=== PATIENT | male | born 1980 | race Caucasian/White ===

== ENCOUNTER 2018-11-20 14:43 | Inpatient (IN) | payer BC ==
[2018-11-20] MEDS ORDERED: ACETAMINOPHEN TAB 500 MG TAB PO STA (15:13)
[2018-11-20] MEDS ORDERED: IOPAMIDOL-300 CONTRAST 30 ML VIAL (ORAL USE) PO PRN (15:14)
--- NOTE | 2018-11-20 15:21 | ED ---
Abdominal Pain HPI - General Chief Complaint: Abdominal Pain Stated Complaint: Abd Pain Time Seen by Provider: 11/20/18 14:59 Source: patient Mode of arrival: ambulatory Limitations: no limitations - History of Present Illness Initial Comments: Patient is a 38-year-old male presenting for abdominal pain. The patient states that possibly 2 weeks ago, he was seen at outside facility and diagnosed with diverticulitis as well as a kidney stone. He was given Flagyl and ciprofloxacin and advised to follow-up. Y states that he has been having intermittent pain in his lower abdomen since that time but this morning at 9 AM , he got much worse. The pain feels a good cramp sharp sensation radiating down to his testicles. He also plans of nausea and fevers and chills but no vomiting or diarrhea. He states that he also has not been able to urinate in the last 6 hours and feels urge to go. He also has a history of a 7.5 mm stone which also passed on its own. - Related Data Home Medications Medication Instructions Recorded Confirmed Atorvastatin [Lipitor] 20 mg PO HS 11/20/18 11/20/18 Ciprofloxacin HCl [Cipro] 500 mg PO BID 11/20/18 11/20/18 Escitalopram Oxalate [Lexapro] 10 mg PO BID 11/20/18 11/20/18 Fenofibrate,Micronized 134 mg PO DAILY 11/20/18 11/20/18 [Fenofibrate] Lisinopril 40 mg PO DAILY 11/20/18 11/20/18 metroNIDAZOLE [Flagyl] 500 mg PO TID 11/20/18 11/20/18 Allergies Allergy/AdvReac Type Severity Reaction Status Date / Time No Known Allergies Allergy Verified 11/20/18 15:04 Review of Systems ROS Statement: Those systems with pertinent positive or pertinent negative responses have been documented in the HPI. Constitutional: Positive for chills, fatigue and fever. HENT: Negative for congestion. Respiratory: Negative for chest tightness, shortness of breath and wheezing. Negative for cough Cardiovascular: Negative for chest pain and palpitations. Gastrointestinal: Positive for abdominal pain and nausea. Negative for abdominal distention, diarrhea, and vomiting. Genitourinary: Negative for dysuria. Positive for urinary hesitancy. Positive for testicular pain Musculoskeletal: Negative for back pain, neck pain and neck stiffness. Skin: Negative for color change. Neurological: Negative for dizziness, speech difficulty, weakness and light- headedness. Psychiatric/Behavioral: Negative for agitation and confusion. Negative for anxiety ROS Other: All systems not noted in ROS Statement are negative. Past Medical History Past Medical History: Hyperlipidemia, Hypertension Additional Past Medical History / Comment(s): kidney stones multiple times History of Any Multi-Drug Resistant Organisms: None Reported Past Surgical History: Cholecystectomy Past Psychological History: Anxiety Smoking Status: Never smoker Past Alcohol Use History: None Reported Past Drug Use History: Marijuana General Exam - General Exam Comments Initial Comments: Constitutional: Pt is oriented to person, place, and time. Pt appears well- developed and well-nourished. No distress. HENT: Head: Normocephalic and atraumatic. Eyes: EOM are normal. Neck: Normal range of motion. Neck supple. Cardiovascular: Tachycardia present, regular rhythm, S1 normal, S2 normal and normal heart sounds. Exam reveals no gallop and no friction rub. No murmur heard. Pulmonary/Chest: Effort normal and breath sounds normal. No tachypnea and no bradypnea. No respiratory distress. No wheezes or rales noted. Abdominal: Soft. Bowel sounds are normal. Pt exhibits no shifting dullness, no distension, no pulsatile liver, no fluid wave, no abdominal bruit and no ascites. There is tenderness on the left lower quadrant and suprapubic area. There is no rigidity, no rebound, no guarding, no tenderness at McBurney's point and negative Cho's sign. Musculoskeletal: Normal range of motion. : Normal lie of bilateral testicles with no tenderness to palpation Neurological: Pt is alert and oriented to person, place, and time. No cranial nerve deficit. Skin: Skin is warm and dry. No rash noted. Pt is not diaphoretic. No erythema. No pallor. Psychiatric: Pt has a normal mood and affect. Pt behavior is normal. Thought content normal. Limitations: no limitations Course Vital Signs 11/20/18 11/20/18 11/20/18 14:50 15:19 16:00 Temperature 100.1 F H Pulse Rate 129 H 109 H 92 Respiratory 18 22 24 Rate Blood Pressure 119/70 128/81 O2 Sat by Pulse 96 95 98 Oximetry Medical Decision Making - Medical Decision Making Laboratory studies showed that there was no significant leukocytosis and lactic acid was measured at 1.8. Upon arrival, the patient was tachycardic and febrile and therefore blood cultures were also obtained as well as fluid bolus and infusion. Urinalysis was negative for infection and CT of the abdomen showed circumferential wall thickening of the sigmoid colon as well as microperforations without evidence of diverticulitis. Case is discussed with general surgery, Dr. Engle and it was agreed that Zosyn was acceptable and that the patient should be admitted. I did time of disposition, the patient was hemodynamically stable and did not have a surgical abdomen. - Lab Data Result diagrams: 11/20/18 15:15 11/20/18 15:15 Lab Results 11/20/18 11/20/18 11/20/18 Range/Units 15:15 15:15 15:15 WBC 9.3 (3.8-10.6) k/uL RBC 5.12 (4.30-5.90) m/uL Hgb 14.2 (13.0-17.5) gm/dL Hct 41.9 (39.0-53.0) % MCV 81.8 (80.0-100.0) fL MCH 27.8 (25.0-35.0) pg MCHC 33.9 (31.0-37.0) g/dL RDW 13.6 (11.5-15.5) % Plt Count 315 (150-450) k/uL Neutrophils % 82 % Lymphocytes % 12 % Monocytes % 4 % Eosinophils % 1 % Basophils % 0 % Neutrophils # 7.6 (1.3-7.7) k/uL Lymphocytes # 1.1 (1.0-4.8) k/uL Monocytes # 0.4 (0-1.0) k/uL Eosinophils # 0.1 (0-0.7) k/uL Basophils # 0.0 (0-0.2) k/uL PT (9.0-12.0) sec INR (<1.2) APTT (22.0-30.0) sec Sodium 135 L (137-145) mmol/L Potassium 4.6 (3.5-5.1) mmol/L Chloride 100 (98-107) mmol/L Carbon Dioxide 25 (22-30) mmol/L Anion Gap 10 mmol/L BUN 20 (9-20) mg/dL Creatinine 1.09 (0.66-1.25) mg/dL Est GFR (CKD-EPI)AfAm >90 (>60 ml/min/1.73 sqM) Est GFR (CKD-EPI)NonAf 86 (>60 ml/min/1.73 sqM) Glucose 132 H (74-99) mg/dL Plasma Lactic Acid Ab 1.8 (0.7-2.0) mmol/L Calcium 10.7 H (8.4-10.2) mg/dL Total Bilirubin 0.7 (0.2-1.3) mg/dL AST 32 (17-59) U/L ALT 61 (21-72) U/L Alkaline Phosphatase 32 L (38-126) U/L Total Protein 7.6 (6.3-8.2) g/dL Albumin 4.3 (3.5-5.0) g/dL Urine Color Urine Appearance (Clear) Urine pH (5.0-8.0) Ur Specific [place] (1.001-1.035) Urine Protein (Negative) Urine Glucose (UA) (Negative) Urine Ketones (Negative) Urine Blood (Negative) Urine Nitrite (Negative) Urine Bilirubin (Negative) Urine Urobilinogen (<2.0) mg/dL Ur Leukocyte Esterase (Negative) Urine RBC (0-5) /hpf Urine WBC (0-5) /hpf Urine Mucus (None) /hpf Influenza Type A RNA (Not Detectd) Influenza Type B (PCR) (Not Detectd) 11/20/18 11/20/18 11/20/18 Range/Units 15:15 15:38 15:43 WBC (3.8-10.6) k/uL RBC (4.30-5.90) m/uL Hgb (13.0-17.5) gm/dL Hct (39.0-53.0) % MCV (80.0-100.0) fL MCH (25.0-35.0) pg MCHC (31.0-37.0) g/dL RDW (11.5-15.5) % Plt Count (150-450) k/uL Neutrophils % % Lymphocytes % % Monocytes % % Eosinophils % % Basophils % % Neutrophils # (1.3-7.7) k/uL Lymphocytes # (1.0-4.8) k/uL Monocytes # (0-1.0) k/uL Eosinophils # (0-0.7) k/uL Basophils # (0-0.2) k/uL PT 11.0 (9.0-12.0) sec INR 1.0 (<1.2) APTT 21.3 L (22.0-30.0) sec Sodium (137-145) mmol/L Potassium (3.5-5.1) mmol/L Chloride (98-107) mmol/L Carbon Dioxide (22-30) mmol/L Anion Gap mmol/L BUN (9-20) mg/dL Creatinine (0.66-1.25) mg/dL Est GFR (CKD-EPI)AfAm (>60 ml/min/1.73 sqM) Est GFR (CKD-EPI)NonAf (>60 ml/min/1.73 sqM) Glucose (74-99) mg/dL Plasma Lactic Acid Ab (0.7-2.0) mmol/L Calcium (8.4-10.2) mg/dL Total Bilirubin (0.2-1.3) mg/dL AST (17-59) U/L ALT (21-72) U/L Alkaline Phosphatase (38-126) U/L Total Protein (6.3-8.2) g/dL Albumin (3.5-5.0) g/dL Urine Color Yellow Urine Appearance Clear (Clear) Urine pH 5.5 (5.0-8.0) Ur Specific [place] 1.019 (1.001-1.035) Urine Protein 1+ H (Negative) Urine Glucose (UA) Negative (Negative) Urine Ketones Trace H (Negative) Urine Blood Trace H (Negative) Urine Nitrite Negative (Negative) Urine Bilirubin Negative (Negative) Urine Urobilinogen <2.0 (<2.0) mg/dL Ur Leukocyte Esterase Trace H (Negative) Urine RBC 1 (0-5) /hpf Urine WBC 3 (0-5) /hpf Urine Mucus Occasional H (None) /hpf Influenza Type A RNA Not Detected (Not Detectd) Influenza Type B (PCR) Not Detected (Not Detectd) - EKG Data EKG Comments: EKG shows sinus tachycardia with a rate of 110 bpm, [place] interval 138, QRS 96, QTC 414. There are no significant ST depressions or elevations. Disposition Clinical Impression: Sepsis, Colitis Disposition: ADMITTED IP TO THIS HOSP Condition: Fair Referrals: Valentin Zabala, PAC [REFERRING] - 1-2 days Decision to Admit Reason: Admit from EC Decision Date: 11/20/18 Decision Time: 18:11
[2018-11-20 15:33] LABS: Basophils % (A) 0 %; Eosinophils # (A) 0.1 k/uL (0-0.7); Eosinophils % (A) 1 %; HCT 41.9 % (39.0-53.0); HGB 14.2 gm/dL (13.0-17.5); Lymphocytes # (A) 1.1 k/uL (1.0-4.8); Lymphocytes % (A) 12 %; MCH 27.8 pg (25.0-35.0); MCHC 33.9 g/dL (31.0-37.0); MCV 81.8 fL (80.0-100.0); Mean Platelet Volume 6.5; Monocytes # (A) 0.4 k/uL (0-1.0); Monocytes % (A) 4 %; Neutrophils # (A) 7.6 k/uL (1.3-7.7); Neutrophils % (A) 82 %; Platelet Count 315 k/uL (150-450); RBC 5.12 m/uL (4.30-5.90); RDW 13.6 % (11.5-15.5); WBC 9.3 k/uL (3.8-10.6)
[2018-11-20] MEDS: SODIUM CHLORIDE 0.9% 500 ML 500 ML IV SCH ×2 (15:33→15:34)
[2018-11-20] MEDS: SODIUM CHLORIDE 0.9% 1,000 ML IV SCH ×2 (15:34→23:50)
[2018-11-20 15:40] LABS: ALT 61 U/L (21-72); AST 32 U/L (17-59); Albumin 4.3 g/dL (3.5-5.0); Alkaline Phosphatase 32 U/L (38-126); Anion Gap 10 mmol/L; Blood Urea Nitrogen 20 mg/dL (9-20); Calcium 10.7 mg/dL (8.4-10.2); Carbon Dioxide 25 mmol/L (22-30); Chloride 100 mmol/L (98-107); Glucose 132 mg/dL (74-99); Potassium 4.6 mmol/L (3.5-5.1); Sodium 135 mmol/L (137-145); Total Bilirubin 0.7 mg/dL (0.2-1.3); Total Protein 7.6 g/dL (6.3-8.2)
[2018-11-20] MEDS ORDERED: ONDANSETRON 4 MG/2 ML VIAL IVP STA (15:57)
[2018-11-20] MEDS ORDERED: MORPHINE SULFATE 4 MG/ML SYRINGE IVP STA (15:57)
[2018-11-20 16:00] LABS: Appearance,Urine Clear (Clear); Bilirubin,Urine Negative (Negative); Blood,Urine Trace (Negative); Color,Urine Yellow; Glucose,Urine (UA) Negative (Negative); Ketones,Urine Trace (Negative); Leukocyte Esterase,Urine Trace (Negative); Mucus,Urine Occasional /hpf; Nitrite,Urine Negative (Negative); PH, Urine 5.5 (5.0-8.0); Protein,Urine 1+ (Negative); RBC,Urine 1 /hpf (0-5); Specific Gravity,Urine 1.019 (1.001-1.035); Urobilinogen,Urine <2.0 mg/dL (<2.0); WBC,Urine 3 /hpf (0-5)
[2018-11-20 16:01] LABS: Partial Thromboplastin Time 21.3 sec (22.0-30.0)
[2018-11-20] MEDS ORDERED: HYDROmorphone 1 MG/ML 1 ML SYRINGE IVP STA (17:30)
--- NOTE | 2018-11-20 17:37 | CT ---
EXAMINATION TYPE: CT abdomen pelvis w con DATE OF EXAM: 11/20/2018 COMPARISON: None. HISTORY: 38-year-old male with low abdominal pain and reported history of diverticulitis CT DLP: 1499 mGycm Automated exposure control for dose reduction was used. TECHNIQUE: Helical acquisition of images was performed from the lung bases through the pelvis. CONTRAST: Imaging was obtained following intravenous administration of 100 cc of Isovue-[address] FINDINGS: LUNG BASES: No significant abnormality is appreciated. LIVER/GB: Gallbladder is surgically absent. Overall low attenuation of the hepatic parenchyma. PANCREAS: No significant abnormality is seen. SPLEEN: No significant abnormality is seen. ADRENALS: No significant abnormality is seen. KIDNEYS: 6 mm nonobstructing left-sided renal stone. No additional concerning renal findings. No hydr onephrosis. RETROPERITONEAL ADENOPATHY: None visualized REPRODUCTIVE ORGANS: No significant abnormality is seen URINARY BLADDER: No significant abnormality is seen. PELVIC ADENOPATHY: None visualized. OSSEOUS STRUCTURES: No significant abnormality is seen. BOWEL: Long segment circumferential wall thickening of the sigmoid: With extensive surrounding mesen teric fat inflammatory changes. Numerous foci of extra luminal air also seen centered within this are a. Small amount of fluid is seen within the low pelvis in this region. Multiple stacked loops of prom inent small bowel are seen is centered within the mid abdomen with air-fluid levels. IMPRESSION: 1. Circumferential long segment wall thickening of the sigmoid colon with extensive surrounding mesen teric fat inflammation and microperforation. Infectious or inflammatory etiologies are favored. No di stinct diverticula are seen in this region. Endoscopy should be considered following resolution of sy mptoms. 2. Multiple prominent stacked loops of small bowel with air-fluid levels likely relating to reactive ileus. 3. Nonobstructing left sided mid pole renal stone. 4. Diffuse low attenuation of the hepatic parenchyma most consistent with hepatic steatosis. Supplemental communication-findings were discussed with Dr. Gupta by Dr. Briceno on 11/20/2018 at 1730 hours.
[2018-11-20] MEDS: PIPERACILLIN-TAZOBACTAM 3.375 GM in SODIUM CHLORIDE 0.9% 100 ML IVPB SCH ×2 (18:52→23:44)
[2018-11-20] MEDS: ACETAMINOPHEN IV (For NPO) 650 MG in EMPTY BAG 1 BAG IVPB PRN (22:00)
[2018-11-20] MEDS: HYDROmorphone 0.5 MG/0.5 ML SYRINGE IVP PRN (23:49)
[2018-11-20] MEDS: ONDANSETRON 4 MG/2 ML VIAL IVP PRN (23:49)
[2018-11-21] MEDS: ACETAMINOPHEN IV (For NPO) 650 MG in EMPTY BAG 1 BAG IVPB PRN (02:50)
[2018-11-21] MEDS: HYDROmorphone 0.5 MG/0.5 ML SYRINGE IVP PRN ×6 (02:51→23:10)
[2018-11-21 09:01] LABS: Basophils % (A) 0 %; Eosinophils % (A) 0 %; HCT 37.2 % (39.0-53.0); Lymphocytes # (A) 0.7 k/uL (1.0-4.8); Lymphocytes % (A) 7 %; MCH 27.1 pg (25.0-35.0); MCHC 32.3 g/dL (31.0-37.0); Mean Platelet Volume 6.3; Monocytes # (A) 0.3 k/uL (0-1.0); Monocytes % (A) 3 %; Neutrophils # (A) 8.9 k/uL (1.3-7.7); Neutrophils % (A) 89 %; Platelet Count 275 k/uL (150-450); RBC 4.43 m/uL (4.30-5.90); RDW 13.7 % (11.5-15.5); WBC 9.9 k/uL (3.8-10.6)
[2018-11-21] MEDS: PIPERACILLIN-TAZOBACTAM 3.375 GM in SODIUM CHLORIDE 0.9% 100 ML IVPB SCH ×3 (09:05→23:10)
[2018-11-21] MEDS: SODIUM CHLORIDE 0.9% 1,000 ML IV SCH (09:05)
[2018-11-21 09:09] LABS: ALT 51 U/L (21-72); AST 26 U/L (17-59); Albumin 3.3 g/dL (3.5-5.0); Alkaline Phosphatase 23 U/L (38-126); Anion Gap 7 mmol/L; Blood Urea Nitrogen 12 mg/dL (9-20); Calcium 9.3 mg/dL (8.4-10.2); Carbon Dioxide 27 mmol/L (22-30); Chloride 105 mmol/L (98-107); Glucose 124 mg/dL (74-99); Potassium 4.3 mmol/L (3.5-5.1); Sodium 139 mmol/L (137-145); Total Bilirubin 0.9 mg/dL (0.2-1.3); Total Protein 6.1 g/dL (6.3-8.2)
[2018-11-21] MEDS: LISINOPRIL 20 MG TAB PO SCH (09:09)
[2018-11-21] MEDS ORDERED: SODIUM CHLORIDE 0.9% 500 ML 500 ML IV ONE (10:04)
--- NOTE | 2018-11-21 11:44 | P.GSHP ---
History of Present Illness H&P Date: 11/21/18 Chief Complaint: Diverticulitis 38-year-old male presents to the ER yesterday with increasing pain left lower quadrant. Patient starting having pain approximately 2.5 weeks ago. He was seen in the outpatient setting by his primary care physician. He was started on Augmentin. He completed that course and did have some improvement in his symptoms. He says he was off antibiotics for 3-4 days when his pain felt like it was coming back. He was then seen again and started on Cipro and Flagyl. He only took 1 dose of each when his pain was increasing and he came to the hospital. Some bloating. He is having adequate bowel function. Only small amount of bright red blood per rectum. No previous colonoscopy. No family history of inflammatory bowel disease or colon cancer. CAT scan was performed after arrival which showed a phlegmon adjacent to the sigmoid colon and a small- to-moderate amount of air within the mesentery of the sigmoid colon. No free intraperitoneal air is visualized with certainty. Patient states his pain today is down to 5-6 compared to 10 last night. His white blood cell count normal yesterday and today. He has been tachycardic particularly when ambulating. Resting heart rate in the 90s. Pain localized he states to the lower abdomen. No vomiting. Some nausea. - Review of Systems Comment: The patient denies any acute changes in vision or hearing, no dysphagia or odynophagia, no chest pain or shortness of breath, no dysuria or hematuria, no headache, no runny nose, no melena, no unexplained weight loss Past Medical History Past Medical History: Hyperlipidemia, Hypertension Additional Past Medical History / Comment(s): kidney stones multiple times History of Any Multi-Drug Resistant Organisms: None Reported Past Surgical History: Cholecystectomy Additional Past Surgical History / Comment(s): kidney stone surgery Past Anesthesia/Blood Transfusion Reactions: Postoperative Nausea & Vomiting ( PONV) Past Psychological History: Anxiety Smoking Status: Never smoker Past Alcohol Use History: None Reported Past Drug Use History: Marijuana - Past Family History Father History Unknown: Yes Mother Family Medical History: COPD Additional Family Medical History / Comment(s): recently Medications and Allergies Home Medications Medication Instructions Recorded Confirmed Type Atorvastatin [Lipitor] 20 mg PO HS 11/20/18 11/20/18 History Ciprofloxacin HCl [Cipro] 500 mg PO BID 11/20/18 11/20/18 History Escitalopram Oxalate [Lexapro] 10 mg PO BID 11/20/18 11/20/18 History Fenofibrate,Micronized 134 mg PO DAILY 11/20/18 11/20/18 History [Fenofibrate] Lisinopril 40 mg PO DAILY 11/20/18 11/20/18 History metroNIDAZOLE [Flagyl] 500 mg PO TID 11/20/18 11/20/18 History Allergies Allergy/AdvReac Type Severity Reaction Status Date / Time No Known Allergies Allergy Verified 11/20/18 15:04 Surgical - Exam Vital Signs Temp Pulse Resp BP Pulse Ox 100.1 F H 129 H 18 119/70 96 11/20/18 14:50 11/20/18 14:50 11/20/18 14:50 11/20/18 14:50 11/20/18 14:50 Physical exam: General: Well-developed, well-nourished HEENT: Normocephalic, sclerae nonicteric Abdomen: Mild distention, moderate left lower quadrant tenderness without rebound or guarding Extremities: No edema Neuro: Alert and oriented Results - Labs 11/21/18 08:40 11/21/18 08:40 Abnormal Lab Results - Last 24 Hours (Table) 11/20/18 11/20/18 11/20/18 Range/Units 15:15 15:15 15:43 Hgb (13.0-17.5) gm/dL Hct (39.0-53.0) % Neutrophils # (1.3-7.7) k/uL Lymphocytes # (1.0-4.8) k/uL APTT 21.3 L (22.0-30.0) sec Sodium 135 L (137-145) mmol/L Glucose 132 H (74-99) mg/dL Calcium 10.7 H (8.4-10.2) mg/dL Alkaline Phosphatase 32 L (38-126) U/L Total Protein (6.3-8.2) g/dL Albumin (3.5-5.0) g/dL Urine Protein 1+ H (Negative) Urine Ketones Trace H (Negative) Urine Blood Trace H (Negative) Ur Leukocyte Esterase Trace H (Negative) Urine Mucus Occasional H (None) /hpf 11/21/18 11/21/18 Range/Units 08:40 08:40 Hgb 12.0 L (13.0-17.5) gm/dL Hct 37.2 L (39.0-53.0) % Neutrophils # 8.9 H (1.3-7.7) k/uL Lymphocytes # 0.7 L (1.0-4.8) k/uL APTT (22.0-30.0) sec Sodium (137-145) mmol/L Glucose 124 H (74-99) mg/dL Calcium (8.4-10.2) mg/dL Alkaline Phosphatase 23 L (38-126) U/L Total Protein 6.1 L (6.3-8.2) g/dL Albumin 3.3 L (3.5-5.0) g/dL Urine Protein (Negative) Urine Ketones (Negative) Urine Blood (Negative) Ur Leukocyte Esterase (Negative) Urine Mucus (None) /hpf Microbiology - Last 24 Hours (Table) 11/20/18 15:43 Urine Culture - Preliminary Urine,Voided Diabetes panel 11/20/18 11/21/18 Range/Units 15:15 08:40 Sodium 135 L 139 (137-145) mmol/L Potassium 4.6 4.3 (3.5-5.1) mmol/L Chloride 100 105 (98-107) mmol/L Carbon Dioxide 25 27 (22-30) mmol/L BUN 20 12 (9-20) mg/dL Creatinine 1.09 0.96 (0.66-1.25) mg/dL Glucose 132 H 124 H (74-99) mg/dL Calcium 10.7 H 9.3 (8.4-10.2) mg/dL AST 32 26 (17-59) U/L ALT 61 51 (21-72) U/L Alkaline Phosphatase 32 L 23 L (38-126) U/L Total Protein 7.6 6.1 L (6.3-8.2) g/dL Albumin 4.3 3.3 L (3.5-5.0) g/dL Calcium panel 11/20/18 11/21/18 Range/Units 15:15 08:40 Calcium 10.7 H 9.3 (8.4-10.2) mg/dL Albumin 4.3 3.3 L (3.5-5.0) g/dL Pituitary panel 11/20/18 11/21/18 Range/Units 15:15 08:40 Sodium 135 L 139 (137-145) mmol/L Potassium 4.6 4.3 (3.5-5.1) mmol/L Chloride 100 105 (98-107) mmol/L Carbon Dioxide 25 27 (22-30) mmol/L BUN 20 12 (9-20) mg/dL Creatinine 1.09 0.96 (0.66-1.25) mg/dL Glucose 132 H 124 H (74-99) mg/dL Calcium 10.7 H 9.3 (8.4-10.2) mg/dL Adrenal panel 11/20/18 11/21/18 Range/Units 15:15 08:40 Sodium 135 L 139 (137-145) mmol/L Potassium 4.6 4.3 (3.5-5.1) mmol/L Chloride 100 105 (98-107) mmol/L Carbon Dioxide 25 27 (22-30) mmol/L BUN 20 12 (9-20) mg/dL Creatinine 1.09 0.96 (0.66-1.25) mg/dL Glucose 132 H 124 H (74-99) mg/dL Calcium 10.7 H 9.3 (8.4-10.2) mg/dL Total Bilirubin 0.7 0.9 (0.2-1.3) mg/dL AST 32 26 (17-59) U/L ALT 61 51 (21-72) U/L Alkaline Phosphatase 32 L 23 L (38-126) U/L Total Protein 7.6 6.1 L (6.3-8.2) g/dL Albumin 4.3 3.3 L (3.5-5.0) g/dL Assessment and Plan (1) Perforation of sigmoid colon due to diverticulitis Narrative/Plan: Clinical scenario discussed in detail with the patient. CAT scan films were actually reviewed with the patient. He and I discussed the options of proceeding with sigmoid colectomy and end colostomy at this time. Patient states he is feeling better today. It is reasonable to continue trial of nonoperative management. Continue nothing by mouth. Continue antibiotics. Will consult infectious disease. Further decisions regarding colectomy will be made based on his progress. Current Visit: Yes Status: Acute Code(s): K57.20 - DVTRCLI OF LG INT W PERFORATION AND ABSCESS W/O BLEEDING SNOMED Code(s): 9079833733628853
[2018-11-21] MEDS: KETOROLAC 30 MG/ML 1 ML VIAL IVP SCH ×3 (13:16→23:11)
[2018-11-21] MEDS: DEXTROSE 5%-0.45% NACL 1,000 ML with POTASSIUM CHLORIDE 20 MEQ IV SCH ×4 (14:32→22:43)
--- NOTE | 2018-11-21 14:34 | P.CONS ---
History of Present Illness - Reason for Consult Consult date: 11/21/18 Medical management while hospitalized Requesting physician: Guillermo Engle - Chief Complaint Abdominal pain - History of Present Illness Sheldon Virk, is a 38-year-old male patient of Dr. Blanquita Pimentel who presented to [facility] emergency room with a chief complaint of abdominal pain patient states that his pain started about 2 and a half weeks ago at that time he went to [facility] emergency room he was given a course of antibiotic and was discharged home, he finished the course of Augmentin but his symptoms did not resolve he went to [facility] he was evaluated there and given a course of Cipro and Flagyl he started taking the course however he started having worsening abdominal pain and he came to [facility] emergency room computed tomography scan of the abdomen and pelvis was done in emergency room and revealed evidence of fluid collection adjacent to the sigmoid colon and air within the mesentery of the sigmoid colon suggestive of microperforation, patient was admitted under Dr. Willian Engle service, medical consultation was requested for management while hospitalized. Patient has a known history of hypertension and hyperlipidemia well-controlled on medications, he has a remote history of kidney stones with multiple intervention in the past mostly between 10 years ago and 6 years ago, he also has a history of cholecystectomy. Past Medical History Past Medical History: Hyperlipidemia, Hypertension Additional Past Medical History / Comment(s): kidney stones multiple times History of Any Multi-Drug Resistant Organisms: None Reported Past Surgical History: Cholecystectomy Additional Past Surgical History / Comment(s): kidney stone surgery Past Anesthesia/Blood Transfusion Reactions: Postoperative Nausea & Vomiting ( PONV) Past Psychological History: Anxiety Smoking Status: Never smoker Past Alcohol Use History: None Reported Past Drug Use History: Marijuana - Past Family History Father History Unknown: Yes Mother Family Medical History: COPD Additional Family Medical History / Comment(s): recently Medications and Allergies Home Medications Medication Instructions Recorded Confirmed Type Atorvastatin [Lipitor] 20 mg PO HS 11/20/18 11/20/18 History Ciprofloxacin HCl [Cipro] 500 mg PO BID 11/20/18 11/20/18 History Escitalopram Oxalate [Lexapro] 10 mg PO BID 11/20/18 11/20/18 History Fenofibrate,Micronized 134 mg PO DAILY 11/20/18 11/20/18 History [Fenofibrate] Lisinopril 40 mg PO DAILY 11/20/18 11/20/18 History metroNIDAZOLE [Flagyl] 500 mg PO TID 11/20/18 11/20/18 History Allergies Allergy/AdvReac Type Severity Reaction Status Date / Time No Known Allergies Allergy Verified 11/20/18 15:04 Physical Exam Vitals: Vital Signs Temp Pulse Pulse Resp BP BP Pulse Ox 11/21/18 07:00 98.6 F 95 16 130/79 95 11/21/18 01:06 98.9 F 88 16 119/68 97 11/20/18 22:12 16 11/20/18 20:30 98.4 F 99 16 105/67 95 11/20/18 18:54 100.9 F H 100 20 117/66 94 L 11/20/18 16:00 92 24 128/81 98 11/20/18 15:19 109 H 22 95 11/20/18 14:50 100.1 F H 129 H 18 119/70 96 Intake and Output 11/20/18 11/21/18 11/21/18 22:59 06:59 14:59 Intake Total 450 950 Balance 450 950 Intake: Intake, IV Titration 450 950 Amount ACETAMINOPHEN IV (For NPO 100 100 ) 650 mg In Empty Bag 1 bag @ 400 mls/hr IVPB Q4HR PRN Rx#:[id number] Piperacillin-Tazobactam 3 100 100 .375 gm In Sodium Chloride 0.9% 100 ml @ 25 mls/hr IVPB Q8HR MODE Rx# :[id number] Sodium Chloride 0.9% 1, 250 750 000 ml @ 125 mls/hr IV . Q8H MODE Rx#:[id number] Other: Voiding Method Toilet Toilet Toilet # Voids 1 2 # Bowel Movements 1 In general patient is alert and oriented 3 in no apparent distress HEENT head normocephalic and atraumatic Neck is supple no JVD no goiter no lymphadenopathy Chest exam reveals a few scattered crackles no wheezing Cardiac exam reveals regular heart sounds S1 and S2 no gallops no murmurs Abdomen is soft with tenderness in the left lower quadrant and less so on the right lower quadrant there is no organomegaly with normal bowel sounds Extremity exam reveals no edema no cyanosis or clubbing Results CBC & Chem 7: 11/21/18 08:40 11/21/18 08:40 Labs: Abnormal Lab Results - Last 24 Hours (Table) 11/20/18 11/20/18 11/20/18 Range/Units 15:15 15:15 15:43 Hgb (13.0-17.5) gm/dL Hct (39.0-53.0) % Neutrophils # (1.3-7.7) k/uL Lymphocytes # (1.0-4.8) k/uL APTT 21.3 L (22.0-30.0) sec Sodium 135 L (137-145) mmol/L Glucose 132 H (74-99) mg/dL Calcium 10.7 H (8.4-10.2) mg/dL Alkaline Phosphatase 32 L (38-126) U/L Total Protein (6.3-8.2) g/dL Albumin (3.5-5.0) g/dL Urine Protein 1+ H (Negative) Urine Ketones Trace H (Negative) Urine Blood Trace H (Negative) Ur Leukocyte Esterase Trace H (Negative) Urine Mucus Occasional H (None) /hpf 11/21/18 11/21/18 Range/Units 08:40 08:40 Hgb 12.0 L (13.0-17.5) gm/dL Hct 37.2 L (39.0-53.0) % Neutrophils # 8.9 H (1.3-7.7) k/uL Lymphocytes # 0.7 L (1.0-4.8) k/uL APTT (22.0-30.0) sec Sodium (137-145) mmol/L Glucose 124 H (74-99) mg/dL Calcium (8.4-10.2) mg/dL Alkaline Phosphatase 23 L (38-126) U/L Total Protein 6.1 L (6.3-8.2) g/dL Albumin 3.3 L (3.5-5.0) g/dL Urine Protein (Negative) Urine Ketones (Negative) Urine Blood (Negative) Ur Leukocyte Esterase (Negative) Urine Mucus (None) /hpf Microbiology - Last 24 Hours (Table) 11/20/18 15:43 Urine Culture - Preliminary Urine,Voided Assessment and Plan Plan: #1 acute colitis with evidence of microperforation of the sigmoid colon with possible abscess formation was fluid collection adjacent to the sigmoid colon Currently patient is maintained on IV antibiotics Zosyn possibility of partial colectomy was discussed with the patient by Dr. Engle, the need for that will depend on the clinical course. #2 underlying history of hypertension, well-controlled continue same medications #3 underlying history of hyperlipidemia #4 for DVT prophylaxis patient is maintained on subcu heparin for GI prophylaxis Will add IV Protonix #5 remote history of kidney stones, patient has a 6 mm nonobstructing left sided kidney stone at this time which is an incidental finding not related to patient pain and not causing any hydronephrosis at this time. Recheck labs in a.m. Will follow closely
[2018-11-21] MEDS: HEPARIN SODIUM,PORCINE 5,000 UNIT/ML 1 ML VIAL SQ SCH ×2 (16:37→23:11)
--- NOTE | 2018-11-22 00:41 | CONS ---
CONSULTATION DATE OF SERVICE: 11/21/2018. REASON FOR CONSULTATION: Acute diverticulitis, failing outpatient antibiotic therapy. HISTORY OF PRESENT ILLNESS: The patient is a 38-year-old male who apparently started having pain in his flank area about 2 weeks ago for which the patient did go to the [facility] where the patient did have a CT of the abdomen and pelvis and was diagnosed with acute diverticulitis. The patient told me that he was treated with oral Augmentin. It was for 2 weeks. He was still having some pain in the left lower quadrant area. The patient went to follow up with his primary care physician at [facility] on Thursday where the patient was instructed that if he has any recurrence of the pain or throwing up that he has to go to the [facility] ER. Patient on Thursday started having pain mostly in the left lower abdominal area. Pain described to be sharp, at times colicky, almost 10/10, in severity with no radiation, with associated dry heaves, but no vomiting and also associated difficulty urination. With these symptoms, the patient presented to the [facility] ER. The patient was evaluated by the ER physician. Patient did have a fever of 100.9. His white count was not significantly elevated. His UA was negative. The patient did have a heart rate of 99. A CT abdomen and pelvis was completed which did show some circumferential of the sigmoid colon with extensive surrounding mesenteric fat inflammation and microperforation, but no drainable abscess. The patient has been started on Zosyn and admitted to the hospital. Infectious disease was consulted for further recommendation regarding antibiotic therapy. REVIEW OF SYSTEMS: Positive points have been mentioned in HPI. The rest of 14 systems has been negative. PAST MEDICAL HISTORY: Hypertension, hyperlipidemia, kidney stone and diverticulitis. PAST SURGICAL HISTORY: Significant for kidney stones and cholecystectomy. SOCIAL HISTORY: No history of smoking, drinking, does admit to marijuana use. FAMILY HISTORY: Mother with history of COPD. ALLERGIES: No known drug allergies. MEDICATION: Include the patient is currently on: 1. Tylenol. 2. Heparin. 3. Dilaudid. 4. Toradol. 5. Zestril. 6. Zofran. 7. Zosyn. PHYSICAL EXAMINATION: Blood pressure is 104/63 with a pulse of 92, temperature 98.5, T-max a 100.9, he is 96% on room air. General description is a middle-aged male lying in bed in no distress. No tachypnea or accessory muscles of respiration use. HEENT: Shows pallor. No scleral icterus. Oral mucosa membranes are dry. No pharyngeal erythema or thrush. Neck trachea central. No thyromegaly. Lungs unlabored breathing. Clear to auscultation anteriorly. No wheeze or crackles. Heart S1, S2. Regular rate and rhythm. ABDOMEN: Soft, mildly distended, tender in the left lower quadrant area. No guarding. No rigidity. No organomegaly. Extremities: No edema of the feet. Skin examination: No rash or mass palpable. Neurological: Patient is awake, alert, oriented x3. Mood and affect normal. LABS: Hemoglobin is 12, white count 9.9, BUN of 12, creatinine 0.96, electrolytes have been normal. Liver enzymes are normal. The influenza PCR has been negative. CT of the abdomen and pelvis report mentioned above. DIAGNOSTIC IMPRESSION AND PLAN: Patient with acute sigmoid diverticulitis with microperforation. No evidence of any drainable abscess. Failing outpatient oral Augmentin therapy in this patient who did have features of sepsis on presentation with fever, tachycardia, source being acute sigmoid diverticulitis with microperforation and will likely need to cover for the enteric gram-negative both aerobes and anaerobes. PLAN: 1. Zosyn 3.375 g q.8 hours and the patient n.p.o. 2. Gentle IV fluid. 3. We will follow up on his clinical condition to further adjust medication if needed. In view of this extensive diverticulitis, if the patient does show some improvement, may benefit from outpatient IV antibiotic therapy and close outpatient followup. 4. Continue supportive care. MMODL / IJN: [id number] /
[2018-11-22] MEDS: DEXTROSE 5%-0.45% NACL 1,000 ML with POTASSIUM CHLORIDE 20 MEQ IV SCH ×4 (02:40→04:24)
[2018-11-22] MEDS: HYDROmorphone 0.5 MG/0.5 ML SYRINGE IVP PRN ×3 (04:24→13:06)
[2018-11-22] MEDS: KETOROLAC 30 MG/ML 1 ML VIAL IVP SCH ×2 (05:15→12:07)
[2018-11-22 08:38] LABS: Basophils % (A) 0 %; Eosinophils # (A) 0.1 k/uL (0-0.7); Eosinophils % (A) 1 %; HCT 36.3 % (39.0-53.0); HGB 11.8 gm/dL (13.0-17.5); Hypochromasia Slight; Lymphocytes # (A) 0.7 k/uL (1.0-4.8); Lymphocytes % (A) 7 %; MCH 27.9 pg (25.0-35.0); MCHC 32.4 g/dL (31.0-37.0); MCV 86.1 fL (80.0-100.0); Mean Platelet Volume 6.9; Monocytes # (A) 0.4 k/uL (0-1.0); Monocytes % (A) 4 %; Neutrophils # (A) 8.7 k/uL (1.3-7.7); Neutrophils % (A) 88 %; Platelet Count 261 k/uL (150-450); RBC 4.21 m/uL (4.30-5.90); WBC 9.9 k/uL (3.8-10.6)
[2018-11-22] MEDS: PIPERACILLIN-TAZOBACTAM 3.375 GM in SODIUM CHLORIDE 0.9% 100 ML IVPB SCH ×2 (08:51→15:53)
[2018-11-22 08:52] LABS: Calcium 8.9 mg/dL (8.4-10.2); Potassium 4.6 mmol/L (3.5-5.1)
[2018-11-22] MEDS: LISINOPRIL 20 MG TAB PO SCH (08:52)
[2018-11-22] MEDS: HEPARIN SODIUM,PORCINE 5,000 UNIT/ML 1 ML VIAL SQ SCH ×2 (08:58→15:53)
--- NOTE | 2018-11-22 10:34 | P.PN ---
Subjective Progress Note Date: 11/22/18 Sheldon Virk, is a 38-year-old male patient of Dr. Blanquita Pimentel who presented to [facility] emergency room with a chief complaint of abdominal pain patient states that his pain started about 2 and a half weeks ago at that time he went to [facility] emergency room he was given a course of antibiotic and was discharged home, he finished the course of Augmentin but his symptoms did not resolve he went to [facility] he was evaluated there and given a course of Cipro and Flagyl he started taking the course however he started having worsening abdominal pain and he came to [facility] emergency room computed tomography scan of the abdomen and pelvis was done in emergency room and revealed evidence of fluid collection adjacent to the sigmoid colon and air within the mesentery of the sigmoid colon suggestive of microperforation, patient was admitted under Dr. Willian Engle service, medical consultation was requested for management while hospitalized. Patient has a known history of hypertension and hyperlipidemia well-controlled on medications, he has a remote history of kidney stones with multiple intervention in the past mostly between 10 years ago and 6 years ago, he also has a history of cholecystectomy. 11/22/2018 patient still complaining of lower abdominal pain and abdominal distention. Surgical service is following awaiting their evaluation regarding possible surgery. Patient now having low-grade temps of 99.9. He was hypotensive yesterday blood pressure 99/61. Blood pressure this morning 101/64 creatinine has gone up to 1.51 lisinopril be discontinued. He is currently on IV fluids. Denies any chest pain or shortness of breath. Denies any nausea or vomiting. Reports having bowel movements that are loose in small amounts. Denies any burning with urination. Objective - Vital Signs Vital signs: Vital Signs Temp 97.6 F 11/22/18 07:17 Pulse 90 11/22/18 07:17 Resp 14 11/22/18 07:17 BP 101/64 11/22/18 07:17 Pulse Ox 98 11/22/18 07:17 Intake & Output 11/21/18 11/22/18 11/22/18 18:59 06:59 18:59 Intake Total 1000 1470 Balance 1000 1470 Weight 97.976 kg Intake: IV 1000 Dextrose 5%-0.45% NaCl 1, 1000 000 ml @ 150 mls/hr IV . Q6H44M MODE with Potassium Chloride 20 meq Rx#: [id number] Intake, IV Titration 1420 Amount Dextrose 5%-0.45% NaCl 1, 1220 000 ml @ 150 mls/hr IV . Q6H44M MODE with Potassium Chloride 20 meq Rx#: [id number] Piperacillin-Tazobactam 3 200 .375 gm In Sodium Chloride 0.9% 100 ml @ 25 mls/hr IVPB Q8HR MODE Rx# :[id number] Oral 50 Other: Voiding Method Toilet Toilet Toilet # Voids 2 2 # Bowel Movements 1 - Exam Head normocephalic Neck supple Lungs clear to auscultation bilaterally no wheezing or crackles Heart regular rate and rhythm S1-S2, no rub or gallop Abdomen is soft and distended lower abdominal tenderness positive bowel sounds Extremities no edema Neuro alert and orientated to 3 - Labs CBC & Chem 7: 11/22/18 07:55 11/22/18 07:55 Labs: Abnormal Lab Results - Last 24 Hours (Table) 11/22/18 11/22/18 Range/Units 07:55 07:55 RBC 4.21 L (4.30-5.90) m/uL Hgb 11.8 L (13.0-17.5) gm/dL Hct 36.3 L (39.0-53.0) % Neutrophils # 8.7 H (1.3-7.7) k/uL Lymphocytes # 0.7 L (1.0-4.8) k/uL Creatinine 1.51 H (0.66-1.25) mg/dL Glucose 135 H (74-99) mg/dL Microbiology - Last 24 Hours (Table) 11/20/18 15:43 Urine Culture - Final Urine,Voided 11/20/18 15:15 Blood Culture - Preliminary Blood No Growth after 24 hours Assessment and Plan Assessment: #1 acute sigmoid diverticulitis with evidence of microperforation and possible abscess formation was fluid collection adjacent to the sigmoid colon Currently patient is maintained on IV antibiotics Zosyn possibility of partial colectomy was discussed with the patient by Dr. Engle, the need for that will depend on the clinical course. ID and surgical service following. Patient currently nothing by mouth. Continue with IV fluids. #2 essential hypertension #3 underlying history of hyperlipidemia #4 for DVT prophylaxis patient is maintained on subcu heparin for GI prophylaxis Will add IV Protonix #5 remote history of kidney stones, patient has a 6 mm nonobstructing left sided kidney stone at this time which is an incidental finding not related to patient pain and not causing any hydronephrosis at this time. #6 acute kidney injury likely related to hypotension and nothing by mouth status. Patient will be hydrated with IV fluids. Discontinue MARCK inhibitor. Continue to monitor closely. Repeat labs in a.m. I performed an examination of the patient and discussed their management with the physician Hand Candy Molder. I have reviewed the Physician Hand Candy Molder's notes and agree with the documented findings and plan of care
[2018-11-22] MEDS: D5-0.45% NACL WITH KCL 20MEQ/L 1,000 ML IV SCH ×2 (13:03→20:01)
--- NOTE | 2018-11-22 13:13 | P.PN ---
Subjective Progress Note Date: 11/22/18 Principal diagnosis: Diverticulitis Patient I spoke by phone earlier this morning. Patient was assessed around noon today in person. He believes his pain is about the same as it was yesterday when he was seen by myself. Low-grade fevers last night noted. White blood cell count is normal today. Passing flatus with small amount of liquid stools. He says his pain seems to be aggravated primarily when he gets up to use the restroom with the bowel activity. Pain remains in the lower abdomen. Denies upper abdominal discomfort. Objective - Vital Signs Vital signs: Vital Signs Temp 97.6 F 11/22/18 07:17 Pulse 90 11/22/18 07:17 Resp 14 11/22/18 07:17 BP 101/64 11/22/18 07:17 Pulse Ox 98 11/22/18 07:17 Intake & Output 11/21/18 11/22/18 11/22/18 18:59 06:59 18:59 Intake Total 1000 1470 Balance 1000 1470 Weight 97.976 kg Intake: IV 1000 Dextrose 5%-0.45% NaCl 1, 1000 000 ml @ 150 mls/hr IV . Q6H44M MODE with Potassium Chloride 20 meq Rx#: [id number] Intake, IV Titration 1420 Amount Dextrose 5%-0.45% NaCl 1, 1220 000 ml @ 150 mls/hr IV . Q6H44M MODE with Potassium Chloride 20 meq Rx#: [id number] Piperacillin-Tazobactam 3 200 .375 gm In Sodium Chloride 0.9% 100 ml @ 25 mls/hr IVPB Q8HR MODE Rx# :[id number] Oral 50 Other: Voiding Method Toilet Toilet Toilet # Voids 2 2 # Bowel Movements 1 - Exam Abdomen: Soft, distended, bilateral lower quadrant tenderness left greater than right, no rebound or guarding - Labs CBC & Chem 7: 11/22/18 07:55 11/22/18 07:55 Labs: Abnormal Lab Results - Last 24 Hours (Table) 11/22/18 11/22/18 Range/Units 07:55 07:55 RBC 4.21 L (4.30-5.90) m/uL Hgb 11.8 L (13.0-17.5) gm/dL Hct 36.3 L (39.0-53.0) % Neutrophils # 8.7 H (1.3-7.7) k/uL Lymphocytes # 0.7 L (1.0-4.8) k/uL Creatinine 1.51 H (0.66-1.25) mg/dL Glucose 135 H (74-99) mg/dL Microbiology - Last 24 Hours (Table) 11/20/18 15:43 Urine Culture - Final Urine,Voided 11/20/18 15:15 Blood Culture - Preliminary Blood No Growth after 24 hours Assessment and Plan (1) Perforation of sigmoid colon due to diverticulitis Narrative/Plan: Infectious disease consult noted. The patient I discussed his clinical condition again in detail. Patient has not made significant improvement since yesterday. Likewise he has not had any obvious decline or increase in discomforts. The patient's would like to hold off on laparotomy. We have agreed that if his pain persists to the same degree tomorrow or if the patient has other clinical indicators suggesting worsening of his diverticulitis that we would proceed with surgical intervention at that time. We'll order repeat abdominal x-rays tomorrow. Continue antibiotics. Keep nothing by mouth. Current Visit: Yes Status: Acute Code(s): K57.20 - DVTRCLI OF LG INT W PERFORATION AND ABSCESS W/O BLEEDING SNOMED Code(s): 1923176448824190
--- NOTE | 2018-11-22 15:30 | PN ---
PROGRESS NOTE DATE OF SERVICE: 11/22/2018 REASON FOR FOLLOWUP VISIT: Acute diverticulitis failing outpatient therapy. INTERVAL HISTORY: The patient is currently afebrile. The patient's abdominal pain has improved. Has been n.p.o. though denies having any chest pain or shortness of breath or cough. No nausea, vomiting. No diarrhea. PHYSICAL EXAMINATION: Blood pressure is 101/54 with a pulse of 90, temperature is 97.6, 98% on room air. General description is a middle-aged male, lying in bed in no distress. RESPIRATORY SYSTEM: Unlabored breathing, clear to auscultation anteriorly. HEART: S1, S2. Regular rate and rhythm. ABDOMEN: Distended, no guarding or rigidity. EXTREMITIES: No edema of the feet. LABS: White count normal at 9.9. Creatinine is slightly up to 1.51 today. Blood culture has been negative. DIAGNOSTIC IMPRESSION AND PLAN: Patient with acute sigmoid diverticulitis, failing outpatient oral antibiotic therapy. The patient was on Augmentin. He is currently on Zosyn to continue for now. We need to watch his kidney function very closely. Currently, not on any nephrotoxic medication. If he spikes any further fever, he may benefit from a repeat CT. Continue supportive care. MMODL / IJN: [id number] /
[2018-11-22] MEDS ORDERED: HYDROmorphone 1 MG/ML 1 ML SYRINGE IVP PRN (15:36)
[2018-11-22] MEDS: HYDROmorphone 1 MG/ML 1 ML SYRINGE IVP PRN ×2 (17:45→21:44)
[2018-11-22] MEDS: ACETAMINOPHEN IV (For NPO) 650 MG in EMPTY BAG 1 BAG IVPB PRN (21:45)
[2018-11-23] MEDS: PIPERACILLIN-TAZOBACTAM 3.375 GM in SODIUM CHLORIDE 0.9% 100 ML IVPB SCH ×3 (00:22→20:37)
[2018-11-23] MEDS: HEPARIN SODIUM,PORCINE 5,000 UNIT/ML 1 ML VIAL SQ SCH ×4 (00:23→14:16)
[2018-11-23] MEDS: HYDROmorphone 1 MG/ML 1 ML SYRINGE IVP PRN ×3 (00:45→08:40)
[2018-11-23] MEDS: D5-0.45% NACL WITH KCL 20MEQ/L 1,000 ML IV SCH ×2 (00:45→08:39)
--- NOTE | 2018-11-23 08:23 | XR ---
EXAMINATION TYPE: XR abdomen complete w decub DATE OF EXAM: 11/23/2018 COMPARISON: NONE HISTORY: Pain TECHNIQUE: Supine, upright, and left side down lateral decubitus views of the abdomen are obtained. FINDINGS: There is free intraperitoneal air. Report called to patient's nurse. Dilated small bowel lo ops with air-fluid level seen and there are surgical clips in the right upper quadrant. Findings high ly suggestive of bowel obstruction with perforation. Severe ileus secondary to colonic perforation al so the differential diagnosis. IMPRESSION: Persistent dilated small bowel loops. Obstruction versus ileus however, there is free intraperitoneal air. Ruptured viscus in the differential diagnosis. Report called to the patient's nurse.
[2018-11-23 08:54] LABS: Basophils % (A) 0 %; Eosinophils # (A) 0.1 k/uL (0-0.7); Eosinophils % (A) 1 %; HCT 37.6 % (39.0-53.0); HGB 11.9 gm/dL (13.0-17.5); Hypochromasia Slight; Lymphocytes # (A) 0.6 k/uL (1.0-4.8); Lymphocytes % (A) 7 %; MCH 27.4 pg (25.0-35.0); MCHC 31.7 g/dL (31.0-37.0); MCV 86.5 fL (80.0-100.0); Mean Platelet Volume 6.6; Monocytes # (A) 0.4 k/uL (0-1.0); Monocytes % (A) 4 %; Neutrophils # (A) 7.8 k/uL (1.3-7.7); Neutrophils % (A) 87 %; Platelet Count 313 k/uL (150-450); RBC 4.35 m/uL (4.30-5.90); RDW 13.8 % (11.5-15.5)
[2018-11-23 09:20] LABS: Albumin 2.9 g/dL (3.5-5.0); Calcium 9.4 mg/dL (8.4-10.2); Potassium 5.4 mmol/L (3.5-5.1); Total Bilirubin 0.6 mg/dL (0.2-1.3); Total Protein 5.7 g/dL (6.3-8.2)
--- NOTE | 2018-11-23 10:39 | P.PN ---
Subjective Progress Note Date: 11/23/18 Sheldon Virk, is a 38-year-old male patient of Dr. Blanquita Pimentel who presented to [facility] emergency room with a chief complaint of abdominal pain patient states that his pain started about 2 and a half weeks ago at that time he went to [facility] emergency room he was given a course of antibiotic and was discharged home, he finished the course of Augmentin but his symptoms did not resolve he went to [facility] he was evaluated there and given a course of Cipro and Flagyl he started taking the course however he started having worsening abdominal pain and he came to [facility] emergency room computed tomography scan of the abdomen and pelvis was done in emergency room and revealed evidence of fluid collection adjacent to the sigmoid colon and air within the mesentery of the sigmoid colon suggestive of microperforation, patient was admitted under Dr. Willian Engle service, medical consultation was requested for management while hospitalized. Patient has a known history of hypertension and hyperlipidemia well-controlled on medications, he has a remote history of kidney stones with multiple intervention in the past mostly between 10 years ago and 6 years ago, he also has a history of cholecystectomy. 11/22/2018 patient still complaining of lower abdominal pain and abdominal distention. Surgical service is following awaiting their evaluation regarding possible surgery. Patient now having low-grade temps of 99.9. He was hypotensive yesterday blood pressure 99/61. Blood pressure this morning 101/64 creatinine has gone up to 1.51 lisinopril be discontinued. He is currently on IV fluids. Denies any chest pain or shortness of breath. Denies any nausea or vomiting. Reports having bowel movements that are loose in small amounts. Denies any burning with urination. 11/23/2018 patient is scheduled for surgery today. Abdomen is still distended. Remains on IV Zosyn. He did have a low-grade temp of 100.7 yesterday afternoon. Blood pressure this morning 107/67 heart rate 105. Creatinine has decreased from 1.51 down to 1.39. MARCK inhibitor and Toradol discontinued yesterday. Potassium is 5.4. We will remove the potassium from the IV fluids. Continue him on D5 half-normal saline at 150 mL an hour. Objective - Vital Signs Vital signs: Vital Signs Temp 98.9 F 11/23/18 07:41 Pulse 105 H 11/23/18 07:44 Resp 17 11/23/18 07:44 BP 107/67 11/23/18 07:41 Pulse Ox 95 11/23/18 07:41 Intake & Output 11/22/18 11/23/18 11/23/18 18:59 06:59 18:59 Intake Total 1200 Balance 1200 Weight 97.976 kg Intake: IV 1050 Dextrose 5%-0.45% NaCl 1, 1050 000 ml @ 150 mls/hr IV . Q6H44M MODE with Potassium Chloride 20 meq Rx#: [id number] Intake, IV Titration 100 Amount Piperacillin-Tazobactam 3 100 .375 gm In Sodium Chloride 0.9% 100 ml @ 25 mls/hr IVPB Q8HR MODE Rx# :[id number] Oral 50 Other: Voiding Method Toilet Toilet Toilet # Voids 2 3 # Bowel Movements 1 2 - Exam Head normocephalic Neck supple Lungs clear to auscultation bilaterally no wheezing or crackles Heart regular rate and rhythm S1-S2, no rub or gallop Abdomen distended lower abdominal tenderness positive bowel sounds Extremities no edema Neuro alert and orientated to 3 - Labs CBC & Chem 7: 11/23/18 08:30 11/23/18 08:30 Labs: Abnormal Lab Results - Last 24 Hours (Table) 11/23/18 11/23/18 Range/Units 08:30 08:30 Hgb 11.9 L (13.0-17.5) gm/dL Hct 37.6 L (39.0-53.0) % Neutrophils # 7.8 H (1.3-7.7) k/uL Lymphocytes # 0.6 L (1.0-4.8) k/uL Potassium 5.4 H (3.5-5.1) mmol/L Chloride 109 H (98-107) mmol/L Creatinine 1.39 H (0.66-1.25) mg/dL Glucose 130 H (74-99) mg/dL Total Protein 5.7 L (6.3-8.2) g/dL Albumin 2.9 L (3.5-5.0) g/dL Microbiology - Last 24 Hours (Table) 11/20/18 15:15 Blood Culture - Preliminary Blood No Growth after 48 hours Assessment and Plan Assessment: #1 acute sigmoid diverticulitis with evidence of microperforation and possible abscess formation was fluid collection adjacent to the sigmoid colon Currently patient is maintained on IV antibiotics Zosyn. Patient scheduled for surgery with possible colectomy and colostomy placement with Dr. Engle. ID also following #2 essential hypertension #3 underlying history of hyperlipidemia #4 for DVT prophylaxis patient is maintained on subcu heparin for GI prophylaxis Will add IV Protonix #5 remote history of kidney stones, patient has a 6 mm nonobstructing left sided kidney stone at this time which is an incidental finding not related to patient pain and not causing any hydronephrosis at this time. #6 acute kidney injury likely related to hypotension and nothing by mouth status and Toradol. Patient will be hydrated with IV fluids. Discontinue MARCK inhibitor and Toradol. Creatinine down to 1.39 continue with IV fluids #7 hyperkalemia: Potassium 5.4. Discontinue potassium from the IV fluids I performed an examination of the patient and discussed their management with the physician Substation Inspector. I have reviewed the Physician Substation Inspector's notes and agree with the documented findings and plan of care
[2018-11-23] MEDS: DEXTROSE 5%-0.45% NACL 1,000 ML IV SCH ×2 (10:56→20:00)
[2018-11-23] MEDS ORDERED: IV FLUID CONTINUATION 1,000 ML IV ONE (13:12)
[2018-11-23] MEDS: ONDANSETRON 4 MG/2 ML VIAL IVP PRN (13:33)
[2018-11-23] MEDS: MIDAZOLAM 2 MG/2 ML VIAL IVP ONE ×2 (13:52→14:18)
[2018-11-23] MEDS: fentaNYL (PF) 50 MCG/ML 2 ML AMP IVP ONE ×2 (13:52→14:18)
[2018-11-23] MEDS ORDERED: LACTATED RINGERS 1,000 ML IV ONE ×3 (14:27→17:26)
[2018-11-23] MEDS ORDERED: NALOXONE 0.4 MG/ML 1 ML VIAL IV PRN (14:28)
[2018-11-23] MEDS ORDERED: PROPOFOL 10 MG/ML 20 ML VIAL IV ONE (14:46)
[2018-11-23] MEDS ORDERED: ceFAZolin 1,000 MG VIAL ONE (14:46)
[2018-11-23] MEDS ORDERED: fentaNYL (PF) 50 MCG/ML 2 ML AMP ONE (14:46)
[2018-11-23] MEDS ORDERED: MIDAZOLAM 2 MG/2 ML VIAL ONE (14:46)
[2018-11-23] MEDS ORDERED: PHENYLEPHRINE-0.9% NACL SYG 1 MG/10 ML SYRINGE ONE (14:46)
[2018-11-23] MEDS ORDERED: LIDOCAINE 1% INJ 10MG/ML (20 ML MDV) ONE (14:46)
[2018-11-23] MEDS ORDERED: SUCCINYLCHOLINE CHLORIDE 100 MG/5 ML SYR IV ONE (14:46)
[2018-11-23] MEDS ORDERED: GLYCOPYRROLATE 0.2 MG/ML 2 ML VIAL ONE (14:46)
[2018-11-23] MEDS ORDERED: ROCURONIUM BROMIDE 10 MG/ML 10 ML VIAL IV ONE (14:46)
[2018-11-23] MEDS ORDERED: NEOSTIGMINE 1 MG/ML 10 ML VIAL ONE (14:46)
--- NOTE | 2018-11-23 14:56 | P.PN ---
Progress Note - Text Progress Note Date: 11/23/18 Patient had abdominal x-rays performed this morning. Radiology identified free intraperitoneal air on those films. The nurse contacted me with those results. I spoke to the patient by phone at that time. Patient states he had increased pain around 10 PM last night that reminded him of the pain that he had come in with. This was after ambulating to the restroom and trying to have a bowel movement. The patient's white blood cell count remains normal today. He has had low-grade fevers. Mild tachycardia noted. Patient I discussed by phone these findings. We had already planned on proceeding with surgery today if his abdominal exam and symptoms were not improved. Certainly the findings of free intraperitoneal air supported that decision and made that decision more obvious. The risks of the procedure were discussed with the patient. Risks of bleeding, infection, abscess, ostomy related complications, ureteral injury, hernia, wound infection, progressive sepsis, cardiac and respiratory failure were reviewed. He understands and wishes to proceed. The surgery was also discussed with the patient's in person when she was present in preop.
[2018-11-23] MEDS ORDERED: SODIUM CHLORIDE 0.9% 100 ML with ceFAZolin 2,000 MG IV ONE ×2 (15:09)
[2018-11-23] MEDS: ROPIVACAINE 400 MG, HYDROMORPHONE (PF) 5 MG in SODIUM CHLORIDE 0.9% 170 ML EPIDURAL PRN (18:00)
--- NOTE | 2018-11-23 18:13 | P.OP ---
Date of Procedure: 11/23/18 Procedure(s) Performed: PREOPERATIVE DIAGNOSIS: Perforated sigmoid diverticulitis POSTOPERATIVE DIAGNOSIS: Same PROCEDURE: Sigmoid colectomy with end colostomy, incidental appendectomy, partial omentectomy, repair umbilical hernia SURGEON: Oniel EBL: 50 mL ANESTHESIA: General COMPLICATIONS: None OPERATIVE PROCEDURE: Patient placed on the operative table in the supine position. The patient was placed under general anesthesia. The abdomen was prepped and draped in usual sterile fashion. A vertical incision was made encompassing extending from the suprapubic region above the umbilicus. The fascia was divided as well. The patient had a fascial defect at the umbilicus that was incorporated into our incision and later closed with our fascial closure. Upon entrance into the peritoneal cavity seropurulent and somewhat bile-stained fluid was identified. This was evacuated as the abdomen was inspected. The Bookwalter retractor was utilized. There were small bowel loops that were gently adherence to the inflamed sigmoid colon loop. These were able to be lysed quite easily. The patient's small bowel was distended. This was consistent with either ileus or developing obstruction. The bowel contents were milked back to the stomach where they were evacuated. We were able to remove the proximally 700 mL of succus from the nasogastric tube during the procedure. The patient's appendix was also incorporated into that inflammatory reaction. The appendix itself however appeared normal. I did decide to remove the appendix at this time. The base of the appendix was divided using a linear 75 stapler. The mesoappendix was divided using a LigaSure device. The site of perforation was identified. The perforation was on the antimesenteric portion of the mesentery of the sigmoid colon. I divided the sigmoid colon proximal to this using a linear 75 stapler. The mesentery was divided at that time using the LigaSure device. Beyond the inflamed segment I divided the distal sigmoid colon using a linear 75 stapler. The sigmoid colon was then mobilized further by dividing a portion of mesentery proximally and also dividing the white line of Toldt. Once I had enough length on the colon the abdomen was copiously irrigated with 4 L of saline. No further purulence was encountered at that time. A circular incision was made in the left midabdomen. Dissection through the subcutaneous fat and fascia took place using electrocautery. I bluntly entered the peritoneal cavity and this was further bluntly opened. The bowel was brought out through this defect in the left midabdomen. The midline fascia was then reapproximated using 3 separate double-stranded #1 PDS sutures. The subcutaneous tissues were irrigated. The subcutaneous tissues were closed using 2-0 Vicryl sutures. The skin was then closed using mirta. 4 separate sites were left open along the midline incision for Telfa wick placement. The ostomy was then addressed. A portion of the pericolonic fat was removed using the LigaSure device. The staple line was then removed using electrocautery. Bleeding along the cut mucosal surface was visualized. The mucosa appeared pink. The ostomy was then matured using interrupted 3-0 Vicryl sutures. An ostomy appliance was then applied. Sterile dressings were then applied to the midline incision. DISPOSITION: Stable to recovery room. Operative findings discussed in detail with the patient's . We'll plan observation in the ICU this evening. Case discussed with Dr. Wright who is covering the ICU at this time.
[2018-11-23 19:08] LABS: Glucose,Whole Blood 136 mg/dL (75-99)
[2018-11-23] MEDS: FAMOTIDINE 20 MG/2 ML VIAL IV SCH (21:35)
[2018-11-24] MEDS: HEPARIN SODIUM,PORCINE 5,000 UNIT/ML 1 ML VIAL SQ SCH ×3 (00:11→17:06)
[2018-11-24] MEDS: PIPERACILLIN-TAZOBACTAM 3.375 GM in SODIUM CHLORIDE 0.9% 100 ML IVPB SCH ×3 (00:11→17:06)
--- NOTE | 2018-11-24 00:28 | PN ---
PROGRESS NOTE DATE OF SERVICE: 11/23/2018. REASON FOR FOLLOW UP: Diverticulitis of the sigmoid. INTERVAL HISTORY: The patient is seen on rounds this morning. The patient has been afebrile. Abdominal pain is currently about the same with no worsening or improvement. No further nausea, vomiting, or any diarrhea. The patient is scheduled for a sigmoid colectomy and then colostomy this afternoon. PHYSICAL EXAMINATION: On examination, blood pressure 112/67 with a pulse of 170, temperature 98.4. He is 97% on 2 L. GENERAL DESCRIPTION: A middle-aged male lying in bed in no distress. RESPIRATORY SYSTEM: Unlabored breathing. Clear to auscultation anteriorly. HEART: S1, S2. Regular rate and rhythm. ABDOMEN: Soft, no tenderness. EXTREMITIES: No edema of the feet. LABS: Hemoglobin 11.8, white count 9.0 with a BUN of 20, creatinine 1.39. DIAGNOSTIC IMPRESSION AND PLAN: Patient with acute sigmoid diverticulitis, failing outpatient antibiotic therapy with peridiverticular abscess, status post diverting colostomy and drainage of the abscess. Culture has been obtained. The patient is on Zosyn to continue. Antibiotic further based on culture report. Continue supportive care. MMODL / IJN: [id number] /
[2018-11-24] MEDS: DEXTROSE 5%-0.45% NACL 1,000 ML IV SCH ×3 (03:10→21:11)
[2018-11-24 05:28] LABS: Basophils % (A) 0 %; Eosinophils # (A) 0.2 k/uL (0-0.7); Eosinophils % (A) 2 %; HCT 35.8 % (39.0-53.0); HGB 11.2 gm/dL (13.0-17.5); Hypochromasia Slight; Lymphocytes # (A) 0.9 k/uL (1.0-4.8); Lymphocytes % (A) 11 %; MCH 27.1 pg (25.0-35.0); MCHC 31.4 g/dL (31.0-37.0); MCV 86.1 fL (80.0-100.0); Mean Platelet Volume 6.2; Monocytes # (A) 0.3 k/uL (0-1.0); Monocytes % (A) 4 %; Neutrophils # (A) 6.2 k/uL (1.3-7.7); Neutrophils % (A) 81 %; Platelet Count 310 k/uL (150-450); RBC 4.16 m/uL (4.30-5.90); RDW 13.9 % (11.5-15.5); WBC 7.7 k/uL (3.8-10.6)
--- NOTE | 2018-11-24 05:33 | P.PN ---
Progress Note - Text Progress Note Date: 11/24/18 Epidural rounds Postop day one catheter day #2. Patient had exploratory laparoscopy yesterday with Dr. Engle. Patient is doing well and is resting comfortably. He has required minimal amounts of when necessary medications overnight. His breathing is maintained. He has no lower extremity edema. Epidural catheters running at 8 mL per hour. The site is clean and dry. Minimal amounts of nausea was controlled with 4 mg of Zofran. Continue epidural catheter at the current settings
[2018-11-24 05:42] LABS: ALT 25 U/L (21-72); AST 23 U/L (17-59); Albumin 2.2 g/dL (3.5-5.0); Alkaline Phosphatase 33 U/L (38-126); Anion Gap 5 mmol/L; Blood Urea Nitrogen 19 mg/dL (9-20); Calcium 8.7 mg/dL (8.4-10.2); Carbon Dioxide 23 mmol/L (22-30); Chloride 109 mmol/L (98-107); Glucose 138 mg/dL (74-99); Magnesium 1.8 mg/dL (1.6-2.3); Phosphorus 2.2 mg/dL (2.5-4.5); Potassium 4.7 mmol/L (3.5-5.1); Sodium 137 mmol/L (137-145); Total Bilirubin 0.4 mg/dL (0.2-1.3); Total Protein 4.5 g/dL (6.3-8.2)
[2018-11-24] MEDS ORDERED: Potassium Replacement Protocol 1 EACH MISC MISCELLANE PRN (06:47)
[2018-11-24] MEDS ORDERED: Magnesium Replacement Protocol 1 EACH MISC MISCELLANE PRN ×2 (06:48→06:49)
[2018-11-24 07:10] LABS: Glucose,Whole Blood 149 mg/dL (75-99)
--- NOTE | 2018-11-24 08:19 | XR ---
EXAMINATION TYPE: XR chest 1V portable DATE OF EXAM: 11/24/2018 Comparison: None Clinical History: 38-year-old male with abdominal sepsis Findings: NG tube satisfactory. Low lung volumes and cardiovascular markings. Heart size is accentuated likely normal to upper limits of normal. Hazy lower lung densities could represent trace effusions. Visualized upper lungs are иван ar. Impression: Hypoventilatory changes with hazy lower lung densities that could represent trace effusions.
[2018-11-24] MEDS: MAGNESIUM SULFATE-D5W PMX 1 GM in DEXTROSE/WATER 1 100ML.BAG IVPB SCH ×2 (08:30→10:01)
[2018-11-24] MEDS: FAMOTIDINE 20 MG/2 ML VIAL IV SCH ×2 (08:31→21:11)
--- NOTE | 2018-11-24 10:17 | P.PN ---
Subjective Progress Note Date: 11/24/18 Sheldon Virk, is a 38-year-old male patient of Dr. Blanquita Pimentel who presented to [facility] emergency room with a chief complaint of abdominal pain patient states that his pain started about 2 and a half weeks ago at that time he went to [facility] emergency room he was given a course of antibiotic and was discharged home, he finished the course of Augmentin but his symptoms did not resolve he went to [facility] he was evaluated there and given a course of Cipro and Flagyl he started taking the course however he started having worsening abdominal pain and he came to [facility] emergency room computed tomography scan of the abdomen and pelvis was done in emergency room and revealed evidence of fluid collection adjacent to the sigmoid colon and air within the mesentery of the sigmoid colon suggestive of microperforation, patient was admitted under Dr. Willian Engle service, medical consultation was requested for management while hospitalized. Patient has a known history of hypertension and hyperlipidemia well-controlled on medications, he has a remote history of kidney stones with multiple intervention in the past mostly between 10 years ago and 6 years ago, he also has a history of cholecystectomy. 11/22/2018 patient still complaining of lower abdominal pain and abdominal distention. Surgical service is following awaiting their evaluation regarding possible surgery. Patient now having low-grade temps of 99.9. He was hypotensive yesterday blood pressure 99/61. Blood pressure this morning 101/64 creatinine has gone up to 1.51 lisinopril be discontinued. He is currently on IV fluids. Denies any chest pain or shortness of breath. Denies any nausea or vomiting. Reports having bowel movements that are loose in small amounts. Denies any burning with urination. 11/23/2018 patient is scheduled for surgery today. Abdomen is still distended. Remains on IV Zosyn. He did have a low-grade temp of 100.7 yesterday afternoon. Blood pressure this morning 107/67 heart rate 105. Creatinine has decreased from 1.51 down to 1.39. MARCK inhibitor and Toradol discontinued yesterday. Potassium is 5.4. We will remove the potassium from the IV fluids. Continue him on D5 half-normal saline at 150 mL an hour. 11/24/2018 patient status post sigmoid colectomy with end colostomy, incidental appendectomy, partial omentectomy, repair of umbilical hernia. Patient currently in the ICU. Kidney functions have improved potassium level normalized. Cultures pending. Currently on IV Zosyn. Patient denies any chest pain or shortness breath. Admits to passing some gas. Denies any nausea. Does have NG tube in place. Objective - Vital Signs Vital signs: Vital Signs Temp 98.9 F 11/24/18 08:00 Pulse 101 H 11/24/18 09:00 Resp 19 11/24/18 09:00 BP 103/61 11/24/18 09:00 Pulse Ox 97 11/24/18 09:00 Intake & Output 11/23/18 11/24/18 11/24/18 18:59 06:59 18:59 Intake Total 2700 1750 400 Output Total 230 614 90 Balance 2470 1136 310 Weight 103.1 kg Intake: IV 2700 1750 300 Dextrose 5%-0.45% NaCl 1, 1650 300 000 ml @ 150 mls/hr IV . Q6H44M MODE with Potassium Chloride 20 meq Rx#: [id number] Piperacillin-Tazobactam 3 100 .375 gm In Sodium Chloride 0.9% 100 ml @ 25 mls/hr IVPB Q8HR MODE Rx# :[id number] Intake, IV Titration 100 Amount Magnesium Sulfate-D5w Pmx 100 1 gm In Dextrose/Water 1 100ml.bag @ 100 mls/hr IVPB Q1H MODE Rx#: [id number] Oral 0 Output: Urine 180 614 90 Estimated Blood Loss 50 Other: Voiding Method Toilet Indwelling Catheter Indwelling Catheter # Voids 1 - Exam Head normocephalic Neck supple Lungs clear to auscultation bilaterally no wheezing or crackles Heart regular rate and rhythm S1-S2, no rub or gallop Abdomen abdominal binder in place NG tube Extremities no edema Neuro alert and orientated to 3 - Labs CBC & Chem 7: 11/24/18 04:37 11/24/18 04:37 Labs: Abnormal Lab Results - Last 24 Hours (Table) 11/23/18 11/24/18 11/24/18 Range/Units 19:07 04:37 04:37 RBC 4.16 L (4.30-5.90) m/uL Hgb 11.2 L (13.0-17.5) gm/dL Hct 35.8 L (39.0-53.0) % Lymphocytes # 0.9 L (1.0-4.8) k/uL Chloride 109 H (98-107) mmol/L Glucose 138 H (74-99) mg/dL POC Glucose (mg/dL) 136 H (75-99) mg/dL Phosphorus 2.2 L (2.5-4.5) mg/dL Alkaline Phosphatase 33 L (38-126) U/L Total Protein 4.5 L (6.3-8.2) g/dL Albumin 2.2 L (3.5-5.0) g/dL 11/24/18 Range/Units 07:09 RBC (4.30-5.90) m/uL Hgb (13.0-17.5) gm/dL Hct (39.0-53.0) % Lymphocytes # (1.0-4.8) k/uL Chloride (98-107) mmol/L Glucose (74-99) mg/dL POC Glucose (mg/dL) 149 H (75-99) mg/dL Phosphorus (2.5-4.5) mg/dL Alkaline Phosphatase (38-126) U/L Total Protein (6.3-8.2) g/dL Albumin (3.5-5.0) g/dL Microbiology - Last 24 Hours (Table) 11/23/18 17:30 Gram Stain - Preliminary Other - Other Wound Culture - Preliminary 11/23/18 17:30 Anaerobic Culture - Preliminary Perineal Fluid 11/20/18 15:15 Blood Culture - Preliminary Blood No Growth after 72 hours Assessment and Plan Assessment: #1 acute sigmoid diverticulitis with evidence of microperforation and diverticular abscess : Status post sigmoid colectomy with end colostomy, incidental appendectomy, partial omentectomy, repair of umbilical hernia. Surgery is following. Patient currently nothing by mouth with NG tube in place. He is passing gas. Pain control #2 essential hypertension #3 underlying history of hyperlipidemia #4 for DVT prophylaxis patient is maintained on subcu heparin for GI prophylaxis Will add IV Protonix #5 remote history of kidney stones, patient has a 6 mm nonobstructing left sided kidney stone at this time which is an incidental finding not related to patient pain and not causing any hydronephrosis at this time. #6 acute kidney injury likely related to hypotension and nothing by mouth status and Toradol. Patient will be hydrated with IV fluids. Discontinue MARCK inhibitor and Toradol. Creatinine has normalized. #7 hyperkalemia: Resolved Possible transfer out of the ICU later today I performed an examination of the patient and discussed their management with the physician Final Dressing Cutter. I have reviewed the Physician Final Dressing Cutter's notes and agree with the documented findings and plan of care
--- NOTE | 2018-11-24 12:03 | P.PN ---
Subjective Progress Note Date: 11/24/18 Principal diagnosis: Diverticulitis Patient feels better today. His pain compared to preop is improved. Complaining of a sore throat and discomfort at the nasogastric tube site. No bowel function. No high fevers. Mild tachycardia. Blood pressure is been stable. Adequate urine output. Objective - Vital Signs Vital signs: Vital Signs Temp 98.9 F 11/24/18 08:00 Pulse 92 11/24/18 11:00 Resp 16 11/24/18 11:00 BP 126/65 11/24/18 11:00 Pulse Ox 96 11/24/18 11:00 Intake & Output 11/23/18 11/24/18 11/24/18 18:59 06:59 18:59 Intake Total 2700 1750 750 Output Total 230 614 190 Balance 2470 1136 560 Weight 103.1 kg Intake: IV 2700 1750 550 Dextrose 5%-0.45% NaCl 1, 1650 450 000 ml @ 150 mls/hr IV . Q6H44M MODE with Potassium Chloride 20 meq Rx#: [id number] Piperacillin-Tazobactam 3 100 100 .375 gm In Sodium Chloride 0.9% 100 ml @ 25 mls/hr IVPB Q8HR MODE Rx# :[id number] Intake, IV Titration 200 Amount Magnesium Sulfate-D5w Pmx 200 1 gm In Dextrose/Water 1 100ml.bag @ 100 mls/hr IVPB Q1H MODE Rx#: [id number] Oral 0 Output: Urine 180 614 190 Estimated Blood Loss 50 Other: Voiding Method Toilet Indwelling Catheter Indwelling Catheter # Voids 1 - Exam Abdomen: Soft, distended, mild tenderness, dressing clean and dry, ostomy pink - Labs CBC & Chem 7: 11/24/18 04:37 11/24/18 04:37 Labs: Abnormal Lab Results - Last 24 Hours (Table) 11/23/18 11/24/18 11/24/18 Range/Units 19:07 04:37 04:37 RBC 4.16 L (4.30-5.90) m/uL Hgb 11.2 L (13.0-17.5) gm/dL Hct 35.8 L (39.0-53.0) % Lymphocytes # 0.9 L (1.0-4.8) k/uL Chloride 109 H (98-107) mmol/L Glucose 138 H (74-99) mg/dL POC Glucose (mg/dL) 136 H (75-99) mg/dL Phosphorus 2.2 L (2.5-4.5) mg/dL Alkaline Phosphatase 33 L (38-126) U/L Total Protein 4.5 L (6.3-8.2) g/dL Albumin 2.2 L (3.5-5.0) g/dL 11/24/18 Range/Units 07:09 RBC (4.30-5.90) m/uL Hgb (13.0-17.5) gm/dL Hct (39.0-53.0) % Lymphocytes # (1.0-4.8) k/uL Chloride (98-107) mmol/L Glucose (74-99) mg/dL POC Glucose (mg/dL) 149 H (75-99) mg/dL Phosphorus (2.5-4.5) mg/dL Alkaline Phosphatase (38-126) U/L Total Protein (6.3-8.2) g/dL Albumin (3.5-5.0) g/dL Microbiology - Last 24 Hours (Table) 11/23/18 17:30 Gram Stain - Preliminary Other - Other Wound Culture - Preliminary 11/23/18 17:30 Anaerobic Culture - Preliminary Perineal Fluid 11/20/18 15:15 Blood Culture - Preliminary Blood No Growth after 72 hours Assessment and Plan (1) Perforation of sigmoid colon due to diverticulitis Narrative/Plan: Out of bed to chair. Continue IV fluids. Keep nothing by mouth. Keep nasogastric tube to suction. Continue IV antibiotic. Follow cultures. Current Visit: Yes Status: Acute Code(s): K57.20 - DVTRCLI OF LG INT W PERFORATION AND ABSCESS W/O BLEEDING SNOMED Code(s): 7832218346252905
--- NOTE | 2018-11-24 12:15 | P.CNPUL ---
History of Present Illness Consult date: 11/24/18 Requesting physician: Guillermo Engle Reason for consult: other (ICU management, status post sigmoid colectomy with end colostomy) Chief complaint: Perforated sigmoid diverticulitis History of present illness: This is a 38-year-old white male presented on 11/20/2018, he was admitted initially with abdominal pain, recently diagnosed with diverticulitis as well as could distal. Patient came in mostly with crampy abdominal pain, pain was radiating down to his testicles. He also had episodes of nausea but no vomiting , no diarrhea, intermittent fevers and chills were also noted. He was seen by Dr. villalobos on 11/21/2018, and he was given the option of proceeding with sigmoid colectomy and end colostomy at that time, however the patient was feeling clinically better, and a conservative approach was advised considering he was doing better. He was kept nothing per mouth, and he was placed on antibiotics. Infectious disease consultation was also initiated. On 11/23/2018, patient had abdominal x-rays which demonstrated free intraperitoneal air hence the patient was seen by Dr. villalobos again, and he underwent surgery yesterday, the surgery consisted of sigmoid colectomy and end colostomy, incidental appendectomy partial omentectomy and repair of umbilical hernia. Postoperatively patient was extubated in the recovery room, admitted to the ICU and I was asked to see him on consultation. Patient was hemodynamically stable through the night. No issues overnight. He was maintained on antibiotics as per infectious disease, evaluated this morning, and the patient is doing great. Denies any significant abdominal pain, he does have an epidural catheter. Denies any headache no blurred vision no dizziness. No nausea no vomiting no abdominal pain. No dysuria and no frequency no urgency. And no fever or chills overnight. Review of Systems 14 point review of systems were obtained, please refer to pertinent positives in HPI, otherwise remaining systems are negative Past Medical History Past Medical History: Hyperlipidemia, Hypertension Additional Past Medical History / Comment(s): kidney stones multiple times History of Any Multi-Drug Resistant Organisms: None Reported Past Surgical History: Cholecystectomy Additional Past Surgical History / Comment(s): kidney stone surgery Past Anesthesia/Blood Transfusion Reactions: Postoperative Nausea & Vomiting ( PONV) Past Psychological History: Anxiety Smoking Status: Never smoker Past Alcohol Use History: None Reported Past Drug Use History: Marijuana - Past Family History Father History Unknown: Yes Mother Family Medical History: COPD Additional Family Medical History / Comment(s): recently Medications and Allergies Home Medications Medication Instructions Recorded Confirmed Type Atorvastatin [Lipitor] 20 mg PO HS 11/20/18 11/20/18 History Ciprofloxacin HCl [Cipro] 500 mg PO BID 11/20/18 11/20/18 History Escitalopram Oxalate [Lexapro] 10 mg PO BID 11/20/18 11/20/18 History Fenofibrate,Micronized 134 mg PO DAILY 11/20/18 11/20/18 History [Fenofibrate] Lisinopril 40 mg PO DAILY 11/20/18 11/20/18 History metroNIDAZOLE [Flagyl] 500 mg PO TID 11/20/18 11/20/18 History Allergies Allergy/AdvReac Type Severity Reaction Status Date / Time No Known Allergies Allergy Verified 11/20/18 15:04 Physical Exam Vitals: Vital Signs Temp Pulse Pulse Pulse Resp BP BP 11/24/18 11:00 92 16 126/65 11/24/18 10:00 99 7 L 120/72 11/24/18 09:00 101 H 19 103/61 11/24/18 08:00 98.9 F 109 H 11 L 117/63 11/24/18 07:00 112 H 11 L 117/63 11/24/18 06:00 106 H 18 98/64 11/24/18 05:00 105 H 16 89/63 11/24/18 04:00 98.6 F 113 H 19 124/69 11/24/18 03:00 114 H 19 126/63 11/24/18 02:00 117 H 19 131/60 11/24/18 01:00 121 H 22 142/106 11/24/18 00:00 122 H 16 134/85 11/23/18 23:00 109 H 20 117/75 11/23/18 22:00 109 H 16 104/69 11/23/18 21:00 110 H 19 11/23/18 20:00 98.5 F 117 H 121 H 18 112/67 112/67 11/23/18 19:09 112/67 11/23/18 18:40 125 H 18 148/69 11/23/18 18:25 124 H 20 132/73 11/23/18 18:10 119 H 20 153/86 11/23/18 17:58 97.4 F L 117 H 20 152/84 11/23/18 13:27 99.7 F H 115 H 16 119/58 Pulse Ox 11/24/18 11:00 96 11/24/18 10:00 98 11/24/18 09:00 97 11/24/18 08:00 97 11/24/18 07:00 96 11/24/18 06:00 97 11/24/18 05:00 97 11/24/18 04:00 96 11/24/18 03:00 97 11/24/18 02:00 97 11/24/18 01:00 98 11/24/18 00:00 98 11/23/18 23:00 97 11/23/18 22:00 97 11/23/18 21:00 97 11/23/18 20:00 97 11/23/18 19:09 95 11/23/18 18:40 96 11/23/18 18:25 97 11/23/18 18:10 100 11/23/18 17:58 100 11/23/18 13:27 97 Intake and Output 11/23/18 11/24/18 11/24/18 22:59 06:59 14:59 Intake Total 1750 1300 750 Output Total 470 374 190 Balance 1280 926 560 Intake: IV 1750 1300 550 Dextrose 5%-0.45% NaCl 1, 450 1200 450 000 ml @ 150 mls/hr IV . Q6H44M MODE with Potassium Chloride 20 meq Rx#: [id number] Piperacillin-Tazobactam 3 100 100 .375 gm In Sodium Chloride 0.9% 100 ml @ 25 mls/hr IVPB Q8HR MODE Rx# :[id number] Intake, IV Titration 200 Amount Magnesium Sulfate-D5w Pmx 200 1 gm In Dextrose/Water 1 100ml.bag @ 100 mls/hr IVPB Q1H MODE Rx#: [id number] Oral 0 Output: Urine 420 374 190 Estimated Blood Loss 50 Other: Voiding Method Indwelling Catheter Indwelling Catheter Indwelling Catheter Weight 103.1 kg Physical Exam: Revealed a 78-year-old white male in no distress. Head: Atraumatic normocephalic. HEENT:[Neck is supple.] [No neck masses.] [No thyromegaly.] [No JVD.] Dry mucous membranes noted, PERRLA, EOMI, no icterus Chest: [Diminished breath sounds at the bases, no crackles or rhonchi or wheezes.] Cardiac Exam: [Normal S1 and S2, no S3 gallop, no murmur.] Abdomen: [Postsurgical, abdominal binder in place, nasogastric tube in place, colostomy is noted, minimal serous drainage noted in the colostomy bag Extremities: [No clubbing, no edema, no cyanosis.] Neurological Exam: Alert and oriented 3. [No focal neurologic deficit.] Psychiatric: Normal mood, affect and mental status examination. Results - Laboratory Findings CBC and BMP: 11/24/18 04:37 11/24/18 04:37 PT/INR, D-dimer PT 11.0 sec (9.0-12.0) 11/20/18 15:15 INR 1.0 (<1.2) 11/20/18 15:15 Abnormal lab findings: Abnormal Labs 11/20/18 11/20/18 11/20/18 15:15 15:15 15:43 RBC Hgb Hct Neutrophils # Lymphocytes # APTT 21.3 L Sodium 135 L Potassium Chloride Creatinine Glucose 132 H POC Glucose (mg/dL) Calcium 10.7 H Phosphorus Alkaline Phosphatase 32 L Total Protein Albumin Urine Protein 1+ H Urine Ketones Trace H Urine Blood Trace H Ur Leukocyte Esterase Trace H Urine Mucus Occasional H 11/21/18 11/21/18 11/22/18 08:40 08:40 07:55 RBC 4.21 L Hgb 12.0 L 11.8 L Hct 37.2 L 36.3 L Neutrophils # 8.9 H 8.7 H Lymphocytes # 0.7 L 0.7 L APTT Sodium Potassium Chloride Creatinine Glucose 124 H POC Glucose (mg/dL) Calcium Phosphorus Alkaline Phosphatase 23 L Total Protein 6.1 L Albumin 3.3 L Urine Protein Urine Ketones Urine Blood Ur Leukocyte Esterase Urine Mucus 11/22/18 11/23/18 11/23/18 07:55 08:30 08:30 RBC Hgb 11.9 L Hct 37.6 L Neutrophils # 7.8 H Lymphocytes # 0.6 L APTT Sodium Potassium 5.4 H Chloride 109 H Creatinine 1.51 H 1.39 H Glucose 135 H 130 H POC Glucose (mg/dL) Calcium Phosphorus Alkaline Phosphatase Total Protein 5.7 L Albumin 2.9 L Urine Protein Urine Ketones Urine Blood Ur Leukocyte Esterase Urine Mucus 11/23/18 11/24/18 11/24/18 19:07 04:37 04:37 RBC 4.16 L Hgb 11.2 L Hct 35.8 L Neutrophils # Lymphocytes # 0.9 L APTT Sodium Potassium Chloride 109 H Creatinine Glucose 138 H POC Glucose (mg/dL) 136 H Calcium Phosphorus 2.2 L Alkaline Phosphatase 33 L Total Protein 4.5 L Albumin 2.2 L Urine Protein Urine Ketones Urine Blood Ur Leukocyte Esterase Urine Mucus 11/24/18 07:09 RBC Hgb Hct Neutrophils # Lymphocytes # APTT Sodium Potassium Chloride Creatinine Glucose POC Glucose (mg/dL) 149 H Calcium Phosphorus Alkaline Phosphatase Total Protein Albumin Urine Protein Urine Ketones Urine Blood Ur Leukocyte Esterase Urine Mucus - Diagnostic Findings Chest x-ray: image reviewed (Chest x-ray showed mostly haziness in the lower lung polanco, indicative of hypoventilation.) Assessment and Plan Assessment: Impression: 1 status post sigmoid colectomy and colostomy, incidental appendectomy, periumbilical hernia repair, postoperative day #1. 2 perforation of sigmoid colon due to diverticulitis. 3 acute abdominal sepsis secondary to 2. 4 history of benign essential hypertension 5 history of hyperlipidemia 6 history of nephrolithiasis. Recommendation: Agree with the present treatment plan including antibiotics, GI and DVT prophylaxis, nasogastric tube to suction, keep nothing by mouth for now , monitor in the ICU for rest of the day, consider transferring the patient to a medical surgical floor later on this evening or in a.m. Encourage incentive spirometry and encourage early ambulation. We'll continue to follow. Time with Patient: Greater than 30
[2018-11-24] MEDS: ROPIVACAINE 400 MG, HYDROMORPHONE (PF) 5 MG in SODIUM CHLORIDE 0.9% 170 ML EPIDURAL PRN (21:12)
--- NOTE | 2018-11-24 22:56 | PN ---
PROGRESS NOTE DATE OF SERVICE: 11/24/2018 REASON FOR FOLLOWUP: Acute complicated sigmoid diverticulitis with microperforation. INTERVAL HISTORY: The patient is currently afebrile. He is breathing comfortably. Patient's abdominal pain is currently controlled. He did have the NG for suction. Denies having nausea or vomiting. No chest pain, shortness of breath or cough. PHYSICAL EXAMINATION: Blood pressure 100/73 with a pulse of 86, temperature 97.6. He is 92% on 2 L nasal cannula. General description is a middle-aged male up in the chair in no distress. RESPIRATORY SYSTEM: Unlabored breathing. Clear to auscultation anteriorly. HEART: S1, S2. Regular rate and rhythm. ABDOMEN: Soft. Mildly distended. No guarding or rigidity. EXTREMITIES: No edema of the feet. LABS: Cultures are currently pending. DIAGNOSTIC IMPRESSION AND PLAN: Patient with acute perforated sigmoid diverticulitis, status post sigmoid colectomy with end-colostomy, incidental appendectomy and partial omentectomy along with repair of umbilical hernia. The patient at this time is covered with Zosyn; to continue, adjusting antibiotic on the basis of the culture report. Continue with supportive care. MMODL / IJN: [id number] /
[2018-11-25] MEDS: HEPARIN SODIUM,PORCINE 5,000 UNIT/ML 1 ML VIAL SQ SCH ×3 (00:41→17:47)
[2018-11-25] MEDS: PIPERACILLIN-TAZOBACTAM 3.375 GM in SODIUM CHLORIDE 0.9% 100 ML IVPB SCH ×3 (00:41→19:06)
[2018-11-25 05:46] LABS: Glucose,Whole Blood 109 mg/dL (75-99)
[2018-11-25 05:52] LABS: Basophils % (A) 0 %; Eosinophils # (A) 0.3 k/uL (0-0.7); Eosinophils % (A) 4 %; HCT 32.5 % (39.0-53.0); HGB 10.6 gm/dL (13.0-17.5); Hypochromasia Slight; Lymphocytes # (A) 0.9 k/uL (1.0-4.8); Lymphocytes % (A) 14 %; MCH 28.5 pg (25.0-35.0); MCHC 32.6 g/dL (31.0-37.0); MCV 87.4 fL (80.0-100.0); Mean Platelet Volume 6.6; Monocytes # (A) 0.3 k/uL (0-1.0); Monocytes % (A) 5 %; Neutrophils # (A) 4.5 k/uL (1.3-7.7); Neutrophils % (A) 75 %; Platelet Count 286 k/uL (150-450); RBC 3.72 m/uL (4.30-5.90); RDW 14.4 % (11.5-15.5)
[2018-11-25 06:37] LABS: ALT 26 U/L (21-72); AST 32 U/L (17-59); Albumin 2.3 g/dL (3.5-5.0); Alkaline Phosphatase 34 U/L (38-126); Anion Gap 4 mmol/L; Blood Urea Nitrogen 12 mg/dL (9-20); Calcium 8.5 mg/dL (8.4-10.2); Carbon Dioxide 27 mmol/L (22-30); Chloride 106 mmol/L (98-107); Glucose 112 mg/dL (74-99); Magnesium 1.8 mg/dL (1.6-2.3); Phosphorus 2.1 mg/dL (2.5-4.5); Potassium 4.2 mmol/L (3.5-5.1); Sodium 137 mmol/L (137-145); Total Bilirubin 0.4 mg/dL (0.2-1.3); Total Protein 4.8 g/dL (6.3-8.2)
[2018-11-25] MEDS: DEXTROSE 5%-0.45% NACL 1,000 ML IV SCH ×4 (08:49→17:47)
[2018-11-25] MEDS: FAMOTIDINE 20 MG/2 ML VIAL IV SCH ×2 (08:50→21:44)
[2018-11-25] MEDS: MAGNESIUM SULFATE-D5W PMX 1 GM in DEXTROSE/WATER 1 100ML.BAG IVPB SCH ×2 (08:50→09:42)
[2018-11-25] MEDS ORDERED: SODIUM PHOSPHATE 10 MMOL in SODIUM CHLORIDE 0.9% 250 ML IVPB ONE (09:00)
[2018-11-25] MEDS ORDERED: SODIUM GLYCEROPHOSPHATE 10 MMOL in SODIUM CHLORIDE 0.9% 250 ML IV ONE (09:00)
--- NOTE | 2018-11-25 12:12 | P.PN ---
Progress Note - Text Anesthesia POD 2. Status Post Sigmoid colectomy with end colostomy under general endotracheal anesthesia with an epidrual catheter placed at T12 for post surgical pain releif. VAS (1, 3) with Ropivicaine 0.16 % and Dilaudid 20 mcg / cc running at 10 cc / hr. Lower extremity strength (for/4). Minimal sedation. Site looks OK.
[2018-11-25 12:15] LABS: Glucose,Whole Blood 107 mg/dL (75-99)
--- NOTE | 2018-11-25 12:15 | P.PN ---
Subjective Progress Note Date: 11/25/18 Principal diagnosis: Perforated sigmoid diverticulitis, status post surgery postoperative day #2 This is a 38-year-old white male presented on 11/20/2018, he was admitted initially with abdominal pain, recently diagnosed with diverticulitis as well as could distal. Patient came in mostly with crampy abdominal pain, pain was radiating down to his testicles. He also had episodes of nausea but no vomiting , no diarrhea, intermittent fevers and chills were also noted. He was seen by Dr. villalobos on 11/21/2018, and he was given the option of proceeding with sigmoid colectomy and end colostomy at that time, however the patient was feeling clinically better, and a conservative approach was advised considering he was doing better. He was kept nothing per mouth, and he was placed on antibiotics. Infectious disease consultation was also initiated. On 11/23/2018, patient had abdominal x-rays which demonstrated free intraperitoneal air hence the patient was seen by Dr. villalobos again, and he underwent surgery yesterday, the surgery consisted of sigmoid colectomy and end colostomy, incidental appendectomy partial omentectomy and repair of umbilical hernia. Postoperatively patient was extubated in the recovery room, admitted to the ICU and I was asked to see him on consultation. Patient was hemodynamically stable through the night. No issues overnight. He was maintained on antibiotics as per infectious disease, evaluated this morning, and the patient is doing great. Denies any significant abdominal pain, he does have an epidural catheter. Denies any headache no blurred vision no dizziness. No nausea no vomiting no abdominal pain. No dysuria and no frequency no urgency. And no fever or chills overnight. Patient was reevaluated today on 11/25/2018, remains in the intensive care unit, however the patient has been hemodynamically stable, and no major issues overnight. No shortness of breath, no chest pain, no cough, no wheezing, and his abdominal pain is fairly well controlled. Labs were all reviewed, he had a relatively normal CBC hemoglobin is 10.6, normal electrolytes, and normal liver profile. Patient continues to have a nasogastric tube in place. And his colostomy is not quite functional yet. Objective - Vital Signs Vital signs: Vital Signs Temp 97.8 F 11/25/18 08:00 Pulse 83 11/25/18 10:00 Resp 17 11/25/18 10:00 BP 105/72 11/25/18 10:00 Pulse Ox 98 11/25/18 10:00 Intake & Output 11/24/18 11/25/18 11/25/18 18:59 06:59 18:59 Intake Total 2400 1902.7 700 Output Total 1160 1780 255 Balance 1240 122.7 445 Weight 103.1 kg 106.5 kg Intake: IV 1700 1900 700 Dextrose 5%-0.45% NaCl 1, 1500 1800 600 000 ml @ 150 mls/hr IV . Q6H44M MODE with Potassium Chloride 20 meq Rx#: [id number] Piperacillin-Tazobactam 3 200 100 100 .375 gm In Sodium Chloride 0.9% 100 ml @ 25 mls/hr IVPB Q8HR MODE Rx# :[id number] Intake, IV Titration 200 2.7 Amount Magnesium Sulfate-D5w Pmx 200 1 gm In Dextrose/Water 1 100ml.bag @ 100 mls/hr IVPB Q1H MODE Rx#: [id number] Ropivacaine 400 mg 2.7 Hydromorphone (Pf) 5 mg In Sodium Chloride 0.9% 170 ml @ Per Protocol EPIDURAL .Q0M PRN Rx#: [id number] Oral 500 Output: Gastric Drainage 600 1050 Urine 560 730 255 Other: Voiding Method Indwelling Catheter Indwelling Catheter Indwelling Catheter - Exam Physical Exam: 38-year-old white male in no distress. Head: Atraumatic normocephalic. HEENT:[Neck is supple.] [No neck masses.] [No thyromegaly.] [No JVD.] Dry mucous membranes noted, PERRLA, EOMI, no icterus Chest: [Clear breath sounds bilaterally, no crackles or rhonchi or wheezes. Cardiac Exam: [Normal S1 and S2, no S3 gallop, no murmur.] Abdomen: [Postsurgical, abdominal binder in place, nasogastric tube in place, colostomy is noted, minimal serous drainage noted in the colostomy bag Extremities: [No clubbing, no edema, no cyanosis.] Neurological Exam: Alert and oriented 3. [No focal neurologic deficit.] Psychiatric: Normal mood, affect and mental status examination. - Labs CBC & Chem 7: 11/25/18 04:56 11/25/18 04:56 Labs: Abnormal Lab Results - Last 24 Hours (Table) 11/25/18 11/25/18 11/25/18 Range/Units 04:56 04:56 05:45 RBC 3.72 L (4.30-5.90) m/uL Hgb 10.6 L (13.0-17.5) gm/dL Hct 32.5 L (39.0-53.0) % Lymphocytes # 0.9 L (1.0-4.8) k/uL Glucose 112 H (74-99) mg/dL POC Glucose (mg/dL) 109 H (75-99) mg/dL Phosphorus 2.1 L (2.5-4.5) mg/dL Alkaline Phosphatase 34 L (38-126) U/L Total Protein 4.8 L (6.3-8.2) g/dL Albumin 2.3 L (3.5-5.0) g/dL Microbiology - Last 24 Hours (Table) 11/23/18 17:30 Gram Stain - Preliminary Other - Other Wound Culture - Preliminary 11/20/18 15:15 Blood Culture - Preliminary Blood No Growth after 96 hours Assessment and Plan Assessment: Impression: 1 status post sigmoid colectomy and colostomy, incidental appendectomy, periumbilical hernia repair, postoperative day #2 2 perforation of sigmoid colon due to diverticulitis. 3 acute abdominal sepsis secondary to 2. 4 history of benign essential hypertension 5 history of hyperlipidemia 6 history of nephrolithiasis. Recommendation: Continue antibiotics, continue incentive spirometry, continue GI and DVT prophylaxis, continue plans for early ambulation, continue pain control, continue nasogastric tube in place for now, considering the patient is demonstrating relative stability while in the ICU, I would recommend transfer the patient out to a medical surgical floor today, and we will continue to follow. Clearly the patient is not ready for any discharge planning at this point, he continues to have a nasogastric tube in place, and hopefully this will be discontinued in the next 24 hours. Time with Patient: Less than 30
--- NOTE | 2018-11-25 12:49 | P.PN ---
Subjective Progress Note Date: 11/25/18 Sheldon Virk, is a 38-year-old male patient of Dr. Blanquita Pimentel who presented to [facility] emergency room with a chief complaint of abdominal pain patient states that his pain started about 2 and a half weeks ago at that time he went to [facility] emergency room he was given a course of antibiotic and was discharged home, he finished the course of Augmentin but his symptoms did not resolve he went to [facility] he was evaluated there and given a course of Cipro and Flagyl he started taking the course however he started having worsening abdominal pain and he came to [facility] emergency room computed tomography scan of the abdomen and pelvis was done in emergency room and revealed evidence of fluid collection adjacent to the sigmoid colon and air within the mesentery of the sigmoid colon suggestive of microperforation, patient was admitted under Dr. Willian Engle service, medical consultation was requested for management while hospitalized. Patient has a known history of hypertension and hyperlipidemia well-controlled on medications, he has a remote history of kidney stones with multiple intervention in the past mostly between 10 years ago and 6 years ago, he also has a history of cholecystectomy. 11/22/2018 patient still complaining of lower abdominal pain and abdominal distention. Surgical service is following awaiting their evaluation regarding possible surgery. Patient now having low-grade temps of 99.9. He was hypotensive yesterday blood pressure 99/61. Blood pressure this morning 101/64 creatinine has gone up to 1.51 lisinopril be discontinued. He is currently on IV fluids. Denies any chest pain or shortness of breath. Denies any nausea or vomiting. Reports having bowel movements that are loose in small amounts. Denies any burning with urination. 11/23/2018 patient is scheduled for surgery today. Abdomen is still distended. Remains on IV Zosyn. He did have a low-grade temp of 100.7 yesterday afternoon. Blood pressure this morning 107/67 heart rate 105. Creatinine has decreased from 1.51 down to 1.39. MARCK inhibitor and Toradol discontinued yesterday. Potassium is 5.4. We will remove the potassium from the IV fluids. Continue him on D5 half-normal saline at 150 mL an hour. 11/24/2018 patient status post sigmoid colectomy with end colostomy, incidental appendectomy, partial omentectomy, repair of umbilical hernia. Patient currently in the ICU. Kidney functions have improved potassium level normalized. Cultures pending. Currently on IV Zosyn. Patient denies any chest pain or shortness breath. Denies any nausea. Does have NG tube in place. 11/25/2018 patient currently in ICU. Pain is controlled. Patient complains of having issues with his pain through the night but it has now improved. Denies any chest pain or shortness of breath. Denies any nausea or vomiting. Rodgers catheter has very light pink tinged urine possibly from Rodgers catheter trauma. Hemoglobin has dropped from 11.2-10.6 Objective - Vital Signs Vital signs: Vital Signs Temp 97.8 F 11/25/18 08:00 Pulse 73 11/25/18 12:00 Resp 20 11/25/18 12:00 BP 110/67 11/25/18 12:00 Pulse Ox 92 L 11/25/18 12:00 Intake & Output 11/24/18 11/25/18 11/25/18 18:59 06:59 18:59 Intake Total 2400 1902.7 850 Output Total 1160 1780 315 Balance 1240 122.7 535 Weight 103.1 kg 106.5 kg Intake: IV 1700 1900 850 Dextrose 5%-0.45% NaCl 1, 1500 1800 750 000 ml @ 150 mls/hr IV . Q6H44M MODE with Potassium Chloride 20 meq Rx#: [id number] Piperacillin-Tazobactam 3 200 100 100 .375 gm In Sodium Chloride 0.9% 100 ml @ 25 mls/hr IVPB Q8HR [facility] Rx# :[id number] Intake, IV Titration 200 2.7 Amount Magnesium Sulfate-D5w Pmx 200 1 gm In Dextrose/Water 1 100ml.bag @ 100 mls/hr IVPB Q1H MODE Rx#: [id number] Ropivacaine 400 mg 2.7 Hydromorphone (Pf) 5 mg In Sodium Chloride 0.9% 170 ml @ Per Protocol EPIDURAL .Q0M PRN Rx#: [id number] Oral 500 Output: Gastric Drainage 600 1050 Urine 560 730 315 Other: Voiding Method Indwelling Catheter Indwelling Catheter Indwelling Catheter - Exam Head normocephalic Neck supple Lungs clear to auscultation bilaterally no wheezing or crackles Heart regular rate and rhythm S1-S2, no rub or gallop Abdomen abdominal soft positive bowel sounds closely that he has yellowish drainage no stool Extremities no edema Neuro alert and orientated to 3 - Labs CBC & Chem 7: 11/25/18 04:56 11/25/18 04:56 Labs: Abnormal Lab Results - Last 24 Hours (Table) 11/25/18 11/25/18 11/25/18 Range/Units 04:56 04:56 05:45 RBC 3.72 L (4.30-5.90) m/uL Hgb 10.6 L (13.0-17.5) gm/dL Hct 32.5 L (39.0-53.0) % Lymphocytes # 0.9 L (1.0-4.8) k/uL Glucose 112 H (74-99) mg/dL POC Glucose (mg/dL) 109 H (75-99) mg/dL Phosphorus 2.1 L (2.5-4.5) mg/dL Alkaline Phosphatase 34 L (38-126) U/L Total Protein 4.8 L (6.3-8.2) g/dL Albumin 2.3 L (3.5-5.0) g/dL 11/25/18 Range/Units 12:14 RBC (4.30-5.90) m/uL Hgb (13.0-17.5) gm/dL Hct (39.0-53.0) % Lymphocytes # (1.0-4.8) k/uL Glucose (74-99) mg/dL POC Glucose (mg/dL) 107 H (75-99) mg/dL Phosphorus (2.5-4.5) mg/dL Alkaline Phosphatase (38-126) U/L Total Protein (6.3-8.2) g/dL Albumin (3.5-5.0) g/dL Microbiology - Last 24 Hours (Table) 11/23/18 17:30 Gram Stain - Preliminary Other - Other Wound Culture - Preliminary 11/20/18 15:15 Blood Culture - Preliminary Blood No Growth after 96 hours Assessment and Plan Assessment: #1 acute sigmoid diverticulitis with evidence of microperforation and diverticular abscess : Status post sigmoid colectomy with end colostomy, incidental appendectomy, partial omentectomy, repair of umbilical hernia. Surgery is following. Patient currently nothing by mouth with NG tube in place. Pain control #2 essential hypertension #3 underlying history of hyperlipidemia #4 for DVT prophylaxis patient is maintained on subcu heparin for GI prophylaxis Will add IV Protonix #5 remote history of kidney stones, patient has a 6 mm nonobstructing left sided kidney stone at this time which is an incidental finding not related to patient pain and not causing any hydronephrosis at this time. #6 acute kidney injury likely related to hypotension and nothing by mouth status and Toradol. Patient will be hydrated with IV fluids. Discontinue MARCK inhibitor and Toradol. Creatinine has normalized. #7 hyperkalemia: Resolved Incentive spirometer has been ordered Possible transfer out of the ICU later today I performed an examination of the patient and discussed their management with the physician Karate Instructor. I have reviewed the Physician Karate Instructor's notes and agree with the documented findings and plan of care
--- NOTE | 2018-11-25 15:11 | P.PN ---
Subjective Progress Note Date: 11/25/18 Principal diagnosis: Diverticulitis Patient transferred out of the ICU today. Doing well at this time. Pain seems improved from yesterday. His Rodgers catheter was removed despite the epidural still being in place. He is afebrile. He has felt cold sweats at times. White blood cell count normal today. No bowel function. Objective - Vital Signs Vital signs: Vital Signs Temp 97.8 F 11/25/18 08:00 Pulse 73 11/25/18 12:00 Resp 20 11/25/18 12:00 BP 110/67 11/25/18 12:00 Pulse Ox 92 L 11/25/18 12:00 Intake & Output 11/24/18 11/25/18 11/25/18 18:59 06:59 18:59 Intake Total 2400 1902.7 1300 Output Total 1160 1780 1165 Balance 1240 122.7 135 Weight 103.1 kg 106.5 kg Intake: IV 1700 1900 1300 Dextrose 5%-0.45% NaCl 1, 1500 1800 1200 000 ml @ 150 mls/hr IV . Q6H44M MODE with Potassium Chloride 20 meq Rx#: [id number] Piperacillin-Tazobactam 3 200 100 100 .375 gm In Sodium Chloride 0.9% 100 ml @ 25 mls/hr IVPB Q8HR MODE Rx# :[id number] Intake, IV Titration 200 2.7 Amount Magnesium Sulfate-D5w Pmx 200 1 gm In Dextrose/Water 1 100ml.bag @ 100 mls/hr IVPB Q1H MODE Rx#: [id number] Ropivacaine 400 mg 2.7 Hydromorphone (Pf) 5 mg In Sodium Chloride 0.9% 170 ml @ Per Protocol EPIDURAL .Q0M PRN Rx#: [id number] Oral 500 Output: Gastric Drainage 600 1050 500 Urine 560 730 665 Other: Voiding Method Indwelling Catheter Indwelling Catheter Indwelling Catheter - Exam Abdomen: Soft, distended, dressing clean dry, ostomy pink without function - Labs CBC & Chem 7: 11/25/18 04:56 11/25/18 04:56 Labs: Abnormal Lab Results - Last 24 Hours (Table) 11/25/18 11/25/18 11/25/18 Range/Units 04:56 04:56 05:45 RBC 3.72 L (4.30-5.90) m/uL Hgb 10.6 L (13.0-17.5) gm/dL Hct 32.5 L (39.0-53.0) % Lymphocytes # 0.9 L (1.0-4.8) k/uL Glucose 112 H (74-99) mg/dL POC Glucose (mg/dL) 109 H (75-99) mg/dL Phosphorus 2.1 L (2.5-4.5) mg/dL Alkaline Phosphatase 34 L (38-126) U/L Total Protein 4.8 L (6.3-8.2) g/dL Albumin 2.3 L (3.5-5.0) g/dL 11/25/18 Range/Units 12:14 RBC (4.30-5.90) m/uL Hgb (13.0-17.5) gm/dL Hct (39.0-53.0) % Lymphocytes # (1.0-4.8) k/uL Glucose (74-99) mg/dL POC Glucose (mg/dL) 107 H (75-99) mg/dL Phosphorus (2.5-4.5) mg/dL Alkaline Phosphatase (38-126) U/L Total Protein (6.3-8.2) g/dL Albumin (3.5-5.0) g/dL Microbiology - Last 24 Hours (Table) 11/23/18 17:30 Gram Stain - Preliminary Other - Other Wound Culture - Preliminary 11/20/18 15:15 Blood Culture - Preliminary Blood No Growth after 96 hours Assessment and Plan (1) Perforation of sigmoid colon due to diverticulitis Narrative/Plan: Patient doing fairly well today. Monitor for urinary retention. Possible need for Rodgers catheter replacement. Continue antibiotics per infectious disease. Continue increasing activity. Repeat labs tomorrow. Current Visit: Yes Status: Acute Code(s): K57.20 - DVTRCLI OF LG INT W PERFORATION AND ABSCESS W/O BLEEDING SNOMED Code(s): 0396501544711703
[2018-11-25 17:13] LABS: Glucose,Whole Blood 102 mg/dL (75-99)
[2018-11-25] MEDS: ROPIVACAINE 400 MG, HYDROMORPHONE (PF) 5 MG in SODIUM CHLORIDE 0.9% 170 ML EPIDURAL PRN (19:05)
--- NOTE | 2018-11-25 23:21 | PN ---
PROGRESS NOTE DATE OF SERVICE: 11/25/2018 REASON FOR FOLLOWUP: Acute sigmoid diverticulitis, failing medical therapy. INTERVAL HISTORY: The patient is currently afebrile. He has been breathing comfortably. Denies having any chest pain or shortness of breath or cough. Patient abdominal pain is currently controlled with pain medication. Still has the NG in and has not passed any . PHYSICAL EXAMINATION: Blood pressure 97/63, pulse of 82, temperature 98.4. He is 94% on room air. General description is a middle-aged male lying in bed in no distress. RESPIRATORY SYSTEM: Unlabored breathing. Clear to auscultation anteriorly. HEART: S1, S2. Regular rate and rhythm. ABDOMEN: Soft. Mild distention. No guarding or rigidity. LABS: Hemoglobin is 10.6, white count of 6.0, BUN of 12, creatinine 0.84. The abdominal culture is currently pending. DIAGNOSTIC IMPRESSION AND PLAN: Patient with an abdominal abscess from ruptured sigmoid diverticulitis, failing outpatient antibiotic therapy, status post diverting colostomy. The patient at this time is covered with Zosyn; to continue while waiting for the culture to finalize. Continue with supportive care. MMODL / IJN: [id number] /
[2018-11-26] MEDS: HEPARIN SODIUM,PORCINE 5,000 UNIT/ML 1 ML VIAL SQ SCH ×3 (00:14→15:01)
[2018-11-26] MEDS: PIPERACILLIN-TAZOBACTAM 3.375 GM in SODIUM CHLORIDE 0.9% 100 ML IVPB SCH ×3 (00:17→15:02)
[2018-11-26] MEDS: DEXTROSE 5%-0.45% NACL 1,000 ML IV SCH ×4 (00:19→12:48)
[2018-11-26 00:21] LABS: Glucose,Whole Blood 76 mg/dL (75-99)
[2018-11-26 02:02] LABS: Glucose,Whole Blood 85 mg/dL (75-99)
[2018-11-26 06:56] LABS: Glucose,Whole Blood 90 mg/dL (75-99)
--- NOTE | 2018-11-26 07:54 | P.PN ---
Progress Note - Text 11/26 715am 38-year-old male status post explore lap by Dr. Emmanuel Lang. Patient has an epidural catheter for postop pain control with the solution running at 7 mL an hour. Patient is comfortable with a VAS of 3 with no motor or sensory deficit. Patient has been ambulating well plan to DC epidural catheter and nurse informed
[2018-11-26 08:18] LABS: ALT 33 U/L (21-72); AST 37 U/L (17-59); Albumin 2.4 g/dL (3.5-5.0); Alkaline Phosphatase 35 U/L (38-126); Anion Gap 8 mmol/L; Blood Urea Nitrogen 8 mg/dL (9-20); Calcium 8.9 mg/dL (8.4-10.2); Carbon Dioxide 27 mmol/L (22-30); Chloride 103 mmol/L (98-107); Glucose 96 mg/dL (74-99); Magnesium 1.6 mg/dL (1.6-2.3); Phosphorus 3.1 mg/dL (2.5-4.5); Potassium 3.8 mmol/L (3.5-5.1); Sodium 138 mmol/L (137-145); Total Bilirubin 0.5 mg/dL (0.2-1.3); Total Protein 5.1 g/dL (6.3-8.2)
[2018-11-26 08:36] LABS: Basophils % (A) 0 %; Eosinophils # (A) 0.3 k/uL (0-0.7); Eosinophils % (A) 5 %; HGB 10.8 gm/dL (13.0-17.5); Hypochromasia Moderate; Lymphocytes # (A) 0.7 k/uL (1.0-4.8); Lymphocytes % (A) 15 %; MCH 27.7 pg (25.0-35.0); MCHC 31.7 g/dL (31.0-37.0); MCV 87.5 fL (80.0-100.0); Mean Platelet Volume 6.2; Monocytes # (A) 0.2 k/uL (0-1.0); Monocytes % (A) 4 %; Neutrophils # (A) 3.6 k/uL (1.3-7.7); Neutrophils % (A) 74 %; Platelet Count 347 k/uL (150-450); RBC 3.89 m/uL (4.30-5.90); WBC 4.9 k/uL (3.8-10.6)
[2018-11-26] MEDS: FAMOTIDINE 20 MG/2 ML VIAL IV SCH ×2 (09:33→21:17)
[2018-11-26] MEDS ORDERED: HYDROcodone/APAP 5-325MG 1 EACH TAB PO PRN (10:38)
[2018-11-26] MEDS ORDERED: HYDROmorphone 0.5 MG/0.5 ML SYRINGE IVP PRN (10:38)
--- NOTE | 2018-11-26 10:39 | P.PN ---
Subjective Progress Note Date: 11/26/18 Sheldon Virk, is a 38-year-old male patient of Dr. Blanquita Pimentel who presented to [facility] emergency room with a chief complaint of abdominal pain patient states that his pain started about 2 and a half weeks ago at that time he went to [facility] emergency room he was given a course of antibiotic and was discharged home, he finished the course of Augmentin but his symptoms did not resolve he went to [facility] he was evaluated there and given a course of Cipro and Flagyl he started taking the course however he started having worsening abdominal pain and he came to [facility] emergency room computed tomography scan of the abdomen and pelvis was done in emergency room and revealed evidence of fluid collection adjacent to the sigmoid colon and air within the mesentery of the sigmoid colon suggestive of microperforation, patient was admitted under Dr. Willian Engle service, medical consultation was requested for management while hospitalized. Patient has a known history of hypertension and hyperlipidemia well-controlled on medications, he has a remote history of kidney stones with multiple intervention in the past mostly between 10 years ago and 6 years ago, he also has a history of cholecystectomy. 11/22/2018 patient still complaining of lower abdominal pain and abdominal distention. Surgical service is following awaiting their evaluation regarding possible surgery. Patient now having low-grade temps of 99.9. He was hypotensive yesterday blood pressure 99/61. Blood pressure this morning 101/64 creatinine has gone up to 1.51 lisinopril be discontinued. He is currently on IV fluids. Denies any chest pain or shortness of breath. Denies any nausea or vomiting. Reports having bowel movements that are loose in small amounts. Denies any burning with urination. 11/23/2018 patient is scheduled for surgery today. Abdomen is still distended. Remains on IV Zosyn. He did have a low-grade temp of 100.7 yesterday afternoon. Blood pressure this morning 107/67 heart rate 105. Creatinine has decreased from 1.51 down to 1.39. MARCK inhibitor and Toradol discontinued yesterday. Potassium is 5.4. We will remove the potassium from the IV fluids. Continue him on D5 half-normal saline at 150 mL an hour. 11/24/2018 patient status post sigmoid colectomy with end colostomy, incidental appendectomy, partial omentectomy, repair of umbilical hernia. Patient currently in the ICU. Kidney functions have improved potassium level normalized. Cultures pending. Currently on IV Zosyn. Patient denies any chest pain or shortness breath. Denies any nausea. Does have NG tube in place. 11/25/2018 patient currently in ICU. Pain is controlled. Patient complains of having issues with his pain through the night but it has now improved. Denies any chest pain or shortness of breath. Denies any nausea or vomiting. Rodgers catheter has very light pink tinged urine possibly from Rodgers catheter trauma. Hemoglobin has dropped from 11.2-10.6 On 11/26/2018 patient was seen and examined on the medical floor he is alert and oriented 3 in no apparent distress, there is no fever or chills no headache or dizziness no chest pain no shortness of breath no cough no nausea or vomiting, abdominal pain is well-controlled, epidural catheter was removed this morning, patient is tolerating well, there is small amount of brown liquid stool in the colostomy bag, there is no urinary symptoms. Objective - Vital Signs Vital signs: Vital Signs Temp 98.5 F 11/26/18 07:57 Pulse 77 11/26/18 07:57 Resp 17 11/26/18 07:57 BP 115/74 11/26/18 07:57 Pulse Ox 92 L 11/26/18 07:57 Intake & Output 11/25/18 11/26/18 11/26/18 18:59 06:59 18:59 Intake Total 1300 1515.833 Output Total 1180 200 Balance 120 1315.833 Intake: IV 1300 1300 Dextrose 5%-0.45% NaCl 1, 1200 1200 000 ml @ 150 mls/hr IV . Q6H44M MODE with Potassium Chloride 20 meq Rx#: [id number] Piperacillin-Tazobactam 3 100 100 .375 gm In Sodium Chloride 0.9% 100 ml @ 25 mls/hr IVPB Q8HR MODE Rx# :[id number] Intake, IV Titration 215.833 Amount Ropivacaine 400 mg 215.833 Hydromorphone (Pf) 5 mg In Sodium Chloride 0.9% 170 ml @ Per Protocol EPIDURAL .Q0M PRN Rx#: [id number] Output: Gastric Drainage 500 200 Urine 665 Stool 15 Other: Voiding Method Indwelling Catheter Toilet # Voids 2 2 - Exam Head normocephalic and atraumatic Neck supple, no JVD Lungs clear to auscultation bilaterally no wheezing or crackles Heart regular rate and rhythm S1-S2, no rub or gallop Abdomen abdominal soft positive bowel sounds closely that he has yellowish drainage no stool Extremities no edema no cyanosis or clubbing SCD stockings on Neuro alert and orientated to 3 - Labs CBC & Chem 7: 11/26/18 07:21 11/26/18 07:21 Labs: Abnormal Lab Results - Last 24 Hours (Table) 11/25/18 11/25/18 11/26/18 Range/Units 12:14 16:57 07:21 RBC (4.30-5.90) m/uL Hgb (13.0-17.5) gm/dL Hct (39.0-53.0) % Lymphocytes # (1.0-4.8) k/uL BUN 8 L (9-20) mg/dL POC Glucose (mg/dL) 107 H 102 H (75-99) mg/dL Alkaline Phosphatase 35 L (38-126) U/L Total Protein 5.1 L (6.3-8.2) g/dL Albumin 2.4 L (3.5-5.0) g/dL 11/26/18 Range/Units 07:21 RBC 3.89 L (4.30-5.90) m/uL Hgb 10.8 L (13.0-17.5) gm/dL Hct 34.0 L (39.0-53.0) % Lymphocytes # 0.7 L (1.0-4.8) k/uL BUN (9-20) mg/dL POC Glucose (mg/dL) (75-99) mg/dL Alkaline Phosphatase (38-126) U/L Total Protein (6.3-8.2) g/dL Albumin (3.5-5.0) g/dL Microbiology - Last 24 Hours (Table) 11/23/18 17:30 Anaerobic Culture - Preliminary Perineal Fluid 11/23/18 17:30 Gram Stain - Final Other - Other Wound Culture - Final 11/20/18 15:15 Blood Culture - Preliminary Blood No Growth after 120 hours Assessment and Plan Plan: #1 acute sigmoid diverticulitis with evidence of microperforation and diverticular abscess : Status post sigmoid colectomy with end colostomy, incidental appendectomy, partial omentectomy, repair of umbilical hernia. Surgery is following. Patient currently nothing by mouth with NG tube in place. Pain control #2 essential hypertension #3 underlying history of hyperlipidemia #4 for DVT prophylaxis patient is maintained on subcu heparin for GI prophylaxis Will add IV Protonix #5 remote history of kidney stones, patient has a 6 mm nonobstructing left sided kidney stone at this time which is an incidental finding not related to patient pain and not causing any hydronephrosis at this time. #6 acute kidney injury likely related to hypotension and nothing by mouth status and Toradol. Patient will be hydrated with IV fluids. Discontinue MARCK inhibitor and Toradol. Creatinine has normalized. #7 hyperkalemia: Resolved Incentive spirometer has been ordered DVT prophylaxis with subcu heparin and SCDs stockings
--- NOTE | 2018-11-26 12:32 | P.PN ---
Subjective Progress Note Date: 11/26/18 Principal diagnosis: Diverticulitis Patient doing well today. Pain seems improved. Small amount of bilious fluid in the ostomy bag. The ostomy was changed yesterday. He is afebrile. No tachycardia at this time. Decent urine output. White blood cell count normal. Remains bloated. Objective - Vital Signs Vital signs: Vital Signs Temp 98.5 F 11/26/18 07:57 Pulse 77 11/26/18 07:57 Resp 17 11/26/18 07:57 BP 115/74 11/26/18 07:57 Pulse Ox 92 L 11/26/18 07:57 Intake & Output 11/25/18 11/26/18 11/26/18 18:59 06:59 18:59 Intake Total 1300 1515.833 Output Total 1180 200 Balance 120 1315.833 Intake: IV 1300 1300 Dextrose 5%-0.45% NaCl 1, 1200 1200 000 ml @ 150 mls/hr IV . Q6H44M MODE with Potassium Chloride 20 meq Rx#: [id number] Piperacillin-Tazobactam 3 100 100 .375 gm In Sodium Chloride 0.9% 100 ml @ 25 mls/hr IVPB Q8HR MODE Rx# :[id number] Intake, IV Titration 215.833 Amount Ropivacaine 400 mg 215.833 Hydromorphone (Pf) 5 mg In Sodium Chloride 0.9% 170 ml @ Per Protocol EPIDURAL .Q0M PRN Rx#: [id number] Output: Gastric Drainage 500 200 Urine 665 Stool 15 Other: Voiding Method Indwelling Catheter Toilet # Voids 2 2 - Exam Abdomen: Soft, distended, incision with 4 midline wounds clean with minimal drainage, ostomy pink - Labs CBC & Chem 7: 11/26/18 07:21 11/26/18 07:21 Labs: Abnormal Lab Results - Last 24 Hours (Table) 11/25/18 11/26/18 11/26/18 Range/Units 16:57 07:21 07:21 RBC 3.89 L (4.30-5.90) m/uL Hgb 10.8 L (13.0-17.5) gm/dL Hct 34.0 L (39.0-53.0) % Lymphocytes # 0.7 L (1.0-4.8) k/uL BUN 8 L (9-20) mg/dL POC Glucose (mg/dL) 102 H (75-99) mg/dL Alkaline Phosphatase 35 L (38-126) U/L Total Protein 5.1 L (6.3-8.2) g/dL Albumin 2.4 L (3.5-5.0) g/dL Microbiology - Last 24 Hours (Table) 11/23/18 17:30 Anaerobic Culture - Preliminary Perineal Fluid 11/23/18 17:30 Gram Stain - Final Other - Other Wound Culture - Final 11/20/18 15:15 Blood Culture - Preliminary Blood No Growth after 120 hours Assessment and Plan (1) Perforation of sigmoid colon due to diverticulitis Narrative/Plan: Ambulate. Consult physical therapy. Continue IV antibiotics. Epidural removed. Modify analgesics. Keep nasogastric tube for now. Current Visit: Yes Status: Acute Code(s): K57.20 - DVTRCLI OF LG INT W PERFORATION AND ABSCESS W/O BLEEDING SNOMED Code(s): 4860035687452111
[2018-11-26] MEDS: HYDROmorphone 1 MG/ML 1 ML SYRINGE IM PRN ×4 (12:45→21:19)
--- NOTE | 2018-11-26 13:01 | P.PN ---
Subjective Progress Note Date: 11/26/18 Principal diagnosis: Perforated sigmoid diverticulitis, status post sigmoid colectomy with end colostomy, incidental appendectomy, partial omentectomy, and repair of the umbilical hernia, postop day 3 This is a 38-year-old white male presented on 11/20/2018, he was admitted initially with abdominal pain, recently diagnosed with diverticulitis as well as could distal. Patient came in mostly with crampy abdominal pain, pain was radiating down to his testicles. He also had episodes of nausea but no vomiting , no diarrhea, intermittent fevers and chills were also noted. He was seen by Dr. villalobos on 11/21/2018, and he was given the option of proceeding with sigmoid colectomy and end colostomy at that time, however the patient was feeling clinically better, and a conservative approach was advised considering he was doing better. He was kept nothing per mouth, and he was placed on antibiotics. Infectious disease consultation was also initiated. On 11/23/2018, patient had abdominal x-rays which demonstrated free intraperitoneal air hence the patient was seen by Dr. villalobos again, and he underwent surgery yesterday, the surgery consisted of sigmoid colectomy and end colostomy, incidental appendectomy partial omentectomy and repair of umbilical hernia. Postoperatively patient was extubated in the recovery room, admitted to the ICU and I was asked to see him on consultation. Patient was hemodynamically stable through the night. No issues overnight. He was maintained on antibiotics as per infectious disease, evaluated this morning, and the patient is doing great. Denies any significant abdominal pain, he does have an epidural catheter. Denies any headache no blurred vision no dizziness. No nausea no vomiting no abdominal pain. No dysuria and no frequency no urgency. And no fever or chills overnight. Patient was reevaluated today on 11/25/2018, remains in the intensive care unit, however the patient has been hemodynamically stable, and no major issues overnight. No shortness of breath, no chest pain, no cough, no wheezing, and his abdominal pain is fairly well controlled. Labs were all reviewed, he had a relatively normal CBC hemoglobin is 10.6, normal electrolytes, and normal liver profile. Patient continues to have a nasogastric tube in place. And his colostomy is not quite functional yet. On 11/26/2018 patient seen in follow-up on medical surgical floor. He sitting up in the chair, he was able to get up and take a shower this morning, he is on room air, denies any difficulty breathing, lung sounds are clear, patient is starting to produce small amount of liquid stool in his colostomy, bowel sounds are active, he is working on his incentive spirometer, able to achieve 1500 on the today, room air pulse ox is 92%, NG tube has been clamped, no nausea or vomiting, patient is tolerating ice chips and some popsicles. Today's lab work has been reviewed, and essentially unremarkable. No new chest x-ray, no cough, no congestion. No dynamically stable, no acute events overnight, we will signoff, and follow the patient on as-needed basis. Objective - Vital Signs Vital signs: Vital Signs Temp 98.5 F 11/26/18 07:57 Pulse 77 11/26/18 07:57 Resp 17 11/26/18 07:57 BP 115/74 11/26/18 07:57 Pulse Ox 92 L 11/26/18 07:57 Intake & Output 11/25/18 11/26/18 11/26/18 18:59 06:59 18:59 Intake Total 1300 1515.833 Output Total 1180 200 Balance 120 1315.833 Intake: IV 1300 1300 Dextrose 5%-0.45% NaCl 1, 1200 1200 000 ml @ 150 mls/hr IV . Q6H44M MODE with Potassium Chloride 20 meq Rx#: [id number] Piperacillin-Tazobactam 3 100 100 .375 gm In Sodium Chloride 0.9% 100 ml @ 25 mls/hr IVPB Q8HR MODE Rx# :[id number] Intake, IV Titration 215.833 Amount Ropivacaine 400 mg 215.833 Hydromorphone (Pf) 5 mg In Sodium Chloride 0.9% 170 ml @ Per Protocol EPIDURAL .Q0M PRN Rx#: [id number] Output: Gastric Drainage 500 200 Urine 665 Stool 15 Other: Voiding Method Indwelling Catheter Toilet # Voids 2 2 - Exam GENERAL EXAM: Alert, pleasant, 38-year-old white male, with a NG tube in place , currently not connected to suction comfortable in no apparent distress. HEAD: Normocephalic/atraumatic. EYES: Normal reaction of pupils, equal size. Conjunctiva pink, sclera white. NOSE: Clear with pink turbinates. THROAT: No erythema or exudates. NECK: No masses, no JVD, no thyroid enlargement, no adenopathy. CHEST: No chest wall deformity. Symmetrical expansion. LUNGS: Equal air entry with no crackles, wheeze, rhonchi or dullness. CVS: Regular rate and rhythm, normal S1 and S2, no gallops, no murmurs, no rubs ABDOMEN: Soft, nontender. No hepatosplenomegaly, normal bowel sounds, no guarding or rigidity. Left abdominal colostomy passing green colored liquid stool, incision with for midline wounds clean, ostomy is viable, pink EXTREMITIES: No clubbing, no edema, no cyanosis, 2+ pulses and upper and lower extremities. MUSCULOSKELETAL: Muscle strength and tone normal. SPINE: No scoliosis or deformity SKIN: No rashes CENTRAL NERVOUS SYSTEM: Alert and oriented -3. No focal deficits, tone is normal in all 4 extremities. PSYCHIATRIC: Alert and oriented -3. Appropriate affect. Intact judgment and insight. - Labs CBC & Chem 7: 11/26/18 07:21 11/26/18 07:21 Labs: Abnormal Lab Results - Last 24 Hours (Table) 11/25/18 11/26/18 11/26/18 Range/Units 16:57 07:21 07:21 RBC 3.89 L (4.30-5.90) m/uL Hgb 10.8 L (13.0-17.5) gm/dL Hct 34.0 L (39.0-53.0) % Lymphocytes # 0.7 L (1.0-4.8) k/uL BUN 8 L (9-20) mg/dL POC Glucose (mg/dL) 102 H (75-99) mg/dL Alkaline Phosphatase 35 L (38-126) U/L Total Protein 5.1 L (6.3-8.2) g/dL Albumin 2.4 L (3.5-5.0) g/dL Microbiology - Last 24 Hours (Table) 11/23/18 17:30 Anaerobic Culture - Preliminary Perineal Fluid 11/23/18 17:30 Gram Stain - Final Other - Other Wound Culture - Final 11/20/18 15:15 Blood Culture - Preliminary Blood No Growth after 120 hours Assessment and Plan Plan: 1 status post sigmoid colectomy and colostomy, incidental appendectomy, periumbilical hernia repair, postoperative day #3 2 perforation of sigmoid colon due to diverticulitis. 3 acute abdominal sepsis secondary to 2. 4 history of benign essential hypertension 5 history of hyperlipidemia 6 history of nephrolithiasis. Plan: Encourage deep breathing and coughing, incentive spirometry use, ambulation, patient is doing well, on room air, no difficulty breathing, lung sounds are clear. His ostomy is functioning, anticipate NG tube removal, patient denies any nausea or vomiting, tolerating ice chips and popsicles. From pulmonary/ critical care perspective patient is doing well, we will follow on as-needed basis, I performed a history & physical examination of the patient and discussed their management with my nurse practitioner, Alla Persaud. I reviewed the nurse practitioner's note and agree with the documented findings and plan of care. Lung sounds are positive for clear breath sounds. The findings and the impression was discussed with the patient. I attest to the documentation by the nurse practitioner. Time with Patient: Less than 30
[2018-11-26 17:18] LABS: Glucose,Whole Blood 80 mg/dL (75-99)
[2018-11-26 17:22] VITALS: BMI 40.3
[2018-11-26] MEDS: KETOROLAC 30 MG/ML 1 ML VIAL IVP SCH (17:33)
[2018-11-26] MEDS: ACETAMINOPHEN IV (For NPO) 1,000 MG in EMPTY BAG 1 BAG IVPB SCH (17:33)
[2018-11-26] MEDS: METOCLOPRAMIDE 5 MG/ML 2 ML VIAL IVP SCH (18:08)
--- NOTE | 2018-11-26 22:34 | PN ---
PROGRESS NOTE DATE OF SERVICE: 11/26/2018. REASON FOR FOLLOWUP: Ruptured diverticulitis, secondary peritonitis. INTERVAL HISTORY: The patient is currently afebrile. He has been breathing comfortably. Denies having any chest pain, shortness of breath or cough. Abdominal pain is currently controlled. No nausea or vomiting. Did have some slight output in the colostomy bag. PHYSICAL EXAMINATION: Blood pressure is 127/78 with a pulse of 77, respirations 18, temperature 97.8, he is 97% on room air. GENERAL DESCRIPTION: A middle-aged male lying in bed in no distress. RESPIRATORY SYSTEM: Unlabored breathing. Clear to auscultation anteriorly. HEART: S1, S2. Regular rate and rhythm. ABDOMEN: Soft. Mildly distended. LABS: Hemoglobin is 10.2, white count 4.8, BUN of 8, creatinine 0.68. Abdominal cultures have been negative so far. DIAGNOSTIC IMPRESSION AND PLAN: Patient with acute sigmoid diverticulitis, failing outpatient oral antibiotic therapy. The patient is status post laparotomy with sigmoid colectomy and colostomy . Zosyn to continue for now while waiting to stabilize. Poor resistant growing in the culture, hopefully finish therapy with oral antibiotic. Continue supportive care. MMODL / IJN: [id number] /
[2018-11-27 00:19] LABS: Glucose,Whole Blood 76 mg/dL (75-99)
[2018-11-27] MEDS: ACETAMINOPHEN IV (For NPO) 1,000 MG in EMPTY BAG 1 BAG IVPB SCH ×2 (00:22→06:23)
[2018-11-27] MEDS: PIPERACILLIN-TAZOBACTAM 3.375 GM in SODIUM CHLORIDE 0.9% 100 ML IVPB SCH ×2 (00:22→09:34)
[2018-11-27] MEDS: METOCLOPRAMIDE 5 MG/ML 2 ML VIAL IVP SCH ×2 (00:23→06:23)
[2018-11-27] MEDS: KETOROLAC 30 MG/ML 1 ML VIAL IVP SCH ×2 (00:23→06:22)
[2018-11-27] MEDS: HEPARIN SODIUM,PORCINE 5,000 UNIT/ML 1 ML VIAL SQ SCH ×2 (00:23→08:23)
[2018-11-27] MEDS: DEXTROSE 5%-0.45% NACL 1,000 ML IV SCH ×2 (00:23→08:21)
[2018-11-27] MEDS: HYDROmorphone 1 MG/ML 1 ML SYRINGE IM PRN ×2 (03:17→07:01)
[2018-11-27 06:33] LABS: Glucose,Whole Blood 92 mg/dL (75-99)
[2018-11-27] MEDS: FAMOTIDINE 20 MG/2 ML VIAL IV SCH (08:21)
[2018-11-27 08:57] LABS: Basophils % (A) 0 %; Eosinophils # (A) 0.2 k/uL (0-0.7); Eosinophils % (A) 5 %; HGB 10.8 gm/dL (13.0-17.5); Lymphocytes # (A) 0.6 k/uL (1.0-4.8); Lymphocytes % (A) 12 %; MCHC 33.9 g/dL (31.0-37.0); MCV 85.5 fL (80.0-100.0); Mean Platelet Volume 6.6; Monocytes # (A) 0.2 k/uL (0-1.0); Monocytes % (A) 4 %; Neutrophils # (A) 3.9 k/uL (1.3-7.7); Neutrophils % (A) 77 %; Platelet Count 351 k/uL (150-450); RBC 3.74 m/uL (4.30-5.90); RDW 14.3 % (11.5-15.5); WBC 5.1 k/uL (3.8-10.6)
[2018-11-27 09:07] LABS: ALT 60 U/L (21-72); AST 68 U/L (17-59); Albumin 2.4 g/dL (3.5-5.0); Alkaline Phosphatase 40 U/L (38-126); Anion Gap 6 mmol/L; Blood Urea Nitrogen 7 mg/dL (9-20); Calcium 9.3 mg/dL (8.4-10.2); Carbon Dioxide 27 mmol/L (22-30); Chloride 107 mmol/L (98-107); Glucose 116 mg/dL (74-99); Magnesium 1.5 mg/dL (1.6-2.3); Phosphorus 3.7 mg/dL (2.5-4.5); Potassium 3.5 mmol/L (3.5-5.1); Sodium 140 mmol/L (137-145); Total Bilirubin 0.6 mg/dL (0.2-1.3)
--- NOTE | 2018-11-27 11:53 | P.PN ---
Progress Note - Text Progress Note Date: 11/27/18 The patient is resting comfortably in bed. He has had significant output through his colostomy bag. On exam is lesser stable. His evidence soft. Incision site is clean dry tach. Patient will have his nasogastric tube removed. We will start him on clear liquid diet.
[2018-11-27 12:24] LABS: Glucose,Whole Blood 103 mg/dL (75-99)
[2018-11-27 18:47] LABS: Glucose,Whole Blood 89 mg/dL (75-99)
[2018-11-28] MEDS: KETOROLAC 30 MG/ML 1 ML VIAL IVP SCH ×4 (00:25→11:34)
[2018-11-28] MEDS: HYDROmorphone 1 MG/ML 1 ML SYRINGE IM PRN ×5 (00:56→13:33)
[2018-11-28] MEDS: METOCLOPRAMIDE 5 MG/ML 2 ML VIAL IVP SCH ×7 (00:56→22:35)
[2018-11-28] MEDS: HEPARIN SODIUM,PORCINE 5,000 UNIT/ML 1 ML VIAL SQ SCH ×5 (00:56→22:46)
[2018-11-28] MEDS: ACETAMINOPHEN IV (For NPO) 1,000 MG in EMPTY BAG 1 BAG IVPB SCH (01:38)
[2018-11-28] MEDS: DEXTROSE 5%-0.45% NACL 1,000 ML IV SCH ×3 (01:41→07:35)
[2018-11-28] MEDS: FAMOTIDINE 20 MG/2 ML VIAL IV SCH ×3 (01:41→21:13)
[2018-11-28] MEDS: PIPERACILLIN-TAZOBACTAM 3.375 GM in SODIUM CHLORIDE 0.9% 100 ML IVPB SCH (01:42)
--- NOTE | 2018-11-28 04:02 | PN ---
PROGRESS NOTE DATE OF SERVICE: 11/27/2018 REASON FOR FOLLOWUP: Ruptured sigmoid diverticulitis with abscess. INTERVAL HISTORY: The patient is currently afebrile. The patient's NG has been discontinued. The patient is breathing comfortably. Denies significant chest pain or cough. Abdominal pain is currently controlled. Did have output in his colostomy bag and has been started on a clear liquid diet which the patient appears to be tolerating: On examination, blood pressure 147/91 with a pulse of 92, temperature 97.6. He is 98% on room air. GENERAL DESCRIPTION: A middle-aged male lying in bed in no distress. RESPIRATORY SYSTEM: Unlabored breathing. Clear to auscultation anteriorly. HEART: S1, S2. Regular rate and rhythm. ABDOMEN: Soft. LABS: Hemoglobin is 10.8, white count 5.1 with a BUN of 7, creatinine 0.69. DIAGNOSTIC IMPRESSION AND PLAN: Patient with ruptured sigmoid diverticulitis status post diverting colostomy. So far abdominal culture has been negative for resistant pathogen. Patient is currently covered with Zosyn, to continue ( ) oral antibiotic on discharge. Continue supportive care. MMODL / IJN: [id number] /
[2018-11-28 08:26] LABS: Basophils % (A) 1 %; Eosinophils # (A) 0.3 k/uL (0-0.7); Eosinophils % (A) 4 %; HCT 38.4 % (39.0-53.0); HGB 12.2 gm/dL (13.0-17.5); Lymphocytes # (A) 0.9 k/uL (1.0-4.8); Lymphocytes % (A) 14 %; MCH 27.3 pg (25.0-35.0); MCHC 31.8 g/dL (31.0-37.0); MCV 86.1 fL (80.0-100.0); Mean Platelet Volume 6.6; Monocytes # (A) 0.2 k/uL (0-1.0); Monocytes % (A) 4 %; Neutrophils % (A) 77 %; Platelet Count 485 k/uL (150-450); RBC 4.46 m/uL (4.30-5.90); RDW 14.4 % (11.5-15.5); WBC 6.5 k/uL (3.8-10.6)
[2018-11-28 08:53] LABS: Anion Gap 5 mmol/L; Blood Urea Nitrogen 5 mg/dL (9-20); Calcium 9.4 mg/dL (8.4-10.2); Carbon Dioxide 28 mmol/L (22-30); Chloride 107 mmol/L (98-107); Glucose 111 mg/dL (74-99); Magnesium 1.5 mg/dL (1.6-2.3); Phosphorus 3.5 mg/dL (2.5-4.5); Potassium 3.7 mmol/L (3.5-5.1); Sodium 140 mmol/L (137-145)
--- NOTE | 2018-11-28 13:27 | P.PN ---
Subjective Progress Note Date: 11/27/18 Date of this progress note is 11/27/2018 Sheldon Virk, is a 38-year-old male patient of Dr. Blanquita Pimentel who presented to [facility] emergency room with a chief complaint of abdominal pain patient states that his pain started about 2 and a half weeks ago at that time he went to [facility] emergency room he was given a course of antibiotic and was discharged home, he finished the course of Augmentin but his symptoms did not resolve he went to [facility] he was evaluated there and given a course of Cipro and Flagyl he started taking the course however he started having worsening abdominal pain and he came to [facility] emergency room computed tomography scan of the abdomen and pelvis was done in emergency room and revealed evidence of fluid collection adjacent to the sigmoid colon and air within the mesentery of the sigmoid colon suggestive of microperforation, patient was admitted under Dr. Willian Engle service, medical consultation was requested for management while hospitalized. Patient has a known history of hypertension and hyperlipidemia well-controlled on medications, he has a remote history of kidney stones with multiple intervention in the past mostly between 10 years ago and 6 years ago, he also has a history of cholecystectomy. 11/22/2018 patient still complaining of lower abdominal pain and abdominal distention. Surgical service is following awaiting their evaluation regarding possible surgery. Patient now having low-grade temps of 99.9. He was hypotensive yesterday blood pressure 99/61. Blood pressure this morning 101/64 creatinine has gone up to 1.51 lisinopril be discontinued. He is currently on IV fluids. Denies any chest pain or shortness of breath. Denies any nausea or vomiting. Reports having bowel movements that are loose in small amounts. Denies any burning with urination. 11/23/2018 patient is scheduled for surgery today. Abdomen is still distended. Remains on IV Zosyn. He did have a low-grade temp of 100.7 yesterday afternoon. Blood pressure this morning 107/67 heart rate 105. Creatinine has decreased from 1.51 down to 1.39. MARCK inhibitor and Toradol discontinued yesterday. Potassium is 5.4. We will remove the potassium from the IV fluids. Continue him on D5 half-normal saline at 150 mL an hour. 11/24/2018 patient status post sigmoid colectomy with end colostomy, incidental appendectomy, partial omentectomy, repair of umbilical hernia. Patient currently in the ICU. Kidney functions have improved potassium level normalized. Cultures pending. Currently on IV Zosyn. Patient denies any chest pain or shortness breath. Denies any nausea. Does have NG tube in place. 11/25/2018 patient currently in ICU. Pain is controlled. Patient complains of having issues with his pain through the night but it has now improved. Denies any chest pain or shortness of breath. Denies any nausea or vomiting. Rodgers catheter has very light pink tinged urine possibly from Rodgers catheter trauma. Hemoglobin has dropped from 11.2-10.6 On 11/26/2018 patient was seen and examined on the medical floor he is alert and oriented 3 in no apparent distress, there is no fever or chills no headache or dizziness no chest pain no shortness of breath no cough no nausea or vomiting, abdominal pain is well-controlled, epidural catheter was removed this morning, patient is tolerating well, there is small amount of brown liquid stool in the colostomy bag, there is no urinary symptoms. On 11/27/2018 patient was seen and examined on the medical floor he is still complaining of some abdominal discomfort otherwise there is no complaint is no fever or chills no headache or dizziness no chest pain no shortness of breath no cough no nausea or vomiting no diarrhea and no urinary symptoms there is small amount of brown stool in the colostomy bag Objective - Vital Signs Vital signs: Vital Signs Temp 98.7 F 11/28/18 07:26 Pulse 87 11/28/18 07:26 Resp 14 11/28/18 07:26 BP 160/94 11/28/18 07:26 Pulse Ox 99 11/28/18 07:26 Intake & Output 11/27/18 11/28/18 11/28/18 18:59 06:59 18:59 Weight 106.5 kg Other: Voiding Method Toilet Toilet Toilet # Voids 1 2 # Bowel Movements 1 - Exam Head normocephalic and atraumatic Neck supple, no JVD Lungs clear to auscultation bilaterally no wheezing or crackles Heart regular rate and rhythm S1-S2, no rub or gallop Abdomen abdominal soft positive bowel sounds closely that he has yellowish drainage no stool Extremities no edema no cyanosis or clubbing SCD stockings on Neuro alert and orientated to 3 - Labs CBC & Chem 7: 11/28/18 07:21 11/28/18 07:21 Labs: Abnormal Lab Results - Last 24 Hours (Table) 11/27/18 11/28/18 11/28/18 Range/Units 12:12 07:21 07:21 Hgb 12.2 L (13.0-17.5) gm/dL Hct 38.4 L (39.0-53.0) % Plt Count 485 H (150-450) k/uL Lymphocytes # 0.9 L (1.0-4.8) k/uL BUN 5 L (9-20) mg/dL Creatinine 0.63 L (0.66-1.25) mg/dL Glucose 111 H (74-99) mg/dL POC Glucose (mg/dL) 103 H (75-99) mg/dL Magnesium 1.5 L (1.6-2.3) mg/dL Microbiology - Last 24 Hours (Table) 11/23/18 17:30 Anaerobic Culture - Final Perineal Fluid Assessment and Plan Plan: #1 acute sigmoid diverticulitis with evidence of microperforation and diverticular abscess : Status post sigmoid colectomy with end colostomy, incidental appendectomy, partial omentectomy, repair of umbilical hernia. Surgery is following. Patient currently nothing by mouth with NG tube in place. Pain control #2 essential hypertension #3 underlying history of hyperlipidemia #4 for DVT prophylaxis patient is maintained on subcu heparin for GI prophylaxis Will add IV Protonix #5 remote history of kidney stones, patient has a 6 mm nonobstructing left sided kidney stone at this time which is an incidental finding not related to patient pain and not causing any hydronephrosis at this time. #6 acute kidney injury likely related to hypotension and nothing by mouth status and Toradol. Patient will be hydrated with IV fluids. Discontinue MARCK inhibitor and Toradol. Creatinine has normalized. #7 hyperkalemia: Resolved Incentive spirometer has been ordered DVT prophylaxis with subcu heparin and SCDs stockings
--- NOTE | 2018-11-28 14:27 | P.PN ---
Subjective Progress Note Date: 11/28/18 Sheldon Virk, is a 38-year-old male patient of Dr. Blanquita Pimentel who presented to [facility] emergency room with a chief complaint of abdominal pain patient states that his pain started about 2 and a half weeks ago at that time he went to [facility] emergency room he was given a course of antibiotic and was discharged home, he finished the course of Augmentin but his symptoms did not resolve he went to [facility] he was evaluated there and given a course of Cipro and Flagyl he started taking the course however he started having worsening abdominal pain and he came to [facility] emergency room computed tomography scan of the abdomen and pelvis was done in emergency room and revealed evidence of fluid collection adjacent to the sigmoid colon and air within the mesentery of the sigmoid colon suggestive of microperforation, patient was admitted under Dr. Willian Engle service, medical consultation was requested for management while hospitalized. Patient has a known history of hypertension and hyperlipidemia well-controlled on medications, he has a remote history of kidney stones with multiple intervention in the past mostly between 10 years ago and 6 years ago, he also has a history of cholecystectomy. 11/22/2018 patient still complaining of lower abdominal pain and abdominal distention. Surgical service is following awaiting their evaluation regarding possible surgery. Patient now having low-grade temps of 99.9. He was hypotensive yesterday blood pressure 99/61. Blood pressure this morning 101/64 creatinine has gone up to 1.51 lisinopril be discontinued. He is currently on IV fluids. Denies any chest pain or shortness of breath. Denies any nausea or vomiting. Reports having bowel movements that are loose in small amounts. Denies any burning with urination. 11/23/2018 patient is scheduled for surgery today. Abdomen is still distended. Remains on IV Zosyn. He did have a low-grade temp of 100.7 yesterday afternoon. Blood pressure this morning 107/67 heart rate 105. Creatinine has decreased from 1.51 down to 1.39. MARCK inhibitor and Toradol discontinued yesterday. Potassium is 5.4. We will remove the potassium from the IV fluids. Continue him on D5 half-normal saline at 150 mL an hour. 11/24/2018 patient status post sigmoid colectomy with end colostomy, incidental appendectomy, partial omentectomy, repair of umbilical hernia. Patient currently in the ICU. Kidney functions have improved potassium level normalized. Cultures pending. Currently on IV Zosyn. Patient denies any chest pain or shortness breath. Denies any nausea. Does have NG tube in place. 11/25/2018 patient currently in ICU. Pain is controlled. Patient complains of having issues with his pain through the night but it has now improved. Denies any chest pain or shortness of breath. Denies any nausea or vomiting. Rodgers catheter has very light pink tinged urine possibly from Rodgers catheter trauma. Hemoglobin has dropped from 11.2-10.6 On 11/26/2018 patient was seen and examined on the medical floor he is alert and oriented 3 in no apparent distress, there is no fever or chills no headache or dizziness no chest pain no shortness of breath no cough no nausea or vomiting, abdominal pain is well-controlled, epidural catheter was removed this morning, patient is tolerating well, there is small amount of brown liquid stool in the colostomy bag, there is no urinary symptoms. On 11/27/2018 patient was seen and examined on the medical floor he is still complaining of some abdominal discomfort otherwise there is no complaint is no fever or chills no headache or dizziness no chest pain no shortness of breath no cough no nausea or vomiting no diarrhea and no urinary symptoms there is small amount of brown stool in the colostomy bag On 11/28/2018 patient was seen and examined on the medical floor he is alert and oriented 3 in no apparent distress still having some abdominal discomfort otherwise there is no complaints there is no fever or chills no headache or dizziness no chest pain no shortness of breath no cough no nausea or vomiting no abdominal pain no burning with urination no frequency or urgency and no hematuria he is ambulating on the floor without difficulty Objective - Vital Signs Vital signs: Vital Signs Temp 98.7 F 11/28/18 07:26 Pulse 87 11/28/18 07:26 Resp 14 11/28/18 07:26 BP 160/94 11/28/18 07:26 Pulse Ox 99 11/28/18 07:26 Intake & Output 11/27/18 11/28/18 11/28/18 18:59 06:59 18:59 Weight 106.5 kg Other: Voiding Method Toilet Toilet Toilet # Voids 1 2 # Bowel Movements 1 - Exam Head normocephalic and atraumatic Neck supple, no JVD Lungs clear to auscultation bilaterally no wheezing or crackles Heart regular rate and rhythm S1-S2, no rub or gallop Abdomen abdominal soft positive bowel sounds closely that he has yellowish drainage no stool Extremities no edema no cyanosis or clubbing SCD stockings on Neuro alert and orientated to 3 - Labs CBC & Chem 7: 11/28/18 07:21 11/28/18 07:21 Labs: Abnormal Lab Results - Last 24 Hours (Table) 11/27/18 11/28/18 11/28/18 Range/Units 12:12 07:21 07:21 Hgb 12.2 L (13.0-17.5) gm/dL Hct 38.4 L (39.0-53.0) % Plt Count 485 H (150-450) k/uL Lymphocytes # 0.9 L (1.0-4.8) k/uL BUN 5 L (9-20) mg/dL Creatinine 0.63 L (0.66-1.25) mg/dL Glucose 111 H (74-99) mg/dL POC Glucose (mg/dL) 103 H (75-99) mg/dL Magnesium 1.5 L (1.6-2.3) mg/dL Microbiology - Last 24 Hours (Table) 11/23/18 17:30 Anaerobic Culture - Final Perineal Fluid Assessment and Plan Plan: #1 acute sigmoid diverticulitis with evidence of microperforation and diverticular abscess : Status post sigmoid colectomy with end colostomy, incidental appendectomy, partial omentectomy, repair of umbilical hernia. Surgery is following. Patient currently nothing by mouth with NG tube in place. Pain control #2 essential hypertension #3 underlying history of hyperlipidemia #4 for DVT prophylaxis patient is maintained on subcu heparin for GI prophylaxis Will add IV Protonix #5 remote history of kidney stones, patient has a 6 mm nonobstructing left sided kidney stone at this time which is an incidental finding not related to patient pain and not causing any hydronephrosis at this time. #6 acute kidney injury likely related to hypotension and nothing by mouth status and Toradol. Patient will be hydrated with IV fluids. Discontinue MARCK inhibitor and Toradol. Creatinine has normalized. #7 hyperkalemia: Resolved Incentive spirometer has been ordered DVT prophylaxis with subcu heparin and SCDs stockings
--- NOTE | 2018-11-28 15:02 | P.PN ---
Progress Note - Text Progress Note Date: 11/28/18 The patient is resting comfortably his bed. He is tolerated full liquid diet. On exam his vital signs are stable. His abdomen soft. Incision site is clean. The wound areas are clean as well. There is stool in the colostomy. Status post Otto procedure for perforated diverticula is. Patient doing well. We dysphagia discharged home next 24 hours.
[2018-11-28] MEDS: HYDROmorphone 1 MG/ML 1 ML SYRINGE IVP PRN ×2 (17:46→22:32)
[2018-11-28] MEDS ORDERED: BENZONATATE 100 MG CAP PO PRN (19:59)
--- NOTE | 2018-11-28 20:52 | XR ---
EXAMINATION TYPE: XR chest 1V portable DATE OF EXAM: 11/28/2018 COMPARISON: Prior chest x-ray 11/24/2018 HISTORY: Cough and congestion TECHNIQUE: Single frontal view of the chest is obtained. FINDINGS: Patient is rotated. NG tube is been removed. There is improvement in aeration. Heart size may be accentuated by rotation. No evident pneumothorax or pleural effusion. IMPRESSION: Improved aeration. Follow-up PA and lateral chest x-ray may be of benefit.
[2018-11-28] MEDS ORDERED: ATORVASTATIN 20 MG TAB PO SCH (21:00)
[2018-11-28] MEDS: LISINOPRIL 20 MG TAB PO SCH (21:13)
[2018-11-28] MEDS: ESCITALOPRAM 10 MG TAB PO SCH (22:46)
--- NOTE | 2018-11-29 00:07 | PN ---
PROGRESS NOTE DATE OF SERVICE: 11/28/2018. REASON FOR FOLLOWUP: Secondary peritonitis from a perforated sigmoid diverticulitis. INTERVAL HISTORY: The patient is currently afebrile. She is breathing comfortably. Denies having any chest pain or shortness of breath or cough. Abdominal pain is currently controlled. No nausea or vomiting. Did have output in his colostomy bag. PHYSICAL EXAMINATION: Blood pressure 176/100 with a pulse of 102, temperature of 99.3, he is 98% on room air. GENERAL DESCRIPTION: A middle-aged male lying in bed in no distress. RESPIRATORY SYSTEM: Unlabored breathing. Clear to auscultation anteriorly. HEART: S1, S2. Regular rate and rhythm. ABDOMEN: Soft. He did have a small open midline incision, currently covered with the Aquacel silver dressing, but no purulence. LABS: Hemoglobin is 12.8, white count 6.5 with a BUN of 5, creatinine 0.6. Abdominal culture has been negative so far. DIAGNOSTIC IMPRESSION AND PLAN: Patient with to sigmoid diverticulitis with perforation, failing outpatient therapy, status post diverting colostomy. The patient is currently on Zosyn, will be transitioned to oral antibiotic on discharge with close outpatient followup. Continue supportive care. MMODL / IJN: [id number] /
[2018-11-29] MEDS: ACETAMINOPHEN TAB 500 MG TAB PO PRN ×3 (01:41→18:24)
[2018-11-29] MEDS: HYDROmorphone 1 MG/ML 1 ML SYRINGE IVP PRN ×4 (02:23→23:50)
[2018-11-29] MEDS: DEXTROSE 5%-0.45% NACL 1,000 ML IV SCH ×2 (02:37→11:48)
[2018-11-29] MEDS: METOCLOPRAMIDE 5 MG/ML 2 ML VIAL IVP SCH ×4 (05:49→23:03)
[2018-11-29] MEDS: FAMOTIDINE 20 MG/2 ML VIAL IV SCH (08:24)
[2018-11-29] MEDS: HEPARIN SODIUM,PORCINE 5,000 UNIT/ML 1 ML VIAL SQ SCH ×3 (08:24→23:03)
[2018-11-29] MEDS: MAGNESIUM SULFATE-D5W PMX 1 GM in DEXTROSE/WATER 1 100ML.BAG IVPB SCH ×3 (08:24→11:47)
[2018-11-29] MEDS: LISINOPRIL 20 MG TAB PO SCH (08:24)
[2018-11-29 10:16] LABS: Basophils % (A) 0 %; Eosinophils # (A) 0.2 k/uL (0-0.7); Eosinophils % (A) 4 %; HCT 32.5 % (39.0-53.0); HGB 10.2 gm/dL (13.0-17.5); Hypochromasia Slight; Lymphocytes # (A) 0.4 k/uL (1.0-4.8); Lymphocytes % (A) 8 %; MCH 27.2 pg (25.0-35.0); MCHC 31.2 g/dL (31.0-37.0); MCV 87.2 fL (80.0-100.0); Mean Platelet Volume 7.4; Monocytes # (A) 0.2 k/uL (0-1.0); Monocytes % (A) 3 %; Neutrophils # (A) 4.4 k/uL (1.3-7.7); Neutrophils % (A) 82 %; Platelet Count 429 k/uL (150-450); RBC 3.73 m/uL (4.30-5.90); RDW 14.5 % (11.5-15.5); WBC 5.4 k/uL (3.8-10.6)
[2018-11-29 10:25] LABS: ALT 102 U/L (21-72); AST 80 U/L (17-59); Albumin 2.5 g/dL (3.5-5.0); Alkaline Phosphatase 42 U/L (38-126); Anion Gap 6 mmol/L; Blood Urea Nitrogen 2 mg/dL (9-20); Calcium 9.1 mg/dL (8.4-10.2); Carbon Dioxide 25 mmol/L (22-30); Chloride 109 mmol/L (98-107); Glucose 126 mg/dL (74-99); Potassium 3.4 mmol/L (3.5-5.1); Sodium 140 mmol/L (137-145); Total Bilirubin 0.3 mg/dL (0.2-1.3); Total Protein 5.3 g/dL (6.3-8.2)
[2018-11-29] MEDS: HYDROcodone/APAP 5-325MG 1 EACH TAB PO PRN ×4 (10:41→23:04)
[2018-11-29] MEDS ORDERED: POTASSIUM CHLORIDE ER 20 MEQ TAB.ER PO STA (10:55)
--- NOTE | 2018-11-29 10:59 | P.PN ---
Subjective Progress Note Date: 11/29/18 Principal diagnosis: Diverticulitis Patient started having fevers last night. He is tachycardic when febrile. White blood cell count normal. States his pain is about the same. Feels slightly bloated at times. He is having liquid ostomy function. Nasogastric tube was removed. He is tolerating clears. He says he is having an easier time ambulating. He says his pain still is much better than preoperatively. Objective - Vital Signs Vital signs: Vital Signs Temp 101.6 F H 11/29/18 08:20 Pulse 120 H 11/29/18 08:20 Resp 20 11/29/18 08:20 BP 152/79 11/29/18 08:20 Pulse Ox 95 11/29/18 08:20 Intake & Output 11/28/18 11/29/18 11/29/18 18:59 06:59 18:59 Intake Total 1550 Output Total 15 Balance 1535 Weight 106.5 kg Intake: IV 1150 Dextrose 5%-0.45% NaCl 1, 1050 000 ml @ 150 mls/hr IV . Q6H44M MODE with Potassium Chloride 20 meq Rx#: [id number] Piperacillin-Tazobactam 3 100 .375 gm In Sodium Chloride 0.9% 100 ml @ 25 mls/hr IVPB Q8HR MODE Rx# :[id number] Oral 400 Output: Stool 15 Other: Voiding Method Toilet # Voids 2 2 - Exam Abdomen: Soft, distended, wounds clean, no erythema, mild tenderness diffusely - Labs CBC & Chem 7: 11/29/18 02:55 11/29/18 02:55 Labs: Abnormal Lab Results - Last 24 Hours (Table) 11/29/18 11/29/18 11/29/18 Range/Units 02:55 02:55 02:55 RBC 3.73 L (4.30-5.90) m/uL Hgb 10.2 L (13.0-17.5) gm/dL Hct 32.5 L (39.0-53.0) % Lymphocytes # 0.4 L (1.0-4.8) k/uL Potassium 3.4 L (3.5-5.1) mmol/L Chloride 109 H (98-107) mmol/L BUN 2 L (9-20) mg/dL Glucose 126 H (74-99) mg/dL Magnesium 1.3 L (1.6-2.3) mg/dL AST 80 H (17-59) U/L ALT 102 H (21-72) U/L Total Protein 5.3 L (6.3-8.2) g/dL Albumin 2.5 L (3.5-5.0) g/dL Assessment and Plan (1) Perforation of sigmoid colon due to diverticulitis Narrative/Plan: Patient with new onset fevers. Spoke with infectious disease. It appears that the antibiotics must have fallen off of the medication list. Not sure when this occurred. He will address the antibiotic coverage issue at this time. Will increase diet to full liquids. Ambulate. Pulmonary toilet. Current Visit: Yes Status: Acute Code(s): K57.20 - DVTRCLI OF LG INT W PERFORATION AND ABSCESS W/O BLEEDING SNOMED Code(s): 3369492127946603
[2018-11-29] MEDS ORDERED: ANIDULAFUNGIN 200 MG in SODIUM CHLORIDE 0.9% 200 ML IVPB ONE (11:00)
--- NOTE | 2018-11-29 11:10 | P.PN ---
Subjective Progress Note Date: 11/29/18 Sheldon Virk, is a 38-year-old male patient of Dr. Blanquita Pimentel who presented to [facility] emergency room with a chief complaint of abdominal pain patient states that his pain started about 2 and a half weeks ago at that time he went to [facility] emergency room he was given a course of antibiotic and was discharged home, he finished the course of Augmentin but his symptoms did not resolve he went to [facility] he was evaluated there and given a course of Cipro and Flagyl he started taking the course however he started having worsening abdominal pain and he came to [facility] emergency room computed tomography scan of the abdomen and pelvis was done in emergency room and revealed evidence of fluid collection adjacent to the sigmoid colon and air within the mesentery of the sigmoid colon suggestive of microperforation, patient was admitted under Dr. Willian Engle service, medical consultation was requested for management while hospitalized. Patient has a known history of hypertension and hyperlipidemia well-controlled on medications, he has a remote history of kidney stones with multiple intervention in the past mostly between 10 years ago and 6 years ago, he also has a history of cholecystectomy. 11/22/2018 patient still complaining of lower abdominal pain and abdominal distention. Surgical service is following awaiting their evaluation regarding possible surgery. Patient now having low-grade temps of 99.9. He was hypotensive yesterday blood pressure 99/61. Blood pressure this morning 101/64 creatinine has gone up to 1.51 lisinopril be discontinued. He is currently on IV fluids. Denies any chest pain or shortness of breath. Denies any nausea or vomiting. Reports having bowel movements that are loose in small amounts. Denies any burning with urination. 11/23/2018 patient is scheduled for surgery today. Abdomen is still distended. Remains on IV Zosyn. He did have a low-grade temp of 100.7 yesterday afternoon. Blood pressure this morning 107/67 heart rate 105. Creatinine has decreased from 1.51 down to 1.39. MARCK inhibitor and Toradol discontinued yesterday. Potassium is 5.4. We will remove the potassium from the IV fluids. Continue him on D5 half-normal saline at 150 mL an hour. 11/24/2018 patient status post sigmoid colectomy with end colostomy, incidental appendectomy, partial omentectomy, repair of umbilical hernia. Patient currently in the ICU. Kidney functions have improved potassium level normalized. Cultures pending. Currently on IV Zosyn. Patient denies any chest pain or shortness breath. Denies any nausea. Does have NG tube in place. 11/25/2018 patient currently in ICU. Pain is controlled. Patient complains of having issues with his pain through the night but it has now improved. Denies any chest pain or shortness of breath. Denies any nausea or vomiting. Rodgers catheter has very light pink tinged urine possibly from Rodgers catheter trauma. Hemoglobin has dropped from 11.2-10.6 On 11/27/2018 patient was seen and examined on the medical floor he is still complaining of some abdominal discomfort otherwise there is no complaint is no fever or chills no headache or dizziness no chest pain no shortness of breath no cough no nausea or vomiting no diarrhea and no urinary symptoms there is small amount of brown stool in the colostomy bag On 11/28/2018 patient was seen and examined on the medical floor he is alert and oriented 3 in no apparent distress still having some abdominal discomfort otherwise there is no complaints there is no fever or chills no headache or dizziness no chest pain no shortness of breath no cough no nausea or vomiting no abdominal pain no burning with urination no frequency or urgency and no hematuria he is ambulating on the floor without difficulty 11/29/2018 patient having fever throughout the night and this morning. T-max is 101.6. Heart rate 120. White count is 5.4. Patient reporting chills abdominal discomfort. And not feeling well. Blood cultures are ordered. He' ll be given and [place]. chest x-ray from yesterday showed improved aeration. His magnesium and potassium are being replaced. AST is 80 and ALT 102. Patient denies any chest pain or shortness of breath. He is being advanced to a full liquid diet per surgeon. He is having stool through his colostomy. Patient denies any burning with urination. Patient did report some shortness of breath earlier in the morning now resolved. Denies cough. There is on automatic stop the in the Zosyn was discontinued. Discussed with infectious disease. Zosyn has been restarted Objective - Vital Signs Vital signs: Vital Signs Temp 101.6 F H 11/29/18 08:20 Pulse 120 H 11/29/18 08:20 Resp 20 11/29/18 08:20 BP 152/79 11/29/18 08:20 Pulse Ox 95 11/29/18 08:20 Intake & Output 11/28/18 11/29/18 11/29/18 18:59 06:59 18:59 Intake Total 1550 Output Total 15 Balance 1535 Weight 106.5 kg Intake: IV 1150 Dextrose 5%-0.45% NaCl 1, 1050 000 ml @ 150 mls/hr IV . Q6H44M MODE with Potassium Chloride 20 meq Rx#: [id number] Piperacillin-Tazobactam 3 100 .375 gm In Sodium Chloride 0.9% 100 ml @ 25 mls/hr IVPB Q8HR MODE Rx# :[id number] Oral 400 Output: Stool 15 Other: Voiding Method Toilet # Voids 2 2 - Exam Head normocephalic Neck supple Lungs clear to auscultation bilaterally no wheezing or crackles Heart regular rate and rhythm S1-S2, no rub or gallop Abdomen soft mildly distended positive bowel sounds stool colostomy bag. Penis is introverted which is not patient's normal. Extremities edema bilateral lower extremities Neuro alert and orientated to 3 - Labs CBC & Chem 7: 11/29/18 02:55 11/29/18 02:55 Labs: Abnormal Lab Results - Last 24 Hours (Table) 11/29/18 11/29/18 11/29/18 Range/Units 02:55 02:55 02:55 RBC 3.73 L (4.30-5.90) m/uL Hgb 10.2 L (13.0-17.5) gm/dL Hct 32.5 L (39.0-53.0) % Lymphocytes # 0.4 L (1.0-4.8) k/uL Potassium 3.4 L (3.5-5.1) mmol/L Chloride 109 H (98-107) mmol/L BUN 2 L (9-20) mg/dL Glucose 126 H (74-99) mg/dL Magnesium 1.3 L (1.6-2.3) mg/dL AST 80 H (17-59) U/L ALT 102 H (21-72) U/L Total Protein 5.3 L (6.3-8.2) g/dL Albumin 2.5 L (3.5-5.0) g/dL Assessment and Plan Assessment: #1 acute sigmoid diverticulitis with evidence of microperforation : Status post sigmoid colectomy with end colostomy, incidental appendectomy, partial omentectomy, repair of umbilical hernia. Surgery is following. They've advance diet to a full liquid diet. Continue [place] as needed for pain. #2 essential hypertension: Patient restarted on his lisinopril yesterday for some elevated blood pressures #3 underlying history of hyperlipidemia #4 for DVT prophylaxis patient is maintained on subcu heparin for GI prophylaxis Will add IV Protonix #5 remote history of kidney stones, patient has a 6 mm nonobstructing left sided kidney stone at this time which is an incidental finding not related to patient pain and not causing any hydronephrosis at this time. #6 acute kidney injury likely related to hypotension and nothing by mouth status and Toradol. Patient will be hydrated with IV fluids. Discontinue MARCK inhibitor and Toradol. Creatinine has normalized. #7 fever spikes: Discussed with infectious disease. Zosyn has been restarted. It appears the Zosyn had fallen off the medication list. They have also added Eraxis. Blood cultures ordered. Chest x-ray showing improvement. Continue with Tylenol as needed. #8 hypokalemia and hypomagnesemia and patient receiving supplement #9 elevated LFTs discontinue the Lipitor I performed an examination of the patient and discussed their management with the physician Warp Hauler. I have reviewed the Physician Warp Hauler's notes and agree with the documented findings and plan of care
[2018-11-29] MEDS ORDERED: FUROSEMIDE 10 MG/ML 2 ML VIAL IV STA ×2 (12:33→23:25)
[2018-11-29] MEDS: PIPERACILLIN-TAZOBACTAM 3.375 GM in SODIUM CHLORIDE 0.9% 100 ML IVPB SCH ×2 (12:45→18:49)
[2018-11-29] MEDS ORDERED: ALBUMIN HUMAN 25% 50 ML in EMPTY BAG 1 BAG IVPB ONE (12:45)
[2018-11-29] MEDS: SODIUM CHLORIDE 0.9% 1,000 ML IV SCH ×2 (18:14→22:59)
[2018-11-29 19:03] LABS: Appearance,Urine Clear (Clear); Bilirubin,Urine Negative (Negative); Blood,Urine Negative (Negative); Color,Urine Yellow; Glucose,Urine (UA) Negative (Negative); Ketones,Urine Negative (Negative); Leukocyte Esterase,Urine Negative (Negative); Nitrite,Urine Negative (Negative); Protein,Urine Negative (Negative); Specific Gravity,Urine 1.018 (1.001-1.035); Urobilinogen,Urine <2.0 mg/dL (<2.0)
--- NOTE | 2018-11-29 19:53 | PN ---
PROGRESS NOTE DATE OF SERVICE: 11/29/2018. REASON FOR FOLLOWUP: Ruptured diverticulitis with abdominal abscess. INTERVAL HISTORY: The patient did have changes in his clinical condition. He did spike a fever of 101 degrees Fahrenheit at midnight with 100.6 this afternoon. The patient has been complaining of some hot flashes. Denies having any chest pain or shortness of breath or cough. No abdominal pain. No nausea or vomiting. REVIEW OF SYSTEMS: Positive points have been mentioned in HPI. Remainder of systems negative. Past medical and surgical history no change. Medications reviewed. PHYSICAL EXAMINATION: Blood pressure is 174/94 with a pulse of 111, temperature 98.6. He is 95% on room air. General description is a middle-aged male lying in bed in no distress. RESPIRATORY SYSTEM: Unlabored breathing. Clear to auscultation anteriorly. HEART: S1, S2. Regular rate and rhythm. ABDOMEN: Soft. Mildly distended. No guarding or rigidity. LABS: Hemoglobin 10.2, white count 5.4 with a BUN of 2, creatinine 0.71. Abdominal culture has been negative. Blood culture negative. DIAGNOSTIC IMPRESSION AND PLAN: Patient with a fever in this patient who did have ruptured diverticulitis, status post diverting colostomy with a new fever, slightly concerning. Antibiotics were discontinued because of automatic stop, with no alert. This was discussed with the pharmacy. Zosyn has been restarted. We have also added antifungal. Blood culture has been repeated. Chest x-ray has been negative. If he has any further fever, would discuss with Surgery a CT of abdomen and pelvis. Will continue to monitor clinical course closely. Continue with supportive care. MMODL / IJN: [id number] /
[2018-11-29] MEDS: FAMOTIDINE 20 MG TAB PO SCH (21:32)
[2018-11-29] MEDS ORDERED: ALBUTEROL NEB (CONC) 2.5 MG/0.5 ML INHALATION PRN (23:23)
[2018-11-29] MEDS: ALBUTEROL NEBULIZED 2.5 MG/3 ML INHALATION PRN (23:31)
[2018-11-30] MEDS: PIPERACILLIN-TAZOBACTAM 3.375 GM in SODIUM CHLORIDE 0.9% 100 ML IVPB SCH ×3 (03:04→18:10)
[2018-11-30] MEDS: HYDROcodone/APAP 5-325MG 1 EACH TAB PO PRN ×5 (03:04→21:11)
[2018-11-30] MEDS: ALBUTEROL NEBULIZED 2.5 MG/3 ML INHALATION PRN ×3 (04:02→11:02)
[2018-11-30] MEDS: HYDROmorphone 1 MG/ML 1 ML SYRINGE IVP PRN ×2 (04:38→08:46)
[2018-11-30] MEDS: METOCLOPRAMIDE 5 MG/ML 2 ML VIAL IVP SCH ×4 (05:43→23:55)
[2018-11-30 07:29] LABS: Basophils % (A) 0 %; Eosinophils # (A) 0.1 k/uL (0-0.7); Eosinophils % (A) 2 %; HCT 31.7 % (39.0-53.0); HGB 10.1 gm/dL (13.0-17.5); Hypochromasia Slight; Lymphocytes # (A) 0.8 k/uL (1.0-4.8); Lymphocytes % (A) 15 %; MCH 27.2 pg (25.0-35.0); MCHC 31.9 g/dL (31.0-37.0); MCV 85.4 fL (80.0-100.0); Mean Platelet Volume 5.9; Monocytes # (A) 0.3 k/uL (0-1.0); Monocytes % (A) 5 %; Neutrophils # (A) 3.9 k/uL (1.3-7.7); Neutrophils % (A) 75 %; Platelet Count 404 k/uL (150-450); RBC 3.71 m/uL (4.30-5.90); RDW 14.4 % (11.5-15.5); WBC 5.2 k/uL (3.8-10.6)
[2018-11-30 07:40] LABS: ALT 72 U/L (21-72); AST 54 U/L (17-59); Albumin 2.8 g/dL (3.5-5.0); Alkaline Phosphatase 35 U/L (38-126); Anion Gap 6 mmol/L; Blood Urea Nitrogen 5 mg/dL (9-20); Calcium 8.6 mg/dL (8.4-10.2); Carbon Dioxide 30 mmol/L (22-30); Chloride 104 mmol/L (98-107); Glucose 103 mg/dL (74-99); Potassium 3.5 mmol/L (3.5-5.1); Sodium 140 mmol/L (137-145); Total Bilirubin 0.4 mg/dL (0.2-1.3); Total Protein 5.7 g/dL (6.3-8.2)
[2018-11-30] MEDS: LISINOPRIL 20 MG TAB PO SCH (08:49)
[2018-11-30] MEDS: FAMOTIDINE 20 MG TAB PO SCH ×2 (08:49→21:11)
[2018-11-30] MEDS: ANIDULAFUNGIN 100 MG in SODIUM CHLORIDE 0.9% 100 ML IVPB SCH (08:50)
[2018-11-30] MEDS: HEPARIN SODIUM,PORCINE 5,000 UNIT/ML 1 ML VIAL SQ SCH ×3 (08:50→23:55)
[2018-11-30] MEDS: SODIUM CHLORIDE 0.9% 1,000 ML IV SCH ×2 (10:09→19:31)
[2018-11-30] MEDS ORDERED: POTASSIUM CHLORIDE ER 20 MEQ TAB.ER PO SCH (11:00)
--- NOTE | 2018-11-30 12:56 | P.PN ---
Subjective Progress Note Date: 11/30/18 Sheldon Virk, is a 38-year-old male patient of Dr. Blanquita Pimentel who presented to [facility] emergency room with a chief complaint of abdominal pain patient states that his pain started about 2 and a half weeks ago at that time he went to [facility] emergency room he was given a course of antibiotic and was discharged home, he finished the course of Augmentin but his symptoms did not resolve he went to [facility] he was evaluated there and given a course of Cipro and Flagyl he started taking the course however he started having worsening abdominal pain and he came to [facility] emergency room computed tomography scan of the abdomen and pelvis was done in emergency room and revealed evidence of fluid collection adjacent to the sigmoid colon and air within the mesentery of the sigmoid colon suggestive of microperforation, patient was admitted under Dr. Willian Engle service, medical consultation was requested for management while hospitalized. Patient has a known history of hypertension and hyperlipidemia well-controlled on medications, he has a remote history of kidney stones with multiple intervention in the past mostly between 10 years ago and 6 years ago, he also has a history of cholecystectomy. 11/22/2018 patient still complaining of lower abdominal pain and abdominal distention. Surgical service is following awaiting their evaluation regarding possible surgery. Patient now having low-grade temps of 99.9. He was hypotensive yesterday blood pressure 99/61. Blood pressure this morning 101/64 creatinine has gone up to 1.51 lisinopril be discontinued. He is currently on IV fluids. Denies any chest pain or shortness of breath. Denies any nausea or vomiting. Reports having bowel movements that are loose in small amounts. Denies any burning with urination. 11/23/2018 patient is scheduled for surgery today. Abdomen is still distended. Remains on IV Zosyn. He did have a low-grade temp of 100.7 yesterday afternoon. Blood pressure this morning 107/67 heart rate 105. Creatinine has decreased from 1.51 down to 1.39. OG inhibitor and Toradol discontinued yesterday. Potassium is 5.4. We will remove the potassium from the IV fluids. Continue him on D5 half-normal saline at 150 mL an hour. 11/24/2018 patient status post sigmoid colectomy with end colostomy, incidental appendectomy, partial omentectomy, repair of umbilical hernia. Patient currently in the ICU. Kidney functions have improved potassium level normalized. Cultures pending. Currently on IV Zosyn. Patient denies any chest pain or shortness breath. Denies any nausea. Does have NG tube in place. 11/25/2018 patient currently in ICU. Pain is controlled. Patient complains of having issues with his pain through the night but it has now improved. Denies any chest pain or shortness of breath. Denies any nausea or vomiting. Rodgers catheter has very light pink tinged urine possibly from Rodgers catheter trauma. Hemoglobin has dropped from 11.2-10.6 On 11/27/2018 patient was seen and examined on the medical floor he is still complaining of some abdominal discomfort otherwise there is no complaint is no fever or chills no headache or dizziness no chest pain no shortness of breath no cough no nausea or vomiting no diarrhea and no urinary symptoms there is small amount of brown stool in the colostomy bag On 11/28/2018 patient was seen and examined on the medical floor he is alert and oriented 3 in no apparent distress still having some abdominal discomfort otherwise there is no complaints there is no fever or chills no headache or dizziness no chest pain no shortness of breath no cough no nausea or vomiting no abdominal pain no burning with urination no frequency or urgency and no hematuria he is ambulating on the floor without difficulty 11/29/2018 patient having fever throughout the night and this morning. T-max is 101.6. Heart rate 120. White count is 5.4. Patient reporting chills abdominal discomfort. And not feeling well. Blood cultures are ordered. He' ll be given and Thompson. chest x-ray from yesterday showed improved aeration. His magnesium and potassium are being replaced. AST is 80 and ALT 102. Patient denies any chest pain or shortness of breath. He is being advanced to a full liquid diet per surgeon. He is having stool through his colostomy. Patient denies any burning with urination. Patient did report some shortness of breath earlier in the morning now resolved. Denies cough. There is on automatic stop the in the Zosyn was discontinued. Discussed with infectious disease. Zosyn has been restarted 11/30/2018 antifungal added per surgical service yesterday. Patient had another temp 100.6 last night. This morning temperature was 99.1. White count is still normal. Patient is more congested and having cough with some wheezing. Patient did receive a dose of IV Lasix last night. And also received IV albumin and IV Lasix yesterday afternoon. Patient reports improvement in his genital swelling and some lower extremity swelling. Reports to having stool through his colostomy. Blood pressure elevated at 167/83. Fluids will be KVO and he received his lisinopril this morning. Awaiting repeat blood pressure. Hemoglobin 10.1 urinalysis negative. Patient denies any chest pain or shortness of breath. Objective - Vital Signs Vital signs: Vital Signs Temp 99.1 F 11/30/18 07:34 Pulse 94 11/30/18 11:13 Resp 16 11/30/18 11:13 BP 167/83 11/30/18 07:34 Pulse Ox 91 L 11/30/18 07:34 Intake & Output 11/29/18 11/30/18 11/30/18 18:59 06:59 18:59 Intake Total 550 1000 Balance 550 1000 Intake: Intake, IV Titration 550 900 Amount Anidulafungin 200 mg In 100 Sodium Chloride 0.9% 200 ml @ 84 mls/hr IVPB ONCE ONE Rx#:[id number] Magnesium Sulfate-D5w Pmx 300 1 gm In Dextrose/Water 1 100ml.bag @ 100 mls/hr IVPB Q1H [facility] Rx#: [id number] Piperacillin-Tazobactam 3 50 200 .375 gm In Sodium Chloride 0.9% 100 ml @ 25 mls/hr IVPB Q8H [facility] Rx#: [id number] Sodium Chloride 0.9% 1, 100 700 000 ml @ 100 mls/hr IV . Q10H [facility] Rx#:[id number] Oral 100 Other: Voiding Method Toilet # Voids 3 1 - Exam Head normocephalic Neck supple Lungs wheezing with coarse breath sounds noted bilaterally Heart regular rate and rhythm S1-S2, no rub or gallop Abdomen soft mildly distended positive bowel sounds stool colostomy bag. Penis is introverted which is not patient's normal. Decrease in the genital swelling Extremities edema bilateral lower extremities Neuro alert and orientated to 3 - Labs CBC & Chem 7: 11/30/18 06:46 11/30/18 06:46 Labs: Abnormal Lab Results - Last 24 Hours (Table) 11/30/18 11/30/18 Range/Units 06:46 06:46 RBC 3.71 L (4.30-5.90) m/uL Hgb 10.1 L (13.0-17.5) gm/dL Hct 31.7 L (39.0-53.0) % Lymphocytes # 0.8 L (1.0-4.8) k/uL BUN 5 L (9-20) mg/dL Glucose 103 H (74-99) mg/dL Alkaline Phosphatase 35 L (38-126) U/L Total Protein 5.7 L (6.3-8.2) g/dL Albumin 2.8 L (3.5-5.0) g/dL Microbiology - Last 24 Hours (Table) 11/29/18 02:55 Blood Culture - Preliminary Blood No Growth after 24 hours 11/29/18 02:42 Blood Culture - Preliminary Blood No Growth after 24 hours Assessment and Plan Assessment: #1 acute sigmoid diverticulitis with evidence of microperforation : Status post sigmoid colectomy with end colostomy, incidental appendectomy, partial omentectomy, repair of umbilical hernia. Surgery is following. They've advance diet to a full liquid diet. Continue Thompson as needed for pain. #2 essential hypertension: Continue lisinopril. IV fluids have been KVO. Repeat blood pressure. If remains elevated will make further adjustments in medications. #3 underlying history of hyperlipidemia #4 for DVT prophylaxis patient is maintained on subcu heparin for GI prophylaxis Will add IV Protonix #5 remote history of kidney stones, patient has a 6 mm nonobstructing left sided kidney stone at this time which is an incidental finding not related to patient pain and not causing any hydronephrosis at this time. #6 acute kidney injury likely related to hypotension and nothing by mouth status and Toradol. Patient will be hydrated with IV fluids. Discontinue OG inhibitor and Toradol. Creatinine has normalized. Og was restarted #7 fever spikes: Discussed with infectious disease. Zosyn has been restarted. It appears the Zosyn had fallen off the medication list. They have also added Eraxis. Blood cultures ordered. Chest x-ray showing improvement. Continue with Tylenol as needed. Urinalysis negative blood cultures negative so far #8 hypokalemia and hypomagnesemia and patient receiving supplement #9 elevated LFTs : Have normalized. Lipitor discontinued. Elevated LFTs likely related to liver congestion patient did also receive Lasix yesterday #10 cough with wheezing and congestion: Check chest x-ray. KVO IV fluids. Add DuoNeb updrafts 4 times a day. I performed an examination of the patient and discussed their management with the physician Costume Technician. I have reviewed the Physician Costume Technician's notes and agree with the documented findings and plan of care
[2018-11-30] MEDS: MAGNESIUM SULFATE-D5W PMX 1 GM in DEXTROSE/WATER 1 100ML.BAG IVPB SCH ×2 (13:25→16:14)
[2018-11-30] MEDS ORDERED: FUROSEMIDE 10 MG/ML 2 ML VIAL IV STA (13:37)
[2018-11-30] MEDS ORDERED: ALBUMIN HUMAN 25% 50 ML in EMPTY BAG 1 BAG IVPB ONE (14:00)
--- NOTE | 2018-11-30 14:05 | XR ---
EXAMINATION TYPE: XR chest 2V DATE OF EXAM: 11/30/2018 COMPARISON: 11/28/2018 HISTORY: Chest pain TECHNIQUE: Frontal and lateral views of the chest are obtained. FINDINGS: There is no focal air space opacity. No evidence for pneumothorax. No pleural effusion. The cardiac silhouette size is within normal limits. The osseous structures are grossly intact. IMPRESSION: 1. No acute cardiopulmonary process.
--- NOTE | 2018-11-30 15:35 | P.PN ---
Subjective Progress Note Date: 11/30/18 Principal diagnosis: Diverticulitis Patient doing much better today. T-max 100.6 last night. Patient states his is also ill believes he may have caught a viral infection from her. He says he is feeling more sinus drainage and flulike symptoms today. Abdominal pain improved. Only taking oral pain medications at this point. Tolerating diet thus far. White blood cell count normal. Objective - Vital Signs Vital signs: Vital Signs Temp 99.1 F 11/30/18 07:34 Pulse 94 11/30/18 11:13 Resp 16 11/30/18 11:13 BP 167/83 11/30/18 07:34 Pulse Ox 91 L 11/30/18 07:34 Intake & Output 11/29/18 11/30/18 11/30/18 18:59 06:59 18:59 Intake Total 550 1000 Balance 550 1000 Weight 106.5 kg Intake: Intake, IV Titration 550 900 Amount Anidulafungin 200 mg In 100 Sodium Chloride 0.9% 200 ml @ 84 mls/hr IVPB ONCE ONE Rx#:[id number] Magnesium Sulfate-D5w Pmx 300 1 gm In Dextrose/Water 1 100ml.bag @ 100 mls/hr IVPB Q1H [facility] Rx#: [id number] Piperacillin-Tazobactam 3 50 200 .375 gm In Sodium Chloride 0.9% 100 ml @ 25 mls/hr IVPB Q8H [facility] Rx#: [id number] Sodium Chloride 0.9% 1, 100 700 000 ml @ 100 mls/hr IV . Q10H [facility] Rx#:[id number] Oral 100 Other: Voiding Method Toilet # Voids 3 1 - Exam Abdomen: Soft, less distended, wounds clean, mild tenderness - Labs CBC & Chem 7: 11/30/18 06:46 11/30/18 06:46 Labs: Abnormal Lab Results - Last 24 Hours (Table) 11/30/18 11/30/18 Range/Units 06:46 06:46 RBC 3.71 L (4.30-5.90) m/uL Hgb 10.1 L (13.0-17.5) gm/dL Hct 31.7 L (39.0-53.0) % Lymphocytes # 0.8 L (1.0-4.8) k/uL BUN 5 L (9-20) mg/dL Glucose 103 H (74-99) mg/dL Alkaline Phosphatase 35 L (38-126) U/L Total Protein 5.7 L (6.3-8.2) g/dL Albumin 2.8 L (3.5-5.0) g/dL Microbiology - Last 24 Hours (Table) 11/29/18 02:55 Blood Culture - Preliminary Blood No Growth after 24 hours 11/29/18 02:42 Blood Culture - Preliminary Blood No Growth after 24 hours Assessment and Plan (1) Perforation of sigmoid colon due to diverticulitis Narrative/Plan: Patient doing much better at this time. Continue advancing diet. Anticipate discharge tomorrow with home care. Outpatient antibiotics per infectious disease. If fevers persist or recur consider flu swab. Current Visit: Yes Status: Acute Code(s): K57.20 - DVTRCLI OF LG INT W PERFORATION AND ABSCESS W/O BLEEDING SNOMED Code(s): 5329611819037421
[2018-11-30] MEDS: ALBUTEROL NEBULIZED 2.5 MG/3 ML INHALATION SCH ×2 (16:48→20:24)
[2018-11-30] MEDS: ESCITALOPRAM 10 MG TAB PO SCH (21:11)
[2018-12-01] MEDS: HYDROcodone/APAP 5-325MG 1 EACH TAB PO PRN ×4 (00:31→14:04)
[2018-12-01] MEDS: HYDROmorphone 1 MG/ML 1 ML SYRINGE IVP PRN (01:48)
[2018-12-01] MEDS: PIPERACILLIN-TAZOBACTAM 3.375 GM in SODIUM CHLORIDE 0.9% 100 ML IVPB SCH ×2 (04:09→13:57)
[2018-12-01] MEDS: METOCLOPRAMIDE 5 MG/ML 2 ML VIAL IVP SCH ×2 (04:51→14:04)
--- NOTE | 2018-12-01 05:48 | PN ---
PROGRESS NOTE DATE OF SERVICE: 11/30/2018 REASON FOR FOLLOWUP: Secondary peritonitis from ruptured sigmoid diverticulitis. INTERVAL HISTORY: The patient overall feels better and he has improved. The highest temperature has been 100.6 in the evening yesterday with no fever recorded today. The patient overall is feeling better. Did mention some URI symptoms though no chest pain, shortness of breath, cough, or any abdominal pain. PHYSICAL EXAMINATION: On examination, blood pressure 153/78 with a pulse of 88, temperature 98.7. General description is a a middle-aged male lying in bed in no distress. RESPIRATORY SYSTEM: Unlabored breathing, clear to auscultation anteriorly. HEART: S1, S2. Regular rate and rhythm. ABDOMEN: Soft, mildly distended. No guarding or rigidity. LABS: Hemoglobin is 10.1, white count 5.2 with a BUN of 5, creatinine 0.85. UA has been negative. DIAGNOSTIC IMPRESSION AND PLAN: Patient with acute sigmoid diverticulitis, failing outpatient Augmentin, Cipro and Flagyl therapy, status post laparotomy and diverting colostomy. His culture has been negative. Currently on Zosyn. If the patient continues to improve and the blood culture obtained yesterday remains to be negative, hopefully transition to oral antibiotic and a close outpatient followup. Continue with supportive care. MMODL / IJN: [id number] /
[2018-12-01 07:02] LABS: ALT 60 U/L (21-72); AST 42 U/L (17-59); Albumin 3.2 g/dL (3.5-5.0); Alkaline Phosphatase 31 U/L (38-126); Anion Gap 8 mmol/L; Blood Urea Nitrogen 8 mg/dL (9-20); Calcium 9.4 mg/dL (8.4-10.2); Carbon Dioxide 30 mmol/L (22-30); Chloride 105 mmol/L (98-107); Glucose 106 mg/dL (74-99); Magnesium 1.9 mg/dL (1.6-2.3); Potassium 4.1 mmol/L (3.5-5.1); Sodium 143 mmol/L (137-145); Total Bilirubin 0.5 mg/dL (0.2-1.3); Total Protein 6.4 g/dL (6.3-8.2)
[2018-12-01 07:13] LABS: Basophils % (A) 1 %; Eosinophils # (A) 0.2 k/uL (0-0.7); Eosinophils % (A) 3 %; HCT 33.2 % (39.0-53.0); HGB 10.4 gm/dL (13.0-17.5); Hypochromasia Slight; Lymphocytes # (A) 0.9 k/uL (1.0-4.8); Lymphocytes % (A) 16 %; MCH 26.9 pg (25.0-35.0); MCHC 31.3 g/dL (31.0-37.0); Mean Platelet Volume 7.3; Monocytes # (A) 0.4 k/uL (0-1.0); Monocytes % (A) 7 %; Neutrophils # (A) 3.7 k/uL (1.3-7.7); Neutrophils % (A) 71 %; Platelet Count 404 k/uL (150-450); RBC 3.86 m/uL (4.30-5.90); RDW 14.7 % (11.5-15.5); WBC 5.2 k/uL (3.8-10.6)
--- NOTE | 2018-12-01 07:59 | P.PN ---
Subjective Progress Note Date: 12/01/18 Principal diagnosis: Diverticulitis Patient doing well today. He is anxious to go home today. Tolerating diet. No nausea or vomiting. Good ostomy function. He is afebrile. White blood cell count was normal. Objective - Vital Signs Vital signs: Vital Signs Temp 99.1 F 12/01/18 01:00 Pulse 96 12/01/18 01:00 Resp 16 12/01/18 01:00 BP 156/79 12/01/18 01:00 Pulse Ox 94 L 12/01/18 01:00 Intake & Output 11/30/18 12/01/18 12/01/18 18:59 06:59 18:59 Intake Total 1050 436 Balance 1050 436 Weight 106.5 kg Intake: Intake, IV Titration 1050 200 Amount Albumin Human 25% 50 ml 50 In Empty Bag 1 bag @ 100 mls/hr IVPB ONCE ONE Rx#: [id number] Anidulafungin 100 mg In 100 Sodium Chloride 0.9% 100 ml @ 84 mls/hr IVPB DAILY [facility] Rx#:[id number] Magnesium Sulfate-D5w Pmx 200 1 gm In Dextrose/Water 1 100ml.bag @ 100 mls/hr IVPB Q1H [facility] Rx#: [id number] Piperacillin-Tazobactam 3 100 .375 gm In Sodium Chloride 0.9% 100 ml @ 25 mls/hr IVPB Q8H [facility] Rx#: [id number] Sodium Chloride 0.9% 1, 600 200 000 ml @ 20 mls/hr IV . Q24H [facility] Rx#:[id number] Oral 236 Other: Voiding Method Toilet # Voids 6 - Exam Abdomen: Soft, mild distention, wounds with serosanguineous drainage, minimal tenderness - Labs CBC & Chem 7: 12/01/18 06:33 12/01/18 06:33 Labs: Abnormal Lab Results - Last 24 Hours (Table) 12/01/18 12/01/18 Range/Units 06:33 06:33 RBC 3.86 L (4.30-5.90) m/uL Hgb 10.4 L (13.0-17.5) gm/dL Hct 33.2 L (39.0-53.0) % Lymphocytes # 0.9 L (1.0-4.8) k/uL BUN 8 L (9-20) mg/dL Glucose 106 H (74-99) mg/dL Alkaline Phosphatase 31 L (38-126) U/L Albumin 3.2 L (3.5-5.0) g/dL Microbiology - Last 24 Hours (Table) 11/29/18 02:55 Blood Culture - Preliminary Blood No Growth after 48 hours 11/29/18 02:42 Blood Culture - Preliminary Blood No Growth after 48 hours Assessment and Plan (1) Perforation of sigmoid colon due to diverticulitis Narrative/Plan: Patient overall doing well. He would like to go home today. Will anticipate discharge later today. Outpatient follow-up 1 week. Current Visit: Yes Status: Acute Code(s): K57.20 - DVTRCLI OF LG INT W PERFORATION AND ABSCESS W/O BLEEDING SNOMED Code(s): [id number]
[2018-12-01] MEDS: ALBUTEROL NEBULIZED 2.5 MG/3 ML INHALATION SCH ×2 (09:09→13:28)
[2018-12-01] MEDS: LISINOPRIL 20 MG TAB PO SCH (09:41)
[2018-12-01] MEDS: FAMOTIDINE 20 MG TAB PO SCH (09:41)
[2018-12-01] MEDS: HEPARIN SODIUM,PORCINE 5,000 UNIT/ML 1 ML VIAL SQ SCH (09:41)
[2018-12-01] MEDS: ANIDULAFUNGIN 100 MG in SODIUM CHLORIDE 0.9% 100 ML IVPB SCH (09:48)
[2018-12-01 11:11] VITALS: BP 127/76; RESP 17; TEMP 98.6
--- NOTE | 2018-12-01 11:48 | P.PN ---
Subjective Progress Note Date: 12/01/18 Sheldon Virk, is a 38-year-old male patient of Dr. Blanquita Pimentel who presented to [facility] emergency room with a chief complaint of abdominal pain patient states that his pain started about 2 and a half weeks ago at that time he went to [facility] emergency room he was given a course of antibiotic and was discharged home, he finished the course of Augmentin but his symptoms did not resolve he went to [facility] he was evaluated there and given a course of Cipro and Flagyl he started taking the course however he started having worsening abdominal pain and he came to [facility] emergency room computed tomography scan of the abdomen and pelvis was done in emergency room and revealed evidence of fluid collection adjacent to the sigmoid colon and air within the mesentery of the sigmoid colon suggestive of microperforation, patient was admitted under Dr. Willian Engle service, medical consultation was requested for management while hospitalized. Patient has a known history of hypertension and hyperlipidemia well-controlled on medications, he has a remote history of kidney stones with multiple intervention in the past mostly between 10 years ago and 6 years ago, he also has a history of cholecystectomy. 11/22/2018 patient still complaining of lower abdominal pain and abdominal distention. Surgical service is following awaiting their evaluation regarding possible surgery. Patient now having low-grade temps of 99.9. He was hypotensive yesterday blood pressure 99/61. Blood pressure this morning 101/64 creatinine has gone up to 1.51 lisinopril be discontinued. He is currently on IV fluids. Denies any chest pain or shortness of breath. Denies any nausea or vomiting. Reports having bowel movements that are loose in small amounts. Denies any burning with urination. 11/23/2018 patient is scheduled for surgery today. Abdomen is still distended. Remains on IV Zosyn. He did have a low-grade temp of 100.7 yesterday afternoon. Blood pressure this morning 107/67 heart rate 105. Creatinine has decreased from 1.51 down to 1.39. OG inhibitor and Toradol discontinued yesterday. Potassium is 5.4. We will remove the potassium from the IV fluids. Continue him on D5 half-normal saline at 150 mL an hour. 11/24/2018 patient status post sigmoid colectomy with end colostomy, incidental appendectomy, partial omentectomy, repair of umbilical hernia. Patient currently in the ICU. Kidney functions have improved potassium level normalized. Cultures pending. Currently on IV Zosyn. Patient denies any chest pain or shortness breath. Denies any nausea. Does have NG tube in place. 11/25/2018 patient currently in ICU. Pain is controlled. Patient complains of having issues with his pain through the night but it has now improved. Denies any chest pain or shortness of breath. Denies any nausea or vomiting. Rodgers catheter has very light pink tinged urine possibly from Rodgers catheter trauma. Hemoglobin has dropped from 11.2-10.6 On 11/27/2018 patient was seen and examined on the medical floor he is still complaining of some abdominal discomfort otherwise there is no complaint is no fever or chills no headache or dizziness no chest pain no shortness of breath no cough no nausea or vomiting no diarrhea and no urinary symptoms there is small amount of brown stool in the colostomy bag On 11/28/2018 patient was seen and examined on the medical floor he is alert and oriented 3 in no apparent distress still having some abdominal discomfort otherwise there is no complaints there is no fever or chills no headache or dizziness no chest pain no shortness of breath no cough no nausea or vomiting no abdominal pain no burning with urination no frequency or urgency and no hematuria he is ambulating on the floor without difficulty 11/29/2018 patient having fever throughout the night and this morning. T-max is 101.6. Heart rate 120. White count is 5.4. Patient reporting chills abdominal discomfort. And not feeling well. Blood cultures are ordered. He' ll be given and Evans. chest x-ray from yesterday showed improved aeration. His magnesium and potassium are being replaced. AST is 80 and ALT 102. Patient denies any chest pain or shortness of breath. He is being advanced to a full liquid diet per surgeon. He is having stool through his colostomy. Patient denies any burning with urination. Patient did report some shortness of breath earlier in the morning now resolved. Denies cough. There is on automatic stop the in the Zosyn was discontinued. Discussed with infectious disease. Zosyn has been restarted 11/30/2018 antifungal added per surgical service yesterday. Patient had another temp 100.6 last night. This morning temperature was 99.1. White count is still normal. Patient is more congested and having cough with some wheezing. Patient did receive a dose of IV Lasix last night. And also received IV albumin and IV Lasix yesterday afternoon. Patient reports improvement in his genital swelling and some lower extremity swelling. Reports to having stool through his colostomy. Blood pressure elevated at 167/83. Fluids will be KVO and he received his lisinopril this morning. Awaiting repeat blood pressure. Hemoglobin 10.1 urinalysis negative. Patient denies any chest pain or shortness of breath. On 12/01/2018 patient is currently resting in bed. Per surgical service is planning for patient discharge today. Patient reports he feels significantly improved. Swelling in genital and lower extremity areas have improved. She is still complaining of mild wheezing. Patient remains on room air. Chest x-ray was completed showing no acute pulmonary process. Patient did receive dose of IV Lasix yesterday. Patient to be DC'd home on small dose of Lasix and follow- up with his PCP patient also will be given albuterol inhaler for wheezing. Patient has been tolerating diet. Patient does report stool through his colostomy. Blood pressures have improved. This time patient denies chest pain or shortness of breath. Patient denies nausea vomiting or diarrhea. Patient denies any urinary burning or frequency. Objective - Vital Signs Vital signs: Vital Signs Temp 98.6 F 12/01/18 07:00 Pulse 88 12/01/18 09:21 Resp 17 12/01/18 07:00 BP 127/76 12/01/18 07:00 Pulse Ox 93 L 12/01/18 07:00 Intake & Output 11/30/18 12/01/18 12/01/18 18:59 06:59 18:59 Intake Total 1050 436 Balance 1050 436 Weight 106.5 kg Intake: Intake, IV Titration 1050 200 Amount Albumin Human 25% 50 ml 50 In Empty Bag 1 bag @ 100 mls/hr IVPB ONCE ONE Rx#: [id number] Anidulafungin 100 mg In 100 Sodium Chloride 0.9% 100 ml @ 84 mls/hr IVPB DAILY [facility] Rx#:[id number] Magnesium Sulfate-D5w Pmx 200 1 gm In Dextrose/Water 1 100ml.bag @ 100 mls/hr IVPB Q1H MODE Rx#: [id number] Piperacillin-Tazobactam 3 100 .375 gm In Sodium Chloride 0.9% 100 ml @ 25 mls/hr IVPB Q8H MODE Rx#: [id number] Sodium Chloride 0.9% 1, 600 200 000 ml @ 20 mls/hr IV . Q24H [facility] Rx#:[id number] Oral 236 Other: Voiding Method Toilet # Voids 6 - Exam Head normocephalic Neck supple Lungs wheezing with coarse breath sounds noted bilaterally Heart regular rate and rhythm S1-S2, no rub or gallop Abdomen soft mildly distended positive bowel sounds stool colostomy bag. Penis is introverted which is not patient's normal. Decrease in the genital swelling Extremities no edema Neuro alert and orientated to 3 - Labs CBC & Chem 7: 12/01/18 06:33 12/01/18 06:33 Labs: Abnormal Lab Results - Last 24 Hours (Table) 12/01/18 12/01/18 Range/Units 06:33 06:33 RBC 3.86 L (4.30-5.90) m/uL Hgb 10.4 L (13.0-17.5) gm/dL Hct 33.2 L (39.0-53.0) % Lymphocytes # 0.9 L (1.0-4.8) k/uL BUN 8 L (9-20) mg/dL Glucose 106 H (74-99) mg/dL Alkaline Phosphatase 31 L (38-126) U/L Albumin 3.2 L (3.5-5.0) g/dL Microbiology - Last 24 Hours (Table) 11/29/18 02:55 Blood Culture - Preliminary Blood No Growth after 48 hours 11/29/18 02:42 Blood Culture - Preliminary Blood No Growth after 48 hours Assessment and Plan Assessment: #1 acute sigmoid diverticulitis with evidence of microperforation : Status post sigmoid colectomy with end colostomy, incidental appendectomy, partial omentectomy, repair of umbilical hernia. Surgery is following. They've advance diet to a full liquid diet. Continue Evans as needed for pain. #2 essential hypertension: Continue lisinopril. IV fluids have been KVO. Repeat blood pressure. If remains elevated will make further adjustments in medications. #3 underlying history of hyperlipidemia #4 for DVT prophylaxis patient is maintained on subcu heparin for GI prophylaxis Will add IV Protonix #5 remote history of kidney stones, patient has a 6 mm nonobstructing left sided kidney stone at this time which is an incidental finding not related to patient pain and not causing any hydronephrosis at this time. #6 acute kidney injury likely related to hypotension and nothing by mouth status and Toradol. Patient will be hydrated with IV fluids. Discontinue OG inhibitor and Toradol. Creatinine has normalized. Og was restarted #7 fever spikes: Discussed with infectious disease. Zosyn has been restarted. It appears the Zosyn had fallen off the medication list. They have also added Eraxis. Blood cultures ordered. Chest x-ray showing improvement. Continue with Tylenol as needed. Urinalysis negative blood cultures negative so far. Awaiting from infectious disease for final antibiotic for discharge #8 hypokalemia and hypomagnesemia and patient receiving supplement #9 elevated LFTs : Have normalized. Lipitor discontinued. Elevated LFTs likely related to liver congestion patient did also receive Lasix yesterday #10 cough with wheezing and congestion: Chest x-ray completed showing no acute pulmonary process. Patient will be DC'd on albuterol inhaler. Patient also will be DC'd on 20 minute milligrams Lasix daily to help with increased edema. Edema has significantly improved with IV Lasix given yesterday Possible DC'd per surgery today. Awaiting infectious disease final recommendation for antibiotics. CBC and CMP ordered for 2 days I performed an examination of the patient and discussed their management with the Nurse Practitioner. I have reviewed the Nurse Practitioner's notes and agree with the documented findings and plan of care
[2018-12-01 13:44] VITALS: PULSE 84
--- NOTE | 2018-12-01 16:22 | PN ---
PROGRESS NOTE DATE OF SERVICE: 12/01/2018 REASON FOR FOLLOWUP: Secondary peritonitis from perforated diverticulitis. INTERVAL HISTORY: The patient was seen on rounds early this afternoon. The patient has been afebrile. He was breathing comfortably. Abdominal pain is currently controlled. Denies having any chest pain or shortness of breath or cough. PHYSICAL EXAMINATION: Blood pressure is 127/76 with a pulse of 89, temperature 98.6. He is 93% on room air. General description is a middle-aged male lying in bed in no distress. RESPIRATORY SYSTEM: Unlabored breathing. Clear to auscultation anteriorly. HEART: S1, S2. Regular rate and rhythm. ABDOMEN: Soft. No tenderness. LABS: Hemoglobin 10.4, white count 5.2, BUN of 8, creatinine 0.80. Blood culture repeat 11/29 has been negative so far. DIAGNOSTIC IMPRESSION AND PLAN: Patient with secondary peritonitis from perforated sigmoid diverticulitis, failing medical therapy, status post diverting colostomy, drainage of the abscess. Cultures were negative for any resistant bacteria. Antibiotic will be transitioned to oral Ceftin 500 mg b.i.d. for another 10 days. Prescription was sent to the pharmacy. Local wound care to the abdominal wound with Aquacel Silver packing. Follow up in the wound care center next week. Will continue local wound care. Continue with supportive care. MMODL / IJN: [id number] /
== END 2018-12-01 15:26 | disposition home health service (06) | DRG 853 ==
LOC: EC 14:43 → 4SSUR 18:13 → 2SICU 11-23 18:30 → 4SSUR 11-25 13:17
PROVIDERS: ADMIT Surgery; ATTEND Surgery
PROC: 0D1N0Z4 Bypass Sigmoid Colon to Cutaneous, Open Approach (ICD-10-PCS; 2018-11-23)
PROC: 0DBU0ZZ Excision of Omentum, Open Approach (ICD-10-PCS; 2018-11-23)
PROC: 0WQF0ZZ Repair Abdominal Wall, Open Approach (ICD-10-PCS; 2018-11-23)
PROC: 0DTJ0ZZ Resection of Appendix, Open Approach (ICD-10-PCS; 2018-11-23)
PROC: 0DBN0ZZ Excision of Sigmoid Colon, Open Approach (ICD-10-PCS; principal; 2018-11-23 09:40)
DX: A41.9 Sepsis, unspecified organism (principal); E43 Unspecified severe protein-calorie malnutrition; K65.1 Peritoneal abscess; K57.20 Diverticulitis of large intestine with perforation and abscess without bleeding; N17.9 Acute kidney failure, unspecified; K56.7 Ileus, unspecified; Z68.41 Body mass index [BMI] 40.0-44.9, adult; E78.5 Hyperlipidemia, unspecified; E83.42 Hypomagnesemia; E87.5 Hyperkalemia; E87.6 Hypokalemia; F41.9 Anxiety disorder, unspecified; I10 Essential (primary) hypertension; K42.9 Umbilical hernia without obstruction or gangrene; K76.1 Chronic passive congestion of liver; T39.8X5A Adverse effect of other nonopioid analgesics and antipyretics, not elsewhere classified, initial encounter; Z79.899 Other long term (current) drug therapy; Z82.5 Family history of asthma and other chronic lower respiratory diseases; Z87.442 Personal history of urinary calculi; N20.0 Calculus of kidney; Z90.49 Acquired absence of other specified parts of digestive tract
CPT/HCPCS: 36415; 71045; 71046; 74021; 74177; 80048; 80053; 81001; 81003; 83605; 83735; 84100; 85025; 85610; 85730; 87040; 87070; 87075; 87086; 87205; 87502; 88302; 88305; 88307; 93005; 94640; 94760; 96361; 96365; 96375; 99285

== ENCOUNTER → 2019-06-07 | Outpatient (CLI) | payer BC ==
[2019-06-07 12:33] LABS: Anisocytosis Slight; HCT 41.9 % (39.0-53.0); HGB 15.4 gm/dL (13.0-17.5); MCH 30.2 pg (25.0-35.0); MCHC 36.7 g/dL (31.0-37.0); MCV 82.4 fL (80.0-100.0); Platelet Count 287 k/uL (150-450); RBC 5.09 m/uL (4.30-5.90); RDW 16.7 % (11.5-15.5); WBC 6.4 k/uL (3.8-10.6)
[2019-06-07 12:37] LABS: Potassium 4.8 mmol/L (3.5-5.1)
== END | disposition home or self-care (01) ==
LOC: LABPAT 11:44
PROVIDERS: ATTEND Surgery
DX: Z01.810 Encounter for preprocedural cardiovascular examination (principal); Z01.812 Encounter for preprocedural laboratory examination; K57.20 Diverticulitis of large intestine with perforation and abscess without bleeding
CPT/HCPCS: 36415; 80051; 85027; 93005

== ENCOUNTER 2019-06-10 07:45 | Inpatient (IN) | payer BC ==
[2019-06-09 09:00] VITALS: BMI 37.8
[~2019-06-10 07:45] MED LIST: ALVIMOPAN 12 MG CAPSULE PO ONE; HEPARIN SODIUM,PORCINE 5,000 UNIT/ML 1 ML VIAL SQ ONE; metroNIDAZOLE-NS PMX 500 MG in SALINE 1 100ML.BAG IVPB ONE
[2019-06-10] MEDS ORDERED: MIDAZOLAM 2 MG/2 ML VIAL IV PRN (08:06)
[2019-06-10] MEDS ORDERED: DEXAMETHASONE SOD PHOSPHATE 10 MG/ML 1 ML VIAL IV ONE (08:06)
[2019-06-10] MEDS ORDERED: HYDROmorphone 0.5 MG/0.5 ML SYRINGE IVP PRN (08:06)
[2019-06-10] MEDS ORDERED: ONDANSETRON 4 MG/2 ML VIAL IVP ONE (08:06)
[2019-06-10] MEDS ORDERED: SCOPOLAMINE 1.5MG/72HR PATCH TRANSDERM ONE (08:06)
--- NOTE | 2019-06-10 08:27 | P.GSHP ---
History of Present Illness H&P Date: 06/10/19 Chief Complaint: Diverticulitis 39-year-old male well known to our service. Patient underwent Brooke's procedure for perforated diverticulitis in November of this year. Patient did well postoperatively. Lately patient has had some swelling around the ostomy. With a bulging sensation. Unfortunately he has gained some weight since his initial procedure. Colostomy is otherwise working well. No significant pain. No bloody stools. Past Medical History Past Medical History: Hyperlipidemia, Hypertension Additional Past Medical History / Comment(s): kidney stones multiple times, colostomy r/t colon perforation History of Any Multi-Drug Resistant Organisms: None Reported Past Surgical History: Appendectomy, Cholecystectomy, Hernia Repair Additional Past Surgical History / Comment(s): kidney stone surgery, colostomy Past Anesthesia/Blood Transfusion Reactions: Postoperative Nausea & Vomiting (PONV) Smoking Status: Never smoker - Past Family History Father History Unknown: Yes Mother Family Medical History: COPD Additional Family Medical History / Comment(s): recently Medications and Allergies Home Medications Medication Instructions Recorded Confirmed Type Escitalopram Oxalate [Lexapro] 10 mg PO BID 11/20/18 06/10/19 History Lisinopril 40 mg PO DAILY 11/20/18 06/10/19 History Albuterol Inhaler [Ventolin Hfa 1 - 2 puff INHALATION Q6H PRN #1 12/01/18 06/10/19 Rx Inhaler] inhaler Allergies Allergy/AdvReac Type Severity Reaction Status Date / Time No Known Allergies Allergy Verified 06/10/19 08:14 Surgical - Exam Vital Signs Temp Pulse Resp BP Pulse Ox 97.6 F 102 H 16 133/83 95 06/10/19 08:17 06/10/19 08:17 06/10/19 08:17 06/10/19 08:17 06/10/19 08:17 Physical exam: General: Well-developed, well-nourished HEENT: Normocephalic, sclerae nonicteric Abdomen: Nontender, nondistended, left-sided ostomy noted Extremities: No edema Neuro: Alert and oriented Assessment and Plan (1) Perforation of sigmoid colon due to diverticulitis Narrative/Plan: Will proceed with colostomy reversal at this time. Patient I discussed yesterday by phone that typically I would have performed a colonoscopy the day prior. When this was scheduled by phone through my office staff the colonoscopy was not arranged. We discussed possibly holding off on the colostomy reversal but given his young age we were comfortable with proceeding with ostomy reversal at this time. We'll tentatively plan follow-up colonoscopy 6-12 months postoperatively. Risks of bleeding, infection, missed polyp or malignancy, leak, abscess, bladder and bowel and ureteral injury, abscess, respiratory and cardiac complications, hernia. Patient understands and wishes to proceed. Current Visit: No Status: Acute Code(s): K57.20 - DVTRCLI OF LG INT W PERFORATION AND ABSCESS W/O BLEEDING SNOMED Code(s): 5233737024031052
[2019-06-10] MEDS: LACTATED RINGERS 1,000 ML IV SCH (08:39)
[2019-06-10] MEDS ORDERED: fentaNYL (PF) 50 MCG/ML 2 ML AMP IV ONE (09:07)
[2019-06-10] MEDS ORDERED: NALOXONE 0.4 MG/ML 1 ML VIAL IV PRN (09:22)
[2019-06-10] MEDS ORDERED: fentaNYL (PF) 50 MCG/ML 2 ML AMP ONE ×2 (10:09)
[2019-06-10] MEDS ORDERED: MIDAZOLAM 2 MG/2 ML VIAL ONE (10:09)
[2019-06-10] MEDS ORDERED: GLYCOPYRROLATE 0.2 MG/ML 2 ML VIAL ONE (10:09)
[2019-06-10] MEDS ORDERED: ePHEDrine SULFATE/0.9% NACL/PF 50 MG/5 ML SYRINGE IV ONE (10:09)
[2019-06-10] MEDS ORDERED: LIDOCAINE 1% INJ 10MG/ML (20 ML MDV) ONE (10:09)
[2019-06-10] MEDS ORDERED: PHENYLEPHRINE-0.9% NACL SYG 1 MG/10 ML SYRINGE ONE (10:09)
[2019-06-10] MEDS ORDERED: NEOSTIGMINE 1 MG/ML 10 ML VIAL ONE (10:09)
[2019-06-10] MEDS ORDERED: GLUCAGON 1 MG/ML VIAL ONE (10:09)
[2019-06-10] MEDS ORDERED: ROCURONIUM BROMIDE 10 MG/ML 10 ML VIAL IV ONE (10:09)
[2019-06-10] MEDS ORDERED: PROPOFOL 10 MG/ML 20 ML VIAL IV ONE (10:09)
[2019-06-10] MEDS ORDERED: SUCCINYLCHOLINE CHLORIDE 100 MG/5 ML SYR IV ONE (10:09)
[2019-06-10] MEDS ORDERED: LACTATED RINGERS 1,000 ML IV ONE ×5 (11:04→17:20)
[2019-06-10] MEDS ORDERED: metroNIDAZOLE-NS PMX 500 MG in SALINE 1 100ML.BAG IVPB STA (14:03)
[2019-06-10] MEDS ORDERED: ONDANSETRON 4 MG/2 ML VIAL IVP PRN (14:45)
[2019-06-10] MEDS ORDERED: HYDROmorphone 1 MG/ML 1 ML SYRINGE IVP PRN (14:45)
[2019-06-10] MEDS ORDERED: METOCLOPRAMIDE 5 MG/ML 2 ML VIAL IVP PRN (14:45)
--- NOTE | 2019-06-10 15:23 | P.OP ---
Date of Procedure: 06/10/19 Procedure(s) Performed: PREOPERATIVE DIAGNOSIS: Diverticulitis POSTOPERATIVE DIAGNOSIS: Same PROCEDURE: Colostomy reversal, repair of stomal hernia, mobilization splenic flexure SURGEON: Oniel EBL: 100 mL ANESTHESIA: General COMPLICATIONS: None OPERATIVE PROCEDURE: Patient was placed on the operative table in the supine position. The patient was placed under general anesthesia. The patient was then placed in lithotomy. The stoma was closed using a pursestring 2-0 Vicryl stitch. The abdomen was prepped and draped in usual sterile fashion. An elliptical incision was made around the colostomy. Dissection through the subcutaneous fat took place using electrocautery. The patient had a moderate-sized parastomal hernia. Entrance into the peritoneal cavity took place through the hernia sac. The stoma was fully mobilized and reduced back into the peritoneal cavity. At that time a vertical incision was made using a scalpel through the previous midline incision. The patient had a few small fascial defects along the midline that were incorporated into our fascial opening. The Bookwalter retractor was utilized. The patient had adhesions in the abdominal cavity that were lysed using both sharp and blunt and electrocautery. The bowel was reduced back into the upper abdomen. The anticipated site of resection of the sigmoid colon appeared to reach into the pelvis without tension. Attention was then directed to the rectal stump. An additional 5 cm of so of the distal sigmoid colon and proximal rectum was excised at that time using both the LigaSure and a contour stapler. At that time the colon proximal to the stoma was carefully dissected. A colotomy was created close to the stoma. A 28 EEA stapler was opened after we had confirmed that the 29 sizer fit nicely in the rectum all the way up to the staple line. The 28 covidian stapler anvil was advanced into the lumen of the colon proximally through the colotomy site. The colon was then divided approximately 6-7 cm proximal to the end of the stoma using a linear 75 stapler. The anvil was brought out adjacent to the staple line at that point and a 3-0 silk pursestring suture was utilized around the anvil. The stapler was then inserted into the anus and brought up to the staple line. The obturator was brought out anterior to the staple line. The 2 portions of the stapler were connected to one another and subsequently tightened and fired. The bowel was clamped proximal to the anastomosis. The rigid sigmoidoscope was utilized to fill the anastomotic site nicely with air. There was saline in the pelvis at this time. No evidence of leak was seen. As I was palpating the tract of the descending colon I felt that further mobilization was necessary given some slight tension there. The white line of Toldt was previously incised but our dissection then took place proximally and the splenic flexure was mobilized using the LigaSure device, electrocautery, and blunt dissection. No bleeding was seen. The abdomen was irrigated with saline. The liver, stomach, visualized colon, and small bowel appeared normal. The patient's hernia sac at the ostomy site was excised. The fascia at the stoma site was reapproximated using [id number] 0 Ethibond sutures in a vertical fashion. This adequately closed the patient's stomal hernia. The subcutaneous tissues at the colostomy site were closed using interrupted 2-0 Vicryl sutures. At that point we utilized the colon resection closure set. The patient's surgical site was re-draped appropriately. The midline fascia was then reapproximated using 3 separate double-stranded #1 PDS sutures. The subcutaneous tissues were closed using 2-0 Vicryl sutures. The skin was then closed using mirta. Sterile dressings were then applied. DISPOSITION: Stable to recovery room
[2019-06-10] MEDS: ROPIVACAINE 400 MG, HYDROMORPHONE (PF) 5 MG in SODIUM CHLORIDE 0.9% 170 ML EPIDURAL PRN (15:30)
[2019-06-10] MEDS: HEPARIN SODIUM,PORCINE 5,000 UNIT/ML 1 ML VIAL SQ SCH ×2 (17:52→23:29)
[2019-06-10] MEDS: FAMOTIDINE 20 MG/2 ML VIAL IV SCH (19:48)
[2019-06-10] MEDS: D5-0.45% NACL WITH KCL 20MEQ/L 1,000 ML IV SCH (19:49)
[2019-06-10] MEDS: ALVIMOPAN 12 MG CAPSULE PO SCH (19:49)
[2019-06-11] MEDS: D5-0.45% NACL WITH KCL 20MEQ/L 1,000 ML IV SCH ×3 (00:52→18:55)
[2019-06-11 07:31] LABS: Anisocytosis Slight; Basophils % (A) 0 %; Eosinophils # (A) 0.1 k/uL (0-0.7); Eosinophils % (A) 1 %; HCT 38.8 % (39.0-53.0); HGB 12.8 gm/dL (13.0-17.5); Lymphocytes % (A) 11 %; MCH 28.3 pg (25.0-35.0); MCHC 32.9 g/dL (31.0-37.0); Mean Platelet Volume 6.8; Monocytes # (A) 0.4 k/uL (0-1.0); Monocytes % (A) 4 %; Neutrophils # (A) 7.4 k/uL (1.3-7.7); Neutrophils % (A) 82 %; Platelet Count 245 k/uL (150-450); RBC 4.52 m/uL (4.30-5.90); RDW 16.1 % (11.5-15.5)
[2019-06-11] MEDS: FAMOTIDINE 20 MG/2 ML VIAL IV SCH ×2 (07:34→20:24)
[2019-06-11] MEDS: HEPARIN SODIUM,PORCINE 5,000 UNIT/ML 1 ML VIAL SQ SCH ×2 (07:34→20:24)
[2019-06-11] MEDS: ALVIMOPAN 12 MG CAPSULE PO SCH ×2 (07:34→20:24)
[2019-06-11] MEDS: ESCITALOPRAM 10 MG TAB PO SCH ×2 (07:35→20:24)
[2019-06-11 07:51] LABS: Calcium 7.9 mg/dL (8.4-10.2); Potassium 4.9 mmol/L (3.5-5.1)
--- NOTE | 2019-06-11 09:17 | P.PN ---
Progress Note - Text Progress Note Date: 06/11/19 Patient complaining of significant pain. Epidural turned off for hypotension and recently restarted @ 2 ml/hr. Denies headache, leg weakness or paresthesia. Denies pruritis. Epidural site clean and dry A/P POD#1 s/p colostomy reversal - will need breakthrough medication with multimodal tylenol, NSAID, and dilaudid until epidural returned to rate of 6-12 ml/hr where analgesia can be expected
[2019-06-11] MEDS: LACTATED RINGERS 1,000 ML IV SCH (09:25)
--- NOTE | 2019-06-11 15:25 | P.PN ---
Subjective Progress Note Date: 06/11/19 CHIEF COMPLAINT: Colostomy reversal HISTORY OF PRESENT ILLNESS: The patient is a 39-year-old male postop day 1 status post colostomy reversal, 06/10/2019. He reports abdominal spasms although he has an epidural. His PREVENA system cannister was not working at bedside as the battery pack was not connected. ROS: No reports of nausea and vomiting. No bowel movements. No fevers or chills. No new chest pain. No productive sputum PHYSICAL EXAM: VITAL SIGNS: Reviewed CONSTITUTIONAL: Well developed and in no acute distress. EYES: Conjuctivae without sclera icterus. Extraocular movements grossly intact. HEAD, EARS, NOSE, THROAT: Moist buccal mucosa. Head is atraumatic, normocephalic. Hears conversational speech. No nasal drainage. NECK: Supple. No thyroidomegaly. RESPIRATORY: Non-labored respirations and equal bilateral excursions. CARDIOVASCULAR: Palpable 2+ radial pulses. Tachycardic ABDOMEN: Incisions clean dry and intact. Soft. No peritonitis. No erythema or cellulitis of the incision. I checked the system and re-attached PREVENA to wall unit with vacuum dressing now working. MUSCULOSKELETAL: No gross deformity of the lower extremities noted. No clubbing. No cyanosis. SKIN: Good skin turgor. Well perfused. NEUROLOGIC: Cranial nerves I through XII grossly intact. No focal or lateralizing signs. PSYCH: Appropriate affect. Alert and oriented to person, place and time. CLINCAL LABS: White blood cell count normal. No leukocytosis. ASSESSMENT: 1. Status post colostomy reversal for diverticulitis PLAN: 1. Recommend adjustment of epidural for pain control. 2. Continue antibiotics. 3. Incentive spirometer for pulmonary toilet. Objective - Vital Signs Vital signs: Vital Signs Temp 97.9 F 06/11/19 07:00 Pulse 102 H 06/11/19 08:55 Resp 17 06/11/19 08:55 BP 109/66 06/11/19 07:00 Pulse Ox 98 06/11/19 07:00 Intake & Output 06/10/19 06/11/19 06/11/19 18:59 06:59 18:59 Intake Total 5700 1619.133 Output Total 425 750 200 Balance 5275 869.133 -200 Intake: IV 5700 Intake, IV Titration 1619.133 Amount D5-0.45% NaCl with KCl 1600 20Meq/l 1,000 ml @ 125 mls/hr IV .Q8H MODE Rx#: [id number] Ropivacaine 400 mg 19.133 Hydromorphone (Pf) 5 mg In Sodium Chloride 0.9% 170 ml @ Per Protocol EPIDURAL .Q0M PRN Rx#: [id number] Output: Urine 325 750 200 Estimated Blood Loss 100 Other: Voiding Method Indwelling Catheter Indwelling Catheter - Labs CBC & Chem 7: 06/11/19 06:52 06/11/19 06:52 Labs: Abnormal Lab Results - Last 24 Hours (Table) 06/11/19 06/11/19 Range/Units 06:52 06:52 Hgb 12.8 L (13.0-17.5) gm/dL Hct 38.8 L (39.0-53.0) % RDW 16.1 H (11.5-15.5) % Sodium 136 L (137-145) mmol/L Carbon Dioxide 21 L (22-30) mmol/L BUN 29 H (9-20) mg/dL Creatinine 1.81 H (0.66-1.25) mg/dL Glucose 130 H (74-99) mg/dL Calcium 7.9 L (8.4-10.2) mg/dL Assessment and Plan (1) History of colostomy reversal Current Visit: Yes Status: Acute Code(s): Z98.890 - OTHER SPECIFIED POSTPROCEDURAL STATES SNOMED Code(s): 595619215 (2) Colitis Current Visit: No Status: Acute Code(s): K52.9 - NONINFECTIVE GASTROENTERITIS AND COLITIS, UNSPECIFIED SNOMED Code(s): 46169372 (3) Perforation of sigmoid colon due to diverticulitis Current Visit: No Status: Acute Code(s): K57.20 - DVTRCLI OF LG INT W PERFORATION AND ABSCESS W/O BLEEDING SNOMED Code(s): 5681346275342530 (4) Morbid obesity due to excess calories Current Visit: Yes Status: Acute Code(s): E66.01 - MORBID (SEVERE) OBESITY DUE TO EXCESS CALORIES SNOMED Code(s): 687742251 (5) BMI 37.0-37.9, adult Current Visit: Yes Status: Acute Code(s): Z68.37 - BODY MASS INDEX (BMI) 37.0-37.9, ADULT SNOMED Code(s): 993504384
[2019-06-11] MEDS: SODIUM CHLORIDE 0.9% 1,000 ML IV SCH (20:24)
[2019-06-12] MEDS: HEPARIN SODIUM,PORCINE 5,000 UNIT/ML 1 ML VIAL SQ SCH ×4 (00:58→23:34)
[2019-06-12] MEDS: D5-0.45% NACL WITH KCL 20MEQ/L 1,000 ML IV SCH ×3 (00:59→16:38)
[2019-06-12] MEDS: SODIUM CHLORIDE 0.9% 1,000 ML IV SCH ×2 (01:00→16:38)
[2019-06-12] MEDS ORDERED: ACETAMINOPHEN TAB 325 MG TAB PO PRN (02:36)
[2019-06-12] MEDS ORDERED: SODIUM CHLORIDE 0.9% 1,000 ML IV ONE (02:36)
[2019-06-12 03:15] LABS: Basophils % (A) 0 %; Eosinophils # (A) 0.2 k/uL (0-0.7); Eosinophils % (A) 3 %; HCT 40.4 % (39.0-53.0); HGB 13.2 gm/dL (13.0-17.5); Lymphocytes # (A) 0.9 k/uL (1.0-4.8); Lymphocytes % (A) 10 %; MCHC 32.5 g/dL (31.0-37.0); Mean Platelet Volume 6.8; Monocytes # (A) 0.5 k/uL (0-1.0); Monocytes % (A) 6 %; Neutrophils # (A) 7.3 k/uL (1.3-7.7); Neutrophils % (A) 81 %; Platelet Count 213 k/uL (150-450); RDW 15.9 % (11.5-15.5)
[2019-06-12 03:25] LABS: ALT 91 U/L (21-72); AST 224 U/L (17-59); African American GFR (CKD) >90 (>60 ml/min/1.73 sqM); Albumin 3.6 g/dL (3.5-5.0); Alkaline Phosphatase 45 U/L (38-126); Anion Gap 10 mmol/L; Blood Urea Nitrogen 19 mg/dL (9-20); Calcium 8.2 mg/dL (8.4-10.2); Carbon Dioxide 22 mmol/L (22-30); Chloride 103 mmol/L (98-107); Glucose 144 mg/dL (74-99); Potassium 4.6 mmol/L (3.5-5.1); Sodium 135 mmol/L (137-145); Total Bilirubin 1.1 mg/dL (0.2-1.3); Total Protein 6.8 g/dL (6.3-8.2)
--- NOTE | 2019-06-12 03:46 | XR ---
EXAM: XR Chest, 1 View CLINICAL HISTORY: ITS.REASON XR Reason: Temp, Tachycardia TECHNIQUE: Frontal view of the chest. COMPARISON: 11/30/18. FINDINGS: Lungs: No consolidation or mass. Pleural space: No acute findings Heart: Unchanged heart size. Mediastinum: Unremarkable. Bones/joints: No acute findings. IMPRESSION: No acute cardiopulmonary process.
--- NOTE | 2019-06-12 08:16 | P.PN ---
Progress Note - Text Progress Note Date: 06/12/19 Patient with some pain, but improved over yesterday. Denies headache or leg weakness. Epidural @ 5 ml/hr from 2. BP improved from yesterday. Epidural site clean and dry A/P POD#2 s/p colostomy reversal - continue to titrate epidural up to 7 ml/hr to increase patient comfort
[2019-06-12] MEDS: ALVIMOPAN 12 MG CAPSULE PO SCH ×2 (09:07→20:58)
[2019-06-12] MEDS: ESCITALOPRAM 10 MG TAB PO SCH ×2 (09:07→20:58)
[2019-06-12] MEDS: FAMOTIDINE 20 MG/2 ML VIAL IV SCH ×2 (09:07→20:58)
[2019-06-12] MEDS: PIPERACILLIN-TAZOBACTAM 3.375 GM in SODIUM CHLORIDE 0.9% 100 ML IVPB SCH ×2 (09:09→16:37)
--- NOTE | 2019-06-12 09:52 | P.PN ---
Subjective Progress Note Date: 06/12/19 CHIEF COMPLAINT: Colostomy reversal HISTORY OF PRESENT ILLNESS: The patient is a 39-year-old male postop day 2 status post colostomy reversal, 06/10/2019. His pain is controlled. He is not ambulating. "I feel lazy." He is barely using his incentive spirometer. He has epidural. ROS: No reports of nausea and vomiting. No bowel movements. No fevers or chills. No new chest pain. No productive sputum PHYSICAL EXAM: VITAL SIGNS: Reviewed CONSTITUTIONAL: Well developed and in no acute distress. EYES: Conjuctivae without sclera icterus. Extraocular movements grossly intact. HEAD, EARS, NOSE, THROAT: Moist buccal mucosa. Head is atraumatic, normocephalic. Hears conversational speech. No nasal drainage. NECK: Supple. No thyroidomegaly. RESPIRATORY: Non-labored respirations and equal bilateral excursions. Incentive spirometry performed at bedside of 500 mL. CARDIOVASCULAR: Palpable 2+ radial pulses. Tachycardic ABDOMEN: Incisions clean dry and intact. PREVENA functioning. No cellulitis. MUSCULOSKELETAL: No gross deformity of the lower extremities noted. No clubbing. No cyanosis. SKIN: Good skin turgor. Well perfused. NEUROLOGIC: Cranial nerves I through XII grossly intact. No focal or lateralizing signs. PSYCH: Appropriate affect. Alert and oriented to person, place and time. CLINCAL LABS: White blood cell count stable ASSESSMENT: 1. Status post colostomy reversal for diverticulitis PLAN: 1. I reinforced incentive spirometry education 10x/hr 2. Ambulation encouraged for recovery. 3. Continue epidural Objective - Vital Signs Vital signs: Vital Signs Temp 98.2 F 06/12/19 07:34 Pulse 114 H 06/12/19 08:09 Resp 18 06/12/19 08:09 BP 117/77 06/12/19 07:34 Pulse Ox 97 06/12/19 07:34 Intake & Output 06/11/19 06/12/19 06/12/19 18:59 06:59 18:59 Intake Total 1480 1840.5 Output Total 2900 800 Balance -1420 1040.5 Intake: Intake, IV Titration 1000 1840.5 Amount D5-0.45% NaCl with KCl 1000 20Meq/l 1,000 ml @ 125 mls/hr IV .Q8H MODE Rx#: [id number] Ropivacaine 400 mg 16.5 Hydromorphone (Pf) 5 mg In Sodium Chloride 0.9% 170 ml @ Per Protocol EPIDURAL .Q0M PRN Rx#: [id number] Sodium Chloride 0.9% 1, 825 000 ml @ 75 mls/hr IV . [id number] [facility] Rx#:[id number] Sodium Chloride 0.9% 1, 999 000 ml @ 999 mls/hr IV . Q1H1M ONE Rx#:[id number] Oral 480 Output: Urine 2900 800 Other: Voiding Method Indwelling Catheter Indwelling Catheter Indwelling Catheter - Labs CBC & Chem 7: 06/12/19 02:52 06/12/19 02:52 Labs: Abnormal Lab Results - Last 24 Hours (Table) 06/12/19 06/12/19 Range/Units 02:52 02:52 RDW 15.9 H (11.5-15.5) % Lymphocytes # 0.9 L (1.0-4.8) k/uL Sodium 135 L (137-145) mmol/L Glucose 144 H (74-99) mg/dL Calcium 8.2 L (8.4-10.2) mg/dL AST 224 H (17-59) U/L ALT 91 H (21-72) U/L Assessment and Plan (1) History of colostomy reversal Current Visit: Yes Status: Acute Code(s): Z98.890 - OTHER SPECIFIED POSTPROCEDURAL STATES SNOMED Code(s): 746678406 (2) Colitis Current Visit: No Status: Acute Code(s): K52.9 - NONINFECTIVE GASTROENTERITIS AND COLITIS, UNSPECIFIED SNOMED Code(s): 14501642 (3) Perforation of sigmoid colon due to diverticulitis Current Visit: No Status: Acute Code(s): K57.20 - DVTRCLI OF LG INT W PERFORATION AND ABSCESS W/O BLEEDING SNOMED Code(s): 7272550646087818 (4) Morbid obesity due to excess calories Current Visit: Yes Status: Acute Code(s): E66.01 - MORBID (SEVERE) OBESITY DUE TO EXCESS CALORIES SNOMED Code(s): 879293142 (5) BMI 37.0-37.9, adult Current Visit: Yes Status: Acute Code(s): Z68.37 - BODY MASS INDEX (BMI) 37.0-37.9, ADULT SNOMED Code(s): 546232210
[2019-06-12] MEDS ORDERED: VANCOMYCIN IV PER PHARMACY 1 EACH MISC MISCELLANE PRN (10:00)
--- NOTE | 2019-06-12 10:07 | P.CONS ---
History of Present Illness - Reason for Consult Consult date: 06/11/19 Medical management - Chief Complaint Colostomy reversal - History of Present Illness 39-year-old male patient was admitted to the hospital on 06/10/2019 for colostomy reversal; patient underwent colostomy due to perforated diverticulitis in November 2018; postoperatively after colostomy patient did well but lately developed some swelling and bulging sensation around the stoma; patient underwent surgery without complications and is POD #2. Patient does have history of hypertension and hyperlipidemia, asthma and depression. Medical service is consulted for medical management. Patient denies any complaints of chest pain or shortness of breath Review of Systems Constitutional: Denies chills, Denies fever Eyes: denies blurred vision, denies loss of vision Ears, nose, mouth and throat: Denies bleeding gums, Denies epistaxis Cardiovascular: Denies chest pain, Denies shortness of breath Respiratory: Denies cough with sputum Gastrointestinal: Reports abdominal pain, Reports constipation, Denies nausea, Denies vomiting Genitourinary: Denies dysuria, Denies hematuria Musculoskeletal: Denies arm numbness/tingling, Denies frequent falls Integumentary: Denies change in hair/nails Neurological: Denies confusion, Denies double vision Endocrine: Denies cold intolerance, Denies heat intolerance Hematologic/Lymphatic: Denies easy bleeding, Denies easy bruising, Denies lymphadenopathy Past Medical History Past Medical History: Hyperlipidemia, Hypertension Additional Past Medical History / Comment(s): kidney stones multiple times, colostomy r/t colon perforation History of Any Multi-Drug Resistant Organisms: None Reported Past Surgical History: Appendectomy, Cholecystectomy, Hernia Repair Additional Past Surgical History / Comment(s): kidney stone surgery, colostomy Past Anesthesia/Blood Transfusion Reactions: Postoperative Nausea & Vomiting (PONV) Smoking Status: Never smoker - Past Family History Father History Unknown: Yes Mother Family Medical History: COPD Additional Family Medical History / Comment(s): recently Medications and Allergies Home Medications Medication Instructions Recorded Confirmed Type Escitalopram Oxalate [Lexapro] 10 mg PO BID 11/20/18 06/11/19 History Lisinopril 40 mg PO DAILY 11/20/18 06/11/19 History Albuterol Inhaler [Ventolin Hfa 1 - 2 puff INHALATION Q6H PRN #1 12/01/18 06/11/19 Rx Inhaler] inhaler Allergies Allergy/AdvReac Type Severity Reaction Status Date / Time No Known Allergies Allergy Verified 06/10/19 08:14 Physical Exam Vitals: Vital Signs Temp Pulse Pulse Resp BP Pulse Ox 06/12/19 08:09 114 H 18 06/12/19 07:34 98.2 F 116 H 15 117/77 97 06/12/19 06:05 99.8 F H 06/12/19 01:35 101.4 F H 114 H 18 127/77 97 06/11/19 20:34 98.7 F 107 H 18 154/81 96 06/11/19 16:00 101 H 17 06/11/19 15:00 99.0 F 101 H 113/72 97 Intake and Output 06/11/19 06/12/19 06/12/19 22:59 06:59 14:59 Intake Total 166.5 1674 Output Total 1350 800 Balance -1183.5 874 Intake: Intake, IV Titration 166.5 1674 Amount Ropivacaine 400 mg 16.5 Hydromorphone (Pf) 5 mg In Sodium Chloride 0.9% 170 ml @ Per Protocol EPIDURAL .Q0M PRN Rx#: [id number] Sodium Chloride 0.9% 1, 150 675 000 ml @ 75 mls/hr IV . [id number] MODE Rx#:[id number] Sodium Chloride 0.9% 1, 999 000 ml @ 999 mls/hr IV . Q1H1M ONE Rx#:[id number] Output: Urine 1350 800 Other: Voiding Method Indwelling Catheter Indwelling Catheter Indwelling Catheter - Constitutional General appearance: Present: average body habitus, cooperative, no acute distress - EENT Eyes: Present: anicteric sclerae, EOMI, PERRLA, normal appearance ENT: Present: hearing grossly normal, normal oropharynx Ears: bilateral: normal - Neck Neck: Present: normal ROM. Absent: lymphadenopathy, rigidity, thyromegaly Carotids: negative: bruit present Thyroid: bilateral: normal size, negative: enlarged, nodule - Respiratory Respiratory: bilateral: CTA, negative: rales, rhonchi, wheezing - Cardiovascular Rhythm: regular Heart sounds: normal: S1, S2 Abnormal Heart Sounds: Absent: systolic murmur, diastolic murmur - Gastrointestinal General gastrointestinal: Present: normal bowel sounds, soft. Absent: distended, organomegaly, tenderness - Genitourinary Genitourinary Comment(s): deferred - Integumentary Integumentary: Present: normal turgor. Absent: jaundiced, rash, ulcer - Neurologic Neurologic: Present: CNII-XII intact. Absent: focal deficits - Musculoskeletal Musculoskeletal: Present: gait normal, strength equal bilaterally - Psychiatric Psychiatric: Present: A&O x's 3, appropriate affect, intact judgment & insight Results CBC & Chem 7: 06/12/19 02:52 06/12/19 02:52 Labs: Abnormal Lab Results - Last 24 Hours (Table) 06/12/19 06/12/19 Range/Units 02:52 02:52 RDW 15.9 H (11.5-15.5) % Lymphocytes # 0.9 L (1.0-4.8) k/uL Sodium 135 L (137-145) mmol/L Glucose 144 H (74-99) mg/dL Calcium 8.2 L (8.4-10.2) mg/dL AST 224 H (17-59) U/L ALT 91 H (21-72) U/L Assessment and Plan Assessment: 1. Colostomy reversal; POD #2 - Pain management per surgery service; patient is encouraged to do incentive spirometry; increase activity - Patient remains on Zosyn 3.375 g IV every 8 hours 2. Hypertension; blood pressure medications remain on hold; blood pressure is stable at this time; we will restart home dose of lisinopril if blood pressure is elevated 3. Hyperlipidemia; not on statin therapy at home 4. Asthma; we will reorder Ventolin inhaler 1-2 puffs 4 times a day when necessary 5. Depression; start patient on home dose of Lexapro at 10 mg daily 6. GI/DVT prophylaxis; Pepcid/subcu heparin CODE STATUS; full code Time with Patient: Greater than 30
[2019-06-12] MEDS ORDERED: VANCOMYCIN 1,500 MG in SODIUM CHLORIDE 0.9% 250 ML IVPB SCH (11:00)
[2019-06-12] MEDS: VANCOMYCIN 2,000 MG in SODIUM CHLORIDE 0.9% 500 ML 500 ML IVPB SCH ×2 (11:05→23:33)
[2019-06-12] MEDS: ROPIVACAINE 400 MG, HYDROMORPHONE (PF) 5 MG in SODIUM CHLORIDE 0.9% 170 ML EPIDURAL PRN (18:50)
[2019-06-12] MEDS: LACTATED RINGERS 1,000 ML IV SCH (21:04)
[2019-06-13] MEDS: D5-0.45% NACL WITH KCL 20MEQ/L 1,000 ML IV SCH ×2 (00:24→20:02)
[2019-06-13] MEDS: PIPERACILLIN-TAZOBACTAM 3.375 GM in SODIUM CHLORIDE 0.9% 100 ML IVPB SCH ×3 (01:47→16:36)
[2019-06-13] MEDS: SODIUM CHLORIDE 0.9% 1,000 ML IV SCH ×2 (02:49→20:03)
[2019-06-13 07:57] LABS: Anisocytosis Slight; Basophils % (A) 0 %; Eosinophils # (A) 0.2 k/uL (0-0.7); Eosinophils % (A) 3 %; HCT 35.2 % (39.0-53.0); HGB 11.6 gm/dL (13.0-17.5); Lymphocytes # (A) 0.9 k/uL (1.0-4.8); Lymphocytes % (A) 15 %; MCH 28.5 pg (25.0-35.0); MCHC 32.9 g/dL (31.0-37.0); MCV 86.5 fL (80.0-100.0); Mean Platelet Volume 7.5; Monocytes # (A) 0.3 k/uL (0-1.0); Monocytes % (A) 5 %; Neutrophils # (A) 4.6 k/uL (1.3-7.7); Neutrophils % (A) 74 %; Platelet Count 184 k/uL (150-450); RBC 4.07 m/uL (4.30-5.90); RDW 16.3 % (11.5-15.5); WBC 6.2 k/uL (3.8-10.6)
[2019-06-13 08:17] LABS: African American GFR (CKD) >90 (>60 ml/min/1.73 sqM); Anion Gap 7 mmol/L; Blood Urea Nitrogen 15 mg/dL (9-20); Calcium 8.5 mg/dL (8.4-10.2); Carbon Dioxide 26 mmol/L (22-30); Chloride 103 mmol/L (98-107); Glucose 115 mg/dL (74-99); Potassium 4.2 mmol/L (3.5-5.1); Sodium 136 mmol/L (137-145)
--- NOTE | 2019-06-13 08:53 | P.PN ---
Progress Note - Text Progress Note Date: 06/13/19 Patient without complaints. Pain controlled. Denies leg weakness. Denies headache. Epidural @ 6 ml/hr Epidural site clean and dry A/P POD#3 s/p colostomy reversal - doing well - may remove epidural and transition to IV/PO pain regimen
[2019-06-13] MEDS: HEPARIN SODIUM,PORCINE 5,000 UNIT/ML 1 ML VIAL SQ SCH ×2 (09:18→16:36)
[2019-06-13] MEDS: ALVIMOPAN 12 MG CAPSULE PO SCH ×2 (09:30→20:28)
[2019-06-13] MEDS: FAMOTIDINE 20 MG/2 ML VIAL IV SCH ×2 (09:30→20:28)
[2019-06-13] MEDS: ESCITALOPRAM 10 MG TAB PO SCH ×2 (09:31→20:28)
[2019-06-13] MEDS: VANCOMYCIN 2,000 MG in SODIUM CHLORIDE 0.9% 500 ML 500 ML IVPB SCH ×2 (11:12→23:23)
[2019-06-13] MEDS ORDERED: HYDROcodone/APAP 5-325MG 1 EACH TAB PO PRN (12:10)
--- NOTE | 2019-06-13 12:16 | P.PN ---
<RaiMadie Joseph - Last Filed: 06/13/19 12:11> Subjective Progress Note Date: 06/13/19 CHIEF COMPLAINT: diverticulitis HISTORY OF PRESENT ILLNESS: 39-year-old male. Status post colostomy reversal and repair of stomal hernia. Postop day #3. Patient states his pain i s controlled this morning. Epidural is infusing. He reports feeling tired and not sleeping well last night. He reports passing minimal flatus. No bowel movement. He is tolerating clear liquid diet. Denies nausea or vomiting. WBC 6.2. Hemoglobin 11.6. vital signs stable. He is afebrile. PHYSICAL EXAM: VITAL SIGNS: Reviewed. GENERAL: Well-developed in no acute distress. HEENT: No sclera icterus. Extraocular movements grossly intact. Moist buccal mucosa. Head is atraumatic, normocephalic. ABDOMEN: Soft. mild distention. dressing clean dry and intact. Hypoactive bowel sounds. NEUROLOGIC: Alert and oriented. Cranial nerves II through XII grossly intact. ASSESSMENT: 1. History of diverticulitis, status post colostomy reversal and repair of stomal hernia PLAN: 1. Discontinue epidural catheter 2. Discontinue Rodgers catheter 3. Pain control. Dilaudid as needed. [place] added to her medication regimen. 4. Activity as tolerated. Patient encouraged to be out of bed and ambulatory today. 5. Incentive spirometer 10 times hour while awake 6. Continue clear liquid diet Nurse practitioner note has been reviewed by physician. Signing provider agrees with the documented findings, assessment, and plan of care. Objective - Vital Signs Vital signs: Vital Signs Temp 98.3 F 06/13/19 07:00 Pulse 93 06/13/19 08:00 Resp 16 06/13/19 08:00 BP 120/82 06/13/19 07:00 Pulse Ox 99 06/13/19 07:00 Intake & Output 06/12/19 06/13/19 06/13/19 18:59 06:59 18:59 Intake Total 2091 180 Output Total 850 700 Balance 1241 -520 Intake: Intake, IV Titration 1311 Amount Piperacillin-Tazobactam 3 100 .375 gm In Sodium Chloride 0.9% 100 ml @ 25 mls/hr IVPB Q8H [facility] Rx#: [id number] Ropivacaine 400 mg 111 Hydromorphone (Pf) 5 mg In Sodium Chloride 0.9% 170 ml @ Per Protocol EPIDURAL .Q0M PRN Rx#: [id number] Sodium Chloride 0.9% 1, 600 000 ml @ 75 mls/hr IV . [id number] MODE Rx#:[id number] Vancomycin 2,000 mg In 500 Sodium Chloride 0.9% 500 ml 500 ml @ 167 mls/hr IVPB Q12H MODE Rx#: [id number] Oral 780 180 Output: Urine 850 700 Other: Voiding Method Indwelling Catheter Indwelling Catheter Indwelling Catheter - Labs CBC & Chem 7: 06/13/19 07:35 06/13/19 07:35 Labs: Abnormal Lab Results - Last 24 Hours (Table) 06/13/19 06/13/19 Range/Units 07:35 07:35 RBC 4.07 L (4.30-5.90) m/uL Hgb 11.6 L (13.0-17.5) gm/dL Hct 35.2 L (39.0-53.0) % RDW 16.3 H (11.5-15.5) % Lymphocytes # 0.9 L (1.0-4.8) k/uL Sodium 136 L (137-145) mmol/L Glucose 115 H (74-99) mg/dL Microbiology - Last 24 Hours (Table) 06/12/19 06:23 Blood Culture - Preliminary Blood No Growth after 24 hours 06/12/19 03:03 Blood Culture - Preliminary Blood No Growth after 24 hours 06/12/19 02:52 Blood Culture - Preliminary Blood No Growth after 24 hours <Guillermo Engle - Last Filed: 06/13/19 13:44> Subjective As above. Patient complains of mild bloating. He states his pain is controlled. White blood cell count normal. Mild tachycardia. Currently heart rate in the 90s. No flatus. Denies nausea or vomiting currently. He was slightly nauseated earlier today. He remains on clear liquids. White blood ce ll count is normal. Agree with removing epidural and Rodgers catheter. Encouraged increase activity. Continue clear liquids for now. Will start chewing gum. Abdominal binder to be applied. Objective - Vital Signs Vital signs: Vital Signs Temp 98.3 F 06/13/19 07:00 Pulse 93 06/13/19 08:00 Resp 16 06/13/19 08:00 BP 120/82 06/13/19 07:00 Pulse Ox 99 06/13/19 07:00 Intake & Output 06/12/19 06/13/19 06/13/19 18:59 06:59 18:59 Intake Total 2091 180 Output Total 850 700 Balance 1241 -520 Intake: Intake, IV Titration 1311 Amount Piperacillin-Tazobactam 3 100 .375 gm In Sodium Chloride 0.9% 100 ml @ 25 mls/hr IVPB Q8H [facility] Rx#: [id number] Ropivacaine 400 mg 111 Hydromorphone (Pf) 5 mg In Sodium Chloride 0.9% 170 ml @ Per Protocol EPIDURAL .Q0M PRN Rx#: [id number] Sodium Chloride 0.9% 1, 600 000 ml @ 75 mls/hr IV . [id number] [facility] Rx#:[id number] Vancomycin 2,000 mg In 500 Sodium Chloride 0.9% 500 ml 500 ml @ 167 mls/hr IVPB Q12H [facility] Rx#: [id number] Oral 780 180 Output: Urine 850 700 Other: Voiding Method Indwelling Catheter Indwelling Catheter Indwelling Catheter - Labs CBC & Chem 7: 06/13/19 07:35 06/13/19 07:35 Labs: Abnormal Lab Results - Last 24 Hours (Table) 06/13/19 06/13/19 Range/Units 07:35 07:35 RBC 4.07 L (4.30-5.90) m/uL Hgb 11.6 L (13.0-17.5) gm/dL Hct 35.2 L (39.0-53.0) % RDW 16.3 H (11.5-15.5) % Lymphocytes # 0.9 L (1.0-4.8) k/uL Sodium 136 L (137-145) mmol/L Glucose 115 H (74-99) mg/dL Microbiology - Last 24 Hours (Table) 06/12/19 06:23 Blood Culture - Preliminary Blood No Growth after 24 hours 06/12/19 03:03 Blood Culture - Preliminary Blood No Growth after 24 hours 06/12/19 02:52 Blood Culture - Preliminary Blood No Growth after 24 hours Assessment and Plan (1) Perforation of sigmoid colon due to diverticulitis Current Visit: No Status: Acute Code(s): K57.20 - DVTRCLI OF LG INT W PERFORATION AND ABSCESS W/O BLEEDING SNOMED Code(s): 1414029626908664
[2019-06-13] MEDS: KETOROLAC 30 MG/ML 1 ML VIAL IVP SCH ×2 (16:35→20:28)
--- NOTE | 2019-06-13 16:36 | P.PN ---
Subjective Progress Note Date: 06/13/19 Synthroid 39-year-old gentleman status post colostomy reversal and repair of stomal hernia. Pain better controlled, on epidural. Tolerating clear liquid diet with no nausea or vomiting. He reports no flatus, no bowel movement. Has not yet ambulated. Hemoglobin 11.6. Afebrile, WBC N. VSS. Objective - Vital Signs Vital signs: Vital Signs Temp 98.3 F 06/13/19 15:00 Pulse 103 H 06/13/19 15:00 Resp 17 06/13/19 15:00 BP 139/94 06/13/19 15:00 Pulse Ox 97 06/13/19 15:00 Intake & Output 06/12/19 06/13/19 06/13/19 18:59 06:59 18:59 Intake Total 2091 180 Output Total 681 434 8823 Balance 1241 -520 -1500 Intake: Intake, IV Titration 1311 Amount Piperacillin-Tazobactam 3 100 .375 gm In Sodium Chloride 0.9% 100 ml @ 25 mls/hr IVPB Q8H [facility] Rx#: [id number] Ropivacaine 400 mg 111 Hydromorphone (Pf) 5 mg In Sodium Chloride 0.9% 170 ml @ Per Protocol EPIDURAL .Q0M PRN Rx#: [id number] Sodium Chloride 0.9% 1, 600 000 ml @ 75 mls/hr IV . [id number] [facility] Rx#:[id number] Vancomycin 2,000 mg In 500 Sodium Chloride 0.9% 500 ml 500 ml @ 167 mls/hr IVPB Q12H [facility] Rx#: [id number] Oral 780 180 Output: Urine 559 558 5510 Uretheral (Rodgers) 750 Other: Voiding Method Indwelling Catheter Indwelling Catheter Indwelling Catheter - Exam PHYSICAL EXAM: VITAL SIGNS: As above GENERAL: Sitting up in bed, no acute distress HEENT: Conjunctivae normal. eyes normal. NECK: No JVD. No thyroid enlargement. No LNs CARDIOVASCULAR: S1, S2 regular.No murmur RESPIRATION: Breath sounds diminished in the bases. No rhonchi or crackles. No bronchial breathing. ABDOMEN: Soft, distended, nontender . No guarding. Hypoactive Bowel sounds heard. Dressing clean dry and intact LEGS: No edema. no swelling PSYCHIATRY: Alert and oriented X3, mood and affect normal. NERVOUS SYSTEM: Cranial N 2-12 grossly normal. Moves all 4 limbs. No focal deficits. Strength and sensation grossly intact.. Skin: no lesions, no rash - Labs CBC & Chem 7: 06/13/19 07:35 06/13/19 07:35 Labs: Abnormal Lab Results - Last 24 Hours (Table) 06/13/19 06/13/19 Range/Units 07:35 07:35 RBC 4.07 L (4.30-5.90) m/uL Hgb 11.6 L (13.0-17.5) gm/dL Hct 35.2 L (39.0-53.0) % RDW 16.3 H (11.5-15.5) % Lymphocytes # 0.9 L (1.0-4.8) k/uL Sodium 136 L (137-145) mmol/L Glucose 115 H (74-99) mg/dL Microbiology - Last 24 Hours (Table) 06/12/19 06:23 Blood Culture - Preliminary Blood No Growth after 24 hours 06/12/19 03:03 Blood Culture - Preliminary Blood No Growth after 24 hours 06/12/19 02:52 Blood Culture - Preliminary Blood No Growth after 24 hours Assessment and Plan Assessment: -Status post colostomy reversal and repair of stomal hernia in a patient with history of diverticulitis -Hypertension -Hyperlipidemia -Chronic intermittent asthma -Depression Plan: Continue on current medication regime ,monitoring and symptomatic treatment. Pain management and diet advancement as per surgery. Increase a mbulation as tolerated. Aggressive pulmonary toileting with incentive spirometer reinforced. Discharge planning in progress for tomorrow possibly as per surgery. The impression and plan of care has been dictated as directed. : I performed a history and examination of this patient, discussed the same with the dictator. I agree with the dictator's note ,documented as a scribe. Any additional findings or plans will be noted.
[2019-06-14] MEDS: HEPARIN SODIUM,PORCINE 5,000 UNIT/ML 1 ML VIAL SQ SCH ×3 (00:45→17:19)
[2019-06-14] MEDS: SODIUM CHLORIDE 0.9% 1,000 ML IV SCH ×2 (00:50→19:04)
[2019-06-14] MEDS: KETOROLAC 30 MG/ML 1 ML VIAL IVP SCH ×3 (00:52→14:20)
[2019-06-14] MEDS: D5-0.45% NACL WITH KCL 20MEQ/L 1,000 ML IV SCH ×2 (00:52→19:04)
[2019-06-14] MEDS: PIPERACILLIN-TAZOBACTAM 3.375 GM in SODIUM CHLORIDE 0.9% 100 ML IVPB SCH ×3 (03:09→17:19)
[2019-06-14] MEDS: ALVIMOPAN 12 MG CAPSULE PO SCH (08:47)
[2019-06-14] MEDS: ESCITALOPRAM 10 MG TAB PO SCH ×2 (08:47→20:48)
[2019-06-14] MEDS: FAMOTIDINE 20 MG/2 ML VIAL IV SCH ×2 (08:48→20:48)
[2019-06-14] MEDS ORDERED: VANCOMYCIN TROUGH DUE 1 EACH MISC MISCELLANE ONE (10:00)
[2019-06-14] MEDS: VANCOMYCIN 2,000 MG in SODIUM CHLORIDE 0.9% 500 ML 500 ML IVPB SCH (10:37)
--- NOTE | 2019-06-14 12:15 | P.PN ---
<RaiMadie Joseph - Last Filed: 06/14/19 12:09> Subjective Progress Note Date: 06/14/19 CHIEF COMPLAINT: diverticulitis HISTORY OF PRESENT ILLNESS: 39-year-old male who is status post colostomy reversal and repair of stomal hernia. Postop day #4. patient examined for the bedside. Epidural and Rodgers catheter removed yesterday. Patient reports his pain is semi-controlled this morning. He reports taking Toradol yesterday for pain but has not taken anything this morning. He is passing flatus and having bowel movements. Tolerating clear liquid diet. Denies nausea or vomiting. Reports improved abdominal bloating. Blood pressure stable. He's afebrile. Heart rate remains around 100. PHYSICAL EXAM: VITAL SIGNS: Reviewed. GENERAL: Well-developed in no acute distress. HEENT: No sclera icterus. Extraocular movements grossly intact. Moist buccal mucosa. Head is atraumatic, normocephalic. ABDOMEN: Soft. Nondistended. dressing clean dry and intact. Positive bowel sounds. NEUROLOGIC: Alert and oriented. Cranial nerves II through XII grossly intact. ASSESSMENT: 1. History of diverticulitis, status post colostomy reversal and repair of stomal hernia PLAN: 1. Pain control. Add [place] to regimen 2. Increase diet to full liquid 3. Increase activity as tolerated 4. Incentive spirometer 10 times hour while awake Nurse practitioner note has been reviewed by physician. Signing provider agrees with the documented findings, assessment, and plan of care. Objective - Vital Signs Vital signs: Vital Signs Temp 98.7 F 06/14/19 07:00 Pulse 100 06/14/19 08:00 Resp 18 06/14/19 08:00 BP 140/82 06/14/19 07:00 Pulse Ox 96 06/14/19 07:00 Intake & Output 06/13/19 06/14/19 06/14/19 18:59 06:59 18:59 Intake Total 1250 Output Total 1650 Balance -1650 1250 Intake: Intake, IV Titration 1250 Amount Sodium Chloride 0.9% 1, 750 000 ml @ 75 mls/hr IV . [id number] MODE Rx#:[id number] Vancomycin 2,000 mg In 500 Sodium Chloride 0.9% 500 ml 500 ml @ 167 mls/hr IVPB Q12H MODE Rx#: [id number] Output: Urine 1650 Uretheral (Rodgers) 750 Other: Voiding Method Indwelling Catheter Toilet Toilet # Voids 3 # Bowel Movements 1 - Labs CBC & Chem 7: 06/13/19 07:35 06/13/19 07:35 Labs: Microbiology - Last 24 Hours (Table) 06/12/19 06:23 Blood Culture - Preliminary Blood No Growth after 48 hours 06/12/19 03:03 Blood Culture - Preliminary Blood No Growth after 48 hours 06/12/19 02:52 Blood Culture - Preliminary Blood No Growth after 48 hours <Guillermo Engle - Last Filed: 06/14/19 16:57> Subjective As above. Patient doing better today. Multiple loose stools. We'll check labs tomorrow. Advance diet. Discontinue Toradol as the patient thought he had a bad reaction. We'll start Motrin. Objective - Vital Signs Vital signs: Vital Signs Temp 98.2 F 06/14/19 15:00 Pulse 97 06/14/19 15:00 Resp 16 06/14/19 15:00 BP 158/94 06/14/19 15:00 Pulse Ox 97 06/14/19 15:00 Intake & Output 06/13/19 06/14/19 06/14/19 18:59 06:59 18:59 Intake Total 1250 600 Output Total 1650 Balance -1650 1250 600 Intake: Intake, IV Titration 1250 600 Amount Piperacillin-Tazobactam 3 100 .375 gm In Sodium Chloride 0.9% 100 ml @ 25 mls/hr IVPB Q8H MODE Rx#: [id number] Sodium Chloride 0.9% 1, 750 000 ml @ 75 mls/hr IV . [id number] MODE Rx#:[id number] Vancomycin 2,000 mg In 500 500 Sodium Chloride 0.9% 500 ml 500 ml @ 167 mls/hr IVPB Q12H MODE Rx#: [id number] Output: Urine 1650 Uretheral (Rodgers) 750 Other: Voiding Method Indwelling Catheter Toilet Toilet # Voids 3 # Bowel Movements 1 - Labs CBC & Chem 7: 06/13/19 07:35 06/13/19 07:35 Labs: Microbiology - Last 24 Hours (Table) 06/12/19 06:23 Blood Culture - Preliminary Blood No Growth after 48 hours 06/12/19 03:03 Blood Culture - Preliminary Blood No Growth after 48 hours 06/12/19 02:52 Blood Culture - Preliminary Blood No Growth after 48 hours Assessment and Plan (1) Perforation of sigmoid colon due to diverticulitis Current Visit: No Status: Acute Code(s): K57.20 - DVTRCLI OF LG INT W PE RFORATION AND ABSCESS W/O BLEEDING SNOMED Code(s): 8297581576684064
--- NOTE | 2019-06-14 12:45 | P.PN ---
Subjective Progress Note Date: 06/14/19 Synthroid 39-year-old gentleman status post colostomy reversal and repair of stomal hernia. Pain better controlled, on epidural. Tolerating clear liquid diet with no nausea or vomiting. He reports no flatus, no bowel movement. Has not yet ambulated. Hemoglobin 11.6. Afebrile, WBC N. VSS. 06/14/2019 discontinued yesterday, pain currently controlled. Less bloating, positive bowel movement, positive flatus. Tolerating clear liquid diet, denies nausea or vomiting. Incentive spirometer up to 1500. Afebrile.VSS. Objective - Vital Signs Vital signs: Vital Signs Temp 98.7 F 06/14/19 07:00 Pulse 100 06/14/19 08:00 Resp 18 06/14/19 08:00 BP 140/82 06/14/19 07:00 Pulse Ox 96 06/14/19 07:00 Intake & Output 06/13/19 06/14/19 06/14/19 18:59 06:59 18:59 Intake Total 1250 Output Total 1650 Balance -1650 1250 Intake: Intake, IV Titration 1250 Amount Sodium Chloride 0.9% 1, 750 000 ml @ 75 mls/hr IV . [id number] MODE Rx#:[id number] Vancomycin 2,000 mg In 500 Sodium Chloride 0.9% 500 ml 500 ml @ 167 mls/hr IVPB Q12H MODE Rx#: [id number] Output: Urine 1650 Uretheral ([place]) 750 Other: Voiding Method Indwelling Catheter Toilet Toilet # Voids 3 # Bowel Movements 1 - Exam PHYSICAL EXAM: VITAL SIGNS: As above GENERAL: Sitting up at side of bed, no acute distress HEENT: Conjunctivae normal. eyes normal. Oral mucosa moist NECK: No JVD. No thyroid enlargement. No LNs CARDIOVASCULAR: S1, S2 regular.No murmur RESPIRATION: Breath sounds diminished in the bases. No rhonchi or crackles. No wheezing. ABDOMEN: Soft, less distended, status post surgery, Dressing clean dry and intact.Prevena present. LEGS: No edema. no swelling PSYCHIATRY: Alert and oriented X3, mood and affect normal. NERVOUS SYSTEM: Cranial N 2-12 grossly normal. Moves all 4 limbs. No focal deficits. Strength and sensation grossly intact.. - Labs CBC & Chem 7: 06/13/19 07:35 06/13/19 07:35 Labs: Microbiology - Last 24 Hours (Table) 06/12/19 06:23 Blood Culture - Preliminary Blood No Growth after 48 hours 06/12/19 03:03 Blood Culture - Preliminary Blood No Growth after 48 hours 06/12/19 02:52 Blood Culture - Preliminary Blood No Growth after 48 hours Assessment and Plan Assessment: -Status post colostomy reversal and repair of stomal hernia in a patient with history of diverticulitis -Hypertension -Hyperlipidemia -Chronic intermittent asthma -Depression Plan: Continue on current medication regime ,monitoring and symptomatic treatment. Increase ambulation as tolerated. Aggressive pulmonary toileting with incentive spirometer reinforced.Pain management and diet advancement as per surgery. The impression and plan of care has been dictated as directed. : I performed a history and examination of this patient, discussed the same with the dictator. I agree with the dictator's note ,documented as a scribe. Any additional findings or plans will be noted.
[2019-06-14] MEDS: HYDROcodone/APAP 7.5-325MG 1 EACH TAB PO PRN (15:12)
[2019-06-14] MEDS ORDERED: ALPRAZolam 0.25 MG TAB PO PRN (20:12)
[2019-06-14] MEDS ORDERED: traZODone HCL 50 MG TAB PO PRN (20:13)
[2019-06-15] MEDS: HEPARIN SODIUM,PORCINE 5,000 UNIT/ML 1 ML VIAL SQ SCH ×3 (00:28→17:41)
[2019-06-15] MEDS: IBUPROFEN 600 MG TAB PO SCH ×3 (00:29→17:41)
[2019-06-15] MEDS: PIPERACILLIN-TAZOBACTAM 3.375 GM in SODIUM CHLORIDE 0.9% 100 ML IVPB SCH ×3 (02:03→17:41)
[2019-06-15 08:21] VITALS: RESP 12
[2019-06-15] MEDS: FAMOTIDINE 20 MG/2 ML VIAL IV SCH (09:00)
[2019-06-15] MEDS: ESCITALOPRAM 10 MG TAB PO SCH (09:00)
[2019-06-15] MEDS: SODIUM CHLORIDE 0.9% 1,000 ML IV SCH (09:01)
[2019-06-15] MEDS: HYDROcodone/APAP 7.5-325MG 1 EACH TAB PO PRN (10:28)
--- NOTE | 2019-06-15 10:33 | P.PN ---
Subjective Progress Note Date: 06/15/19 Synthroid 39-year-old gentleman status post colostomy reversal and repair of stomal hernia. Pain better controlled, on epidural. Tolerating clear liquid diet with no nausea or vomiting. He reports no flatus, no bowel movement. Has not yet ambulated. Hemoglobin 11.6. Afebrile, WBC N. VSS. 06/14/2019 discontinued yesterday, pain currently controlled. Less bloating, positive bowel movement, positive flatus. Tolerating clear liquid diet, denies nausea or vomiting. Incentive spirometer up to 1500. Afebrile.VSS. 06/15/2019 continues to do well. Reporting tenderness, no pain. Complains of not sleeping well here in the hospital, eager for discharge. Diet advanced to low-fat this morning, tolerated well. Positive flatus, positive bowel movement. Ambulating, tolerating exertion well. Maintained on Zosyn. Afebrile, T-max 99.5. Objective - Vital Signs Vital signs: Vital Signs Temp 98.3 F 06/15/19 07:00 Pulse 88 06/15/19 07:00 Resp 12 06/15/19 07:00 BP 136/74 06/15/19 07:00 Pulse Ox 97 06/15/19 07:00 Intake & Output 06/14/19 06/15/19 06/15/19 18:59 06:59 18:59 Intake Total 600 100 500 Balance 600 100 500 Intake: Intake, IV Titration 600 100 Amount Piperacillin-Tazobactam 3 100 100 .375 gm In Sodium Chloride 0.9% 100 ml @ 25 mls/hr IVPB Q8H MODE Rx#: [id number] Vancomycin 2,000 mg In 500 Sodium Chloride 0.9% 500 ml 500 ml @ 167 mls/hr IVPB Q12H MODE Rx#: [id number] Oral 500 Other: Voiding Method Toilet Toilet # Voids 2 # Bowel Movements 2 - Exam PHYSICAL EXAM: VITAL SIGNS: As above GENERAL: Sitting up at side of bed, no acute distress HEENT: Conjunctivae normal. eyes normal. Oral mucosa moist NECK: No JVD. No thyroid enlargement. No LNs CARDIOVASCULAR: S1, S2 regular.No murmur RESPIRATION: Breath sounds diminished in the bases. No rhonchi or crackles. No wheezing. ABDOMEN: Soft, less distended, status post surgery, positive bowel sounds .Dressing clean dry and intact.Prevena present. LEGS: No edema. no swelling, nontender, no cyanosis, no clubbing PSYCHIATRY: Alert and oriented X3, mood and affect normal. NERVOUS SYSTEM: Cranial N 2-12 grossly normal. Moves all 4 limbs. No focal deficits. Strength and sensation grossly intact.. - Labs CBC & Chem 7: 06/13/19 07:35 06/13/19 07:35 Labs: Microbiology - Last 24 Hours (Table) 06/12/19 06:23 Blood Culture - Preliminary Blood No Growth after 72 hours 06/12/19 02:52 Blood Culture - Preliminary Blood No Growth after 72 hours 06/12/19 03:03 Blood Culture - Preliminary Blood No Growth after 72 hours Assessment and Plan Assessment: -Status post colostomy reversal and repair of stomal hernia in a patient with history of diverticulitis -Hypertension -Hyperlipidemia -Chronic intermittent asthma -Depression, history of Plan: Continue on current medication regime ,monitoring and symptomatic treatment. Maintain IV antibiotics. Continue increasing ambulation as tolerated and aggressive pulmonary toileting. Incentive spirometer reinforced. Patient eager for discharge. Medically cleared, follow with PCP in one week. Thank you Dr. Engle for this consult. The impression and plan of care has been dictated as directed. : I performed a history and examination of this patient, discussed the same with the dictator. I agree with the dictator's note ,documented as a scribe. Any additional findings or plans will be noted.
[2019-06-15 12:34] LABS: Anisocytosis Slight; Basophils % (A) 0 %; Eosinophils # (A) 0.3 k/uL (0-0.7); Eosinophils % (A) 6 %; HCT 33.5 % (39.0-53.0); HGB 11.3 gm/dL (13.0-17.5); Lymphocytes # (A) 0.7 k/uL (1.0-4.8); Lymphocytes % (A) 13 %; MCH 28.4 pg (25.0-35.0); MCHC 33.7 g/dL (31.0-37.0); MCV 84.3 fL (80.0-100.0); Mean Platelet Volume 6.9; Monocytes # (A) 0.3 k/uL (0-1.0); Monocytes % (A) 6 %; Neutrophils % (A) 73 %; Platelet Count 252 k/uL (150-450); RBC 3.97 m/uL (4.30-5.90); RDW 16.3 % (11.5-15.5); WBC 5.5 k/uL (3.8-10.6)
[2019-06-15 12:50] LABS: African American GFR (CKD) >90 (>60 ml/min/1.73 sqM); Anion Gap 6 mmol/L; Blood Urea Nitrogen 15 mg/dL (9-20); Calcium 9.3 mg/dL (8.4-10.2); Carbon Dioxide 27 mmol/L (22-30); Chloride 110 mmol/L (98-107); Glucose 116 mg/dL (74-99); Potassium 3.7 mmol/L (3.5-5.1); Sodium 143 mmol/L (137-145)
--- NOTE | 2019-06-15 13:25 | P.DS ---
<Madie Rai - Last Filed: 06/15/19 15:53> Providers Expected date of discharge: 06/15/19 Hospital Course: 39-year-old male who is status post colostomy reversal and repair of stomal hernia performed on 06/10/[address] Lang. Patient is doing well postoperatively. He is tolerating a low fiber diet. Denies nausea or vomiting. Passing flatus and having bowel movements. Pain is controlled on oral medications. Vital signs stable. WBC 5.5. Patient is stable for discharge home today. Home care set up per case management. Patient to have PREVENA discontinued on Monday June 10, 2019. Please see EMR for further hospital course details. Discharge Diagnosis: 1. History of diverticulitis, status post colostomy reversal and repair of stomal hernia Nurse practitioner note has been reviewed by physician. Signing provider agrees with the documented findings, assessment, and plan of care. Patient Condition at Discharge: Stable Plan - Discharge Summary Discharge Rx Participant: Yes New Discharge Prescriptions: New Hydrocodone/Acetaminophen [[place] 5-325] 1 tab PO Q4HR PRN 3 Days #18 tab PRN Reason: Pain Continue Lisinopril 40 mg PO DAILY Escitalopram Oxalate [Lexapro] 10 mg PO BID Albuterol Inhaler [Ventolin Hfa Inhaler] 1 - 2 puff INHALATION Q6H PRN #1 inhaler PRN Reason: Wheezing Discharge Medication List Escitalopram Oxalate [Lexapro] 10 mg PO BID 11/20/18 [History] Lisinopril 40 mg PO DAILY 11/20/18 [History] Albuterol Inhaler [Ventolin Hfa Inhaler] 1 - 2 puff INHALATION Q6H PRN #1 inhaler 12/01/18 [Rx] Hydrocodone/Acetaminophen [[place] 5-325] 1 tab PO Q4HR PRN 3 Days #18 tab 06/15/19 [Rx] Follow up Appointment(s)/Referral(s): Guillermo Engle MD [Medical Doctor] - 06/23/19 8:45 am [facility], [NON-STAFF] - As Needed Blanquita Pimentel DO [Primary Care Provider] - 06/21/19 10:15 am Patient Instructions/Handouts: Low Fiber Diet (DC), Open Colostomy Reversal (DC) Activity/Diet/Wound Care/Special Instructions: No driving while taking [place] No lifting over 10 pounds You may shower. No soaking or tub baths Very light activity until you are reevaluated at your follow up appointment with your surgeon Diet as tolerated PREVENA WOUND VAC TO BE REMOVED BY HOME CARE NURSE ON Thursday06/17/19 <Guillermo Engle - Last Filed: 06/15/19 19:53> Providers Date of admission: 06/10/19 08:02 Attending physician: Guillermo Engle Consults: 06/10/19 14:45 Consult Physician Routine Consulting Provider: Kraig Pierre Consult Reason/Comments: Medical management Do you want consulting provider notified?: Yes Primary care physician: Blanquita Pimentel - Discharge Diagnosis(es) (1) Perforation of sigmoid colon due to diverticulitis Current Visit: No Status: Acute Hospital Course: As above. Patient doing well today. Tolerating diet. White blood cell count normal. Provine addressing removed at this time. Small blister along the skin near the umbilicus away from the incision. Continue dry dressings. March discharge. Follow-up one week. Low fiber diet.
[2019-06-15 15:58] VITALS: BP 163/96; PULSE 87; TEMP 98
== END 2019-06-15 20:34 | disposition home health service (06) | DRG 330 ==
LOC: 2ORMAIN 08:02 → 4SSUR 15:17
PROVIDERS: ADMIT Surgery; ATTEND Surgery
PROC: 0DBP0ZZ Excision of Rectum, Open Approach (ICD-10-PCS; 2019-06-10)
PROC: 0WQF0ZZ Repair Abdominal Wall, Open Approach (ICD-10-PCS; 2019-06-10)
PROC: 0DBN0ZZ Excision of Sigmoid Colon, Open Approach (ICD-10-PCS; principal; 2019-06-10 09:30)
DX: Z43.3 Encounter for attention to colostomy (principal); K94.09 Other complications of colostomy; I95.9 Hypotension, unspecified; E66.01 Morbid (severe) obesity due to excess calories; E78.5 Hyperlipidemia, unspecified; F32.9 Major depressive disorder, single episode, unspecified; I10 Essential (primary) hypertension; J45.20 Mild intermittent asthma, uncomplicated; R00.0 Tachycardia, unspecified; F41.9 Anxiety disorder, unspecified; Z68.37 Body mass index [BMI] 37.0-37.9, adult; Z87.442 Personal history of urinary calculi; Z79.899 Other long term (current) drug therapy; Z90.49 Acquired absence of other specified parts of digestive tract; Z82.5 Family history of asthma and other chronic lower respiratory diseases
CPT/HCPCS: 71045; 80048; 80053; 80202; 83605; 85025; 86850; 86900; 86901; 87040; 88304; 88307

== ENCOUNTER 2019-06-27 17:21 | Observation (INO) | payer BC ==
[2019-06-27 21:03] LABS: Anisocytosis Slight; Basophils # (A) 0.1 k/uL (0-0.2); Basophils % (A) 1 %; Eosinophils # (A) 0.9 k/uL (0-0.7); Eosinophils % (A) 8 %; HCT 40.4 % (39.0-53.0); Lymphocytes # (A) 0.7 k/uL (1.0-4.8); Lymphocytes % (A) 6 %; MCH 28.6 pg (25.0-35.0); MCHC 34.7 g/dL (31.0-37.0); MCV 82.4 fL (80.0-100.0); Mean Platelet Volume 6.7; Monocytes # (A) 0.3 k/uL (0-1.0); Monocytes % (A) 3 %; Neutrophils # (A) 9.1 k/uL (1.3-7.7); Neutrophils % (A) 82 %; Platelet Count 351 k/uL (150-450); RDW 16.1 % (11.5-15.5); WBC 11.1 k/uL (3.8-10.6)
[2019-06-27 21:08] LABS: Appearance,Urine Clear (Clear); Bilirubin,Urine Negative (Negative); Blood,Urine Small (Negative); Color,Urine Yellow; Glucose,Urine (UA) Negative (Negative); Ketones,Urine Negative (Negative); Leukocyte Esterase,Urine Negative (Negative); Mucus,Urine Rare /hpf; Nitrite,Urine Negative (Negative); PH, Urine 5.5 (5.0-8.0); Protein,Urine 1+ (Negative); RBC,Urine 1 /hpf (0-5); Specific Gravity,Urine 1.021 (1.001-1.035); Urobilinogen,Urine <2.0 mg/dL (<2.0); WBC,Urine 5 /hpf (0-5)
[2019-06-27 21:12] LABS: Albumin 4.6 g/dL (3.5-5.0); Calcium 10.2 mg/dL (8.4-10.2); Potassium 4.7 mmol/L (3.5-5.1); Total Bilirubin 0.4 mg/dL (0.2-1.3)
[2019-06-27] MEDS ORDERED: SODIUM CHLORIDE 0.9% 500 ML 500 ML IV ONE (21:19)
[2019-06-27] MEDS ORDERED: SODIUM CHLORIDE 0.9% 1,000 ML IV ONE (21:19)
--- NOTE | 2019-06-27 21:22 | ED ---
Abdominal Pain HPI - General Source: patient Mode of arrival: ambulatory Limitations: no limitations <Rachel Arriaga - Last Filed: 06/28/19 03:30> <Jonatan Barr - Last Filed: 06/29/19 08:16> - General Chief Complaint: Abdominal Pain Stated Complaint: s/p colostomy reversal Time Seen by Provider: 06/27/19 20:33 - History of Present Illness Initial Comments: 39-year-old male patient with past medical history significant for diverticulitis presents to the emergency department today for evaluation of lower abdominal pain and cramping. Patient is status post colostomy reversal with Dr. Lang on 06/10/2019. Patient had a colon resection with colostomy placement in November 2018. Patient states that he was recovering well from surgery when he developed increased lower abdominal pain today. Patient states that his appetite is also diminished. States he feels very full whenever he attempts to eat. He denies fever or chills. Denies any abnormal bowel movements including constipation, diarrhea, hematochezia, or melena. Denies any difficulty with urination. Patient denies any recent rash, shortness breath, chest pain, back pain, numbness, tingling, dizziness, weakness, headache, visual changes, or any other complaints. (Rachel Arriaga) - Related Data Home Medications Medication Instructions Recorded Confirmed Lisinopril 40 mg PO DAILY 11/20/18 06/27/19 Escitalopram [Lexapro] 20 mg PO DAILY 06/27/19 06/27/19 Allergies Allergy/AdvReac Type Severity Reaction Status Date / Time No Known Allergies Allergy Verified 06/27/19 20:30 Review of Systems ROS Other: All systems not noted in ROS Statement are negative. <Rachel Arriaga - Last Filed: 06/28/19 03:30> ROS Other: All systems not noted in ROS Statement are negative. <Jonatan Barr - Last Filed: 06/29/19 08:16> ROS Statement: Those systems with pertinent positive or pertinent negative responses have been documented in the HPI. Past Medical History Past Medical History: Hyperlipidemia, Hypertension Additional Past Medical History / Comment(s): kidney stones multiple times, colostomy r/t colon perforation History of Any Multi-Drug Resistant Organisms: None Reported Past Surgical History: Appendectomy, Cholecystectomy, Hernia Repair Additional Past Surgical History / Comment(s): kidney stone surgery, colostomy Past Anesthesia/Blood Transfusion Reactions: Postoperative Nausea & Vomiting (PONV) Past Psychological History: Anxiety Smoking Status: Never smoker Past Alcohol Use History: None Reported Past Drug Use History: Marijuana - Past Family History Father History Unknown: Yes Mother Family Medical History: COPD Additional Family Medical History / Comment(s): recently <CorinaRachel M - Last Filed: 06/28/19 03:30> General Exam Limitations: no limitations General appearance: alert, in no apparent distress, other (This is a well- developed, well-nourished adult male patient in no acute distress. Vital signs upon presentation are temperature 98.4F, pulse 109, respirations 18, blood pressure 121/85, pulse ox 99% on room air.) Eye exam: Present: normal appearance, PERRL, EOMI. Absent: scleral icterus, conjunctival injection, periorbital swelling ENT exam: Present: normal exam, normal oropharynx, mucous membranes moist Respiratory exam: Present: normal lung sounds bilaterally. Absent: respiratory distress, wheezes, rales, rhonchi, stridor Cardiovascular Exam: Present: regular rate, normal rhythm, normal heart sounds. Absent: systolic murmur, diastolic murmur, rubs, gallop, clicks GI/Abdominal exam: Present: soft, tenderness (Britni-incisional tenderness, lower abdominal tenderness.), normal bowel sounds, other (There is a large vertical midline incision well approximated with mirta. There is a left lower quadrant incision also well approximated with mirta. No surrounding erythema or drainage noted.). Absent: distended, guarding, rebound, rigid Neurological exam: Present: alert, oriented X3, CN II-XII intact Psychiatric exam: Present: normal affect, normal mood Skin exam: Present: warm, dry, intact, normal color. Absent: rash <Rachel Arriaga M - Last Filed: 06/28/19 03:30> Course Vital Signs 06/27/19 06/27/19 06/27/19 17:41 21:37 23:08 Temperature 98.4 F 98.8 F Pulse Rate 109 H 109 H 111 H Respiratory 18 14 14 Rate Blood Pressure 121/85 119/78 130/55 O2 Sat by Pulse 99 98 98 Oximetry 06/28/19 02:55 Temperature 98.9 F Pulse Rate 97 Respiratory 16 Rate Blood Pressure 134/86 O2 Sat by Pulse 98 Oximetry Procedures - [place] Protocol (Time Out) Nurse: Iris Gallagher <Rachel Arriaga - Last Filed: 06/28/19 03:30> Medical Decision Making - Lab Data Result diagrams: 06/27/19 20:53 06/27/19 20:53 - Radiology Data Radiology results: report reviewed, image reviewed <Rachel Arriaga - Last Filed: 06/28/19 03:30> - Lab Data Result diagrams: 06/28/19 05:33 06/27/19 20:53 <Jonatan Barr - Last Filed: 06/29/19 08:16> - Medical Decision Making 39-year-old male patient presents to the emergency department today for evaluation of lower abdominal pain. Patient is status post colostomy reversal on 06/10/2019. Physical examination does reveal lower abdominal tenderness. Incisions appear intact, approximated with no signs of infection. Labs reviewed and did reveal white blood cell count of 11.1. Lactic acid shows elevation at 2.5. CT abdomen and pelvis was obtained and did show postsurgical changes with fluid and subcutaneous air. There is some small bowel inflammation consistent with gastroenteritis. My attending Dr. Barr discussed the case with the patient's surgeon Dr. Engle who recommends admission with IV fluids and antibiotics. Clear liquid diet. Patient is updated regarding results and plan, he is agreeable. (Rachel Arriaga) I saw this patient in conjunction with the physician preschool assistant. I performed independent history and physical exam. Agree with case management. (Jonatan Barr) - Lab Data Lab Results 06/27/19 06/27/19 06/27/19 Range/Units 20:53 20:53 20:53 WBC 11.1 H (3.8-10.6) k/uL RBC 4.90 (4.30-5.90) m/uL Hgb 14.0 (13.0-17.5) gm/dL Hct 40.4 (39.0-53.0) % MCV 82.4 (80.0-100.0) fL MCH 28.6 (25.0-35.0) pg MCHC 34.7 (31.0-37.0) g/dL RDW 16.1 H (11.5-15.5) % Plt Count 351 (150-450) k/uL Neutrophils % 82 % Lymphocytes % 6 % Monocytes % 3 % Eosinophils % 8 % Basophils % 1 % Neutrophils # 9.1 H (1.3-7.7) k/uL Lymphocytes # 0.7 L (1.0-4.8) k/uL Monocytes # 0.3 (0-1.0) k/uL Eosinophils # 0.9 H (0-0.7) k/uL Basophils # 0.1 (0-0.2) k/uL Anisocytosis Slight Sodium 138 (137-145) mmol/L Potassium 4.7 (3.5-5.1) mmol/L Chloride 105 (98-107) mmol/L Carbon Dioxide 19 L (22-30) mmol/L Anion Gap 14 mmol/L BUN 22 H (9-20) mg/dL Creatinine 1.24 (0.66-1.25) mg/dL Est GFR (CKD-EPI)AfAm 85 (>60 ml/min/1.73 sqM) Est GFR (CKD-EPI)NonAf 74 (>60 ml/min/1.73 sqM) Glucose 128 H (74-99) mg/dL Lactic Ac Sepsis Rflx Plasma Lactic Acid Ab 2.5 H* (0.7-2.0) mmol/L Calcium 10.2 (8.4-10.2) mg/dL Total Bilirubin 0.4 (0.2-1.3) mg/dL AST 25 (17-59) U/L ALT 33 (21-72) U/L Alkaline Phosphatase 56 (38-126) U/L Total Protein 9.0 H (6.3-8.2) g/dL Albumin 4.6 (3.5-5.0) g/dL Amylase 84 (30-110) U/L Lipase 142 (23-300) U/L Urine Color Urine Appearance (Clear) Urine pH (5.0-8.0) Ur Specific [place] (1.001-1.035) Urine Protein (Negative) Urine Glucose (UA) (Negative) Urine Ketones (Negative) Urine Blood (Negative) Urine Nitrite (Negative) Urine Bilirubin (Negative) Urine Urobilinogen (<2.0) mg/dL Ur Leukocyte Esterase (Negative) Urine RBC (0-5) /hpf Urine WBC (0-5) /hpf Urine Mucus (None) /hpf 06/27/19 06/27/19 Range/Units 20:53 21:14 WBC (3.8-10.6) k/uL RBC (4.30-5.90) m/uL Hgb (13.0-17.5) gm/dL Hct (39.0-53.0) % MCV (80.0-100.0) fL MCH (25.0-35.0) pg MCHC (31.0-37.0) g/dL RDW (11.5-15.5) % Plt Count (150-450) k/uL Neutrophils % % Lymphocytes % % Monocytes % % Eosinophils % % Basophils % % Neutrophils # (1.3-7.7) k/uL Lymphocytes # (1.0-4.8) k/uL Monocytes # (0-1.0) k/uL Eosinophils # (0-0.7) k/uL Basophils # (0-0.2) k/uL Anisocytosis Sodium (137-145) mmol/L Potassium (3.5-5.1) mmol/L Chloride (98-107) mmol/L Carbon Dioxide (22-30) mmol/L Anion Gap mmol/L BUN (9-20) mg/dL Creatinine (0.66-1.25) mg/dL Est GFR (CKD-EPI)AfAm (>60 ml/min/1.73 sqM) Est GFR (CKD-EPI)NonAf (>60 ml/min/1.73 sqM) Glucose (74-99) mg/dL Lactic Ac Sepsis Rflx Y Plasma Lactic Acid Ab (0.7-2.0) mmol/L Calcium (8.4-10.2) mg/dL Total Bilirubin (0.2-1.3) mg/dL AST (17-59) U/L ALT (21-72) U/L Alkaline Phosphatase (38-126) U/L Total Protein (6.3-8.2) g/dL Albumin (3.5-5.0) g/dL Amylase (30-110) U/L Lipase (23-300) U/L Urine Color Yellow Urine Appearance Clear (Clear) Urine pH 5.5 (5.0-8.0) Ur Specific [place] 1.021 (1.001-1.035) Urine Protein 1+ H (Negative) Urine Glucose (UA) Negative (Negative) Urine Ketones Negative (Negative) Urine Blood Small H (Negative) Urine Nitrite Negative (Negative) Urine Bilirubin Negative (Negative) Urine Urobilinogen <2.0 (<2.0) mg/dL Ur Leukocyte Esterase Negative (Negative) Urine RBC 1 (0-5) /hpf Urine WBC 5 (0-5) /hpf Urine Mucus Rare H (None) /hpf - Radiology Data CT abdomen and pelvis was obtained. Report was reviewed in its entirety. Impression by Dr. Wynn shows fatty infiltration of the liver. Postsurgical changes fluid and air in the left anterior subcutaneous tissues that could relate to reversal of colostomy. There is apparent resection of sigmoid colon with colonic anastomosis that appears intact. There is clearing of the extensive inflammatory changes and diverticulitis of the sigmoid colon compared to old exam. Small bowel wall thickening without dilation. This could relate to some gastritis. No evidence of a bowel obstruction. (Rachel Arriaga) Disposition Decision to Admit Reason: Admit from EC Decision Date: 06/27/19 Decision Time: 23:20 <Rachel Arriaga - Last Filed: 06/28/19 03:30> <Jonatan Barr - Last Filed: 06/29/19 08:16> Clinical Impression: Post-op pain, Abdominal pain Disposition: ADMITTED IP TO THIS [facility] Condition: Serious
[2019-06-27] MEDS ORDERED: MORPHINE SULFATE 4 MG/ML SYRINGE IVP STA (21:29)
[2019-06-27] MEDS ORDERED: ONDANSETRON 4 MG/2 ML VIAL IVP STA (21:29)
--- NOTE | 2019-06-27 21:33 | CT ---
EXAMINATION TYPE: CT abdomen pelvis w con DATE OF EXAM: 06/27/2019 COMPARISON: 11/20/2018 HISTORY: Abdominal cramping post colostomy reversal on 06/10/19 CT DLP: 1701.2 mGycm Automated exposure control for dose reduction was used. TECHNIQUE: Helical acquisition of images was performed from the lung bases through the pelvis. CONTRAST: Performed without Oral Contrast and with IV Contrast, patient injected with 100 mL of Isovue 300. FINDINGS: Lung bases are clear. There is no pleural effusion. Heart size is normal. There is no pericardial eff usion. There is fatty infiltration of the liver. There are clips from cholecystectomy. There is some fat stranding on the anterior abdominal wall from surgery. There is subcutaneous fluid and air on the left anterior abdomen consistent with postsurgical changes. This measures 5 x 3 cm. The bile ducts are not dilated. Spleen appears normal. The stomach is intact. There is no evidence of pancreatic mass. There is no adrenal mass. Kidneys show satisfactory contrast opacification. There is no hydronephrosi s. Ureters are not dilated. Bladder distends smoothly. There is no inguinal hernia. There is rectal a nastomosis surgical clips in the pelvis. There is minimal fat stranding in the left paracolic gutter. There is no free fluid in the pelvis. There is no sign of pneumoperitoneum. There are some loops of small bowel with mild wall thickening in the mid abdomen. I see no evidence of mechanical bowel obstr uction. Lumbar spine is intact. There is posterior disc herniation at L4-5 L5-S1. There is no lumbar compression fracture. The bony pelvis appears intact. IMPRESSION: FATTY INFILTRATION OF THE LIVER. POSTSURGICAL CHANGE WITH FLUID AND AIR IN THE LEFT ANTERIOR SUBCUTANEOUS TISSUES THAT COULD RELATE TO REVERSAL OF COLOSTOMY. THERE IS APPARENT RESECTION OF SIGMOID COLON WITH COLONIC ANASTOMOSIS THAT AP PEARS INTACT. THERE IS CLEARING OF THE EXTENSIVE INFLAMMATORY CHANGES AND DIVERTICULITIS OF THE SIGMO ID COLON COMPARED TO OLD EXAM. SMALL BOWEL WALL THICKENING WITHOUT DILATION. THIS COULD RELATE TO SOME GASTROENTERITIS. NO EVIDENCE OF A BOWEL OBSTRUCTION.
[2019-06-27] MEDS ORDERED: NALOXONE 0.4 MG/ML 1 ML VIAL IV PRN (23:09)
[2019-06-27] MEDS ORDERED: ACETAMINOPHEN TAB 325 MG TAB PO PRN (23:09)
[2019-06-27] MEDS ORDERED: ONDANSETRON 4 MG/2 ML VIAL IVP PRN (23:09)
[2019-06-27] MEDS ORDERED: PIPERACILLIN-TAZOBACTAM 3.375 GM in SODIUM CHLORIDE 0.9% 100 ML IVPB STA (23:18)
[2019-06-27] MEDS: SODIUM CHLORIDE 0.9% 1,000 ML IV SCH (23:28)
[2019-06-28] MEDS: PIPERACILLIN-TAZOBACTAM 3.375 GM in SODIUM CHLORIDE 0.9% 100 ML IVPB SCH ×3 (01:55→16:53)
[2019-06-28] MEDS: MORPHINE SULFATE 4 MG/ML SYRINGE IV PRN ×3 (02:11→11:24)
[2019-06-28 03:14] VITALS: RESP 16
[2019-06-28 05:54] LABS: Basophils # (A) 0.1 k/uL (0-0.2); Basophils % (A) 1 %; Eosinophils # (A) 0.8 k/uL (0-0.7); Eosinophils % (A) 10 %; HCT 35.8 % (39.0-53.0); HGB 12.4 gm/dL (13.0-17.5); Lymphocytes # (A) 0.8 k/uL (1.0-4.8); Lymphocytes % (A) 9 %; MCH 28.7 pg (25.0-35.0); MCHC 34.6 g/dL (31.0-37.0); MCV 83.1 fL (80.0-100.0); Mean Platelet Volume 6.6; Monocytes # (A) 0.4 k/uL (0-1.0); Monocytes % (A) 4 %; Neutrophils # (A) 6.2 k/uL (1.3-7.7); Neutrophils % (A) 75 %; Platelet Count 296 k/uL (150-450); RBC 4.31 m/uL (4.30-5.90); RDW 15.9 % (11.5-15.5); WBC 8.3 k/uL (3.8-10.6)
[2019-06-28] MEDS ORDERED: SODIUM CHLORIDE 0.9% 500 ML 500 ML IV ONE (06:52)
[2019-06-28] MEDS: SODIUM CHLORIDE 0.9% 1,000 ML IV SCH ×2 (11:00→16:53)
--- NOTE | 2019-06-28 17:50 | P.GSHP ---
History of Present Illness H&P Date: 06/28/19 Chief Complaint: Abdominal pain 39-year-old male well known to our service. Patient underwent colostomy reversal on 06/10. Was seen in the office last week and seemed to be doing well. For the 2 days prior to presentation yesterday the patient was complaining of crampy midabdominal pain. Some nausea. He has had soft semi-formed stool up to 6 times per day. No rectal bleeding. No fevers. Pain was persisting. Pain was as high as 8 out of 10. He came for evaluation. CAT scan was performed. This was reviewed. The patient's anastomosis is patent with no significant inflammatory changes around the anastomosis. There is no evidence of extraluminal fluid collection or air. The patient's small bowel loops however do reveal changes consistent with enteritis with thickening of the wall. The patient's venous system is patent with no definitive evidence of thrombosis on recent study. His lactic acid has been elevated. It is improving. His white blood cell count was slightly elevated. That is back to normal. He is afebrile. He is sitting up in the bed smiling when evaluating. Requesting more to eat. - Review of Systems Comment: The patient denies any acute changes in vision or hearing, no dysphagia or odynophagia, no chest pain or shortness of breath, no dysuria or hematuria, no headache, no runny nose, no rectal bleeding or melena, no unexplained weight loss Past Medical History Past Medical History: Hyperlipidemia, Hypertension Additional Past Medical History / Comment(s): Diverticulitis with perforation/resection and colostomy recently reversed, multiple kidney stones. History of Any Multi-Drug Resistant Organisms: None Reported Past Surgical History: Appendectomy, Cholecystectomy, Hernia Repair Additional Past Surgical History / Comment(s): 11/2018 bowel resection with colostomy, 06/10/19 colostomy reversal with stomal hernia repair, basketing and lithotripsies of kidney stones. Past Anesthesia/Blood Transfusion Reactions: Postoperative Nausea & Vomiting (PONV) Smoking Status: Never smoker - Past Family History Father History Unknown: Yes Mother Family Medical History: COPD Additional Family Medical History / Comment(s): recently Medications and Allergies Home Medications Medication Instructions Recorded Confirmed Type Lisinopril 40 mg PO DAILY 11/20/18 06/27/19 History Escitalopram [Lexapro] 20 mg PO DAILY 06/27/19 06/27/19 History Allergies Allergy/AdvReac Type Severity Reaction Status Date / Time No Known Allergies Allergy Verified 06/27/19 20:30 Surgical - Exam Vital Signs Temp Pulse Resp BP Pulse Ox 98.4 F 109 H 18 121/85 99 06/27/19 17:41 06/27/19 17:41 06/27/19 17:41 06/27/19 17:41 06/27/19 17:41 Abdomen: Soft, nondistended, incision clean and dry, no erythema, no drainage, minimal tenderness along the incision Results - Labs 06/28/19 05:33 06/27/19 20:53 Abnormal Lab Results - Last 24 Hours (Table) 06/27/19 06/27/19 06/27/19 Range/Units 20:53 20:53 20:53 WBC 11.1 H (3.8-10.6) k/uL Hgb (13.0-17.5) gm/dL Hct (39.0-53.0) % RDW 16.1 H (11.5-15.5) % Neutrophils # 9.1 H (1.3-7.7) k/uL Lymphocytes # 0.7 L (1.0-4.8) k/uL Eosinophils # 0.9 H (0-0.7) k/uL Carbon Dioxide 19 L (22-30) mmol/L BUN 22 H (9-20) mg/dL Glucose 128 H (74-99) mg/dL Plasma Lactic Acid Ab 2.5 H* (0.7-2.0) mmol/L Total Protein 9.0 H (6.3-8.2) g/dL Urine Protein (Negative) Urine Blood (Negative) Urine Mucus (None) /hpf 06/27/19 06/28/19 06/28/19 Range/Units 20:53 00:53 05:33 WBC (3.8-10.6) k/uL Hgb 12.4 L (13.0-17.5) gm/dL Hct 35.8 L (39.0-53.0) % RDW 15.9 H (11.5-15.5) % Neutrophils # (1.3-7.7) k/uL Lymphocytes # 0.8 L (1.0-4.8) k/uL Eosinophils # 0.8 H (0-0.7) k/uL Carbon Dioxide (22-30) mmol/L BUN (9-20) mg/dL Glucose (74-99) mg/dL Plasma Lactic Acid Ab 2.5 H* (0.7-2.0) mmol/L Total Protein (6.3-8.2) g/dL Urine Protein 1+ H (Negative) Urine Blood Small H (Negative) Urine Mucus Rare H (None) /hpf 06/28/19 06/28/19 06/28/19 Range/Units 05:33 09:45 13:52 WBC (3.8-10.6) k/uL Hgb (13.0-17.5) gm/dL Hct (39.0-53.0) % RDW (11.5-15.5) % Neutrophils # (1.3-7.7) k/uL Lymphocytes # (1.0-4.8) k/uL Eosinophils # (0-0.7) k/uL Carbon Dioxide (22-30) mmol/L BUN (9-20) mg/dL Glucose (74-99) mg/dL Plasma Lactic Acid Ab 2.4 H* 3.2 H* 2.2 H* (0.7-2.0) mmol/L Total Protein (6.3-8.2) g/dL Urine Protein (Negative) Urine Blood (Negative) Urine Mucus (None) /hpf Diabetes panel 06/27/19 Range/Units 20:53 Sodium 138 (137-145) mmol/L Potassium 4.7 (3.5-5.1) mmol/L Chloride 105 (98-107) mmol/L Carbon Dioxide 19 L (22-30) mmol/L BUN 22 H (9-20) mg/dL Creatinine 1.24 (0.66-1.25) mg/dL Glucose 128 H (74-99) mg/dL Calcium 10.2 (8.4-10.2) mg/dL AST 25 (17-59) U/L ALT 33 (21-72) U/L Alkaline Phosphatase 56 (38-126) U/L Total Protein 9.0 H (6.3-8.2) g/dL Albumin 4.6 (3.5-5.0) g/dL Calcium panel 06/27/19 Range/Units 20:53 Calcium 10.2 (8.4-10.2) mg/dL Albumin 4.6 (3.5-5.0) g/dL Pituitary panel 06/27/19 Range/Units 20:53 Sodium 138 (137-145) mmol/L Potassium 4.7 (3.5-5.1) mmol/L Chloride 105 (98-107) mmol/L Carbon Dioxide 19 L (22-30) mmol/L BUN 22 H (9-20) mg/dL Creatinine 1.24 (0.66-1.25) mg/dL Glucose 128 H (74-99) mg/dL Calcium 10.2 (8.4-10.2) mg/dL Adrenal panel 06/27/19 Range/Units 20:53 Sodium 138 (137-145) mmol/L Potassium 4.7 (3.5-5.1) mmol/L Chloride 105 (98-107) mmol/L Carbon Dioxide 19 L (22-30) mmol/L BUN 22 H (9-20) mg/dL Creatinine 1.24 (0.66-1.25) mg/dL Glucose 128 H (74-99) mg/dL Calcium 10.2 (8.4-10.2) mg/dL Total Bilirubin 0.4 (0.2-1.3) mg/dL AST 25 (17-59) U/L ALT 33 (21-72) U/L Alkaline Phosphatase 56 (38-126) U/L Total Protein 9.0 H (6.3-8.2) g/dL Albumin 4.6 (3.5-5.0) g/dL Assessment and Plan (1) Enteritis Narrative/Plan: Patient with unusual presentation post-colostomy reversal. Patient's symptoms and CAT scan do match with enteritis identified. Etiology for the enteritis however unclear. Mesenteric thrombosis would be a consideration although recent study suggests otherwise. Will resume diet at this time. Recheck labs tomorrow. Ambulate. Serial abdominal examinations. Of note the patient's CAT scan again was reviewed in detail with the patient. The site for the ostomy was previously present does have a small amount of air within the subcutaneous t issues and a small amount of fluid as well. On examination there is no significant tenderness or erythema in that location. I do not suspect that location contributing to the lactic acidosis. We'll follow closely. Current Visit: Yes Status: Acute Code(s): K52.9 - NONINFECTIVE GASTROENTERITIS AND COLITIS, UNSPECIFIED SNOMED Code(s): 06558835
[2019-06-28] MEDS: KETOROLAC 30 MG/ML 1 ML VIAL IVP SCH (18:40)
[2019-06-28] MEDS: FAMOTIDINE 20 MG/2 ML VIAL IV SCH (21:33)
[2019-06-28 21:49] VITALS: TEMP 98.1
[2019-06-29] MEDS: SODIUM CHLORIDE 0.9% 1,000 ML IV SCH ×2 (00:02→08:13)
[2019-06-29] MEDS: KETOROLAC 30 MG/ML 1 ML VIAL IVP SCH ×2 (06:09)
[2019-06-29 06:20] VITALS: BP 101/62; PULSE 77
[2019-06-29] MEDS: HEPARIN SODIUM,PORCINE 5,000 UNIT/ML 1 ML VIAL SQ SCH ×2 (08:13)
[2019-06-29] MEDS: PIPERACILLIN-TAZOBACTAM 3.375 GM in SODIUM CHLORIDE 0.9% 100 ML IVPB SCH (08:14)
[2019-06-29] MEDS: FAMOTIDINE 20 MG/2 ML VIAL IV SCH (08:14)
[2019-06-29 08:24] LABS: Basophils # (A) 0.1 k/uL (0-0.2); Basophils % (A) 1 %; Eosinophils % (A) 23 %; HCT 35.8 % (39.0-53.0); HGB 12.3 gm/dL (13.0-17.5); Lymphocytes # (A) 1.1 k/uL (1.0-4.8); Lymphocytes % (A) 23 %; MCH 28.6 pg (25.0-35.0); MCHC 34.3 g/dL (31.0-37.0); MCV 83.6 fL (80.0-100.0); Mean Platelet Volume 6.5; Monocytes # (A) 0.2 k/uL (0-1.0); Monocytes % (A) 5 %; Neutrophils # (A) 2.1 k/uL (1.3-7.7); Neutrophils % (A) 46 %; Platelet Count 244 k/uL (150-450); RBC 4.28 m/uL (4.30-5.90); RDW 15.2 % (11.5-15.5); WBC 4.6 k/uL (3.8-10.6)
[2019-06-29 08:33] LABS: African American GFR (CKD) >90 (>60 ml/min/1.73 sqM); Anion Gap 9 mmol/L; Blood Urea Nitrogen 15 mg/dL (9-20); Carbon Dioxide 23 mmol/L (22-30); Chloride 108 mmol/L (98-107); Glucose 97 mg/dL (74-99); Potassium 4.5 mmol/L (3.5-5.1); Sodium 140 mmol/L (137-145)
--- NOTE | 2019-06-29 12:31 | P.DS ---
Providers Date of admission: 06/27/19 23:01 Expected date of discharge: 06/29/19 Attending physician: Guillermo Engle Primary care physician: Blanquita Pimentel - Discharge Diagnosis(es) (1) Enteritis Patient admitted yesterday for abdominal pain. CAT scan showed evidence of small bowel enteritis. Etiology unclear. Cultures negative thus far. Lactic acid was elevated. Patient is actually felt ready good since his arrival. No pain of significance today. White blood cell count 4.6. Lactic acid 1.6. Tolerating diet. Would like to go home today. Will discharge with prescription for Flagyl and [employer]. Follow-up one week. The remainder of his mirta were removed today. Status: Acute Patient Condition at Discharge: Good Plan - Discharge Summary Discharge Rx Participant: No New Discharge Prescriptions: New metroNIDAZOLE [Flagyl] 500 mg PO TID #21 tab No Action Lisinopril 40 mg PO DAILY Escitalopram [Lexapro] 20 mg PO DAILY Discharge Medication List Lisinopril 40 mg PO DAILY 11/20/18 [History] Escitalopram [Lexapro] 20 mg PO DAILY 06/27/19 [History] metroNIDAZOLE [Flagyl] 500 mg PO TID #21 tab 06/29/19 [Rx] Follow up Appointment(s)/Referral(s): Guillermo Engle MD [Medical Doctor] - 07/21/19 9:00 am () Blanquita Pimentel DO [Primary Care Provider] - 07/01/19 11:00 am Patient Instructions/Handouts: Sepsis (GEN) Discharge Disposition: HOME SELF-CARE
== END 2019-06-29 10:38 | disposition home or self-care (01) ==
LOC: EC 17:21 → 4MS4W 23:01
PROVIDERS: ADMIT Surgery; ATTEND Surgery
DX: K52.9 Noninfective gastroenteritis and colitis, unspecified (principal); I10 Essential (primary) hypertension; E78.5 Hyperlipidemia, unspecified; E87.2 Acidosis; F41.9 Anxiety disorder, unspecified; Z79.899 Other long term (current) drug therapy; Z87.442 Personal history of urinary calculi; Z87.19 Personal history of other diseases of the digestive system; Z90.49 Acquired absence of other specified parts of digestive tract; Z82.5 Family history of asthma and other chronic lower respiratory diseases
CPT/HCPCS: 96376 ×3; 96361 ×4; 96372; 96375 ×2; 96365; 99285; 36415; 80053; 80048; 82150; 83605 ×2; 83690; 85025 ×3; 81001; 87040; 87324; 87045; 87046; 74177; G0378 ×3; J2543 ×2; J2270 ×2; J1644; J2405; J1885 ×2; Q9967

== ENCOUNTER 2020-06-09 09:57 | Inpatient (IN) | payer BC, OTHER ==
[2020-06-09] MEDS ORDERED: SODIUM CHLORIDE 0.9% 500 ML 500 ML IV STA (10:22)
[2020-06-09] MEDS ORDERED: ASPIRIN 81 MG PO STA (10:22)
[2020-06-09 10:46] LABS: Basophils # (A) 0.1 k/uL (0-0.2); Basophils % (A) 1 %; Eosinophils # (A) 0.2 k/uL (0-0.7); Eosinophils % (A) 3 %; HCT 42.5 % (39.0-53.0); HGB 14.6 gm/dL (13.0-17.5); Lymphocytes # (A) 1.9 k/uL (1.0-4.8); Lymphocytes % (A) 35 %; MCH 29.4 pg (25.0-35.0); MCHC 34.4 g/dL (31.0-37.0); MCV 85.2 fL (80.0-100.0); Mean Platelet Volume 6.8; Monocytes # (A) 0.2 k/uL (0-1.0); Monocytes % (A) 4 %; Neutrophils % (A) 55 %; Platelet Count 216 k/uL (150-450); RBC 4.98 m/uL (4.30-5.90); RDW 14.7 % (11.5-15.5); WBC 5.4 k/uL (3.8-10.6)
--- NOTE | 2020-06-09 10:46 | ED ---
Chest Pain HPI - General Chief Complaint: Chest Pain Stated Complaint: chest pain Time Seen by Provider: 06/09/20 10:05 Source: patient, family, RN notes reviewed Mode of arrival: wheelchair Limitations: no limitations - History of Present Illness Initial Comments: 40-year-old male presents emergency Department chief complaint of chest pain. Patient states he had intermittent increasing chest pain last couple days. Patient states he feels pressure in his chest feels like sitting on. He states typically feels it more after he is been exerting herself. Patient denies any current shortness breath or fever or chills. Patient states that he does have hypertension hyperlipidemiaor diabetes no prior cardiac history. Patient states he has a history of diverticulitis with no current complaint of abdominal issues. No diarrhea no constipation. Patient denies any other associated complaints. - Related Data Home Medications Medication Instructions Recorded Confirmed lisinopriL 40 mg PO DAILY 11/20/18 06/27/19 Escitalopram [Lexapro] 20 mg PO DAILY 06/27/19 06/27/19 Previous Rx's Medication Instructions Recorded metroNIDAZOLE [Flagyl] 500 mg PO TID #21 tab 06/29/19 Allergies Allergy/AdvReac Type Severity Reaction Status Date / Time No Known Allergies Allergy Verified 06/09/20 10:00 Review of Systems ROS Statement: Those systems with pertinent positive or pertinent negative responses have been documented in the HPI. ROS Other: All systems not noted in ROS Statement are negative. EKG Findings - EKG Comments: EKG Findings:: EKG performed at 10:10 normal sinus rhythm rate of 71 W[place] 144 QRS 100 QT/QTC 382/4:15 Past Medical History Past Medical History: Hyperlipidemia, Hypertension Additional Past Medical History / Comment(s): Diverticulitis with perforation/resection and colostomy recently reversed, multiple kidney stones. History of Any Multi-Drug Resistant Organisms: None Reported Past Surgical History: Appendectomy, Cholecystectomy, Hernia Repair Additional Past Surgical History / Comment(s): 11/2018 bowel resection with colostomy, 06/10/19 colostomy reversal with stomal hernia repair, basketing and lithotripsies of kidney stones. Past Anesthesia/Blood Transfusion Reactions: Postoperative Nausea & Vomiting (PONV) Past Psychological History: Anxiety Smoking Status: Never smoker Past Alcohol Use History: None Reported Past Drug Use History: Marijuana - Past Family History Father History Unknown: Yes Mother Family Medical History: COPD Additional Family Medical History / Comment(s): recently General Exam Limitations: no limitations General appearance: alert, in no apparent distress Head exam: Present: atraumatic, normocephalic, normal inspection Eye exam: Present: normal appearance, PERRL, EOMI. Absent: scleral icterus, conjunctival injection, periorbital swelling ENT exam: Present: normal exam, normal oropharynx, mucous membranes moist Neck exam: Present: normal inspection, full ROM. Absent: tenderness, meningismus, lymphadenopathy Respiratory exam: Present: normal lung sounds bilaterally. Absent: respiratory distress, wheezes, rales, rhonchi, stridor Cardiovascular Exam: Present: regular rate, normal rhythm, normal heart sounds. Absent: systolic murmur, diastolic murmur, rubs, gallop, clicks Back exam: Absent: CVA tenderness (R), CVA tenderness (L) Neurological exam: Present: alert, oriented X3 Skin exam: Present: warm, dry, intact, normal color. Absent: rash Course Vital Signs 06/09/20 06/09/20 10:00 11:41 Temperature 97.9 F Pulse Rate 75 73 Respiratory 16 16 Rate Blood Pressure 151/100 120/66 O2 Sat by Pulse 98 98 Oximetry Chest Pain MDM - MDM X-ray, labs and EKG reviewed no significant findings. Patient does have exertional, post exertional chest discomfort. Patient will be admitted for cardiac observation repeat troponin cardiology evaluation. Disposition Clinical Impression: Chest pain Disposition: ADMITTED IP TO THIS [facility] Condition: Fair Referrals: Blanquita Pimentel DO [Primary Care Provider] - 1-2 days
[2020-06-09 10:55] LABS: ALT 42 U/L (4-49); AST 36 U/L (17-59); African American GFR (CKD) >90 (>60 ml/min/1.73 sqM); Albumin 4.3 g/dL (3.5-5.0); Alkaline Phosphatase 39 U/L (38-126); Anion Gap 10 mmol/L; Blood Urea Nitrogen 13 mg/dL (9-20); Calcium 9.4 mg/dL (8.4-10.2); Carbon Dioxide 22 mmol/L (22-30); Chloride 105 mmol/L (98-107); Glucose 112 mg/dL (74-99); Lipase 139 U/L (23-300); Magnesium 1.5 mg/dL (1.6-2.3); Non-African American GFR(CKD) >90 (>60 ml/min/1.73 sqM); Potassium 4.4 mmol/L (3.5-5.1); Sodium 137 mmol/L (137-145); Total Bilirubin 0.6 mg/dL (0.2-1.3); Total Protein 7.5 g/dL (6.3-8.2)
[2020-06-09 11:10] LABS: D-Dimer <0.17 mg/L FEU (<0.60); INR 0.9 (<1.2); Prothrombin Time 9.8 sec (9.0-12.0)
--- NOTE | 2020-06-09 11:15 | XR ---
EXAMINATION TYPE: XR chest 2V DATE OF EXAM: 06/09/2020 COMPARISON: 06/12/2019 TECHNIQUE: PA and lateral views submitted. HISTORY: Chest pain FINDINGS: The lungs are clear and there is no pneumothorax, pleural effusion, or focal pneumonia. Heart is at the upper limits of normal with no overt failure. IMPRESSION: 1. No acute process.
[2020-06-09] MEDS ORDERED: HEPARIN SODIUM,PORCINE 5,000 UNIT/ML 1 ML VIAL IV ONE (11:44)
[2020-06-09] MEDS ORDERED: NITROGLYCERIN SL TABS 0.4 MG TAB SUBLINGUAL PRN (11:44)
[2020-06-09] MEDS: HEPARIN SOD,PORK IN 0.45% NACL 25,000 UNIT in 0.45% NACL 1 250ML.BAG IV SCH (12:27)
--- NOTE | 2020-06-09 13:10 | P.CRDCN ---
History of Present Illness Consult date: 06/09/20 Chief complaint: Chest pain History of present illness: This is a very pleasant 40-year-old gentleman with a past medical history significant for hypertension as well as dyslipidemia as well as history of marijuana intermittently presented to the emergency room complaining of chest discomfort. The patient describes intermittent episodes of chest discomfort, in the mid chest, associated with numbness in both arms. The discomfort is clearly not exertional according to him. Every time comes last about 15-20 minutes. No associated symptoms of shortness of breath, sweating, dizziness, heart racing or syncope. No sweating with the discomfort as well. No history of coronary artery disease or congestive heart failure or cardiac arrhythmia the patient ever been seen by a culture media laboratory assistant. The EKG showed sinus rhythm without any significant ST or T-wave abnormalities. The first set of troponin came in to be unremarkable. The chest x-ray did not show any acute abnormalities. Currently the patient is chest pain-free. On physical examination the physical examination is overall unremarkable. The vital signs were reviewed and seems to be stable. I advised the patient to stay overnight for monitoring and follow-up with the serial cardiac enzymes as well as follow-up with the patient. If the patient develop any chest discomfort he was advised to go the nurse and at this point I will pursue with coronary angiogram. Past Medical History Past Medical History: Hyperlipidemia, Hypertension Additional Past Medical History / Comment(s): Diverticulitis with perforation /resection and colostomy recently reversed, multiple kidney stones. History of Any Multi-Drug Resistant Organisms: None Reported Past Surgical History: Appendectomy, Cholecystectomy, Hernia Repair Additional Past Surgical History / Comment(s): 11/2018 bowel resection with colostomy, 06/10/19 colostomy reversal with stomal hernia repair, basketing and lithotripsies of kidney stones. Past Anesthesia/Blood Transfusion Reactions: Postoperative Nausea & Vomiting (PONV) Past Psychological History: Anxiety Smoking Status: Never smoker Past Alcohol Use History: None Reported Past Drug Use History: Marijuana - Past Family History Father History Unknown: Yes Mother Family Medical History: COPD Additional Family Medical History / Comment(s): recently Medications and Allergies Home Medications Medication Instructions Recorded Confirmed Type lisinopriL 40 mg PO DAILY 11/20/18 06/09/20 History Escitalopram [Lexapro] 20 mg PO DAILY 06/27/19 06/09/20 History Atorvastatin Calcium [Lipitor] 20 mg PO HS 06/09/20 06/09/20 History Allergies Allergy/AdvReac Type Severity Reaction Status Date / Time No Known Allergies Allergy Verified 06/09/20 10:00 Physical Exam Vitals: Vital Signs Temp Pulse Pulse Resp BP BP Pulse Ox 06/09/20 12:53 98.1 F 66 16 123/77 98 06/09/20 11:41 73 16 120/66 98 06/09/20 10:00 97.9 F 75 16 151/100 98 Intake and Output 06/08/20 06/09/20 06/09/20 22:59 06:59 14:59 Other: Weight 104.326 kg - Constitutional General appearance: no acute distress - Respiratory Respiratory: bilateral: CTA - Cardiovascular Rhythm: regular Heart sounds: normal: S1, S2 Results 06/09/20 10:39 06/09/20 10:39 Cardiac Enzymes 06/09/20 06/09/20 Range/Units 10:39 10:39 AST 36 (17-59) U/L Troponin I <0.012 (0.000-0.034) ng/mL Coagulation 06/09/20 Range/Units 10:39 PT 9.8 (9.0-12.0) sec APTT 25.0 (22.0-30.0) sec CBC 06/09/20 Range/Units 10:39 WBC 5.4 (3.8-10.6) k/uL RBC 4.98 (4.30-5.90) m/uL Hgb 14.6 (13.0-17.5) gm/dL Hct 42.5 (39.0-53.0) % Plt Count 216 (150-450) k/uL Comprehensive Metabolic Panel 06/09/20 Range/Units 10:39 Sodium 137 (137-145) mmol/L Potassium 4.4 (3.5-5.1) mmol/L Chloride 105 (98-107) mmol/L Carbon Dioxide 22 (22-30) mmol/L BUN 13 (9-20) mg/dL Creatinine 0.71 (0.66-1.25) mg/dL Glucose 112 H (74-99) mg/dL Calcium 9.4 (8.4-10.2) mg/dL AST 36 (17-59) U/L ALT 42 (4-49) U/L Alkaline Phosphatase 39 (38-126) U/L Total Protein 7.5 (6.3-8.2) g/dL Albumin 4.3 (3.5-5.0) g/dL Current Medications Generic Name Dose Route Start Last Admin Trade Name Freq PRN Reason Stop Dose Admin Aspirin 325 mg 06/10/20 09:00 Aspirin PO DAILY MODE Heparin Sodium (Porcine) 0 unit 06/09/20 11:44 Heparin IV Q6HR PRN Low PTT Protocol Heparin Sodium/Sodium Chloride 250 mls @ 10.005 mls/hr 06/09/20 11:45 06/09/20 12:27 25,000 unit/ Sodium Chloride IV 9.59 units/kg/hr .Q24H MODE 10.005 mls/hr Administration Protocol 9.59 UNITS/KG/HR Nitroglycerin 0.4 mg 06/09/20 11:44 Nitrostat SUBLINGUAL Q5M PRN Chest Pain Intake and Output 06/08/20 06/09/20 06/09/20 22:59 06:59 14:59 Other: Weight 104.326 kg Patient Weight 06/10/20 06:59 Weight 104.326 kg 06/09/20 10:39 06/09/20 10:39 Assessment and Plan Assessment: Assessment #1 intermittent episodes of atypical chest discomfort #2 hypertension #3 dyslipidemia Plan #1 rule out acute coronary event #2 we will follow-up with the serial cardiac enzymes #3 follow-up with the patient Thank you for allowing us participate in his care
[2020-06-09] MEDS ORDERED: Magnesium Replacement Protocol 1 EACH MISC MISCELLANE PRN (13:54)
--- NOTE | 2020-06-09 14:51 | P.HPIM ---
History of Present Illness H&P Date: 06/09/20 Chief Complaint: Chest discomfort Mr. Virk is a 40-year-old male with a past medical history of hypertension, hyperlipidemia, diverticulitis with perforation, status post reversal of colostomy, multiple kidney stones coming into the hospital with a chief complaint of substernal chest discomfort. Patient states that for the past couple of days he has been experiencing chest discomfort mostly in the substernal area that has been radiating to the neck and also both shoulders. He feels like that he is having stiffness in his neck muscles. Patient denied having any dizziness or diaphoresis associated with the chest pain . 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 Patient denies having any cough or difficul ty breathing. No palpitations or dizziness. Denies having any fevers chills or rigors. Patient has history of diverticulitis with perforation, had colostomy and also reversal of the colostomy done. Patient denies having any abdominal pain nausea vomiting or diarrhea. No constipation. Patient denies having any dysuria or hematuria. In the emergency patient had troponin that was less than 0.012 and EKG with nonspecific changes. He is admitted for further management. Currently the patient is chest pain-free. Review of Systems REVIEW OF SYSTEMS: PSYCH: No anxiety or depression NEURO:No c/o weakness of the extremties, No facial droop, No speech abnormalities. VASCULAR: no edema HEMATOLOGIC: No history of easy bleeding and bruising . No recent infections . RESPIRATORY: No cough, No SOB IMMUNE: No infections INTEGUMENT: no rashes OPHTHALMOLOGIC: No blurry vision and no eye discharge : No dysuria or hematuria CARDIAC: No orthopnea or paroxysmal nocturnal dyspnea MUSCULOSKELETAL : No Aches or pains in the joints or muscles. GI: No abdominal pain, Nausea or vomiting. No constipation or diarrhea. Past Medical History Past Medical History: Hyperlipidemia, Hypertension Additional Past Medical History / Comment(s): Diverticulitis with perforation/resection and colostomy recently reversed, multiple kidney stones. History of Any Multi-Drug Resistant Organisms: None Reported Past Surgical History: Appendectomy, Cholecystectomy, Hernia Repair Additional Past Surgical History / Comment(s): 11/2018 bowel resection with colostomy, 06/10/19 colostomy reversal with stomal hernia repair, basketing and lithotripsies of kidney stones. Past Anesthesia/Blood Transfusion Reactions: Postoperative Nausea & Vomiting (PONV) Past Psychological History: Anxiety Smoking Status: Never smoker Past Alcohol Use History: None Reported Past Drug Use History: Marijuana - Past Family History Father History Unknown: Yes Mother Family Medical History: COPD Additional Family Medical History / Comment(s): recently Medications and Allergies Home Medications Medication Instructions Recorded Confirmed Type lisinopriL 40 mg PO DAILY 11/20/18 06/09/20 History Escitalopram [Lexapro] 20 mg PO DAILY 06/27/19 06/09/20 History Atorvastatin Calcium [Lipitor] 20 mg PO HS 06/09/20 06/09/20 History Allergies Allergy/AdvReac Type Severity Reaction Status Date / Time No Known Allergies Allergy Verified 06/09/20 10:00 Physical Exam Vitals: Vital Signs Temp Pulse Pulse Resp BP BP Pulse Ox 06/09/20 12:53 98.1 F 66 16 123/77 98 06/09/20 11:41 73 16 120/66 98 06/09/20 10:00 97.9 F 75 16 151/100 98 Intake and Output 06/08/20 06/09/20 06/09/20 22:59 06:59 14:59 Other: Weight 104.326 kg GENERAL EXAM GEN. APPEARANCE: alert, in no apparent distress HEENT : No pallor. No icterus. No JVD. No thyromegaly. RESPIRATORY EXAM: Bilateral breath sounds are positive ,no wheeze or crackles. CARDIOVASCULAR EXAM: S1-S2 heard. Nausea and sounds. GI/ABDOMINAL EXAM: Midline surgical scar. Bowel sounds normal. No guarding or rigidity or tenderness EXTREMITIES EXAM: No edema NEUROLOGICAL EXAM: alert, oriented X3, no focal neurological deficits PSYCHIATRIC EXAM: normal affect, normal mood SKIN EXAM: warm, dry, intact, normal color. Absent: rash Results CBC & Chem 7: 06/09/20 10:39 06/09/20 10:39 Labs: Abnormal Lab Results - Last 24 Hours (Table) 06/09/20 Range/Units 10:39 Glucose 112 H (74-99) mg/dL Magnesium 1.5 L (1.6-2.3) mg/dL Assessment and Plan Assessment: ASSESSMENT Atypical chest pain Hypomagnesemia Hypertension Hyperlipidemia History of diverticulitis with perforation Status post colostomy reversal History of nephrolithiasis PLAN: Patient has been started on heparin drip will continue with that for now. Will get serial troponins and EKGs. Will replace magnesium. Cardiology Dr. Villagomez on board and following the patient. Further recommendations depending on the progress of the patient.
[2020-06-09] MEDS: MAGNESIUM SULFATE-D5W PMX 1 GM in DEXTROSE/WATER 1 100ML.BAG IVPB SCH ×2 (15:02→16:03)
[2020-06-09] MEDS: lisinopriL 20 MG TAB PO SCH (15:02)
[2020-06-09] MEDS: ESCITALOPRAM 20 MG TAB PO SCH (15:02)
[2020-06-09] MEDS: HEPARIN SODIUM,PORCINE 5,000 UNIT/ML 1 ML VIAL IV PRN (18:27)
[2020-06-09] MEDS: ATORVASTATIN 20 MG TAB PO SCH (20:33)
[2020-06-09] MEDS: METOPROLOL TARTRATE 12.5 MG TAB PO SCH (20:33)
[2020-06-10] MEDS: HEPARIN SODIUM,PORCINE 5,000 UNIT/ML 1 ML VIAL IV PRN (01:11)
[2020-06-10] MEDS: HEPARIN SOD,PORK IN 0.45% NACL 25,000 UNIT in 0.45% NACL 1 250ML.BAG IV SCH (05:08)
[2020-06-10 08:13] LABS: Basophils % (A) 1 %; Eosinophils # (A) 0.2 k/uL (0-0.7); Eosinophils % (A) 3 %; HCT 42.8 % (39.0-53.0); HGB 14.6 gm/dL (13.0-17.5); Lymphocytes # (A) 2.2 k/uL (1.0-4.8); Lymphocytes % (A) 37 %; MCH 29.7 pg (25.0-35.0); MCHC 34.2 g/dL (31.0-37.0); MCV 86.9 fL (80.0-100.0); Mean Platelet Volume 7.1; Monocytes # (A) 0.2 k/uL (0-1.0); Monocytes % (A) 4 %; Neutrophils # (A) 3.2 k/uL (1.3-7.7); Neutrophils % (A) 54 %; Platelet Count 217 k/uL (150-450); RBC 4.93 m/uL (4.30-5.90); RDW 14.8 % (11.5-15.5); WBC 5.9 k/uL (3.8-10.6)
[2020-06-10 08:19] LABS: African American GFR (CKD) >90 (>60 ml/min/1.73 sqM); Anion Gap 7 mmol/L; Blood Urea Nitrogen 14 mg/dL (9-20); Calcium 8.8 mg/dL (8.4-10.2); Carbon Dioxide 25 mmol/L (22-30); Chloride 105 mmol/L (98-107); Cholesterol 261 mg/dL (<200); Glucose 110 mg/dL (74-99); HDL Cholesterol 25 mg/dL (40-60); Magnesium 1.7 mg/dL (1.6-2.3); Non-African American GFR(CKD) >90 (>60 ml/min/1.73 sqM); Potassium 4.7 mmol/L (3.5-5.1); Sodium 137 mmol/L (137-145)
[2020-06-10] MEDS: ESCITALOPRAM 20 MG TAB PO SCH (08:24)
[2020-06-10] MEDS: METOPROLOL TARTRATE 12.5 MG TAB PO SCH ×2 (08:24→20:11)
[2020-06-10] MEDS ORDERED: ASPIRIN 325 MG TAB PO SCH (09:00)
[2020-06-10] MEDS ORDERED: ASPIRIN 325 MG TAB PO STA (10:29)
[2020-06-10] MEDS ORDERED: NITROGLYCERIN SL TABS 0.4 MG TAB SUBLINGUAL PRN ×2 (10:29→12:35)
[2020-06-10] MEDS ORDERED: ATORVASTATIN 80 MG TAB PO STA (10:29)
[2020-06-10] MEDS ORDERED: SODIUM CHLORIDE 0.9% 1,000 ML in EMPTY BAG 1 BAG IV ONE (10:29)
[2020-06-10] MEDS ORDERED: ALPRAZolam 0.5 MG TAB PO PRN (10:29)
[2020-06-10] MEDS ORDERED: ALPRAZolam 0.25 MG TAB PO PRN (10:29)
[2020-06-10] MEDS: lisinopriL 20 MG TAB PO SCH (10:49)
--- NOTE | 2020-06-10 10:51 | P.CRDCN ---
History of Present Illness Consult date: 06/10/20 Chief complaint: Chest pain History of present illness: This is a very pleasant 40-year-old gentleman with a past medical history significant for hypertension as well as dyslipidemia as well as history of marijuana intermittently presented to the emergency room complaining of chest discomfort. The patient describes intermittent episodes of chest discomfort, in the mid chest, associated with numbness in both arms. The discomfort is clearly not exertional according to him. Every time comes last about 15-20 minutes. No associated symptoms of shortness of breath, sweating, dizziness, heart racing or syncope. No sweating with the discomfort as well. No history of coronary artery disease or congestive heart failure or cardiac arrhythmia the patient ever been seen by a clinical pharmacy coordinator. The EKG showed sinus rhythm without any significant ST or T-wave abnormalities. The first set of troponin came in to be unremarkable. The chest x-ray did not show any acute abnormalities. Currently the patient is chest pain-free. On physical examination the physical examination is overall unremarkable. The vital signs were reviewed and seems to be stable. I advised the patient to stay overnight for monitoring and follow-up with the serial cardiac enzymes as well as follow-up with the patient. If the patient develop any chest discomfort he was advised to go the nurse and at this point I will pursue with coronary angiogram. The patient was seen today 06/10/2020. He was ruled in for acute coronary event. Currently he is chest pain-free. He underwent a fasting lipid profile which showed elevated triglycerides. I recommended the patient to undergo a heart catheterization with possible percutaneous coronary intervention and also I am going to add TriCor to the current medical regimen. Further recommendation to follow that. Also we'll follow-up on the echocardiogram Past Medical History Past Medical History: Hyperlipidemia, Hypertension Additional Past Medical History / Comment(s): Diverticulitis with perforation/resection and colostomy recently reversed, multiple kidney stones. History of Any Multi-Drug Resistant Organisms: None Reported Past Surgical History: Appendectomy, Cholecystectomy, Hernia Repair Additional Past Surgical History / Comment(s): 11/2018 bowel resection with colostomy, 06/10/19 colostomy reversal with stomal hernia repair, basketing and lithotripsies of kidney stones. Past Anesthesia/Blood Transfusion Reactions: Postoperative Nausea & Vomiting (PONV) Past Psychological History: Anxiety Smoking Status: Never smoker Past Alcohol Use History: None Reported Past Drug Use History: Marijuana - Past Family History Father History Unknown: Yes Mother Family Medical History: COPD Additional Family Medical History / Comment(s): recently Medications and Allergies Home Medications Medication Instructions Recorded Confirmed Type lisinopriL 40 mg PO DAILY 11/20/18 06/09/20 History Escitalopram [Lexapro] 20 mg PO DAILY 06/27/19 06/09/20 History Atorvastatin Calcium [Lipitor] 20 mg PO HS 06/09/20 06/09/20 History Allergies Allergy/AdvReac Type Severity Reaction Status Date / Time No Known Allergies Allergy Verified 06/09/20 10:00 Physical Exam Vitals: Vital Signs Temp Pulse Pulse Resp BP BP Pulse Ox 06/10/20 10:47 62 16 110/67 97 06/10/20 09:00 69 16 06/10/20 07:41 98.3 F 69 16 111/68 98 06/10/20 03:00 97.7 F 69 16 97/61 97 06/09/20 21:00 98.1 F 70 16 125/73 97 06/09/20 15:00 98.4 F 76 16 114/70 97 06/09/20 12:53 98.1 F 66 16 123/77 98 06/09/20 11:41 73 16 120/66 98 Intake and Output 06/09/20 06/10/20 06/10/20 22:59 06:59 14:59 Intake Total 498.196 150.500 Balance 498.196 150.500 Intake: IV 200 Magnesium Sulfate-D5w Pmx 200 1 gm In Dextrose/Water 1 100ml.bag @ 100 mls/hr IVPB Q1H MODE Rx#: [id number] Intake, IV Titration 58.196 150.500 Amount Heparin Sod,Pork in 0.45% 58.196 150.500 NaCl 25,000 unit In 0.45 % NaCl 1 250ml.bag @ 9.59 UNITS/KG/HR 10.005 mls/ hr IV .Q24H MODE Rx#: [id number] Oral 240 Other: Voiding Method Toilet Toilet Toilet # Voids 2 # Bowel Movements 2 - Constitutional General appearance: no acute distress - Respiratory Respiratory: bilateral: CTA - Cardiovascular Rhythm: regular Heart sounds: normal: S1, S2 Results 06/10/20 07:35 06/10/20 07:35 Cardiac Enzymes 06/09/20 06/09/20 06/09/20 Range/Units 10:39 10:39 13:56 AST 36 (17-59) U/L Troponin I <0.012 0.029 (0.000-0.034) ng/mL 06/09/20 Range/Units 17:01 AST (17-59) U/L Troponin I 0.069 H* (0.000-0.034) ng/mL Coagulation 06/09/20 06/09/20 06/10/20 Range/Units 10:39 17:01 00:13 PT 9.8 (9.0-12.0) sec APTT 25.0 27.0 37.4 H (22.0-30.0) sec 06/10/20 Range/Units 07:35 PT (9.0-12.0) sec APTT 55.8 H (22.0-30.0) sec Lipids 06/10/20 Range/Units 07:35 Triglycerides 6713 H (<150) mg/dL Cholesterol 261 H (<200) mg/dL HDL Cholesterol 25 L (40-60) mg/dL CBC 06/10/20 Range/Units 07:35 WBC 5.9 (3.8-10.6) k/uL RBC 4.93 (4.30-5.90) m/uL Hgb 14.6 (13.0-17.5) gm/dL Hct 42.8 (39.0-53.0) % Plt Count 217 (150-450) k/uL Comprehensive Metabolic Panel 06/09/20 06/10/20 Range/Units 10:39 07:35 Sodium 137 137 (137-145) mmol/L Potassium 4.4 4.7 (3.5-5.1) mmol/L Chloride 105 105 (98-107) mmol/L Carbon Dioxide 22 25 (22-30) mmol/L BUN 13 14 (9-20) mg/dL Creatinine 0.71 0.75 (0.66-1.25) mg/dL Glucose 112 H 110 H (74-99) mg/dL Calcium 9.4 8.8 (8.4-10.2) mg/dL AST 36 (17-59) U/L ALT 42 (4-49) U/L Alkaline Phosphatase 39 (38-126) U/L Total Protein 7.5 (6.3-8.2) g/dL Albumin 4.3 (3.5-5.0) g/dL Current Medications Generic Name Dose Route Start Last Admin Trade Name Freq PRN Reason Stop Dose Admin Alprazolam 0.25 mg 06/10/20 10:29 Xanax PO Q6HR PRN Mild Anxiety Alprazolam 0.5 mg 06/10/20 10:29 Xanax PO Q6HR PRN Moderate Anxiety Aspirin 325 mg 06/10/20 09:00 06/10/20 08:24 Aspirin PO 325 mg DAILY MODE Administration Atorvastatin Calcium 20 mg 06/09/20 21:00 06/09/20 20:33 Lipitor PO 20 mg HS MODE Administration Escitalopram Oxalate 20 mg 06/09/20 15:00 06/10/20 08:24 Lexapro PO 20 mg DAILY MODE Administration Fenofibrate 160 mg 06/11/20 09:00 Lofibra PO DAILY MODE Heparin Sodium (Porcine) 0 unit 06/09/20 11:44 06/10/20 01:11 Heparin IV 2,600 unit Q6HR PRN Administration Low PTT Protocol Heparin Sodium/Sodium Chloride 250 mls @ 10.005 mls/hr 06/09/20 11:45 06/10/20 05:08 25,000 unit/ Sodium Chloride IV 14.51 units/kg/hr .Q24H MODE 15.138 mls/hr Administration Protocol 9.59 UNITS/KG/HR Sodium Chloride 1,000 ml/ IV 1,000 mls @ 104.326 mls/hr 06/10/20 10:29 06/10/20 10:48 Solution IV 06/10/20 20:04 104.326 mls/hr .Q9H36M ONE Administration 1 ML/KG/HR Lisinopril 40 mg 06/09/20 15:00 06/09/20 15:02 Zestril PO Not Given DAILY [facility] Metoprolol Tartrate 12.5 mg 06/09/20 21:00 06/10/20 08:24 Lopressor PO 12.5 mg BID MODE Administration Miscellaneous Information 1 each 06/09/20 13:54 Magnesium Per Protocol MISCELLANE DAILY PRN Per Protocol Protocol Nitroglycerin 0.4 mg 06/09/20 11:44 Nitrostat SUBLINGUAL Q5M PRN Chest Pain Nitroglycerin 0.4 mg 06/10/20 10:29 Nitrostat SUBLINGUAL Q5M PRN Chest Pain Intake and Output 06/09/20 06/10/20 06/10/20 22:59 06:59 14:59 Intake Total 498.196 150.500 Balance 498.196 150.500 Intake: IV 200 Magnesium Sulfate-D5w Pmx 200 1 gm In Dextrose/Water 1 100ml.bag @ 100 mls/hr IVPB Q1H MODE Rx#: [id number] Intake, IV Titration 58.196 150.500 Amount Heparin Sod,Pork in 0.45% 58.196 150.500 NaCl 25,000 unit In 0.45 % NaCl 1 250ml.bag @ 9.59 UNITS/KG/HR 10.005 mls/ hr IV .Q24H MODE Rx#: [id number] Oral 240 Other: Voiding Method Toilet Toilet Toilet # Voids 2 # Bowel Movements 2 06/10/20 07:35 06/10/20 07:35 Assessment and Plan Assessment: Assessment #1 acute non-STEMI #2 hypertension #3 dyslipidemia Plan #1 I recommended proceeding with coronary angiogram #2 follow-up on the echocardiogram #3 start the patient on TriCor #4 continue the aspirin and statin #5 follow-up with the patient
--- NOTE | 2020-06-10 10:55 | P.PN ---
Subjective Progress Note Date: 06/10/20 Principal diagnosis: Chest pain Mr. Virk is a 40-year-old male with a past medical history of hypertension, hyperlipidemia, diverticulitis with perforation, status post reversal of colostomy, multiple kidney stones coming into the hospital with a chief complaint of substernal chest discomfort. Patient states that for the past couple of days he has been experiencing chest discomfort mostly in the substernal area that has been radiating to the neck and also both shoulders. He feels like that he is having stiffness in his neck muscles. Patient denied having any dizziness or diaphoresis associated with the chest pain . 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 Patient denies having any cough or difficulty breathing. No palpitations or dizziness. Denies having any fevers chills or rigors. Patient has history of diverticulitis with perforation, had colostomy and also reversal of the colostomy done. Patient denies having any abdominal pain nausea vomiting or diarrhea. No constipation. Patient denies having any dysuria or hematuria. In the emergency patient had troponin that was less than 0.012 and EKG with nonspecific changes. He is admitted for further management. On 06/10/2020- patient is resting comfortably in the bed. Appears to be no acute distress. Patient denies having any chest pain or palpitations overnight. He denies having any cough or difficulty in breathing. No fever chills or rhinitis. On reviewing his vitals patient's vitals have been stable pressure 110/67, temperature 98.3, saturating at 97% on room air. On reviewing his labs his third troponin came back elevated at 0.069. And his triglycerides have been at 6713. Patient denies having any family history of hypercholesterolemia as far as he knows. He states his mother at the age of 58 due to COPD. Active Medications Alprazolam (Xanax) 0.25 mg PO Q6HR PRN PRN Reason: Mild Anxiety Alprazolam (Xanax) 0.5 mg PO Q6HR PRN PRN Reason: Moderate Anxiety Aspirin (Aspirin) 325 mg PO DAILY [facility] Last Admin: 06/10/20 08:24 Dose: 325 mg Documented by: Atorvastatin Calcium (Lipitor) 20 mg PO HS [facility] Last Admin: 06/09/20 20:33 Dose: 20 mg Documented by: Escitalopram Oxalate (Lexapro) 20 mg PO DAILY [facility] Last Admin: 06/10/20 08:24 Dose: 20 mg Documented by: Fenofibrate (Lofibra) 160 mg PO DAILY [facility] Heparin Sodium (Porcine) (Heparin) 0 unit IV Q6HR PRN; Protocol PRN Reason: Low PTT Last Admin: 06/10/20 01:11 Dose: 2,600 unit Documented by: Heparin Sodium/Sodium Chloride (25,000 unit/ Sodium Chloride) 250 mls @ 10.005 mls/hr IV .Q24H [facility]; Protocol Last Admin: 06/10/20 05:08 Dose: 14.51 units/kg/hr, 15.138 mls/hr Documented by: Sodium Chloride 1,000 ml/ IV (Solution) 1,000 mls @ 104.326 mls/hr IV .Q9H36M ONE Stop: 06/10/20 20:04 Last Admin: 06/10/20 10:48 Dose: 104.326 mls/hr Documented by: Lisinopril (Zestril) 40 mg PO DAILY [facility] Last Admin: 06/10/20 10:49 Dose: 40 mg Documented by: Metoprolol Tartrate (Lopressor) 12.5 mg PO BID [facility] Last Admin: 06/10/20 08:24 Dose: 12.5 mg Documented by: Miscellaneous Information (Magnesium Per Protocol) 1 each MISCELLANE DAILY PRN; Protocol PRN Reason: Per Protocol Nitroglycerin (Nitrostat) 0.4 mg SUBLINGUAL Q5M PRN PRN Reason: Chest Pain Nitroglycerin (Nitrostat) 0.4 mg SUBLINGUAL Q5M PRN PRN Reason: Chest Pain Objective - Vital Signs Vital signs: Vital Signs Temp 98.3 F 06/10/20 07:41 Pulse 62 06/10/20 10:47 Resp 16 06/10/20 10:47 BP 110/67 06/10/20 10:47 Pulse Ox 97 06/10/20 10:47 Intake & Output 06/09/20 06/10/20 06/10/20 18:59 06:59 18:59 Intake Total 998.196 150.500 Balance 998.196 150.500 Weight 104.326 kg Intake: IV 700 Magnesium Sulfate-D5w Pmx 200 1 gm In Dextrose/Water 1 100ml.bag @ 100 mls/hr IVPB Q1H MODE Rx#: [id number] Sodium Chloride 0.9% 500 500 ml 500 ml @ 999 mls/hr IV .Q31M [facility] Rx#:[id number] Intake, IV Titration 58.196 150.500 Amount Heparin Sod,Pork in 0.45% 58.196 150.500 NaCl 25,000 unit In 0.45 % NaCl 1 250ml.bag @ 9.59 UNITS/KG/HR 10.005 mls/ hr IV .Q24H MODE Rx#: [id number] Oral 240 Other: Voiding Method Toilet Toilet Toilet # Voids 2 # Bowel Movements 2 - Exam GEN. APPEARANCE: alert, in no apparent distress HEENT : No pallor. No icterus. No JVD. No thyromegaly. RESPIRATORY EXAM: Bilateral breath sounds are positive ,no wheeze or crackles. CARDIOVASCULAR EXAM: S1-S2 heard. Nausea and sounds. GI/ABDOMINAL EXAM: Midline surgical scar. Bowel sounds normal. No guarding or rigidity or tenderness EXTREMITIES EXAM: No edema NEUROLOGICAL EXAM: alert, oriented X3, no focal neurological deficits PSYCHIATRIC EXAM: normal affect, normal mood SKIN EXAM: warm, dry, intact, normal color. Absent: rash - Labs CBC & Chem 7: 06/10/20 07:35 06/10/20 07:35 Labs: Abnormal Lab Results - Last 24 Hours (Table) 06/09/20 06/09/20 06/10/20 Range/Units 10:39 17:01 00:13 APTT 37.4 H (22.0-30.0) sec Glucose 112 H (74-99) mg/dL Magnesium 1.5 L (1.6-2.3) mg/dL Troponin I 0.069 H* (0.000-0.034) ng/mL Triglycerides (<150) mg/dL Cholesterol (<200) mg/dL HDL Cholesterol (40-60) mg/dL 06/10/20 06/10/20 Range/Units 07:35 07:35 APTT 55.8 H (22.0-30.0) sec Glucose 110 H (74-99) mg/dL Magnesium (1.6-2.3) mg/dL Troponin I (0.000-0.034) ng/mL Triglycerides 6713 H (<150) mg/dL Cholesterol 261 H (<200) mg/dL HDL Cholesterol 25 L (40-60) mg/dL Assessment and Plan Assessment: ASSESSMENT Non-ST elevation PA Hypertriglyceridemia Hypomagnesemia Hypertension Hyperlipidemia History of diverticulitis with perforation Status post colostomy reversal History of nephrolithiasis PLAN: Patient has been started on heparin drip. Patient's third troponin came back at 0.069. And his triglycerides are high at 6713. Cardiology Dr. Villagomez on board and taking him for cath today. The treatment plan was discussed in detail with the patient at bedside. Further recommendations depending on the progress of the patient.
[2020-06-10] MEDS ORDERED: IV FLUID CONTINUATION 1,000 ML IV ONE (11:27)
[2020-06-10] MEDS ORDERED: LIDOCAINE 1% INJ 10MG/ML (20 ML MDV) ONE (11:36)
[2020-06-10] MEDS ORDERED: VERAPAMIL 2.5 MG/ML 2 ML AMP ONE (11:37)
[2020-06-10] MEDS ORDERED: MIDAZOLAM 2 MG/2 ML VIAL IV ONE (11:47)
[2020-06-10] MEDS ORDERED: HEPARIN SODIUM 1,000 UN/ML (10ML VL) ONE ×2 (11:50→12:40)
[2020-06-10] MEDS ORDERED: LIDOCAINE 1% INJ 10MG/ML (20 ML MDV) SQ ONE (11:51)
[2020-06-10] MEDS ORDERED: VERAPAMIL SYRINGE (5 MG/10 ML) INTRAARTER ONE (11:52)
[2020-06-10] MEDS ORDERED: TICAGRELOR 90 MG TAB ONE (12:03)
[2020-06-10] MEDS ORDERED: TICAGRELOR 90 MG TAB PO ONE (12:07)
[2020-06-10] MEDS: NITROGLYCERIN 1000MCG/10ML SYRINGE INTRACORON ONE ×2 (12:08→12:16)
[2020-06-10] MEDS ORDERED: IOPAMIDOL-370 100ML BTL INJ ONE (12:18)
[2020-06-10] MEDS ORDERED: RX INFO: IV CONTRAST WAS GIVEN 1 EACH MISC MISCELLANE PRN (12:35)
[2020-06-10] MEDS ORDERED: ZOLPIDEM 5 MG TAB PO PRN (12:35)
[2020-06-10] MEDS ORDERED: ATROPINE SULFATE 0.1 MG/ML 10ML SYRINGE IV PRN (12:35)
[2020-06-10] MEDS ORDERED: MAG HYDROX/AL HYDROX/SIMETH 30 ML CUP PO PRN (12:35)
[2020-06-10] MEDS ORDERED: SODIUM CHLORIDE 0.9% 1,000 ML IV SCH (12:45)
--- NOTE | 2020-06-10 13:05 | CC ---
CARDIAC CATHETERIZATION REPORT DATE OF SERVICE: June 10, 2020. PERFORMING PHYSICIAN: Rosalio Lam MD. PROCEDURE PERFORMED: 1. Selective right and left coronary angiogram. 2. Left heart catheterization. 3. Successful stenting of the mid right coronary artery using 3.5 x 23 mm Xience FRANCISCO which was post dilated using 3.75 mm NC balloon with an excellent angiographic results and reduction of stenosis from 99% to 0%. INDICATION: This is a 40-year-old gentleman with hypertension and dyslipidemia who presented to the hospital with chest discomfort and mildly abnormal troponin. Decision was made towards a heart catheterization and percutaneous coronary intervention. APPROACH: Right radial artery. COMPLICATION: None. LEVEL OF SEDATION: Moderate with sedation length of 40 minutes. PROCEDURE DESCRIPTION: After obtaining informed consent, the patient was brought to the cardiac medical lab specialist. The right radial artery was cannulated using micropuncture technique and a micropuncture wire passed easily. Then I placed a 6-Portuguese sheath at the right radial artery. After that, I gave the patient 14105 units of heparin IV and 2 mg of verapamil IA. Selective right and left coronary angiogram was performed using JR4 and JL3.5 catheters. I did after that intervene on the right coronary artery. Please see a separate paragraph for that. After that, left heart catheterization was performed using the JR4 guide, which crossed the aortic valve. Then I did pullback across the valve. The procedure was completed without any complication. SELECTIVE CORONARY ANGIOGRAM: 1. The right coronary artery is a large caliber vessel and is a dominant vessel. The proximal RCA appeared to be angiographically normal. The mid RCA has a critical lesion appeared to be in the range of 99.9%. The RCA distally appeared to be angiographically normal and bifurcates into PDA and PLV branches both appeared to be angiographically normal. 2. The left main is angiographically normal it bifurcates into LCX and LAD. 3. The LCX is a large caliber vessel it is a nondominant vessel. The LCX appeared to be angiographically normal. Gives rise into the first and second obtuse marginal branches both appeared to be angiographically normal. 4. The left anterior descending artery is a large caliber vessel. The proximal LAD appeared to be angiographically normal. The mid LAD has mild disease, has a lesion appeared to be in the range of 40%. The LAD distally appeared to be angiographically normal. The LAD gives rise into 3 diagonal branches they appeared to be angiographically normal. HEMODYNAMICS: The LVEDP was 12 mmHg without significant gradient across the aortic valve. PCI OF THE RCA: Anticoagulation was initiated using heparin with continuous ACT monitoring throughout the procedure. Subsequently the patient was given loading dose of Brilinta. After that I did engage the RCA using JR4 guide. I did wire the RCA using a whisper wire. PTCA ballooning was achieved using 3.0 x 12 mm balloon. After that, I tried to advance an x 23 mm Xience over the Whisper wire, but the stent will not make the turn in from the proximal to mid RCA and at that point I did wire the RCA using a radha wire with a run-through wire. With the radha wire, I was able to advance the stent to the mid RCA where the stent was positioned under fluoroscopy guidance and deployed under 20 atmospheres for 20 seconds. After that, I dilated the stent using 3.75 x 20 mm balloon. The balloon was inflated again under 20 atmospheres for 20 seconds. The following angiogram showed excellent angiographic results and the procedure was completed without any complication. CONCLUSION: 1. Acute [id number] myocardial infarction in this 40-year-old gentleman with hypertension and dyslipidemia. 2. Critical disease involving the mid RCA. I did successful stenting of the mid RCA. 3. Intermediate disease involving the mid LAD. 4. Normal LVEDP. POSTPROCEDURE MANAGEMENT: 1. Dual anti-platelet therapy. 2. Risk factors modifications. 3. Follow up with the patient. ADELA / GARRICKN: [id number] /
[2020-06-10] MEDS ORDERED: ACETAMINOPHEN TAB 325 MG TAB PO PRN (14:44)
--- NOTE | 2020-06-10 15:47 | ECHOF ---
Referral Reason: MEASUREMENTS -------- HEIGHT: 162.6 cm WEIGHT: 104.3 kg BP: 110/67 RVIDd: 3.9 cm (< 3.3) IVSd: 1.6 cm (0.6 - 1.1) LVIDd: 4.4 cm (3.9 - 5.3) LVPWd: 1.3 cm (0.6 - 1.1) IVSs: 1.9 cm LVIDs: 2.7 cm LVPWs: 2.1 cm LAESV Index (A-L): 26.06 ml/m Ao Diam: 3.3 cm (2.0 - 3.7) AV Cusp: 2.4 cm (1.5 - 2.6) MV EXCURSION: 17.570 mm (> 18.000) MV EF SLOPE: 120 mm/s (70 - 150) EPSS: 0.9 cm MV E Derrick: 0.71 m/s MV DecT: 177 ms MV A Derrick: 0.58 m/s MV E/A Ratio: 1.22 RAP: 5.00 mmHg RVSP: 28.31 mmHg FINDINGS -------- Sinus rhythm. This was a technically adequate study. The left ventricular size is normal. There is mild concentric left ventricular hypertrophy. Overa ll left ventricular systolic function is normal with, an EF between 55 - 60 %. The diastolic fillin g pattern is normal for the age of the patient {E/E'}. The right ventricle is mild to moderately enlarged. Normal LA size by volume 22+/-6 ml/m2. The right atrium is mildly enlarged. Interatrial and interventricular septum intact. The aortic valve is trileaflet and appears structurally normal. There is no evidence of aortic regu rgitation. There is no evidence of aortic stenosis. No mitral regurgitation. Mild tricuspid regurgitation present. There is no evidence of pulmonary hypertension. The right v entricular systolic pressure, as measured by Doppler, is 28.31mmHg. There is no pulmonic regurgitation present. The aortic root size is normal. IVC Not well visulized. There is no pericardial effusion. CONCLUSIONS -------- 1. The left ventricular size is normal. 2. There is mild concentric left ventricular hypertrophy. 3. Overall left ventricular systolic function is normal with, an EF between 55 - 60 %. 4. The diastolic filling pattern is normal for the age of the patient {E/E'} 5. The right ventricle is mild to moderately enlarged. 6. The right atrium is mildly enlarged. 7. Mild tricuspid regurgitation present. DAIRY CLERK: Kera Up RDCS
[2020-06-10] MEDS: TICAGRELOR 90 MG TAB PO SCH (20:11)
[2020-06-10] MEDS: ATORVASTATIN 20 MG TAB PO SCH (20:12)
[2020-06-11 05:14] VITALS: TEMP 98.4
[2020-06-11 06:23] LABS: Mean Platelet Volume 7.1; Platelet Count 209 k/uL (150-450)
[2020-06-11 06:38] LABS: African American GFR (CKD) >90 (>60 ml/min/1.73 sqM); Non-African American GFR(CKD) >90 (>60 ml/min/1.73 sqM)
[2020-06-11] MEDS ORDERED: ASPIRIN 81 MG PO SCH (09:00)
[2020-06-11] MEDS ORDERED: FENOFIBRATE 160 MG TAB PO SCH (09:00)
[2020-06-11 09:14] VITALS: BMI 39.4
[2020-06-11 09:19] VITALS: BP 121/81; PULSE 70; RESP 16
[2020-06-11] MEDS: METOPROLOL TARTRATE 12.5 MG TAB PO SCH (09:19)
[2020-06-11] MEDS: TICAGRELOR 90 MG TAB PO SCH (09:19)
[2020-06-11] MEDS: lisinopriL 20 MG TAB PO SCH (09:20)
[2020-06-11] MEDS: ESCITALOPRAM 20 MG TAB PO SCH (09:20)
--- NOTE | 2020-06-11 10:58 | P.PN ---
Subjective This is a pleasant 40-year-old male past medical history significant for hypertension and dyslipidemia. He underwent cardiac catheterization secondary to non-ST elevated myocardial infarction revealing 99% lesion of the mid RCA, 40% lesion in the mid LAD, circumflex angiographically normal and left main angiographically normal. He was underwent successful PCI of the RCA. He has been initiated on Brilinta and metoprolol along with his artery ordered lisinopril and aspirin. He is seen and examined laying flat resting comfortably in bed in no acute distress. He denies symptoms of chest discomfort, shortness of breath, dizziness or palpitations. Blood pressure 121/81 heart rate 70 afebrile maintaining oxygen saturation on room air. Laboratory data reviewed, creatinine 0.88 and platelets 209. Repeat EKG this morning reveals sinus mechanism with no acute changes. GENERAL: Well-appearing, well-nourished and in no acute distress. NECK: Supple without JVD or thyromegaly. LUNGS: Breath sounds clear to auscultation bilaterally. Respiration equal and unlabored. No wheezes, rales or rhonchi. HEART: Regular rate and rhythm without murmurs, rubs or gallops. S1 and S2 heard. EXTREMITIES: Normal range of motion, no edema. No clubbing or cyanosis. Peripheral pulses intact. Right radial access site, clean, dry and intact. Strong pulses and no swelling or hematoma. ASSESSMENT NSTEMI Chest pain Hypertension Dyslipidemia, severe hypertriglyceridemia PLAN Brilinta prescription has been sent to the pharmacy for cost check per the oil field caser. He is having leg cramping for the last few months on lipitor so we will change to rosuvastatin and assess for improvement in symptoms. Follow up with Dr. Lam in 1-week. He has been educated on all of his new medications and side effects. No heavy lifting with the right arm until follow up with Dr. Lam. Nurse Practitioner note has been reviewed, I agree with a documented findings and plan of care. Patient was seen and examined. Objective - Vital Signs Vital signs: Vital Signs Temp 98.4 F 06/11/20 09:00 Pulse 70 06/11/20 09:00 Resp 16 06/11/20 09:00 BP 121/81 06/11/20 09:00 Pulse Ox 98 06/11/20 09:00 Intake & Output 06/10/20 06/11/20 06/11/20 18:59 06:59 18:59 Intake Total 654 540 Balance 654 540 Weight 104.326 kg Intake: IV 414 Heparin Sod,Pork in 0.45% 104 NaCl 25,000 unit In 0.45 % NaCl 1 250ml.bag @ 9.59 UNITS/KG/HR 10.005 mls/ hr IV .Q24H [facility] Rx#: [id number] Sodium Chloride 0.9% 1, 160 000 ml In Empty Bag 1 bag @ 1 ML/KG/HR 104.326 mls /hr IV .Q9H36M ONE Rx#: [id number] Oral 240 540 Other: Voiding Method Toilet Toilet Toilet # Voids 1 1 - Labs CBC & Chem 7: 06/11/20 05:35 06/11/20 05:35
--- NOTE | 2020-06-11 13:12 | P.DS ---
Providers Date of admission: 06/10/20 12:30 Expected date of discharge: 06/11/20 Attending physician: Kraig Pierre MD Consults: 06/09/20 11:44 Consult Physician Urgent Consulting Provider: Rosalio Lam Consult Reason/Comments: chest pain Do you want consulting provider notified?: Yes 06/10/20 12:36 Consult Physician Routine Consulting Provider: [facility] Consult Reason/Comments: Post Interventional patient Do you want consulting provider notified?: Already Contacted Primary care physician: Blanquita Pimentel - Discharge Diagnosis(es) (1) NSTEMI (non-ST elevated myocardial infarction) Current Visit: Yes Status: Acute Hospital Course: Sheldon Virk is a 40-year-old M with a past medical history significant for hypertension, HLD who presented to the ED complaining of chest pain. The patient describes intermittent episodes of chest discomfort, in the mid chest, associated with numbness in both arms. No association with exertion. Every time comes last about 15-20 minutes. No associated symptoms of shortness of breath, sweating, dizziness, heart racing or syncope. No sweating with the discomfort as well. He has no known cardiac history and is unsure of family history. The EKG showed sinus rhythm without any significant ST or T-wave abnormalities. His troponin was trended which did peak at 0.069. Pt was started on heparin and seen by Cardiology. He underwent coronary catheterization which showed critical stenosis of the mid RCA. This was sucessfully stented and posprocedure echo with normal LVEF. He has remained chest pain free since his admission. Pt is discharged in stable condition and recommended to follow up with supply person as well as PCP. Discharge exam: General: well developed, well nourished male in NAD CV: RRR, no murmur Lungs: normal effort, clear throughout Neuro: alert and oriented x3, no focal deficit Patient Condition at Discharge: Fair Plan - Discharge Summary Discharge Rx Participant: No New Discharge Prescriptions: New Ticagrelor [Brilinta] 90 mg PO BID #180 tab Aspirin 81 mg PO DAILY chew Rosuvastatin Calcium [Crestor] 20 mg PO DAILY #90 tab Fenofibrate [Lofibra] 160 mg PO DAILY #90 tab Metoprolol Tartrate [Lopressor] 12.5 mg PO BID #180 tab Continue lisinopriL 40 mg PO DAILY Escitalopram [Lexapro] 20 mg PO DAILY Discontinued Atorvastatin Calcium [Lipitor] 20 mg PO HS Discharge Medication List lisinopriL 40 mg PO DAILY 11/20/18 [History] Escitalopram [Lexapro] 20 mg PO DAILY 06/27/19 [History] Aspirin 81 mg PO DAILY chew 06/11/20 [Rx] Fenofibrate [Lofibra] 160 mg PO DAILY #90 tab 06/11/20 [Rx] Metoprolol Tartrate [Lopressor] 12.5 mg PO BID #180 tab 06/11/20 [Rx] Rosuvastatin Calcium [Crestor] 20 mg PO DAILY #90 tab 06/11/20 [Rx] Ticagrelor [Brilinta] 90 mg PO BID #180 tab 06/11/20 [Rx] Follow up Appointment(s)/Referral(s): Rosalio Lam MD [STAFF PHYSICIAN] - 1 Week (The office will call you with an appointment.) Blanquita Pimentel DO [Primary Care Provider] - 06/13/20 3:15 pm (Appointment with Mindy REAVES) Patient Instructions/Handouts: *Surgery [facility] - After Heart Catheterization - [facility] [employer] Instructions Discharge Disposition: HOME SELF-CARE
[2020-06-11 13:59] LABS: Triglycerides 2559 mg/dL (<150)
== END 2020-06-11 14:56 | disposition home or self-care (01) | DRG 247 ==
LOC: EC 09:57 → 3NCARDOBS 11:46 → OBSVTOIN 06-10 12:30
PROVIDERS: ADMIT Family Medicine; ATTEND Family Medicine
PROC: B2111ZZ Fluoroscopy of Multiple Coronary Arteries using Low Osmolar Contrast (ICD-10-PCS; 2020-06-10)
PROC: 027034Z Dilation of Coronary Artery, One Artery with Drug-eluting Intraluminal Device, Percutaneous Approach (ICD-10-PCS; principal; 2020-06-10 11:30)
PROC: 4A023N7 Measurement of Cardiac Sampling and Pressure, Left Heart, Percutaneous Approach (ICD-10-PCS; 2020-06-10 11:30)
DX: I21.4 Non-ST elevation (NSTEMI) myocardial infarction (principal); I25.10 Atherosclerotic heart disease of native coronary artery without angina pectoris; I10 Essential (primary) hypertension; E11.9 Type 2 diabetes mellitus without complications; F41.9 Anxiety disorder, unspecified; E83.42 Hypomagnesemia; E78.5 Hyperlipidemia, unspecified; E78.1 Pure hyperglyceridemia; Z79.899 Other long term (current) drug therapy; Z90.49 Acquired absence of other specified parts of digestive tract; Z98.890 Other specified postprocedural states; Z87.19 Personal history of other diseases of the digestive system; Z87.442 Personal history of urinary calculi; Z82.5 Family history of asthma and other chronic lower respiratory diseases
CPT/HCPCS: 36415; 71046; 80048; 80053; 80061; 82565; 83690; 83735; 83880; 84484; 85025; 85049; 85379; 85610; 85730; 93005; 93306; 93458; 96361; 96374; 99285

== ENCOUNTER 2021-01-23 20:24 | Emergency (ER) | payer OTHER ==
[2021-01-23 21:55] LABS: Amorphous Sediment,Urine Rare /hpf; Appearance,Urine Clear (Clear); Bacteria,Urine Rare /hpf; Bilirubin,Urine Negative (Negative); Blood,Urine Small (Negative); Color,Urine Light Yellow; Glucose,Urine (UA) Negative (Negative); Ketones,Urine Negative (Negative); Leukocyte Esterase,Urine Small (Negative); Mucus,Urine Rare /hpf; Nitrite,Urine Negative (Negative); Protein,Urine Negative (Negative); RBC,Urine 22 /hpf (0-5); Specific Gravity,Urine 1.014 (1.001-1.035); Squamous Epithelial Cell,Urine <1 /hpf (0-4); Urobilinogen,Urine <2.0 mg/dL (<2.0); WBC,Urine 17 /hpf (0-5)
[2021-01-23] MEDS ORDERED: HYDROmorphone 0.5 MG/0.5 ML SYRINGE IVP STA ×2 (22:37→23:52)
[2021-01-23 22:56] LABS: Basophils % (A) 1 %; Eosinophils # (A) 0.2 k/uL (0-0.7); Eosinophils % (A) 3 %; HCT 37.4 % (39.0-53.0); HGB 13.4 gm/dL (13.0-17.5); Lymphocytes # (A) 2.5 k/uL (1.0-4.8); Lymphocytes % (A) 39 %; MCH 29.7 pg (25.0-35.0); MCHC 35.9 g/dL (31.0-37.0); MCV 82.6 fL (80.0-100.0); Monocytes # (A) 0.4 k/uL (0-1.0); Monocytes % (A) 7 %; Neutrophils # (A) 3.1 k/uL (1.3-7.7); Neutrophils % (A) 49 %; Platelet Count 262 k/uL (150-450); RBC 4.53 m/uL (4.30-5.90); RDW 13.9 % (11.5-15.5); WBC 6.4 k/uL (3.8-10.6)
[2021-01-23 23:06] LABS: ALT 38 U/L (4-49); AST 37 U/L (17-59); African American GFR (CKD) >90 (>60 ml/min/1.73 sqM); Albumin 4.5 g/dL (3.5-5.0); Alkaline Phosphatase 29 U/L (38-126); Amylase 62 U/L (30-110); Anion Gap 9 mmol/L; Blood Urea Nitrogen 24 mg/dL (9-20); Calcium 10.6 mg/dL (8.4-10.2); Carbon Dioxide 26 mmol/L (22-30); Chloride 103 mmol/L (98-107); Glucose 119 mg/dL (74-99); Lipase 144 U/L (23-300); Non-African American GFR(CKD) 90 (>60 ml/min/1.73 sqM); Potassium 3.9 mmol/L (3.5-5.1); Sodium 138 mmol/L (137-145); Total Bilirubin 0.4 mg/dL (0.2-1.3); Total Protein 7.8 g/dL (6.3-8.2)
--- NOTE | 2021-01-23 23:08 | CT ---
EXAMINATION TYPE: CT abdomen pelvis wo con DATE OF EXAM: 01/23/2021 COMPARISON: HISTORY: left flank pain, hx of stones CT DLP: 1231.4 mGycm Automated exposure control for dose reduction was used. Images obtained from the diaphragm to the floor the pelvis without contrast. Lung bases are clear. There is no pleural effusion. Heart size is normal. There is no pericardial eff usion. There is diffuse fatty infiltration of the liver. Spleen is intact. Stomach is intact. There i s no pancreatic mass. There are clips from cholecystectomy. Kidneys have normal size. There is moderate left-sided hydronephrosis and hydroureter. There is 12 mm obstructing calculus distal left ureter. There is also 10 mm and 5 mm obstructing calculi distal lef t ureter. Bladder distends smoothly. There is periureteral edema on the left side. Right kidney shows no evidence of stone or obstruction. There is no retroperitoneal adenopathy. There are multiple dive rticula in the ascending colon. There are diverticula in the proximal sigmoid colon. There is previou s sigmoid colon surgery. There is no inguinal hernia. There is no free fluid in the pelvis. There is no pelvic mass. There are clips apparently from append ectomy. There is no mesenteric edema. There is no ascites or free air. There is no bowel obstruction. The lumbar vertebra have normal alignment. There is narrowing of L5-S1 disc space with vacuum disc an d spur formation. There is no compression fracture. Bony pelvis is intact. Hip joints are intact. Lumbar spine is intact. IMPRESSION: Notable obstructing calculi distal left ureter with moderate hydronephrosis and hydroureter. Fatty infiltration of the liver.
[2021-01-23 23:49] VITALS: RESP 18
[2021-01-23] MEDS ORDERED: KETOROLAC 15 MG/ML 1 ML VIAL IVP STA (23:52)
--- NOTE | 2021-01-23 23:54 | ED ---
General Adult HPI - General Chief complaint: Recheck/Abnormal Lab/Rx Stated complaint: Kidney Stone Time Seen by Provider: 01/23/21 22:02 Source: patient Mode of arrival: ambulatory - History of Present Illness Initial comments: This patient is a 41-year-old man who presents with complaint of left flank pain. He states that it feels similar to previous episodes of kidney stones. He states that he has been having the symptoms intermittently for months. He states that he also recently has been seeing some hematuria. He did have some reddish urine earlier today but it cleared by the time he got here now looks yellow. He has not noted fever or chills. He is not having abdominal pain though sometimes the flank pain does radiate towards her groin. No change in bowel movements. No nausea or vomiting. He has not had fever or chills. -: month(s) Location: back (Left flank) Radiation: other (Grinding) Quality: sharp Consistency: colicky Improves with: none Worsens with: none Associated Symptoms: other (Hematuria) Treatments Prior to Arrival: none - Related Data Home Medications Medication Instructions Recorded Confirmed lisinopriL 40 mg PO DAILY 11/20/18 06/09/20 Escitalopram [Lexapro] 20 mg PO DAILY 06/27/19 06/09/20 Previous Rx's Medication Instructions Recorded Aspirin 81 mg PO DAILY chew 06/11/20 Fenofibrate [Lofibra] 160 mg PO DAILY #90 tab 06/11/20 Metoprolol Tartrate [Lopressor] 12.5 mg PO BID #180 tab 06/11/20 Rosuvastatin Calcium [Crestor] 20 mg PO DAILY #90 tab 06/11/20 Ticagrelor [Brilinta] 90 mg PO BID #180 tab 06/11/20 HYDROcodone/APAP 5-325MG [[place] 1 tab PO Q4HR PRN 3 Days #18 tab 01/24/21 5-325] Ondansetron Odt [Zofran ODT] 4 mg PO Q8HR PRN #10 tab 01/24/21 lisinopriL [Zestril] 20 mg PO DAILY #60 tab 01/24/21 Allergies Allergy/AdvReac Type Severity Reaction Status Date / Time No Known Allergies Allergy Verified 01/23/21 21:17 Review of Systems ROS Statement: Those systems with pertinent positive or pertinent negative responses have been documented in the HPI. ROS Other: All systems not noted in ROS Statement are negative. Constitutional: Denies: fever, chills Respiratory: Denies: cough, dyspnea, wheezes Cardiovascular: Denies: chest pain, palpitations, edema, syncope Gastrointestinal: Reports: abdominal pain (Flank pain). Denies: nausea, vomiting, diarrhea, constipation Genitourinary: Reports: hematuria. Denies: urgency, dysuria, frequency, discharge Musculoskeletal: Denies: back pain Skin: Denies: rash Neurological: Denies: headache, weakness, numbness Past Medical History Past Medical History: Hyperlipidemia, Hypertension Additional Past Medical History / Comment(s): Diverticulitis with perforation/resection and colostomy recently reversed, multiple kidney stones. History of Any Multi-Drug Resistant Organisms: None Reported Past Surgical History: Appendectomy, Cholecystectomy, Hernia Repair Additional Past Surgical History / Comment(s): 11/2018 bowel resection with colostomy, 06/10/19 colostomy reversal with stomal hernia repair, basketing and li thotripsies of kidney stones. Past Anesthesia/Blood Transfusion Reactions: Postoperative Nausea & Vomiting (PONV) Past Psychological History: Anxiety Smoking Status: Never smoker Past Alcohol Use History: None Reported Past Drug Use History: Marijuana - Past Family History Father History Unknown: Yes Mother Family Medical History: COPD Additional Family Medical History / Comment(s): recently General Exam General appearance: alert, in no apparent distress Head exam: Present: atraumatic, normocephalic Eye exam: Present: normal appearance. Absent: scleral icterus, conjunctival injection Neck exam: Present: normal inspection Respiratory exam: Present: normal lung sounds bilaterally. Absent: respiratory distress, wheezes, rales, rhonchi, stridor Cardiovascular Exam: Present: regular rate, normal rhythm, normal heart sounds. Absent: systolic murmur, diastolic murmur, rubs, gallop GI/Abdominal exam: Present: soft. Absent: distended, tenderness, guarding, rebound, rigid, mass Extremities exam: Present: normal inspection, normal capillary refill. Absent: pedal edema, calf tenderness Back exam: Present: normal inspection, CVA tenderness (L) (Mild). Absent: CVA tenderness (R) Neurological exam: Present: alert Skin exam: Present: warm, dry, intact, normal color. Absent: rash Course Vital Signs 01/23/21 01/23/21 21:11 23:46 Temperature 99.1 F 98.8 F Pulse Rate 85 81 Respiratory 20 18 Rate Blood Pressure 142/84 116/72 O2 Sat by Pulse 98 96 Oximetry Medical Decision Making - Lab Data Result diagrams: 01/23/21 22:48 01/23/21 22:48 Lab Results 01/23/21 01/23/21 01/23/21 Range/Units 21:20 22:48 22:48 WBC 6.4 (3.8-10.6) k/uL RBC 4.53 (4.30-5.90) m/uL Hgb 13.4 (13.0-17.5) gm/dL Hct 37.4 L (39.0-53.0) % MCV 82.6 (80.0-100.0) fL MCH 29.7 (25.0-35.0) pg MCHC 35.9 (31.0-37.0) g/dL RDW 13.9 (11.5-15.5) % Plt Count 262 (150-450) k/uL MPV 7.0 Neutrophils % 49 % Lymphocytes % 39 % Monocytes % 7 % Eosinophils % 3 % Basophils % 1 % Neutrophils # 3.1 (1.3-7.7) k/uL Lymphocytes # 2.5 (1.0-4.8) k/uL Monocytes # 0.4 (0-1.0) k/uL Eosinophils # 0.2 (0-0.7) k/uL Basophils # 0.0 (0-0.2) k/uL Sodium 138 (137-145) mmol/L Potassium 3.9 (3.5-5.1) mmol/L Chloride 103 (98-107) mmol/L Carbon Dioxide 26 (22-30) mmol/L Anion Gap 9 mmol/L BUN 24 H (9-20) mg/dL Creatinine 1.04 (0.66-1.25) mg/dL Est GFR (CKD-EPI)AfAm >90 (>60 ml/min/1.73 sqM) Est GFR (CKD-EPI)NonAf 90 (>60 ml/min/1.73 sqM) Glucose 119 H (74-99) mg/dL Calcium 10.6 H (8.4-10.2) mg/dL Total Bilirubin 0.4 (0.2-1.3) mg/dL AST 37 (17-59) U/L ALT 38 (4-49) U/L Alkaline Phosphatase 29 L (38-126) U/L Total Protein 7.8 (6.3-8.2) g/dL Albumin 4.5 (3.5-5.0) g/dL Amylase 62 (30-110) U/L Lipase 144 (23-300) U/L Urine Color Light Yellow Urine Appearance Clear (Clear) Urine pH 6.0 (5.0-8.0) Ur Specific [place] 1.014 (1.001-1.035) Urine Protein Negative (Negative) Urine Glucose (UA) Negative (Negative) Urine Ketones Negative (Negative) Urine Blood Small H (Negative) Urine Nitrite Negative (Negative) Urine Bilirubin Negative (Negative) Urine Urobilinogen <2.0 (<2.0) mg/dL Ur Leukocyte Esterase Small H (Negative) Urine RBC 22 H (0-5) /hpf Urine WBC 17 H (0-5) /hpf Ur Squamous Epith Cells <1 (0-4) /hpf Amorphous Sediment Rare H (None) /hpf Urine Bacteria Rare H (None) /hpf Urine Mucus Rare H (None) /hpf Disposition Clinical Impression: Kidney stones, Intractable abdominal pain Disposition: ADMITTED IP TO THIS [facility] Condition: Good Instructions (If sedation given, give patient instructions): Kidney Stones (ED) Prescriptions: HYDROcodone/APAP 5-325MG [[place] 5-325] 1 tab PO Q4HR PRN 3 Days #18 tab PRN Reason: Pain lisinopriL [Zestril] 20 mg PO DAILY #60 tab Ondansetron Odt [Zofran ODT] 4 mg PO Q8HR PRN #10 tab PRN Reason: Nausea Is patient prescribed a controlled substance at d/c from ED?: Yes When asked, does pt state using other controlled substances?: No If prescribed controlled substance>3 days was MAPS reviewed?: Prescribed <3 Days If opioid is for acute pain is fill amount 7 days or less?: Yes If Rx opioid, was Start Talking consent form obtained?: Yes Referrals: Blanquita Pimentel DO [Primary Care Provider] - 1-2 days Maxwell Bustamante MD [STAFF PHYSICIAN] - 1-2 days
[2021-01-24] MEDS ORDERED: ACETAMINOPHEN TAB 325 MG TAB PO PRN (00:48)
[2021-01-24] MEDS ORDERED: NALOXONE 0.4 MG/ML 1 ML VIAL IV PRN (00:48)
[2021-01-24] MEDS ORDERED: HYDROmorphone 1 MG/ML 1 ML SYRINGE IVP PRN (00:48)
[2021-01-24] MEDS ORDERED: KETOROLAC 15 MG/ML 1 ML VIAL IVP PRN (00:48)
[2021-01-24] MEDS ORDERED: HYDROmorphone 0.5 MG/0.5 ML SYRINGE IVP PRN (00:48)
[2021-01-24] MEDS ORDERED: SODIUM CHLORIDE 0.9% 1,000 ML IV SCH (01:00)
[2021-01-24 01:32] VITALS: BP 128/84; PULSE 63; TEMP 98
[2021-01-24] MEDS ORDERED: METOPROLOL TARTRATE 12.5 MG TAB PO SCH (09:00)
[2021-01-24] MEDS ORDERED: ATORVASTATIN 40 MG TAB PO SCH (09:00)
== END 2021-01-24 01:30 | disposition left against medical advice (07) ==
LOC: EC 20:24 → UNDOADMIN 01-24 00:48 → 5NMEDONC 01-24 00:48 → UNDODISIN 01-24 01:30 → EC 01-24 01:30
DX: N20.0 Calculus of kidney (principal); E78.5 Hyperlipidemia, unspecified; I10 Essential (primary) hypertension; Z79.02 Long term (current) use of antithrombotics/antiplatelets; Z79.82 Long term (current) use of aspirin; Z87.442 Personal history of urinary calculi; R31.9 Hematuria, unspecified
CPT/HCPCS: 96376; 96374; 96375; 99284; 36415; 80053; 82150; 83690; 85025; 81001; 87086; 74176; J1885; J1170 ×2

== ENCOUNTER 2021-01-25 17:07 | Inpatient (IN) | payer OTHER ==
[2021-01-25] MEDS ORDERED: SODIUM CHLORIDE 0.9% 1,000 ML IV STA (17:30)
[2021-01-25] MEDS ORDERED: HYDROmorphone 0.5 MG/0.5 ML SYRINGE IVP STA (17:30)
[2021-01-25] MEDS ORDERED: ONDANSETRON 4 MG/2 ML VIAL IVP STA (17:30)
[2021-01-25] MEDS ORDERED: KETOROLAC 15 MG/ML 1 ML VIAL IVP STA (17:30)
[2021-01-25 17:46] LABS: Basophils # (A) 0.1 k/uL (0-0.2); Basophils % (A) 1 %; Eosinophils # (A) 0.2 k/uL (0-0.7); Eosinophils % (A) 4 %; HGB 13.1 gm/dL (13.0-17.5); Lymphocytes # (A) 1.9 k/uL (1.0-4.8); Lymphocytes % (A) 35 %; MCH 28.6 pg (25.0-35.0); MCHC 34.4 g/dL (31.0-37.0); MCV 83.1 fL (80.0-100.0); Mean Platelet Volume 6.8; Monocytes # (A) 0.3 k/uL (0-1.0); Monocytes % (A) 6 %; Neutrophils # (A) 2.9 k/uL (1.3-7.7); Neutrophils % (A) 54 %; Platelet Count 253 k/uL (150-450); RBC 4.58 m/uL (4.30-5.90); RDW 14.5 % (11.5-15.5); WBC 5.4 k/uL (3.8-10.6)
--- NOTE | 2021-01-25 17:50 | ED ---
Abdominal Pain HPI <Flaquito Lechuga - Last Filed: 01/25/21 20:00> - General Source: patient Mode of arrival: ambulatory Limitations: no limitations <Rachel Arriaga - Last Filed: 01/25/21 20:13> - General Chief Complaint: Abdominal Pain Stated Complaint: revisit - kidney stones - History of Present Illness Initial Comments: 41 year-old male patient with past history significant for kidney stones presents to the emergency department today for evaluation of left flank pain and left groin pain. Patient was seen on 01/23/21 and found to have multiple obstructing stones to the left ureter. Plan was for admission but patient decided to go home instead. Patient states the pain has worsened so he would like to be re-evaluated and possibly admitted. He denies any nausea or vomiting. Denies any fever or chills. States he is able to urinate though at times it does feel crampy. Reports intermittent hematuria. Patient denies any recent rash, cough, shortness of breath, chest pain, diarrhea, constipation, numbness, tingling, dizziness, weakness, headache, visual changes, or any other complaints. (Rachel Arriaga) - Related Data Home Medications Medication Instructions Recorded Confirmed lisinopriL 40 mg PO DAILY 11/20/18 01/25/21 Escitalopram [Lexapro] 20 mg PO DAILY 06/27/19 01/25/21 Metoprolol Tartrate [Lopressor] 12.5 mg PO BID 01/25/21 01/25/21 Previous Rx's Medication Instructions Recorded Aspirin 81 mg PO DAILY chew 06/11/20 Fenofibrate [Lofibra] 160 mg PO DAILY #90 tab 06/11/20 Rosuvastatin Calcium [Crestor] 20 mg PO DAILY #90 tab 06/11/20 Ticagrelor [Brilinta] 90 mg PO BID #180 tab 06/11/20 Allergies Allergy/AdvReac Type Severity Reaction Status Date / Time No Known Allergies Allergy Verified 01/25/21 17:40 Review of Systems ROS Other: All systems not noted in ROS Statement are negative. <Flaquito Lechuga - Last Filed: 01/25/21 20:00> ROS Other: All systems not noted in ROS Statement are negative. <Rachel Arriaga - Last Filed: 03/26/21 20:13> ROS Statement: Those systems with pertinent positive or pertinent negative responses have been documented in the HPI. Past Medical History Past Medical History: Hyperlipidemia, Hypertension Additional Past Medical History / Comment(s): Diverticulitis with perforation/resection and colostomy recently reversed, multiple kidney stones. History of Any Multi-Drug Resistant Organisms: None Reported Past Surgical History: Appendectomy, Cholecystectomy, Hernia Repair Additional Past Surgical History / Comment(s): 11/2018 bowel resection with colostomy, 06/10/19 colostomy reversal with stomal hernia repair, basketing and lithotripsies of kidney stones. Past Anesthesia/Blood Transfusion Reactions: Postoperative Nausea & Vomiting (PONV) Past Psychological History: Anxiety Smoking Status: Never smoker Past Alcohol Use History: None Reported Past Drug Use History: Marijuana - Past Family History Father History Unknown: Yes Mother Family Medical History: COPD Additional Family Medical History / Comment(s): recently <Rachel Arriaga M - Last Filed: 01/25/21 20:13> General Exam Limitations: no limitations General appearance: alert, in no apparent distress, other (This is a well-developed, well-nourished adult male patient in no acute distress. Vital signs upon presentation are temperature 97.6F, pulse 87, respirations 19, blood pressure 135/89, pulse ox 99% on room air.) Eye exam: Present: normal appearance, PERRL, EOMI. Absent: scleral icterus, conjunctival injection, periorbital swelling ENT exam: Present: normal exam, normal oropharynx, mucous membranes moist Respiratory exam: Present: normal lung sounds bilaterally. Absent: respiratory distress, wheezes, rales, rhonchi, stridor Cardiovascular Exam: Present: regular rate, normal rhythm, normal heart sounds. Absent: systolic murmur, diastolic murmur, rubs, gallop, clicks GI/Abdominal exam: Present: soft, normal bowel sounds. Absent: distended, tenderness, guarding, rebound, rigid Back exam: Present: normal inspection, CVA tenderness (L). Absent: CVA tenderness (R) Neurological exam: Present: alert, oriented X3, CN II-XII intact Psychiatric exam: Present: normal affect, normal mood Skin exam: Present: warm, dry, intact, normal color. Absent: rash <Rachel Arriaga M - Last Filed: 01/25/21 20:13> Course Vital Signs 01/25/21 01/25/21 17:08 20:02 Temperature 97.6 F Pulse Rate 87 65 Respiratory 19 18 Rate Blood Pressure 135/89 112/76 O2 Sat by Pulse 99 97 Oximetry Medical Decision Making - Lab Data Result diagrams: 01/25/21 17:37 01/25/21 17:37 <Flaquito Lechuga - Last Filed: 01/25/21 20:00> - Lab Data Result diagrams: 01/25/21 17:37 01/25/21 17:37 <Rachel Arriaga - Last Filed: 01/25/21 20:13> - Medical Decision Making 41-year-old male who had been evaluated approximately 2 days ago with left flank pain, found to have multiple obstructing left renal calculi with hydronephrosis. He has presented with increased pain. No fever. Patient has normal CBC, normal CMP, minimal hematuria. I did discuss case with Dr. Baeza, who will admit. Patient will be kept nothing by mouth after midnight. Symptomatic control has been ordered. (Flaquito Lechuga) - Lab Data Lab Results 01/25/21 01/25/21 01/25/21 Range/Units 17:37 17:37 17:37 WBC 5.4 (3.8-10.6) k/uL RBC 4.58 (4.30-5.90) m/uL Hgb 13.1 (13.0-17.5) gm/dL Hct 38.0 L (39.0-53.0) % MCV 83.1 (80.0-100.0) fL MCH 28.6 (25.0-35.0) pg MCHC 34.4 (31.0-37.0) g/dL RDW 14.5 (11.5-15.5) % Plt Count 253 (150-450) k/uL MPV 6.8 Neutrophils % 54 % Lymphocytes % 35 % Monocytes % 6 % Eosinophils % 4 % Basophils % 1 % Neutrophils # 2.9 (1.3-7.7) k/uL Lymphocytes # 1.9 (1.0-4.8) k/uL Monocytes # 0.3 (0-1.0) k/uL Eosinophils # 0.2 (0-0.7) k/uL Basophils # 0.1 (0-0.2) k/uL Sodium 139 (137-145) mmol/L Potassium 3.9 (3.5-5.1) mmol/L Chloride 106 (98-107) mmol/L Carbon Dioxide 24 (22-30) mmol/L Anion Gap 9 mmol/L BUN 20 (9-20) mg/dL Creatinine 0.99 (0.66-1.25) mg/dL Est GFR (CKD-EPI)AfAm >90 (>60 ml/min/1.73 sqM) Est GFR (CKD-EPI)NonAf >90 (>60 ml/min/1.73 sqM) Glucose 159 H (74-99) mg/dL Calcium 10.2 (8.4-10.2) mg/dL Total Bilirubin 0.3 (0.2-1.3) mg/dL AST 31 (17-59) U/L ALT 34 (4-49) U/L Alkaline Phosphatase 29 L (38-126) U/L Total Protein 7.3 (6.3-8.2) g/dL Albumin 4.3 (3.5-5.0) g/dL Lipase 167 (23-300) U/L Urine Color Light Yellow Urine Appearance Clear (Clear) Urine pH 6.5 (5.0-8.0) Ur Specific [place] 1.014 (1.001-1.035) Urine Protein Negative (Negative) Urine Glucose (UA) Negative (Negative) Urine Ketones Negative (Negative) Urine Blood Trace H (Negative) Urine Nitrite Negative (Negative) Urine Bilirubin Negative (Negative) Urine Urobilinogen <2.0 (<2.0) mg/dL Ur Leukocyte Esterase Trace H (Negative) Urine RBC 9 H (0-5) /hpf Urine WBC 3 (0-5) /hpf Amorphous Sediment Rare H (None) /hpf Disposition Is patient prescribed a controlled substance at d/c from ED?: No <Flaquito Lechuga N - Last Filed: 01/25/21 20:00> <Rachel Arriaga - Last Filed: 01/25/21 20:13> Clinical Impression: Hydronephrosis, Intractable abdominal pain, Kidney stones Disposition: ADMITTED IP TO THIS HOSP Condition: Stable
[2021-01-25 17:53] LABS: Amorphous Sediment,Urine Rare /hpf; Appearance,Urine Clear (Clear); Bilirubin,Urine Negative (Negative); Blood,Urine Trace (Negative); Color,Urine Light Yellow; Glucose,Urine (UA) Negative (Negative); Ketones,Urine Negative (Negative); Leukocyte Esterase,Urine Trace (Negative); Nitrite,Urine Negative (Negative); PH, Urine 6.5 (5.0-8.0); Protein,Urine Negative (Negative); RBC,Urine 9 /hpf (0-5); Specific Gravity,Urine 1.014 (1.001-1.035); Urobilinogen,Urine <2.0 mg/dL (<2.0); WBC,Urine 3 /hpf (0-5)
[2021-01-25 17:57] LABS: ALT 34 U/L (4-49); AST 31 U/L (17-59); African American GFR (CKD) >90 (>60 ml/min/1.73 sqM); Albumin 4.3 g/dL (3.5-5.0); Alkaline Phosphatase 29 U/L (38-126); Anion Gap 9 mmol/L; Blood Urea Nitrogen 20 mg/dL (9-20); Calcium 10.2 mg/dL (8.4-10.2); Carbon Dioxide 24 mmol/L (22-30); Chloride 106 mmol/L (98-107); Glucose 159 mg/dL (74-99); Lipase 167 U/L (23-300); Non-African American GFR(CKD) >90 (>60 ml/min/1.73 sqM); Potassium 3.9 mmol/L (3.5-5.1); Sodium 139 mmol/L (137-145); Total Bilirubin 0.3 mg/dL (0.2-1.3); Total Protein 7.3 g/dL (6.3-8.2)
--- NOTE | 2021-01-25 19:15 | XR ---
EXAM: Abdomen radiograph. HISTORY: Pain. TECHNIQUE: Supine AP view. COMPARISON: 11/23/2018. FINDINGS: There are nondilated bowel loops with a nonobstructive pattern. There are no pathologic calcification s. No acute osseous abnormality seen. Cholecystectomy clips are seen. IMPRESSION: No acute process or obvious renal stones.
[2021-01-25] MEDS ORDERED: HYDROmorphone 1 MG/ML 1 ML SYRINGE IVP STA (19:40)
[2021-01-25] MEDS ORDERED: NALOXONE 0.4 MG/ML 1 ML VIAL IV PRN (19:58)
[2021-01-25] MEDS ORDERED: KETOROLAC 15 MG/ML 1 ML VIAL IVP PRN (19:58)
[2021-01-25] MEDS ORDERED: ACETAMINOPHEN TAB 325 MG TAB PO PRN (19:58)
[2021-01-25] MEDS ORDERED: ONDANSETRON 4 MG/2 ML VIAL IVP PRN (19:58)
[2021-01-25] MEDS ORDERED: TAMSULOSIN 0.4 MG CAP.ER.24H PO STA (20:01)
[2021-01-25] MEDS: SODIUM CHLORIDE 0.9% 1,000 ML IV SCH (20:01)
[2021-01-25 21:21] LABS: INR 0.9 (<1.2)
[2021-01-25 21:23] LABS: Partial Thromboplastin Time 19.7 sec (22.0-30.0)
[2021-01-25] MEDS: HYDROmorphone 0.5 MG/0.5 ML SYRINGE IVP PRN (23:03)
[2021-01-26] MEDS: HYDROmorphone 0.5 MG/0.5 ML SYRINGE IVP PRN ×4 (03:53→20:58)
[2021-01-26] MEDS: SODIUM CHLORIDE 0.9% 1,000 ML IV SCH ×2 (08:28→20:58)
--- NOTE | 2021-01-26 09:23 | P.GSHP ---
History of Present Illness H&P Date: 01/26/21 Chief Complaint: Left renal colic The patient is a 41-year-old white male with a history of recurrent urolithiasis. For the past 2 months, he has experienced intermittent left flank pain radiating to the left groin. This has intensified in the past 3 weeks. He noted gross hematuria on 01/17/2021. He was seen in the ER on January 23. A CT scan showed evidence of left hydronephrosis due to 3 left distal ureteral calculi, the largest of which measures 12 mm. He chose not to be admitted at that time, but returned to the ER yesterday with increased pain. - Constitutional Constitutional: Denies chills, Denies fever - Gastrointestinal Gastrointestinal: Denies nausea, Denies vomiting - Genitourinary (Male) Genitourinary: Reports flank pain, Reports hematuria Past Medical History Past Medical History: Hyperlipidemia, Hypertension, Myocardial Infarction ([place]) Additional Past Medical History / Comment(s): Diverticulitis with perforation/resection and colostomy recently reversed; multiple kidney stones (ESWL and ureteroscopy); heart attack in early 2019 with heart cath and stent placement Last Myocardial Infarction Date:: 2019 History of Any Multi-Drug Resistant Organisms: None Reported Past Surgical History: Appendectomy, Cholecystectomy, Heart Catheterization With Stent, Hernia Repair Additional Past Surgical History / Comment(s): 11/2018 bowel resection with colostomy, 06/10/19 colostomy reversal with stomal hernia repair, basketing and lithotripsies of kidney stones. Heart cath in early 2019 at [facility], unsure of exact date Past Anesthesia/Blood Transfusion Reactions: Postoperative Nausea & Vomiting (PONV) Date of Last Stent Placement:: 2019 Past Psychological History: Anxiety Additional Psychological History / Comment(s): Pt resides with his spouse and 3 children. He is independent. Takes Lexapro Smoking Status: Never smoker Past Alcohol Use History: None Reported Past Drug Use History: Marijuana Additional Drug Use History / Comment(s): Pt recently started smoking a little marijuana, takes CBD gummies to aid with pain/appetite. States it also helps with anxiety - Past Family History Father History Unknown: Yes Additional Family Medical History / Comment(s): unsure of dad's health history Mother Family Medical History: COPD Additional Family Medical History / Comment(s): recently Medications and Allergies Home Medications Medication Instructions Recorded Confirmed Type lisinopriL 40 mg PO DAILY 11/20/18 01/25/21 History Escitalopram [Lexapro] 20 mg PO DAILY 06/27/19 01/25/21 History Aspirin 81 mg PO DAILY chew 06/11/20 01/25/21 Rx Fenofibrate [Lofibra] 160 mg PO DAILY #90 tab 06/11/20 01/25/21 Rx Rosuvastatin Calcium [Crestor] 20 mg PO DAILY #90 tab 06/11/20 01/25/21 Rx Ticagrelor [Brilinta] 90 mg PO BID #180 tab 06/11/20 01/25/21 Rx Metoprolol Tartrate [Lopressor] 12.5 mg PO BID 01/25/21 01/25/21 History Allergies Allergy/AdvReac Type Severity Reaction Status Date / Time No Known Allergies Allergy Verified 01/25/21 17:40 Surgical - Exam Vital Signs Temp Pulse Resp BP Pulse Ox 97.6 F 87 19 135/89 99 01/25/21 17:08 01/25/21 17:08 01/25/21 17:08 01/25/21 17:08 01/25/21 17:08 - General well developed, well nourished, no distress - Neck no masses, trachea midline - Respiratory normal respiratory effort - Abdomen Abdomen: soft, non tender, no guarding, no rigid, no rebound - Genitourinary normal penis with no external lesions, testicles non-tender - Psychiatric oriented to time, oriented to person, oriented to place, speech is normal, memory intact Results - Labs 01/25/21 17:37 01/25/21 17:37 Abnormal Lab Results - Last 24 Hours (Table) 01/25/21 01/25/21 01/25/21 Range/Units 17:37 17:37 17:37 Hct 38.0 L (39.0-53.0) % APTT (22.0-30.0) sec Glucose 159 H (74-99) mg/dL Alkaline Phosphatase 29 L (38-126) U/L Urine Blood Trace H (Negative) Ur Leukocyte Esterase Trace H (Negative) Urine RBC 9 H (0-5) /hpf Amorphous Sediment Rare H (None) /hpf 01/25/21 Range/Units 20:46 Hct (39.0-53.0) % APTT 19.7 L (22.0-30.0) sec Glucose (74-99) mg/dL Alkaline Phosphatase (38-126) U/L Urine Blood (Negative) Ur Leukocyte Esterase (Negative) Urine RBC (0-5) /hpf Amorphous Sediment (None) /hpf Diabetes panel 01/25/21 Range/Units 17:37 Sodium 139 (137-145) mmol/L Potassium 3.9 (3.5-5.1) mmol/L Chloride 106 (98-107) mmol/L Carbon Dioxide 24 (22-30) mmol/L BUN 20 (9-20) mg/dL Creatinine 0.99 (0.66-1.25) mg/dL Glucose 159 H (74-99) mg/dL Calcium 10.2 (8.4-10.2) mg/dL AST 31 (17-59) U/L ALT 34 (4-49) U/L Alkaline Phosphatase 29 L (38-126) U/L Total Protein 7.3 (6.3-8.2) g/dL Albumin 4.3 (3.5-5.0) g/dL Calcium panel 01/25/21 Range/Units 17:37 Calcium 10.2 (8.4-10.2) mg/dL Albumin 4.3 (3.5-5.0) g/dL Pituitary panel 01/25/21 Range/Units 17:37 Sodium 139 (137-145) mmol/L Potassium 3.9 (3.5-5.1) mmol/L Chloride 106 (98-107) mmol/L Carbon Dioxide 24 (22-30) mmol/L BUN 20 (9-20) mg/dL Creatinine 0.99 (0.66-1.25) mg/dL Glucose 159 H (74-99) mg/dL Calcium 10.2 (8.4-10.2) mg/dL Adrenal panel 01/25/21 Range/Units 17:37 Sodium 139 (137-145) mmol/L Potassium 3.9 (3.5-5.1) mmol/L Chloride 106 (98-107) mmol/L Carbon Dioxide 24 (22-30) mmol/L BUN 20 (9-20) mg/dL Creatinine 0.99 (0.66-1.25) mg/dL Glucose 159 H (74-99) mg/dL Calcium 10.2 (8.4-10.2) mg/dL Total Bilirubin 0.3 (0.2-1.3) mg/dL AST 31 (17-59) U/L ALT 34 (4-49) U/L Alkaline Phosphatase 29 L (38-126) U/L Total Protein 7.3 (6.3-8.2) g/dL Albumin 4.3 (3.5-5.0) g/dL - Imaging CT scan - abdomen: report reviewed, image reviewed Assessment and Plan (1) Hydronephrosis with renal and ureteral calculous obstruction Current Visit: Yes Status: Acute Code(s): N13.2 - HYDRONEPHROSIS WITH RENAL AND URETERAL CALCULOUS OBSTRUCTION SNOMED Code(s): 326077200 (2) Calculus of ureter Current Visit: Yes Status: Acute Code(s): N20.1 - CALCULUS OF URETER SNOMED Code(s): 40189544 Plan: I have reviewed the patient's CT scan, and I had a lengthy discussion with him regarding his condition. The CT scan shows moderate left hydroureteronephrosis down to the left distal ureter, which contains 3 calculi measuring 5, 10, and 12 mm. There are no renal calculi. I have advised him to undergo cystoscopy, left ureteroscopy with Holmium laser lithotripsy, left ureteral stent insertion. The procedure has been reviewed in detail with him. The rationale for the p rocedure was discussed, as were risks. These include anesthesia, bleeding, infection, and ureteral injury. He was advised that given the stone burden, he will likely require a secondary procedure. Time with Patient: Greater than 30
[2021-01-27] MEDS: HYDROmorphone 0.5 MG/0.5 ML SYRINGE IVP PRN ×2 (02:26→06:26)
[2021-01-27] MEDS ORDERED: HYDROmorphone (PF) 1 MG/ML ONE (08:02)
[2021-01-27] MEDS ORDERED: ROCURONIUM 10 MG/ML (5 ML VIAL) IV ONE (08:02)
[2021-01-27] MEDS ORDERED: GLYCOPYRROLATE 0.2 MG/ML 2 ML VIAL ONE (08:02)
[2021-01-27] MEDS ORDERED: fentaNYL (PF) 50 MCG/ML 2 ML AMP ONE (08:02)
[2021-01-27] MEDS ORDERED: PROPOFOL 10 MG/ML 20 ML VIAL IV ONE (08:02)
[2021-01-27] MEDS ORDERED: KETOROLAC 15 MG/ML 1 ML VIAL ONE (08:02)
[2021-01-27] MEDS ORDERED: LIDOCAINE 1% INJ 10MG/ML (20 ML MDV) ONE (08:02)
[2021-01-27] MEDS ORDERED: ONDANSETRON 4 MG/2 ML VIAL ONE (08:02)
[2021-01-27] MEDS ORDERED: SUCCINYLCHOLINE CHLORIDE 100 MG/5 ML SYR IV ONE (08:02)
[2021-01-27] MEDS ORDERED: NEOSTIGMINE 1 MG/ML 10 ML VIAL ONE (08:02)
[2021-01-27] MEDS ORDERED: MIDAZOLAM 2 MG/2 ML VIAL ONE (08:02)
[2021-01-27] MEDS ORDERED: DEXAMETHASONE SOD PHOSPHATE 4 MG/ML 1 ML VIAL ONE (08:02)
[2021-01-27] MEDS ORDERED: LACTATED RINGERS 1,000 ML IV ONE (08:06)
--- NOTE | 2021-01-27 10:12 | P.OP ---
Date of Procedure: 01/27/21 Preoperative Diagnosis: Left ureteral calculi Postoperative Diagnosis: Same Procedure(s) Performed: Cystoscopy, left ureteroscopy with Holmium laser lithotripsy, left ureteral stent insertion Anesthesia: AMALIAA Surgeon: Willie Baeza Estimated Blood Loss (ml): 5 IV fluids (ml): 600 Pathology: other (Calculus fragments, sent for chemical analysis) Condition: stable Disposition: PACU Indications for Procedure: The patient is a 41-year-old white male with a history of recurrent urolithiasis. For the past 2 months, he has experienced intermittent left flank pain radiating to the left groin. This has intensified in the past 3 weeks. He noted gross hematuria on 01/17/2021. He was seen in the ER on January 23. A CT scan showed evidence of left hydronephrosis due to 3 left distal ureteral calculi, the largest of which measures 12 mm. He chose not to be admitted at that time, but returned to the ER yesterday with increased pain. Operative Findings: Left distal ureteral calculi, impacted Description of Procedure: The patient was taken to the operating room and placed in the dorsolithotomy position, with legs supported in Jamel stirrups. The external genitalia was prepped and draped sterilely. The 30 lens was used to introduce the 21-[place] Ríos cystoscopic sheath through the urethra and into the bladder under direct vision. The prostatic urethra showed evidence of mild lateral lobe enlargement. The bladder was examined in its entirety. Both ureteral orifices were normal anatomic location and configuration, and clear urine effluxed from both. No tumors or foreign bodies were seen. The Ríos semirigid ureteroscope was advanced into the bladder, and the left ureteral orifice was cannulated. The ureteroscope was advanced approximately 3 cm, until the distalmost calculus was identified. The 365 micron Holmium laser probe was passed through the ureteroscope, and lithotripsy was performed. This was done primarily using a dusting mode, and calculus fragments passed distally into the bladder. The calculus was impacted, and mild edema of the ureteral wall was noted. Lithotripsy was continued until patency of the ureter was seen, at which time a 0.035 inch Glidewire was passed through the ureteroscope and up to the left renal pelvis. There was no evidence of ureteral perforation. The ureteroscope was removed, and the Glidewire was backloaded into the cystoscope, which was passed into the bladder. A 24 cm, 6-[place] double-J ureteral stent was placed over the wire. Proper stent positioning was verified fluoroscopically and endoscopically. The bladder was emptied and the cystoscope removed. Removed calculus fragments were sent for chemical analysis. The patient tolerated the procedure well and was taken to the recovery room in stable condition. JOELLE ROCKS Report: Procedure Acuity: Urgent Stone Size and Location: Left distal ureter, largest 12 mm Ureteral Dilation: No Ureteral Access Sheath Used: No Stone Sent for Analysis: Yes All Stones/Fragments Were Removed with a Basket: No Complications: No Preoperative Antibiotics Given: Yes Stent Placed: Yes If Stent Placed, Was String Left Attached: No If Stent Placed, When is it to be Removed: 2 weeks Discharge Medications: Toradol
[2021-01-27] MEDS ORDERED: HYDROmorphone 0.5 MG/0.5 ML SYRINGE IVP ONE (10:50)
--- NOTE | 2021-01-27 11:03 | FL ---
Fluoroscopy History: Left side kidney stone and stent insertion 5sec fluoro time,1 image scanned
[2021-01-27 11:22] VITALS: RESP 16
[2021-01-27] MEDS: SODIUM CHLORIDE 0.9% 1,000 ML IV SCH (13:03)
--- NOTE | 2021-01-27 13:07 | P.DS ---
Providers Date of admission: 01/25/21 19:59 Expected date of discharge: 01/27/21 Attending physician: Willie Baeza Primary care physician: Blanquita Pimentel - Discharge Diagnosis(es) (1) Hydronephrosis with renal and ureteral calculous obstruction Current Visit: Yes Status: Acute (2) Calculus of ureter Current Visit: Yes Status: Acute Hospital Course: The patient was admitted with a primary complaint of left renal colic due to 3 left distal ureteral calculi. He was treated with parenteral analgesics and IV hydration. On 01/27/2021 he underwent cystoscopy, left ureteroscopy with Holmium laser lithotripsy, left ureteral stent insertion. Following the procedure, he felt quite well and was thus discharged home. Procedures: Cystoscopy, left ureteroscopy with Holmium laser lithotripsy, left ureteral stent insertion on 01/27/2021 Patient Condition at Discharge: Good Plan - Discharge Summary New Discharge Prescriptions: New Ketorolac [Toradol] 10 mg PO Q6HR PRN #10 tab PRN Reason: Pain No Action lisinopriL 40 mg PO DAILY Escitalopram [Lexapro] 20 mg PO DAILY Ticagrelor [Brilinta] 90 mg PO BID #180 tab Aspirin 81 mg PO DAILY chew Rosuvastatin Calcium [Crestor] 20 mg PO DAILY #90 tab Fenofibrate [Lofibra] 160 mg PO DAILY #90 tab Metoprolol Tartrate [Lopressor] 12.5 mg PO BID Discharge Medication List lisinopriL 40 mg PO DAILY 11/20/18 [History] Escitalopram [Lexapro] 20 mg PO DAILY 06/27/19 [History] Aspirin 81 mg PO DAILY chew 06/11/20 [Rx] Fenofibrate [Lofibra] 160 mg PO DAILY #90 tab 06/11/20 [Rx] Rosuvastatin Calcium [Crestor] 20 mg PO DAILY #90 tab 06/11/20 [Rx] Ticagrelor [Brilinta] 90 mg PO BID #180 tab 06/11/20 [Rx] Metoprolol Tartrate [Lopressor] 12.5 mg PO BID 01/25/21 [History] Ketorolac [Toradol] 10 mg PO Q6HR PRN #10 tab 01/27/21 [Rx] Follow up Appointment(s)/Referral(s): Blanquita Pimentel, [Primary Care Provider] - 1-2 days Activity/Diet/Wound Care/Special Instructions: Diet as tolerated. Activity as tolerated. Drink plenty of fluids. Patient will be contacted by Dr. Baeza' office to schedule a secondary procedure to remove the stent and any remaining stone fragments. Discharge Disposition: HOME SELF-CARE
[2021-01-27 14:23] VITALS: TEMP 98
[2021-01-27 14:24] VITALS: BP 120/74; PULSE 91
== END 2021-01-27 14:50 | disposition home or self-care (01) | DRG 661 ==
LOC: EC 17:07 → 5NMEDONC 19:59
PROVIDERS: ADMIT Urology; ATTEND Urology
PROC: 0TC78ZZ Extirpation of Matter from Left Ureter, Via Natural or Artificial Opening Endoscopic (ICD-10-PCS; 2021-01-27)
PROC: 0T778DZ Dilation of Left Ureter with Intraluminal Device, Via Natural or Artificial Opening Endoscopic (ICD-10-PCS; principal; 2021-01-27 08:00)
DX: N13.2 Hydronephrosis with renal and ureteral calculous obstruction (principal); Z79.82 Long term (current) use of aspirin; E78.5 Hyperlipidemia, unspecified; I10 Essential (primary) hypertension; I25.2 Old myocardial infarction; F41.9 Anxiety disorder, unspecified; Z20.822 Contact with and (suspected) exposure to COVID-19; Z82.5 Family history of asthma and other chronic lower respiratory diseases; Z87.442 Personal history of urinary calculi; Z79.02 Long term (current) use of antithrombotics/antiplatelets
CPT/HCPCS: 36415; 74018; 80053; 81001; 82365; 83690; 85025; 85610; 85730; 87635; 99285

== ENCOUNTER 2021-02-14 06:15 | Day surgery (SDC) | payer SELFPAY ==
[2021-02-11 15:50] VITALS: BMI 41.7
--- NOTE | 2021-02-11 18:29 | P.GSHP ---
History of Present Illness H&P Date: 02/11/21 Chief Complaint: Left renal colic The patient is a 41-year-old white male with a history of recurrent urolithiasis. For the past 2 months, he has experienced intermittent left flank pain radiating to the left groin. He noted gross hematuria on 01/17/2021. He was seen in the ER on January 23. A CT scan showed evidence of left hydronephrosis due to 3 left distal ureteral calculi, the largest of which measures 12 mm. He underwent left ureteroscopy with laser lithotripsy, and a ureteral stent was placed. He now comes for cystoscopy, left ureteral stent removal, and removal of any remaining left ureteral calculi. - Constitutional Constitutional: Denies chills, Denies fever - Gastrointestinal Gastrointestinal: Denies nausea, Denies vomiting - Genitourinary (Male) Genitourinary: Reports flank pain, Reports hematuria, Reports kidney stones Past Medical History Past Medical History: Hyperlipidemia, Hypertension, Myocardial Infarction ([place]) Additional Past Medical History / Comment(s): Diverticulitis with perforation/resection and colostomy recently reversed; multiple kidney stones (ESWL and ureteroscopy); recent admission due to kidney stones Last Myocardial Infarction Date:: 2019 History of Any Multi-Drug Resistant Organisms: None Reported Past Surgical History: Appendectomy, Bowel Resection, Cholecystectomy, Heart Catheterization With Stent, Hernia Repair Additional Past Surgical History / Comment(s): 11/2018 bowel resection with colostomy, 06/10/19 colostomy reversal with stomal hernia repair, basketing and lithotripsies of kidney stones, recent cystoscopy w/lithotripsy & left ureteral stent Past Anesthesia/Blood Transfusion Reactions: Postoperative Nausea & Vomiting (PONV) Date of Last Stent Placement:: June 2020 Smoking Status: Never smoker - Past Family History Father History Unknown: Yes Additional Family Medical History / Comment(s): unsure of dad's health history Mother Family Medical History: COPD Additional Family Medical History / Comment(s): recently Medications and Allergies Home Medications Medication Instructions Recorded Confirmed Type lisinopriL 40 mg PO DAILY 11/20/18 02/11/21 History Escitalopram [Lexapro] 20 mg PO DAILY 06/27/19 02/11/21 History Aspirin 81 mg PO DAILY chew 06/11/20 02/11/21 Rx Fenofibrate [Lofibra] 160 mg PO DAILY #90 tab 06/11/20 02/11/21 Rx Rosuvastatin Calcium [Crestor] 20 mg PO DAILY #90 tab 06/11/20 02/11/21 Rx Ticagrelor [Brilinta] 90 mg PO BID #180 tab 06/11/20 02/11/21 Rx Metoprolol Tartrate [Lopressor] 12.5 mg PO BID 01/25/21 02/11/21 History Allergies Allergy/AdvReac Type Severity Reaction Status Date / Time No Known Allergies Allergy Verified 02/11/21 15:45 Surgical - Exam - General well developed, well nourished, no distress - Respiratory normal respiratory effort - Abdomen Abdomen: soft, non tender, no guarding, no rigid, no rebound - Genitourinary normal penis with no external lesions, testicles non-tender - Psychiatric oriented to time, oriented to person, oriented to place, speech is normal, memory intact Assessment and Plan (1) Calculus of ureter Status: Acute Code(s): N20.1 - CALCULUS OF URETER SNOMED Code(s): 91850185 Plan: Cystoscopy, left ureteral stent removal, left ureteroscopy with removal of any residual calculi, via laser lithotripsy and/or stone basketing. The patient is aware of potential risks, which include anesthesia, bleeding, infection, and ureteral injury.
[~2021-02-14 06:15] MED LIST changes: -ALVIMOPAN 12 MG CAPSULE PO ONE; +DEXAMETHASONE SOD PHOSPHATE 4 MG/ML 1 ML VIAL IV ONE; -HEPARIN SODIUM,PORCINE 5,000 UNIT/ML 1 ML VIAL SQ ONE; +KETOROLAC 15 MG/ML 1 ML VIAL IVP SCH; +LACTATED RINGERS 1,000 ML IV SCH; +LIDOCAINE 1% (10MG/ML) FOR IV START INTRADERMA PRN; +ONDANSETRON 4 MG/2 ML VIAL IVP ONE; -metroNIDAZOLE-NS PMX 500 MG in SALINE 1 100ML.BAG IVPB ONE
[2021-02-14 06:38] VITALS: TEMP 97.8
[2021-02-14] MEDS ORDERED: METOCLOPRAMIDE 5 MG/ML 2 ML VIAL IVP PRN (07:00)
[2021-02-14] MEDS ORDERED: HYDROmorphone 0.5 MG/0.5 ML SYRINGE IVP PRN (07:00)
[2021-02-14] MEDS ORDERED: fentaNYL (PF) 50 MCG/ML 2 ML AMP ONE (07:30)
[2021-02-14] MEDS ORDERED: ePHEDrine SULFATE/0.9% NACL/PF 50 MG/5 ML SYRINGE IV ONE (07:30)
[2021-02-14] MEDS ORDERED: LIDOCAINE 1% INJ 10MG/ML (20 ML MDV) ONE (07:30)
[2021-02-14] MEDS ORDERED: PHENYLEPHRINE-0.9% NACL SYG 1,000 MCG/10 ML SYRINGE ONE (07:30)
[2021-02-14] MEDS ORDERED: SUCCINYLCHOLINE CHLORIDE 100 MG/5 ML SYR IV ONE (07:30)
[2021-02-14] MEDS ORDERED: PROPOFOL 10 MG/ML 20 ML VIAL IV ONE (07:30)
[2021-02-14] MEDS ORDERED: MIDAZOLAM 2 MG/2 ML VIAL ONE (07:30)
[2021-02-14] MEDS ORDERED: LACTATED RINGERS 1,000 ML IV ONE (08:04)
--- NOTE | 2021-02-14 08:34 | FL ---
EXAMINATION TYPE: FL fluoroscopy <1hr DATE OF EXAM: 02/14/2021 CLINICAL HISTORY: Left ureteral calculus TECHNIQUE: Fluoroscopy. COMPARISON: KUB x-ray January 25, 2021 FINDINGS: Fluoroscopic guidance was provided during left ureteral calculus treatment procedure perfo rmed by Dr. Baeza. A total of 6 seconds of fluoroscopic time was utilized during the procedure and 1 spot images was acquired. IMPRESSION: As Above.
--- NOTE | 2021-02-14 08:39 | P.OP ---
Date of Procedure: 02/14/21 Preoperative Diagnosis: Left ureteral calculi Postoperative Diagnosis: Same Procedure(s) Performed: Cystoscopy, left ureteral stent removal, left ureteroscopy Anesthesia: GETA Surgeon: Willie Baeza Estimated Blood Loss (ml): 0 IV fluids (ml): 700 Pathology: none sent Condition: stable Disposition: PACU Indications for Procedure: The patient is a 41-year-old white male with a history of recurrent urolithiasis. For the past 2 months, he has experienced intermittent left flank pain radiating to the left groin. He noted gross hematuria on 01/17/2021. He was seen in the ER on January 23. A CT scan showed evidence of left hydronephrosis due to 3 left distal ureteral calculi, the largest of which measures 12 mm. He underwent left ureteroscopy with laser lithotripsy, and a ureteral stent was placed. He now comes for cystoscopy, left ureteral stent removal, and removal of any remaining left ureteral calculi. His calculi are composed of calcium oxalate. Operative Findings: No residual calculi Description of Procedure: The patient was taken to the operating room and placed in the dorsolithotomy position, with legs supported in Jamel stirrups. The external genitalia was prepped and draped sterilely. The 30 lens was used to introduce the 21-[place] Ríos cystoscopic sheath through the urethra and into the bladder under direct vision. The prostatic urethra showed evidence of mild lateral lobe enlargement. The bladder was examined in its entirety. No abnormalities were seen. Grasping forceps were used to grasp the distal end of the left ureteral stent, which was removed along with the cystoscope. The Ríos semirigid ureteroscope was advanced into the bladder, and the left ureteral orifice was cannulated. The ureteroscope was slowly advanced under direct vision, up to the proximal ureter. No calculi were seen. A 0.035 inch Glidewire was passed through the ureteroscope, which was removed. The Ríos [place] flexible ureteroscope was passed over the wire, up to the left renal pelvis. The wire was removed, and the intrarenal collecting system was examined. No calculi were seen. Pullout ureteroscopy was performed, showing no residual ureteral calculi or areas where it appeared that the development of a stricture was immenint. The ureteroscope was withdrawn and the procedure was terminated. The patient tolerated the procedure well and was taken to the recovery room in stable condition.
[2021-02-14 10:03] VITALS: BP 122/74; PULSE 88; RESP 14
== END 2021-02-14 10:08 | disposition home or self-care (01) ==
LOC: OR 06:15
PROVIDERS: ATTEND Urology
DX: N13.2 Hydronephrosis with renal and ureteral calculous obstruction (principal); Z87.442 Personal history of urinary calculi; E78.5 Hyperlipidemia, unspecified; I10 Essential (primary) hypertension; I25.2 Old myocardial infarction; Z87.19 Personal history of other diseases of the digestive system; Z90.49 Acquired absence of other specified parts of digestive tract; Z93.3 Colostomy status; Z90.89 Acquired absence of other organs; Z95.5 Presence of coronary angioplasty implant and graft; Z98.890 Other specified postprocedural states; Z82.5 Family history of asthma and other chronic lower respiratory diseases; Z79.82 Long term (current) use of aspirin; Z79.899 Other long term (current) drug therapy
CPT/HCPCS: 52310; C1769; C1894; J2250; J1100; J0690; J2405; J2001; J3010; J1885; J2370; J0330; J2704; 76000

== ENCOUNTER 2022-01-18 10:27 | Emergency (ER) | payer OTHER ==
[2022-01-18 10:50] VITALS: RESP 18; TEMP 97.5
[2022-01-18 11:14] LABS: Basophils % (A) 1 %; Eosinophils # (A) 0.2 k/uL (0-0.7); Eosinophils % (A) 3 %; HCT 46.9 % (39.0-53.0); HGB 16.3 gm/dL (13.0-17.5); Lymphocytes # (A) 1.9 k/uL (1.0-4.8); Lymphocytes % (A) 32 %; MCH 28.8 pg (25.0-35.0); MCHC 34.7 g/dL (31.0-37.0); MCV 83.2 fL (80.0-100.0); Mean Platelet Volume 7.5; Monocytes # (A) 0.2 k/uL (0-1.0); Monocytes % (A) 4 %; Neutrophils # (A) 3.5 k/uL (1.3-7.7); Neutrophils % (A) 59 %; Platelet Count 239 k/uL (150-450); RBC 5.64 m/uL (4.30-5.90); RDW 14.9 % (11.5-15.5); WBC 5.9 k/uL (3.8-10.6)
[2022-01-18 11:24] LABS: ALT 28 U/L (4-49); AST 26 U/L (17-59); African American GFR (CKD) >90 (>60 ml/min/1.73 sqM); Alkaline Phosphatase 36 U/L (38-126); Anion Gap 9 mmol/L; Blood Urea Nitrogen 13 mg/dL (9-20); Calcium 9.2 mg/dL (8.4-10.2); Carbon Dioxide 22 mmol/L (22-30); Chloride 105 mmol/L (98-107); Glucose 163 mg/dL (74-99); Magnesium 1.4 mg/dL (1.6-2.3); Non-African American GFR(CKD) >90 (>60 ml/min/1.73 sqM); Potassium 4.2 mmol/L (3.5-5.1); Sodium 136 mmol/L (137-145); Total Bilirubin 0.8 mg/dL (0.2-1.3); Total Protein 7.7 g/dL (6.3-8.2)
--- NOTE | 2022-01-18 11:24 | ED ---
General Adult HPI - General Chief complaint: Chest Pain Stated complaint: HTN,184/119, chest pain, headache Time Seen by Provider: 01/18/22 10:51 Source: patient, family, RN notes reviewed, old records reviewed Mode of arrival: ambulatory Limitations: no limitations - History of Present Illness Initial comments: 42-year-old male presenting with chest pain which began yesterday evening. Pain was left-sided. Describes it as a sharp pain. He's had some vague central chest discomfort. He's been off of his medication for several months which includes his antihypertensive medication. He has a known history of CAD status post stenting. He is currently only on aspirin. He denies severe substernal radiating chest pain. No associated abdominal pain or vomiting. No cough or dyspnea. He had checked his blood pressure and noted to be elevated yesterday and so he reinitiated his blood pressure medication which she had been off of for about 2 months. - Related Data Home Medications Medication Instructions Recorded Confirmed Multivitamins, Thera [Multivitamin 1 tab PO DAILY 01/18/22 01/18/22 (formulary)] Previous Rx's Medication Instructions Recorded Aspirin 81 mg PO DAILY 90 Days #90 tab 01/18/22 Escitalopram [Lexapro] 20 mg PO DAILY 30 Days #30 tab 01/18/22 Fenofibrate [Lofibra] 160 mg PO DAILY 30 Days #30 tab 01/18/22 Melatonin 5 mg PO HS PRN 30 Days #30 tab 01/18/22 Metoprolol Tartrate [Lopressor] 12.5 mg PO DAILY 30 Days #30 tab 01/18/22 lisinopriL 40 mg PO DAILY 30 Days #30 tab 01/18/22 Allergies Allergy/AdvReac Type Severity Reaction Status Date / Time No Known Allergies Allergy Verified 01/18/22 13:58 Review of Systems ROS Statement: Those systems with pertinent positive or pertinent negative responses have been documented in the HPI. ROS Other: All systems not noted in ROS Statement are negative. Past Medical History Past Medical History: Hyperlipidemia, Hypertension, Myocardial Infarction ([place]) Additional Past Medical History / Comment(s): Diverticulitis with p erforation/resection and colostomy recently reversed; multiple kidney stones (ESWL and ureteroscopy); recent admission due to kidney stones Last Myocardial Infarction Date:: 2019 History of Any Multi-Drug Resistant Organisms: None Reported Past Surgical History: Appendectomy, Bowel Resection, Cholecystectomy, Heart Catheterization With Stent, Hernia Repair Additional Past Surgical History / Comment(s): 11/2018 bowel resection with colostomy, 06/10/19 colostomy reversal with stomal hernia repair, basketing and lithotripsies of kidney stones, recent cystoscopy w/lithotripsy & left ureteral stent Past Anesthesia/Blood Transfusion Reactions: Postoperative Nausea & Vomiting (PONV) Date of Last Stent Placement:: June 2020 Past Psychological History: Anxiety Smoking Status: Never smoker - Past Family History Father History Unknown: Yes Additional Family Medical History / Comment(s): unsure of dad's health history Mother Family Medical History: COPD Additional Family Medical History / Comment(s): recently General Exam Limitations: no limitations General appearance: alert, in no apparent distress Head exam: Present: atraumatic, normocephalic Eye exam: Present: normal appearance, PERRL ENT exam: Present: normal exam Neck exam: Present: normal inspection. Absent: tenderness, meningismus Respiratory exam: Present: normal lung sounds bilaterally. Absent: respiratory distress, wheezes Cardiovascular Exam: Present: regular rate, normal rhythm GI/Abdominal exam: Present: soft. Absent: distended, tenderness, guarding Extremities exam: Present: normal inspection, normal capillary refill. Absent: pedal edema Neurological exam: Present: alert, oriented X3, CN II-XII intact. Absent: motor sensory deficit Psychiatric exam: Present: normal affect, normal mood Skin exam: Present: warm, dry, intact. Absent: cyanosis, diaphoretic Course Vital Signs 01/18/22 10:47 Temperature 97.5 F L Pulse Rate 76 Respiratory 18 Rate Blood Pressure 143/93 O2 Sat by Pulse 97 Oximetry EKG Findings - EKG Comments: EKG Findings:: EKG: Sinus rhythm without ST segment elevation, rate of 73, [place] interval 154, QRS duration 106, QTC 399, no ST segment elevation. Medical Decision Making - Medical Decision Making 42-year-old male presenting with an episode of chest pain yesterday evening. Patient has been off his medication for several months and did reinitiate medications yesterday evening after checking his blood pressure noting it to be quite elevated. EKG is sinus rhythm without ST segment elevation. Chest x-ray negative for acute cardiopulmonary disease. He has a normal CBC, normal electrolytes. Mildly elevated blood glucose. His initial troponin is negative. I did plan to admit this patient observation however he preferred serial cardiac enzymes in the emergency department. 3R troponin was repeated which was also negative. 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 Strict return parameters are discussed. - Lab Data Result diagrams: 01/18/22 10:52 01/18/22 10:52 Lab Results 01/18/22 01/18/22 01/18/22 Range/Units 10:52 10:52 10:52 WBC 5.9 (3.8-10.6) k/uL RBC 5.64 (4.30-5.90) m/uL Hgb 16.3 (13.0-17.5) gm/dL Hct 46.9 (39.0-53.0) % MCV 83.2 (80.0-100.0) fL MCH 28.8 (25.0-35.0) pg MCHC 34.7 (31.0-37.0) g/dL RDW 14.9 (11.5-15.5) % Plt Count 239 (150-450) k/uL MPV 7.5 Neutrophils % 59 % Lymphocytes % 32 % Monocytes % 4 % Eosinophils % 3 % Basophils % 1 % Neutrophils # 3.5 (1.3-7.7) k/uL Lymphocytes # 1.9 (1.0-4.8) k/uL Monocytes # 0.2 (0-1.0) k/uL Eosinophils # 0.2 (0-0.7) k/uL Basophils # 0.0 (0-0.2) k/uL PT 10.3 (9.0-12.0) sec INR 0.9 (<1.2) APTT 25.0 (22.0-30.0) sec Sodium 136 L (137-145) mmol/L Potassium 4.2 (3.5-5.1) mmol/L Chloride 105 (98-107) mmol/L Carbon Dioxide 22 (22-30) mmol/L Anion Gap 9 mmol/L BUN 13 (9-20) mg/dL Creatinine 0.78 (0.66-1.25) mg/dL Est GFR (CKD-EPI)AfAm >90 (>60 ml/min/1.73 sqM) Est GFR (CKD-EPI)NonAf >90 (>60 ml/min/1.73 sqM) Glucose 163 H (74-99) mg/dL Calcium 9.2 (8.4-10.2) mg/dL Magnesium 1.4 L (1.6-2.3) mg/dL Total Bilirubin 0.8 (0.2-1.3) mg/dL AST 26 (17-59) U/L ALT 28 (4-49) U/L Alkaline Phosphatase 36 L (38-126) U/L Troponin I (0.000-0.034) ng/mL Total Protein 7.7 (6.3-8.2) g/dL Albumin 4.0 (3.5-5.0) g/dL 01/18/22 01/18/22 Range/Units 10:52 13:42 WBC (3.8-10.6) k/uL RBC (4.30-5.90) m/uL Hgb (13.0-17.5) gm/dL Hct (39.0-53.0) % MCV (80.0-100.0) fL MCH (25.0-35.0) pg MCHC (31.0-37.0) g/dL RDW (11.5-15.5) % Plt Count (150-450) k/uL MPV Neutrophils % % Lymphocytes % % Monocytes % % Eosinophils % % Basophils % % Neutrophils # (1.3-7.7) k/uL Lymphocytes # (1.0-4.8) k/uL Monocytes # (0-1.0) k/uL Eosinophils # (0-0.7) k/uL Basophils # (0-0.2) k/uL PT (9.0-12.0) sec INR (<1.2) APTT (22.0-30.0) sec Sodium (137-145) mmol/L Potassium (3.5-5.1) mmol/L Chloride (98-107) mmol/L Carbon Dioxide (22-30) mmol/L Anion Gap mmol/L BUN (9-20) mg/dL Creatinine (0.66-1.25) mg/dL Est GFR (CKD-EPI)AfAm (>60 ml/min/1.73 sqM) Est GFR (CKD-EPI)NonAf (>60 ml/min/1.73 sqM) Glucose (74-99) mg/dL Calcium (8.4-10.2) mg/dL Magnesium (1.6-2.3) mg/dL Total Bilirubin (0.2-1.3) mg/dL AST (17-59) U/L ALT (4-49) U/L Alkaline Phosphatase (38-126) U/L Troponin I <0.012 <0.012 (0.000-0.034) ng/mL Total Protein (6.3-8.2) g/dL Albumin (3.5-5.0) g/dL Disposition Clinical Impression: Chest pain Disposition: HOME SELF-CARE Condition: Fair Instructions (If sedation given, give patient instructions): Chest Pain (ED) Prescriptions: Aspirin 81 mg PO DAILY 90 Days #90 tab Escitalopram [Lexapro] 20 mg PO DAILY 30 Days #30 tab lisinopriL 40 mg PO DAILY 30 Days #30 tab Fenofibrate [Lofibra] 160 mg PO DAILY 30 Days #30 tab Metoprolol Tartrate [Lopressor] 12.5 mg PO DAILY 30 Days #30 tab Melatonin 5 mg PO HS PRN 30 Days #30 tab PRN Reason: Insomnia Is patient prescribed a controlled substance at d/c from ED?: No Referrals: Blanquita Pimentel DO [Primary Care Provider] - 1-2 days Time of Disposition: 14:35
[2022-01-18 11:27] LABS: INR 0.9 (<1.2); Prothrombin Time 10.3 sec (9.0-12.0)
--- NOTE | 2022-01-18 11:40 | XR ---
EXAMINATION TYPE: XR chest 2V DATE OF EXAM: 01/18/2022 COMPARISON: Chest x-ray June 09, 2020 HISTORY: Heart attack one year ago with hypertension and chest pain. TECHNIQUE: Frontal and lateral views of the chest are obtained. FINDINGS: There is no suspicious new focal air space opacity, pleural effusion, or pneumothorax seen . The cardiac silhouette size remains within normal limits. The osseous structures are intact. IMPRESSION: No acute process.
[2022-01-18 14:45] VITALS: BP 131/91; PULSE 70
== END 2022-01-18 14:49 | disposition home or self-care (01) ==
LOC: EC 10:27
DX: R07.89 Other chest pain (principal); I10 Essential (primary) hypertension; I25.2 Old myocardial infarction
CPT/HCPCS: 36415; 71046; 80053; 83735; 84484; 85025; 85610; 85730; 93005; 99285

== ENCOUNTER 2023-04-24 08:38 | Day surgery (SDC) | payer BC ==
[2023-04-24] MEDS ORDERED: HEPARIN SODIUM,PORCINE 10,000 UNIT in SODIUM CHLORIDE 0.9% 1,000 ML IRRIGATION PRN (09:14)
[2023-04-24] MEDS ORDERED: ASPIRIN 325 MG TAB PO STA (09:14)
[2023-04-24] MEDS ORDERED: HEPARIN SODIUM,PORCINE 2,500 UNIT in SODIUM CHLORIDE 0.9% 250 ML IRRIGATION PRN (09:14)
[2023-04-24] MEDS ORDERED: NITROGLYCERIN SL TABS 0.4 MG TAB SUBLINGUAL PRN ×2 (09:14→13:35)
[2023-04-24] MEDS ORDERED: ATORVASTATIN 80 MG TAB PO STA (09:14)
[2023-04-24] MEDS ORDERED: ALPRAZolam 0.5 MG TAB PO PRN (09:14)
[2023-04-24] MEDS ORDERED: ALPRAZolam 0.25 MG TAB PO PRN (09:14)
[2023-04-24] MEDS ORDERED: SODIUM CHLORIDE 0.9% 1,000 ML IV ONE (09:19)
[2023-04-24 09:27] LABS: Basophils % (A) 1 %; Eosinophils # (A) 0.2 k/uL (0-0.7); Eosinophils % (A) 3 %; HCT 41.4 % (39.0-53.0); HGB 14.8 gm/dL (13.0-17.5); Lymphocytes # (A) 2.3 k/uL (1.0-4.8); Lymphocytes % (A) 40 %; MCH 29.9 pg (25.0-35.0); MCHC 35.7 g/dL (31.0-37.0); MCV 83.8 fL (80.0-100.0); Mean Platelet Volume 7.5; Monocytes # (A) 0.3 k/uL (0-1.0); Monocytes % (A) 5 %; Neutrophils % (A) 50 %; Platelet Count 200 k/uL (150-450); RBC 4.94 m/uL (4.30-5.90); RDW 14.2 % (11.5-15.5); WBC 5.9 k/uL (3.8-10.6)
[2023-04-24 09:37] LABS: African American GFR (CKD) >90 (>60 ml/min/1.73 sqM); Anion Gap 11 mmol/L; Blood Urea Nitrogen 16 mg/dL (9-20); Calcium 9.4 mg/dL (8.4-10.2); Carbon Dioxide 24 mmol/L (22-30); Chloride 102 mmol/L (98-107); Glucose 126 mg/dL (74-99); Non-African American GFR(CKD) >90 (>60 ml/min/1.73 sqM); Sodium 137 mmol/L (137-145)
[2023-04-24] MEDS ORDERED: VERAPAMIL 2.5 MG/ML 2 ML AMP ONE (12:09)
[2023-04-24] MEDS ORDERED: HEPARIN SODIUM 1,000 UN/ML (10ML VL) ONE (12:32)
[2023-04-24] MEDS ORDERED: LIDOCAINE 1% INJ 10MG/ML (5 ML VIAL-PF) SQ ONE (12:43)
[2023-04-24] MEDS ORDERED: MIDAZOLAM 2 MG/2 ML VIAL IV ONE ×2 (12:43→12:58)
[2023-04-24] MEDS ORDERED: VERAPAMIL SYRINGE (5 MG/10 ML) INTRAARTER ONE (12:44)
[2023-04-24] MEDS: HEPARIN SODIUM 1,000 UN/ML (10ML VL) IV ONE ×2 (12:48→12:55)
[2023-04-24] MEDS ORDERED: PRASUGREL 10 MG TAB ONE (12:58)
[2023-04-24] MEDS ORDERED: PRASUGREL 10 MG TAB PO ONE (12:58)
[2023-04-24] MEDS ORDERED: IOPAMIDOL-370 100ML BTL INJ ONE ×2 (13:10→13:30)
[2023-04-24] MEDS ORDERED: RX INFO: IV CONTRAST WAS GIVEN 1 EACH MISC MISCELLANE PRN (13:35)
[2023-04-24] MEDS ORDERED: MELATONIN 5 MG TABLET PO PRN (13:35)
[2023-04-24] MEDS ORDERED: ZOLPIDEM 5 MG TAB PO PRN (13:35)
[2023-04-24] MEDS ORDERED: MAG HYDROX/AL HYDROX/SIMETH 30 ML CUP PO PRN (13:35)
[2023-04-24] MEDS ORDERED: ATROPINE SULFATE 0.1 MG/ML 10ML SYRINGE IV PRN (13:35)
[2023-04-24] MEDS ORDERED: SODIUM CHLORIDE 0.9% 1,000 ML in EMPTY BAG 1 BAG IV SCH (13:45)
[2023-04-24] MEDS: SODIUM CHLORIDE 0.9% 1,000 ML in EMPTY BAG 1 BAG IV SCH ×2 (14:29→18:51)
--- NOTE | 2023-04-24 20:40 | P.PCN ---
Date of Procedure: 04/24/23 Operative Findings: Cardiac catheterization and percutaneous coronary intervention Performing physician Rosalio Lam MD Procedure performed 1. Selective left and right coronary angiogram 2. Left heart catheterization 3. Successful stenting of the proximal left anterior descending artery using 4.5 x 23 mm Xience FRANCISCO with an excellent angiographic results and reduction of stenosis are 99% to 0% 4. Successful stenting of the mid left anterior descending artery using 3.5 x 15 mm Xience FRANCISCO with an excellent angiographic results and reduction of stenosis from 99% to 0% Indication This is a 43-year-old gentleman with coronary artery disease and prior stenting of the LAD as well as severe dyslipidemia who continues to be symptomatic in terms of chest discomfort and he underwent exercise treadmill stress test came in to be abnormal. In the light of that a heart catheterization was advised Approach Right radial artery Complications None Level of sedation Moderate with sedation length of 42 minutes Procedure description After obtaining an informed consent the patient was brought to the cardiac laborer laboratory. The right radial artery was cannulated using micropuncture technique and the micropuncture wire passed easily than I placed a 6 Tamazight sheath. I gave the patient 2 mg of verapamil intra-arterial and 6000 and is of heparin intravenous with additional 2000 throughout the procedure. Continuous ACT monitoring was performed. Selective right and left coronary angiogram performed using JR4 and JL 3.5 catheters in the left heart catheterization was performed using the JR4 catheter which cross the aortic valve then added with that current valve then after that I intervene on the left anterior descending artery. The procedure was completed with no complication Selective coronary angiogram The RCA is a large caliber vessel and the dominant vessel. RCA is distended in the midportion with a mild in-stent restenosis. The left main is angiographically normal. Bifurcates into the LCx and LAD The LCx is a large caliber vessel and nondominant vessel with mild disease only. If stress into an OM which appeared to be angiographically normal The LAD is a large caliber vessel. The proximal LAD as a lesion appeared to be in the range of 80%. The mid LAD has a lesion appeared to be in the range of 50-60%. The LAD gives valve into a diagonal branch which appeared to be angiographically normal. Hemodynamic The LVEDP was about 18 mmHg with no significant gradient across the aortic valve PCI of the LAD Anticoagulation was initiated using heparin with continuous ACT monitoring. Subsequently I did engage the left main using JL 3.5 guiding catheter. I did wire the LAD using an extra wire and the wire was advanced to the distal LAD. Intravascular ultrasound was performed and showed a diameter of the LAD in the proximal portion about 4.5 mm. I predilated using 3.5 mm balloon and then I deployed 4.0 x 23 mm stent where the stent was positioned under fluoroscopy guidance and deployed under fluoroscopy guidance. Subsequently an intravascular ultrasound was performed and showed that the stent was well expanded. An angiogram was performed and showed an area distal to the stented segment appeared to be severely diseased and I did inject nitroglycerin with no improvement at that point I decided to cover that lesion with a stent. I did deploy 3.5 x 15 mm stent with a second stent overlap with the first stent with 2 mm. After that I did we will angioplasty of the area of overlap using the stent balloon. Final angiogram was performed and showed an excellent angiographic results and the procedure was completed with no complication Conclusion 1. Mild in-stent restenosis of the RCA in the midportion 2. Severe disease involving the proximal and mid LAD. The performed successful stenting of the proximal and mid LAD 3. Mildly elevated left-sided filling pressure Postprocedure management Continue dual antiplatelet therapy Aggressive cholesterol control Follow-up with the patient
[2023-04-24] MEDS ORDERED: ATORVASTATIN 40 MG TAB PO SCH (21:00)
[2023-04-25] MEDS: SODIUM CHLORIDE 0.9% 1,000 ML in EMPTY BAG 1 BAG IV SCH (06:06)
[2023-04-25 07:05] LABS: African American GFR (CKD) >90 (>60 ml/min/1.73 sqM); Non-African American GFR(CKD) >90 (>60 ml/min/1.73 sqM)
--- NOTE | 2023-04-25 07:58 | P.DS ---
Providers Attending physician: Rosalio Lam Consults: 04/24/23 13:36 Consult Physician Routine Consulting Provider: [facility] Consult Reason/Comments: Post Interventional patient Do you want consulting provider notified?: Already Contacted Primary care physician: Nicola Roche [place] [facility] Course: The patient is a pleasant 43-year-old gentleman who was admitted to the hospital yesterday and underwent a heart catheterization and found to have severe disease involving the left anterior descending artery where he underwent stenting of the LAD in the proximal and midportion. He tolerated the procedure very well. He was seen today. He is asymptomatic. He is hemodynamically stable. The right radial site is soft and nontender with no bruises. He is in regular rhythm with clear breathing sounds bilaterally and no lower extremity edema noted and good right radial site. The patient is going to be discharged on dual antiplatelet therapy and I'll follow-up with the patient next week in the office Plan - Discharge Summary Discharge Rx Participant: No New Discharge Prescriptions: New Prasugrel [Effient] 10 mg PO DAILY #90 tablet Continue Aspirin 81 mg PO DAILY 90 Days #90 tab Escitalopram [Lexapro] 20 mg PO DAILY 30 Days #30 tab lisinopriL 40 mg PO DAILY 30 Days #30 tab Fenofibrate [Lofibra] 160 mg PO DAILY 30 Days #30 tab Melatonin 5 mg PO HS PRN 30 Days #30 tab PRN Reason: Insomnia Atorvastatin [Lipitor] 40 mg PO HS Multivitamins, Thera [Multivitamin (formulary)] 1 tab PO DAILY Metoprolol Tartrate [Lopressor] 12.5 mg PO DAILY 30 Days #30 tab Discharge Medication List Aspirin 81 mg PO DAILY 90 Days #90 tab 01/18/22 [Rx] Escitalopram [Lexapro] 20 mg PO DAILY 30 Days #30 tab 01/18/22 [Rx] Fenofibrate [Lofibra] 160 mg PO DAILY 30 Days #30 tab 01/18/22 [Rx] Melatonin 5 mg PO HS PRN 30 Days #30 tab 01/18/22 [Rx] Metoprolol Tartrate [Lopressor] 12.5 mg PO DAILY 30 Days #30 tab 01/18/22 [Rx] Multivitamins, Thera [Multivitamin (formulary)] 1 tab PO DAILY 01/18/22 [History] lisinopriL 40 mg PO DAILY 30 Days #30 tab 01/18/22 [Rx] Atorvastatin [Lipitor] 40 mg PO HS 04/24/23 [History] Prasugrel [Effient] 10 mg PO DAILY #90 tablet 04/25/23 [Rx] Follow up Appointment(s)/Referral(s): Rosalio Lam MD [STAFF PHYSICIAN] - 1 Week
[2023-04-25 08:04] VITALS: BP 129/74; PULSE 66; RESP 14; TEMP 98
[2023-04-25] MEDS ORDERED: ASPIRIN 81 MG PO SCH (09:00)
[2023-04-25] MEDS ORDERED: ESCITALOPRAM 20 MG TAB PO SCH (09:00)
[2023-04-25] MEDS ORDERED: PRASUGREL 10 MG TAB PO SCH (09:00)
[2023-04-25] MEDS ORDERED: lisinopriL 10 MG TAB PO SCH (09:00)
[2023-04-25] MEDS ORDERED: lisinopriL 20 MG TAB PO SCH (09:00)
[2023-04-25] MEDS ORDERED: METOPROLOL TARTRATE 12.5 MG TAB PO SCH (09:00)
[2023-04-25] MEDS ORDERED: MULTIVITAMINS, THERA 1 EACH TAB PO SCH (09:00)
[2023-04-25] MEDS ORDERED: FENOFIBRATE 160 MG TAB PO SCH (09:00)
== END 2023-04-25 09:28 | disposition home or self-care (01) ==
LOC: CATHCVL 08:38 → 6NMEDSUR 14:16 → CATHCVL 04-25 09:28
PROVIDERS: ATTEND Internal Medicine Interventional Cardiology
DX: I25.10 Atherosclerotic heart disease of native coronary artery without angina pectoris (principal); E78.5 Hyperlipidemia, unspecified
CPT/HCPCS: 92978; 93458; 80048; 82565; 85025; C9600; C1887 ×2; C1769 ×2; C1894; C1725 ×2; C1753; C1874 ×2; J2250; J2001; J1644; Q9967

== ENCOUNTER 2024-02-29 11:45 | Emergency (ER) | payer BC, OTHER ==
[2024-02-29 12:20] VITALS: RESP 18; TEMP 98.2
--- NOTE | 2024-02-29 13:33 | ED ---
Abdominal Pain HPI - General Source: patient, RN notes reviewed, old records reviewed Mode of arrival: ambulatory Limitations: no limitations <Axel Diaz - Last Filed: 02/29/24 13:32> - General Source: RN notes reviewed <Jing Ortez - Last Filed: 02/29/24 16:52> - General Chief Complaint: Abdominal Pain Stated Complaint: Abd pain Time Seen by Provider: 02/29/24 14:15 - History of Present Illness Initial Comments: 44 male to the ED c/o abd pain, weakness, NV in middle of abdomen, history of significant abdominal surgery, ostomy from Diverticulitis, pain started last night and currently worsening. Patient also has NVD, positive BM today, no fever. (Axel Diaz) 44-year-old male with history of appendectomy, cholecystectomy, bowel resection with colostomy, and diverticulitis presenting to the ER with chief complaint of abdominal pain x 1 day. Describes the pain as a burning and squeezing sensation described as vertical line that goes down the center of his abdomen. States he has had this pain on and off for several months but never this severe. Patient states he was at daughter's softball game last night when this pain gradually came on. States the pain is worse with movement and bending forward and is relieved with laying flat. Last bowel movement was this morning and was normal. Admits mild nausea but no vomiting. Endorses 4 out of 10 pain currently at rest. He is tolerating orals today well. States food intake does not affect pain. (Jing Ortez) - Related Data Home Medications Medication Instructions Recorded Confirmed Atorvastatin [Lipitor] 80 mg PO HS 02/29/24 02/29/24 Fenofibrate Nanocrystallized 145 mg PO DAILY 02/29/24 02/29/24 [Fenofibrate] Metoprolol Tartrate [Lopressor] 25 mg PO BID 02/29/24 02/29/24 lisinopriL [Zestril] 5 mg PO DAILY 02/29/24 02/29/24 Previous Rx's Medication Instructions Recorded Aspirin 81 mg PO DAILY 90 Days #90 tab 01/18/22 Prasugrel [Effient] 10 mg PO DAILY #90 tablet 04/25/23 Ibuprofen [Motrin] 600 mg PO Q8HR PRN #30 tab 02/29/24 Allergies Allergy/AdvReac Type Severity Reaction Status Date / Time No Known Allergies Allergy Verified 02/29/24 16:09 Review of Systems ROS Other: All systems not noted in ROS Statement are negative. <Axel Diaz - Last Filed: 02/29/24 13:32> ROS Other: All systems not noted in ROS Statement are negative. <Wanda Ortezna - Last Filed: 02/29/24 16:52> ROS Statement: Those systems with pertinent positive or pertinent negative responses have been documented in the HPI. Past Medical History Past Medical History: Hyperlipidemia, Hypertension, Myocardial Infarction (MO) Additional Past Medical History / Comment(s): Diverticulitis with perforation/resection and colostomy reversed; multiple kidney stones (ESWL and ureteroscopy);,Covid infection 2020, tightness in chest that comes in goes when active or anxious per pt Last Myocardial Infarction Date:: 2019 History of Any Multi-Drug Resistant Organisms: None Reported Past Surgical History: Appendectomy, Bowel Resection, Cholecystectomy, Heart Catheterization With Stent, Hernia Repair Additional Past Surgical History / Comment(s): 11/2018 bowel resection with colostomy, 06/10/19 colostomy reversal with stomal hernia repair, basketing and lithotripsies of kidney stones, recent cystoscopy w/lithotripsy & left ureteral stent,heart cath 1 stent Past Anesthesia/Blood Transfusion Reactions: No Reported Reaction, Postoperative Nausea & Vomiting (PONV) Additional Past Anesthesia/Blood Transfusion Reaction / Comment(s): no hx blood transfusion Date of Last Stent Placement:: jun 2020 april 24 2023 Past Psychological History: Anxiety Smoking Status: Never smoker Past Alcohol Use History: Occasional Past Drug Use History: Marijuana - Past Family History Father History Unknown: Yes Additional Family Medical History / Comment(s): unsure of dad's health history Mother Family Medical History: COPD Additional Family Medical History / Comment(s): recently <Axel Diaz - Last Filed: 02/29/24 13:32> General Exam Limitations: no limitations General appearance: alert, in no apparent distress Head exam: Present: atraumatic, normocephalic, normal inspection Eye exam: Present: normal appearance, PERRL, EOMI. Absent: scleral icterus, conjunctival injection, periorbital swelling ENT exam: Present: normal exam, mucous membranes moist Neck exam: Present: normal inspection. Absent: tenderness, meningismus, lymphadenopathy Respiratory exam: Present: normal lung sounds bilaterally. Absent: respiratory distress, wheezes, rales, rhonchi, stridor Cardiovascular Exam: Present: regular rate, normal rhythm, normal heart sounds. Absent: systolic murmur, diastolic murmur, rubs, gallop, clicks GI/Abdominal exam: Present: soft, normal bowel sounds. Absent: distended, tenderness, guarding, rebound, rigid Extremities exam: Present: normal inspection, full ROM, normal capillary refill. Absent: tenderness, pedal edema, joint swelling, calf tenderness Back exam: Present: normal inspection Neurological exam: Present: alert, oriented X3, CN II-XII intact Psychiatric exam: Present: normal affect, normal mood Skin exam: Present: warm, dry, intact, normal color. Absent: rash <Axel Diaz - Last Filed: 02/29/24 13:32> General appearance: alert, in no apparent distress Head exam: Present: atraumatic, normocephalic, normal inspection Eye exam: Present: normal appearance, PERRL, EOMI. Absent: scleral icterus, conjunctival injection, periorbital swelling ENT exam: Present: normal exam, mucous membranes moist Respiratory exam: Present: normal lung sounds bilaterally. Absent: respiratory distress, wheezes, rales, rhonchi, stridor Cardiovascular Exam: Present: regular rate, normal rhythm, normal heart sounds. Absent: systolic murmur, diastolic murmur, rubs, gallop, clicks GI/Abdominal exam: Present: soft, normal bowel sounds, other. Absent: distended, tenderness, guarding, rebound, rigid, pulsatile mass, hernia (No skin changes or discolorations) Extremities exam: Present: normal inspection, full ROM, normal capillary refill. Absent: tenderness, pedal edema, joint swelling, calf tenderness Neurological exam: Present: alert, oriented X3 Psychiatric exam: Present: normal affect, normal mood Skin exam: Present: warm, dry, intact, normal color. Absent: rash <Jing Ortez - Last Filed: 02/29/24 16:52> Course <Axel Diaz - Last Filed: 02/29/24 13:32> Vital Signs 02/29/24 11:56 Temperature 98.2 F Pulse Rate 62 Respiratory 18 Rate Blood Pressure 113/71 O2 Sat by Pulse 98 Oximetry - Reevaluation(s) Reevaluation #1: 02/29/24 13:33 QN completed by myself Dr Diaz (Axel Diaz) Medical Decision Making - Lab Data Result diagrams: 02/29/24 14:16 02/29/24 14:16 <Jing Ortez - Last Filed: 02/29/24 16:52> - Medical Decision Making Was pt. sent in by a medical professional or institution (, PA, AIR TWISTER WINDER, urgent care, hospital, or prison...) When possible be specific @ -No Did you speak to anyone other than the patient for history (EMS, parent, family, police, friend...)? What history was obtained from this source @ -Patient's supplemented history Did you review nursing and triage notes (agree or disagree)? Why? @ -I reviewed and agree with nursing and triage notes Were old charts reviewed (outside hosp., previous admission, EMS record, old EKG, old radiological studies, urgent care reports/EKG's, prison records)? Report findings @ -No old charts were reviewed Differential Diagnosis (chest pain, altered mental status, abdominal pain women, abdominal pain men, vaginal bleeding, weakness, fever, dyspnea, syncope, headache, dizziness, GI bleed, back pain, seizure, CVA, palpatations, mental health, musculoskeletal)? @ -Differential Abdominal Pain Men: Appendicitis, cholecystitis, diverticulosis, ischemic bowel, pancreatitis, he patitis, UTI, gastroenteritis, AAA, incarcerated hernia, bowel obstruction, constipation, inflammatory bowel, hepatitis, peptic ulcer disease, splenic infarction, perforated viscus, testicular torsion, this is not meant to be an all-inclusive list EKG interpreted by me (3pts min.). @ -None X-rays interpreted by me (1pt min.). @ -None done CT interpreted by me (1pt min.). @ -CT abdomen pelvis negative for acute process U/S interpreted by me (1pt. min.). @ -None done What testing was considered but not performed or refused? (CT, X-rays, U/S, labs)? Why? @ -None What meds were considered but not given or refused? Why? @ -None Did you discuss the management of the patient with other professionals (professionals i.e. , PA, [employer] TWISTER W[employer]ER, lab, RT, psych nurse, delinquency prevention social worker, pattern layout worker, teacher, gift officer, case therapist)? Give summary @ -No Was smoking cessation discussed for >3mins.? @ -No Was critical care preformed (if so, how long)? @ -No Were there social determinants of health that impacted care today? How? (Homelessness, low income, unemployed, alcoholism, drug addiction, transportation, low edu. Level, literacy, decrease access to med. care, shelter, rehab)? @ -No Was there de-escalation of care discussed even if they declined (Discuss DNR or withdrawal of care, Hospice)? DNR status @ -No What co-morbidities impacted this encounter? (DM, HTN, Smoking, COPD, CAD, Cancer, CVA, ARF, Chemo, Hep., AIDS, mental health diagnosis, sleep apnea, morbid obesity)? @ -None Was patient admitted / discharged? Hospital course, mention meds given and route, prescriptions, significant lab abnormalities, going to OR and other pertinent info. @ -Patient was discharged. Patient was seen and evaluated for abdominal pain x 1 day. Vitals are stable and examination is unremarkable. Patient is tolera ting orals. Patient is given fluids and Zofran. Lab work and CT scan of abdomen is unremarkable. Discussed with patient there is no sign of emergent etiology of pain at this time. Strict return symptoms discussed. Follow-up with GI doctor within the week. Patient discharged in stable condition. Case discussed with Dr. Pimentel. Undiagnosed new problem with uncertain prognosis? @ -No Drug Therapy requiring intensive monitoring for toxicity (Heparin, Nitro, Insulin, Cardizem)? @ -No Were any procedures done? @ -No Diagnosis/symptom? @ -Abdominal pain Acute, or Chronic, or Acute on Chronic? @ -Acute Uncomplicated (without systemic symptoms) or Complicated (systemic symptoms)? @ -Uncomplicated Side effects of treatment? @ -No Exacerbation, Progression, or Severe Exacerbation? @ -No Poses a threat to life or bodily function? How? (Chest pain, [place], [place], pneumonia, PE, COPD, DKA, ARF, appy, cholecystitis, CVA, Diverticulitis, Homicidal, Suicidal, threat to staff... and all critical care pts) @ -No (Ortez,Jing) - Lab Data Lab Results 02/29/24 02/29/24 02/29/24 Range/Units 14:16 14:16 14:16 WBC 8.2 (3.8-10.6) k/uL RBC 5.25 (4.30-5.90) m/uL Hgb 15.0 (13.0-17.5) gm/dL Hct 44.8 (39.0-53.0) % MCV 85.4 (80.0-100.0) fL MCH 28.5 (25.0-35.0) pg MCHC 33.4 (31.0-37.0) g/dL RDW 13.9 (11.5-15.5) % Plt Count 267 (150-450) k/uL MPV 7.4 Neutrophils % 51 % Lymphocytes % 39 % Monocytes % 5 % Eosinophils % 3 % Basophils % 1 % Neutrophils # 4.1 (1.3-7.7) k/uL Lymphocytes # 3.2 (1.0-4.8) k/uL Monocytes # 0.4 (0-1.0) k/uL Eosinophils # 0.2 (0-0.7) k/uL Basophils # 0.1 (0-0.2) k/uL PT (10.0-12.5) sec INR (<1.2) APTT (22.0-30.0) sec Sodium 140 (137-145) mmol/L Potassium 4.6 (3.5-5.1) mmol/L Chloride 105 (98-107) mmol/L Carbon Dioxide 25 (22-30) mmol/L Anion Gap 10 mmol/L BUN 17 (9-20) mg/dL Creatinine 0.98 (0.66-1.25) mg/dL Est GFR (CKD-EPI)AfAm >90 (>60 ml/min/1.73 sqM) Est GFR (CKD-EPI)NonAf >90 (>60 ml/min/1.73 sqM) Glucose 99 (74-99) mg/dL Plasma Lactic Acid Ab (0.7-2.0) mmol/L Calcium 9.6 (8.4-10.2) mg/dL Total Bilirubin 0.6 (0.2-1.3) mg/dL AST 48 (17-59) U/L ALT 57 H (4-49) U/L Alkaline Phosphatase 30 L (38-126) U/L Total Protein 7.7 (6.3-8.2) g/dL Albumin 4.6 (3.5-5.0) g/dL Lipase 237 (23-300) U/L Urine Color Colorless Urine Appearance Clear (Clear) Urine pH 5.5 (5.0-8.0) Ur Specific Haslet 1.018 (1.001-1.035) Urine Protein Negative (Negative) Urine Glucose (UA) Negative (Negative) Urine Ketones Negative (Negative) Urine Blood Negative (Negative) Urine Nitrite Negative (Negative) Urine Bilirubin Negative (Negative) Urine Urobilinogen <2.0 (<2.0) mg/dL Ur Leukocyte Esterase Negative (Negative) 02/29/24 02/29/24 Range/Units 14:16 14:16 WBC (3.8-10.6) k/uL RBC (4.30-5.90) m/uL Hgb (13.0-17.5) gm/dL Hct (39.0-53.0) % MCV (80.0-100.0) fL MCH (25.0-35.0) pg MCHC (31.0-37.0) g/dL RDW (11.5-15.5) % Plt Count (150-450) k/uL MPV Neutrophils % % Lymphocytes % % Monocytes % % Eosinophils % % Basophils % % Neutrophils # (1.3-7.7) k/uL Lymphocytes # (1.0-4.8) k/uL Monocytes # (0-1.0) k/uL Eosinophils # (0-0.7) k/uL Basophils # (0-0.2) k/uL PT 10.6 (10.0-12.5) sec INR 1.0 (<1.2) APTT 23.5 (22.0-30.0) sec Sodium (137-145) mmol/L Potassium (3.5-5.1) mmol/L Chloride (98-107) mmol/L Carbon Dioxide (22-30) mmol/L Anion Gap mmol/L BUN (9-20) mg/dL Creatinine (0.66-1.25) mg/dL Est GFR (CKD-EPI)AfAm (>60 ml/min/1.73 sqM) Est GFR (CKD-EPI)NonAf (>60 ml/min/1.73 sqM) Glucose (74-99) mg/dL Plasma Lactic Acid Ab 1.1 (0.7-2.0) mmol/L Calcium (8.4-10.2) mg/dL Total Bilirubin (0.2-1.3) mg/dL AST (17-59) U/L ALT (4-49) U/L Alkaline Phosphatase (38-126) U/L Total Protein (6.3-8.2) g/dL Albumin (3.5-5.0) g/dL Lipase (23-300) U/L Urine Color Urine Appearance (Clear) Urine pH (5.0-8.0) Ur Specific Haslet (1.001-1.035) Urine Protein (Negative) Urine Glucose (UA) (Negative) Urine Ketones (Negative) Urine Blood (Negative) Urine Nitrite (Negative) Urine Bilirubin (Negative) Urine Urobilinogen (<2.0) mg/dL Ur Leukocyte Esterase (Negative) Disposition <Axel Diaz - Last Filed: 02/29/24 13:32> Is patient prescribed a controlled substance at d/c from ED?: No Time of Disposition: 16:45 <Jing Ortez - Last Filed: 02/29/24 16:52> Clinical Impression: Abdominal pain Disposition: HOME SELF-CARE Condition: Stable Instructions (If sedation given, give patient instructions): Abdominal Pain (ED) Additional Instructions: Follow-up with GI doctor within the week. Please return to the Emergency Department if symptoms worsen or any other concerns. Prescriptions: Ibuprofen [Motrin] 600 mg PO Q8HR PRN #30 tab PRN Reason: Pain Referrals: Nicola Roche MD [Primary Care Provider] - 1-2 days
[2024-02-29] MEDS: SODIUM CHLORIDE 0.9% 1,000 ML IV STA (14:17)
[2024-02-29] MEDS: ONDANSETRON 4 MG/2 ML VIAL IVP STA (14:18)
[2024-02-29] MEDS: PANTOPRAZOLE 40 MG/10 ML VIAL IVP STA (14:18)
[2024-02-29 14:28] LABS: Basophils # (A) 0.1 k/uL (0-0.2); Basophils % (A) 1 %; Eosinophils # (A) 0.2 k/uL (0-0.7); Eosinophils % (A) 3 %; HCT 44.8 % (39.0-53.0); Lymphocytes # (A) 3.2 k/uL (1.0-4.8); Lymphocytes % (A) 39 %; MCH 28.5 pg (25.0-35.0); MCHC 33.4 g/dL (31.0-37.0); MCV 85.4 fL (80.0-100.0); Mean Platelet Volume 7.4; Monocytes # (A) 0.4 k/uL (0-1.0); Monocytes % (A) 5 %; Neutrophils # (A) 4.1 k/uL (1.3-7.7); Neutrophils % (A) 51 %; Platelet Count 267 k/uL (150-450); RBC 5.25 m/uL (4.30-5.90); RDW 13.9 % (11.5-15.5); WBC 8.2 k/uL (3.8-10.6)
[2024-02-29 14:37] LABS: Appearance,Urine Clear (Clear); Bilirubin,Urine Negative (Negative); Blood,Urine Negative (Negative); Color,Urine Colorless; Glucose,Urine (UA) Negative (Negative); Ketones,Urine Negative (Negative); Leukocyte Esterase,Urine Negative (Negative); Nitrite,Urine Negative (Negative); PH, Urine 5.5 (5.0-8.0); Protein,Urine Negative (Negative); Specific Gravity,Urine 1.018 (1.001-1.035); Urobilinogen,Urine <2.0 mg/dL (<2.0)
[2024-02-29 14:40] LABS: ALT 57 U/L (4-49); AST 48 U/L (17-59); African American GFR (CKD) >90 (>60 ml/min/1.73 sqM); Albumin 4.6 g/dL (3.5-5.0); Alkaline Phosphatase 30 U/L (38-126); Anion Gap 10 mmol/L; Blood Urea Nitrogen 17 mg/dL (9-20); Calcium 9.6 mg/dL (8.4-10.2); Carbon Dioxide 25 mmol/L (22-30); Chloride 105 mmol/L (98-107); Glucose 99 mg/dL (74-99); Lipase 237 U/L (23-300); Non-African American GFR(CKD) >90 (>60 ml/min/1.73 sqM); Partial Thromboplastin Time 23.5 sec (22.0-30.0); Potassium 4.6 mmol/L (3.5-5.1); Prothrombin Time 10.6 sec (10.0-12.5); Sodium 140 mmol/L (137-145); Total Bilirubin 0.6 mg/dL (0.2-1.3); Total Protein 7.7 g/dL (6.3-8.2)
--- NOTE | 2024-02-29 16:31 | CT ---
EXAMINATION TYPE: CT abdomen pelvis w con DATE OF EXAM: 02/29/2024 COMPARISON: 01/23/2021 INDICATION: RLQ abdominal pain x 2 days. history of diverticulitis. DLP: 1798 mGycm, Automated exposure control for dose reduction was used. CONTRAST: 100 mL of Isovue 300. Study performed without Oral Contrast TECHNIQUE: Axial images were obtained from above the diaphragm to the pubic rami in the axial plane a t 5 mm thick sections. Reconstructed images are reviewed on the computer in the coronal plane. FINDINGS: Limited CT sections are obtained the lung bases. The lung bases are clear. CT ABDOMEN: Liver: There is moderate fatty infiltration of the liver. No discrete masses are evident. Spleen: Normal Pancreas: Normal Adrenal glands: The adrenal glands are normal. Gallbladder: Surgically absent Kidneys: No masses are evident. No hydronephrosis is present. No cysts are present. There is punct ate nonobstructing renal stone in the posterior lateral mid right kidney. Aorta: Vascular calcification is within the aorta. Inferior vena cava: Normal. CT PELVIS: There is an anterior abdominal wall hernia in the periumbilical region. This is wide but c ontains some loops of small bowel. No obstruction is identified. There are scattered diverticuli through the colon. No adjacent inflammatory change is evident to sugg est acute diverticulitis. There is prior bowel surgery within the mid sigmoid colon. There are loops of bowel which are incompletely distended or lack oral contrast limiting their evaluation. Appendix: Not identified. No dilated tubular structure or inflammatory changes evident. Urinary bladder: Normal. Genitourinary structures: The prostate appears unremarkable. Osseous structures: No suspicious lytic or sclerotic lesions. IMPRESSION: 1. Nonvisualized appendix. No suspicious dilated tubular structure or inflammatory change is evident . Correlate with the surgical history. Clinical management of any suspected appendicitis is recommend ed. 2. Diffuse colonic diverticuli without adjacent inflammatory changes. No acute diverticulitis radiogr aphically apparent. 3. Nonobstructing right renal stone. 4. Moderate fatty infiltration of the liver
[2024-02-29 17:57] VITALS: BP 126/79; PULSE 76
== END 2024-02-29 17:29 | disposition home or self-care (01) ==
LOC: EC 11:45
DX: K76.0 Fatty (change of) liver, not elsewhere classified (principal); N20.0 Calculus of kidney; Z90.49 Acquired absence of other specified parts of digestive tract; Z86.16 Personal history of COVID-19
CPT/HCPCS: 36415; 80053; 83605; 83690; 85025; 85610; 85730; 81003; 74177; 99284; 96374; 96375; 96361; J2405; C9113; Q9967